=== PATIENT | male | born 1970 | race Caucasian/White ===

== ENCOUNTER 2019-05-01 10:08 | Emergency (ER) | payer OTHER, SELFPAY ==
--- NOTE | ~2019-05-01 | XR_ITS ---
XR chest 1V portable DATE: 05/01/2019 10:47 INDICATION: Anterior chest pain TECHNIQUE: Portable upright AP chest on 05/01/2019 at 1044 hours COMPARISON: 04/29/2013 2 view chest FINDINGS: Normal heart size. No hilar or mediastinal enlargement. No pulmonary infiltrate or consolid ation, pleural effusion or pulmonary vascular congestion or pneumothorax. IMPRESSION: No active cardiopulmonary disease Reviewed, dictated and finalized at location A. ER SERVICE ASSISTANT
[2019-05-01 10:08] VITALS: BP 138/96; PULSE 78; RESP 20; O2SAT 97
--- NOTE | 2019-05-01 10:32 | PC.NURSE ---
report to elan acosta
--- NOTE | 2019-05-01 10:40 | ECG_ITS ---
Measurements Intervals [place] Rate: 89 P: 62 CO: 157 QRS: 73 QRSD: 96 T: 63 QT: 344 QTc: 419 Interpretive Statements SINUS RHYTHM NORMAL ECG Electronically Signed On 05-01-2019 11:18:04 SENIOR OUTSIDE SALES REPRESENTATIVE by Bryan Juares D.O.
[2019-05-01 10:43] LABS: Basophils Absolute Auto 0.06 K/mm3 (0.00-0.10); Basophils Percent Auto 0.6 % (0.0-1.0); Eosinophils Absolute Auto 0.41 K/mm3 (0.02-0.50); Eosinophils Percent Auto 4.3 % (1.0-6.0); Hematocrit 45.4 % (40.0-54.0); Hemoglobin 15.1 g/dL (14.0-18.0); Immature Granulocyte Absolute 0.05 K/mm3 (0.00-0.00); Immature Granulocyte Percent A 0.5 % (0.0-0.0); Lymphocytes Absolute Auto 2.94 K/mm3 (1.10-4.50); Lymphocytes Percent Auto 30.7 % (18.0-42.0); Mean Corpuscular HGB Conc 33.3 g/dL (32.0-36.0); Mean Corpuscular Volume 87.3 fL (78.0-102.0); Mean Platelet Volume 9.3 fl (8.7-11.0); Monocytes Absolute Auto 0.72 K/mm3 (0.10-0.90); Monocytes Percent Auto 7.5 % (2.0-11.0); Neutrophils Absolute Auto 5.4 K/mm3 (1.7-7.2); Neutrophils Percent Auto 56.4 % (50.0-70.0); Platelet Count Result 198 K/mm3 (150-420); White Blood Count 9.6 K/mm3 (4.8-10.8)
[2019-05-01] MEDS: IPRATROPIUM 0.5 MG/ALBUTEROL SULFATE 2.5 MG AMPUL.NEB 3 ML INHALATION (10:54)
[2019-05-01 10:55] VITALS: PULSE 12
[2019-05-01 10:58] LABS: D Dimer 0.22 mg/L (0.19-0.50)
[2019-05-01 11:00] VITALS: PULSE 78; RESP 12
[2019-05-01 11:03] LABS: Alanine Aminotransferase 61 U/L (16-63); Albumin Level 3.5 g/dL (3.4-5.0); Alkaline Phosphatase 76 U/L (46-116); Anion Gap 12.2 mmol/L (7-16); Aspartate Amino Transferase 25 U/L (15-37); Bilirubin,Total 0.4 mg/dL (0.00-1.00); Blood Urea Nitrogen 16 mg/dL (7-18); Calcium 8.5 mg/dL (8.5-10.1); Carbon Dioxide 30 mmol/L (21-32); Chloride 98 mmol/L (98-108); Estimated CRCL calculation 121 ml/min; Estimated Glomerular Filt Rate > 60; Glucose 193 mg/dL (70-99); Osmolality Calculated 288 mOsm/kg (285-295); Potassium 4.2 mmol/L (3.5-5.1); Sodium 136 mmol/L (136-145); Total Protein 7.4 g/dL (6.4-8.2)
[2019-05-01 11:04] LABS: Troponin I < 0.02 ng/mL (0.00-0.056)
[2019-05-01] MEDS: methylPREDNISolone SOD SUCC 125 MG VIAL IV PUSH (11:38)
--- NOTE | 2019-05-01 11:38 | PHAR ---
PT REFUSED IV - SOLU-MEDROL GIVEN IM INJECTION LEFT VG
[2019-05-01 11:39] LABS: Influenza Control Valid (Valid)
[2019-05-01 11:44] VITALS: BP 130/75; PULSE 87; RESP 20; O2SAT 95
--- NOTE | 2019-05-01 11:47 | ED.GENADULT ---
HPI - General Adult General Chief complaint: Chest Pain Stated complaint: chest pains Source: patient and family Mode of arrival: ambulatory Limitations: no limitations History of Present Illness HPI narrative: 48-year-old gentleman that presents with shortness of breath with wheezing chest tightness nonproductive cough with no fever or chills. Has a history of COPD and diabetes was recently seen in surgery for right carpal tunnel surgery and release. Started becoming increasingly short of breath overnight with cough causing pain and with deep inspiration. Currently no chest pain or tightness no abdominal pain no nausea vomiting. Onset (ago): day(s) Location: chest Radiation: non-radiation Severity: moderate Severity scale (1-10): 7 Associated symptoms: cough and shortness of breath Related Data Home Medications Medication Instructions Recorded Confirmed hydrocodone-acetaminophen 1 tablet PO Q4-6H PRN 05/01/19 05/01/19 lisinopril-hydrochlorothiazide 1 tablet PO DAILY 05/01/19 05/01/19 metformin 1,000 mg PO BID 05/01/19 05/01/19 simvastatin 40 mg PO DAILY 05/01/19 05/01/19 Allergies Allergy/AdvReac Type Severity Reaction Status Date / Time No Known Allergies Allergy Verified 05/01/19 11:07 Review of Systems Review of Systems: All systems reviewed & are unremarkable except as noted in HPI and below PMFSH Past Medical History Medical History COPD (chronic obstructive pulmonary disease) Diabetes mellitus HTN (hypertension) Social History Social History Smoking status: Current every day smoker Exam Const: General: no acute distress and alert Orientation/consciousness: patient oriented x3 HENMT: Head: normal to inspection Eyes: Conjunctivae: conjunctivae normal Pupils: Equal, round and reactive pupils present Neck: Neck: normal visual inspection and no lymphadenopathy Chest: Chest palpation & inspection: normal inspection of the chest and abnormal inspection of the chest Resp: Auscultation: wheezes and diminished lung sounds Cardio: Rate: regular rate Rhythm: regular rhythm GI: GI Palp: Yes Soft to palpation Back/Spine/Pelvis: Back: no CVA tenderness Skin: General skin exam: normal color Rashes: no rashes Neuro: General: patient oriented x3 Other: right arm dressed and wrapped status post carpal tunnel surgery Psych: Mental Status: mental status grossly normal Course Course Emergency Course: reassessment of patient's moving air much better O2 sats at night between 95 and 97% less wheezy, patient feels and states that he is more comfortable. Vital Signs Vital signs: Vital Signs Pulse Rate 78 05/01/19 10:08 Respiratory Rate 20 05/01/19 10:08 Blood Pressure 138/96 H 05/01/19 10:08 Pulse Oximetry 97 05/01/19 10:08 Pulse Rate 87 05/01/19 11:44 Respiratory Rate 20 05/01/19 11:44 Blood Pressure 130/75 05/01/19 11:44 Pulse Oximetry 95 05/01/19 11:44 Medical Decision Making Vital Signs Vital Signs: Vital Signs Pulse Rate 78 05/01/19 10:08 Respiratory Rate 05/01/19 10:08 Blood Pressure 138/96 H 05/01/19 10:08 Pulse Oximetry 97 05/01/19 10:08 Pulse Rate 87 05/01/19 11:44 Respiratory Rate 05/01/19 11:44 Blood Pressure 130/75 05/01/19 11:44 Pulse Oximetry 95 05/01/19 11:44 Lab Data Result diagrams: 05/01/19 10:39 05/01/19 10:39 Labs: Lab Results 05/01/19 05/01/19 05/01/19 Range/Units 10:39 10:39 10:39 WBC 9.6 (4.8-10.8) K/mm3 RBC 5.20 (4.70-6.10) M/mm3 Hgb 15.1 (14.0-18.0) g/dL Hct 45.4 (40.0-54.0) % MCV 87.3 (78.0-102.0) fL MCH 29.0 (27.0-31.0) pg MCHC 33.3 (32.0-36.0) g/dL RDW 12.0 (11.6-14.4) % Plt Count 198 (150-420) K/mm3 MPV 9.3 (8.7-11.0) fl Immature Gran % (Auto) 0.5 H (0.0-0.0) % Neut % (Auto) 56.4
[2019-05-01 12:05] VITALS: RESP 20
== END 2019-05-01 12:06 | disposition home or self-care (01) ==
PROVIDERS: Emergency Provider Emergency Medicine
DX: J44.1 Chronic obstructive pulmonary disease with (acute) exacerbation (principal)
CPT/HCPCS: 36415; 71045; 80053; 84484; 85025; 85380; 87804; 93005; 94640; 96374; 99283; 99284; J2930

== ENCOUNTER 2019-05-14 11:02 | Emergency (ER) | payer OTHER, SELFPAY ==
[2019-05-14 11:47] VITALS: BP 146/80; PULSE 102; RESP 20; TEMP 36.5; O2SAT 96
--- NOTE | 2019-05-14 11:51 | ED.WOUNDLAC ---
HPI - Wound/Laceration General Chief Complaint: Wound/Laceration Stated Complaint: tore stitches open Time Seen by Provider: 05/14/19 11:52 Source: patient and RN notes reviewed Mode of arrival: ambulatory Limitations: no limitations History of Present Illness Onset (ago): hour(s) (1) Extremity Location: Right: wrist Place: work Patient tetanus UTD: Yes Context: accidental Associated symptoms: pain Treatments prior to arrival: bandage Related Data Home Medications Medication Instructions Recorded Confirmed hydrocodone-acetaminophen 1 tablet PO Q4-6H PRN 05/01/19 05/14/19 lisinopril-hydrochlorothiazide 1 tablet PO DAILY 05/01/19 05/14/19 metformin 1,000 mg PO BID 05/01/19 05/14/19 simvastatin 40 mg PO DAILY 05/01/19 05/14/19 Allergies Allergy/AdvReac Type Severity Reaction Status Date / Time No Known Allergies Allergy Verified 05/01/19 11:07 Review of Systems Constitutional: Constitutional: Reports no additional constitutional complaints Cardiovascular: Cardiovascular: Reports no additional cardiovascular complaints Respiratory: Respiratory: Reports no additional respiratory complaints Gastrointestinal: Gastrointestinal: Reports no additional gastrointestinal complaints Genitourinary: Genitourinary: Reports no additional male genitourinary complaints Psychiatric: Psychiatric: Reports no additional psychiatric complaints Hematologic/Lymphatic: Hematologic/Lymphatic: Reports no additional hematologic/lymphatic complaints [facility] Past Medical History Medical History (Updated 05/14/19 @ 14:34 by Russell Waller MD) COPD (chronic obstructive pulmonary disease) Diabetes mellitus HTN (hypertension) Surgical History Surgical History (Updated 05/14/19 @ 14:34 by Russell Waller MD) History of carpal tunnel surgery of left wrist Social History Social History Smoking status: Current every day smoker Exam Const: General: healthy appearing, no acute distress and alert Nutritional Appearance: well nourished and obese centrally obese Orientation/consciousness: patient oriented x3 HENMT: Head: normal to inspection Ears: external ears normal Face and sinus: normal facial exam Eyes: Conjunctivae: conjunctivae normal Pupils: Equal, round and reactive pupils present EOM: EOMs intact bilaterally Neck: Neck: normal visual inspection Resp: Effort & Inspection: normal respiratory effort Auscultation: clear to auscultation bilaterally Cardio: Rate: regular rate Rhythm: regular rhythm GI: GI Palp: Yes Soft to palpation and No Tenderness to palpation present (GI) Auscultation: normal bowel sounds Back/Spine/Pelvis: Cervical Spine: cervical ROM normal Thoracic/Lumbar Spine: thoraco-lumbar ROM normal Skin: General skin exam: normal color Rashes: no rashes Wounds: wounds noted incision right volar wrist size (5 cm), without odor and open Neuro: General: patient oriented x3 and moves all extremities Speech: normal speech Extrem: General: normal to inspection and no pedal edema Psych: Appearance: grossly normal and well kempt Mental Status: mental status grossly normal Affect: normal affect Attitude: cooperative Thought content: Yes Normal thought content present Course Vital Signs Vital signs: Vital Signs Temperature 36.5 C 05/14/19 11:47 Pulse Rate 102 H 05/14/19 11:47 Respiratory Rate 20 05/14/19 11:47 Blood Pressure 146/80 H 05/14/19 11:47 Pulse Oximetry 96 05/14/19 11:47 Temperature 36.5 C 05/14/19 11:47 Pulse Rate 102 H 05/14/19 11:47 Respiratory Rate 14 05/14/19 12:26 Blood Pressure 146/80 H 05/14/19 11:47 Pulse Oximetry 96 05/14/19 12:26 Procedures Laceration Laceration 1: Date: 05/14/19 Site: upper extremity (Wrist) Side (If applicable): right Size (cm): 5 Description: irregular and clean Depth: simple, single layer Local Anesthetic: lidocaine
[2019-05-14] MEDS: LIDOCAINE HCL 1% LOCAL INJ 20 ML VIAL (12:02)
--- NOTE | 2019-05-14 12:23 | PC.NURSE ---
4.0 SUTURES X10 TO RIGHT WRIST LACERATION. KIMBERLEY AND DRESSING PLACED TO RIGHT WRIST PER ERP VERBAL ORDERS.
[2019-05-14 12:26] VITALS: RESP 14; O2SAT 96
== END 2019-05-14 12:22 | disposition home or self-care (01) ==
PROVIDERS: Emergency Provider Emergency Medicine; PCP Physician Assistant
DX: S61.511A Laceration without foreign body of right wrist, initial encounter (principal); W45.8XXA Other foreign body or object entering through skin, initial encounter
CPT/HCPCS: 12002; 99282

== ENCOUNTER 2019-12-22 08:24 | Emergency (ER) | payer OTHER, SELFPAY ==
--- NOTE | ~2019-12-22 | XR_ITS ---
EXAMINATION: XR foot LT 2V DATE: 12/22/2019 08:58 INDICATION: Left foot injury. TECHNIQUE: 2 views of left foot were obtained. COMPARISON: None. FINDINGS: Bone alignment is normal. No fracture. There is mild osteoarthritis of first metatarsophala ngeal joint and some of the interphalangeal joints and midfoot joints. There are enthesophytes at the posterior and plantar aspects of calcaneal tuberosity. IMPRESSION: 1. Mild polyarticular osteoarthritis. Reviewed, dictated and finalized at location A.
[2019-12-22 08:30] VITALS: BP 138/86; PULSE 82; RESP 18; TEMP 36.6; O2SAT 97
[2019-12-22] MEDS: KETOROLAC (*BKC) 60 MG/2 ML VIAL IM (09:07)
--- NOTE | 2019-12-22 09:09 | ED.LOWEXIN ---
HPI - Extremity Injury (Lower) General Chief Complaint: Extremity Injury, Lower Stated Complaint: foot ran over by zoecat Source: patient History of Present Illness HPI Narrative: This is a 49-year-old gentleman presents with left anterior foot pain after a large tire rolled over his foot causing pain currently there is some mild swelling with point tenderness has strong brisk pedal pulse on the left with good range of motion no numbness or tingling. Pain level about 6/10. complaint: foot injury Onset (ago): hour(s) Injury: Left: foot Type of Injury: blunt Place: work Severity: moderate Severity scale (1-10): 6 Relieving factors: cold therapy Exacerbating factors: weight bearing and movement Context: direct blow Associated symptoms: swelling Other symptoms: none Related Data Home Medications Medication Instructions Recorded Confirmed hydrocodone-acetaminophen 1 tablet PO Q4-6H PRN 05/01/19 12/22/19 lisinopril-hydrochlorothiazide 1 tablet PO DAILY 05/01/19 12/22/19 metformin 1,000 mg PO BID 05/01/19 12/22/19 simvastatin 40 mg PO DAILY 05/01/19 12/22/19 Allergies Allergy/AdvReac Type Severity Reaction Status Date / Time No Known Allergies Allergy Verified 05/01/19 11:07 Review of Systems Review of Systems: All systems reviewed & are unremarkable except as noted in HPI and below PMFSH Past Medical History Medical History (Updated 12/22/19 @ 09:14 by Franki Mauro MD) COPD (chronic obstructive pulmonary disease) Diabetes mellitus HTN (hypertension) Surgical History Surgical History History of carpal tunnel surgery of left wrist Social History Social History Smoking status: Current every day smoker Exam Const: General: no acute distress Orientation/consciousness: patient oriented x3 HENMT: Head: normal to inspection Eyes: Conjunctivae: conjunctivae normal Pupils: Equal, round and reactive pupils present EOM: EOMs intact bilaterally Neck: Neck: normal visual inspection, no lymphadenopathy and no meningeal signs Chest: Chest palpation & inspection: normal inspection of the chest Resp: Effort & Inspection: normal respiratory effort Auscultation: clear to auscultation bilaterally Cardio: Rate: regular rate Rhythm: regular rhythm GI: GI Palp: Yes Soft to palpation Auscultation: normal bowel sounds Skin: General skin exam: normal color Rashes: no rashes Neuro: General: patient oriented x3 and moves all extremities Extrem: General: normal to inspection Other: Left lower anterior foot tenderness with palpation with mild swelling no bruising has a strong brisk pedal pulse with no numbness or tingling. Psych: Mental Status: mental status grossly normal Course Course Emergency Course: After reassessment with ice to affected left foot and 60 mg IM Toradol the patient's pain is significantly improved, had discussed x-ray findings which were negative and will apply an John wrap and asked the patient to follow-up with his doctor if symptoms persist or worsen. Vital Signs Vital signs: Vital Signs Temperature 36.6 C 12/22/19 08:30 Pulse Rate 82 12/22/19 08:30 Respiratory Rate 18 12/22/19 08:30 Blood Pressure 138/86 12/22/19 08:30 Pulse Oximetry 97 12/22/19 08:30 Temperature 36.6 C 12/22/19 08:30 Pulse Rate 82 12/22/19 08:30 Respiratory Rate 18 12/22/19 08:30 Blood Pressure 138/86 12/22/19 08:30 Pulse Oximetry 97 12/22/19 08:30 Critical Care Time Critical Care Time Critical Care Time: No Discharge Plan Discharge Clinical Impression: Muscle strain of foot Qualifiers: Encounter type: initial encounter Laterality: left Qualified Code(s): S96.912A - Strain of unspecified muscle and tendon at ankle and foot level, left foot, initial encounter Patient Disposition: Home, Self-Care Condition: Stable Instructions: Antibiotic
== END 2019-12-22 09:17 | disposition home or self-care (01) ==
PROVIDERS: Emergency Provider Emergency Medicine; PCP Physician Assistant
DX: S96.912A Strain of unspecified muscle and tendon at ankle and foot level, left foot, initial encounter (principal); W31.89XA Contact with other specified machinery, initial encounter
CPT/HCPCS: 73620; 96372; 99283; J1885

== ENCOUNTER 2020-03-15 11:07 | Emergency (ER) | payer BC, SELFPAY ==
--- NOTE | ~2020-03-15 | XR_ITS ---
EXAMINATION: XR chest 2V DATE: 03/15/2020 11:40 INDICATION: Left chest pain. Cough. TECHNIQUE: Frontal and lateral views of the chest were obtained. COMPARISON: Chest one view 05/01/2019, chest CT 05/08/2013 FINDINGS: The chest demonstrates clear lungs without pneumonia, pleural effusion, or pneumothorax. Th e heart size is normal. IMPRESSION: 1. No acute cardiopulmonary disease. Reviewed, dictated and finalized at location A. HOSTESS
[2020-03-15 11:09] VITALS: BP 128/95; PULSE 83; RESP 14; TEMP 36.8; O2SAT 95
--- NOTE | 2020-03-15 11:09 | ECG_ITS ---
Measurements Intervals [place] Rate: 87 P: 45 DC: 177 QRS: 58 QRSD: 109 T: 60 QT: 366 QTc: 442 Interpretive Statements SINUS RHYTHM INCOMPLETE RIGHT BUNDLE BRANCH BLOCK BASELINE ARTIFACT- I, II, III, AVL BORDERLINE ECG Electronically Signed On 03-15-2020 11:28:10 EDUCATION DEPARTMENT CHAIR by Bryan Juares D.O.
--- NOTE | 2020-03-15 11:15 | ED.CHESTPAIN ---
HPI - Chest Pain General Chief Complaint: Chest Pain Stated Complaint: chest pain Time Seen by Provider: 03/15/20 11:09 Source: patient and RN notes reviewed Mode of arrival: ambulatory Limitations: no limitations History of Present Illness complaint: chest pain Onset (ago): day(s) (2) Timing of current episode: episodic Onset: during exertion Pain location: substernal Pain radiation: none Severity: moderate Quality: tightness and heaviness Relieving factors: nothing Exacerbating factors: exertion Context: recent illness Associated symptoms: cough (Hx/o COPD) Risk Factors Coronary artery disease risk factors: diabetes, smoking history and hypertension Pulmonary embolism risk factors: morbid obesity Related Data Home Medications Medication Instructions Recorded Confirmed lisinopril-hydrochlorothiazide 1 tablet PO DAILY 05/01/19 03/15/20 metformin 1,000 mg PO BID 05/01/19 03/15/20 simvastatin 40 mg PO DAILY 05/01/19 03/15/20 albuterol sulfate 0.63 mg INHALATION Q4-6H PRN 03/15/20 03/15/20 glipizide 5 mg PO QAM 03/15/20 03/15/20 tiotropium bromide [Spiriva with 1 cap INHALATION DAILY 03/15/20 03/15/20 HandiHaler] Allergies Allergy/AdvReac Type Severity Reaction Status Date / Time No Known Allergies Allergy Verified 05/01/19 11:07 Review of Systems Review of Systems: All systems reviewed & are unremarkable except as noted in HPI and below Respiratory: Respiratory: Reports chest congestion, Reports cough and Reports dyspnea PMFSH Past Medical History Medical History (Updated 03/15/20 @ 12:47 by Russell Waller MD) COPD (chronic obstructive pulmonary disease) Diabetes mellitus HTN (hypertension) Surgical History Surgical History History of carpal tunnel surgery of left wrist Social History Social History Smoking status: Current every day smoker Exam Const: General: healthy appearing and no acute distress Nutritional Appearance: well nourished and obese morbidly obese Orientation/consciousness: patient oriented x3 HENMT: Head: normal to inspection Ears: external ears normal Eyes: Conjunctivae: conjunctivae normal Pupils: Equal, round and reactive pupils present EOM: EOMs intact bilaterally Neck: Neck: normal visual inspection Resp: Effort & Inspection: normal respiratory effort Auscultation: rhonchi throughout Cardio: Rate: regular rate Rhythm: regular rhythm GI: GI Palp: Yes Soft to palpation and No Tenderness to palpation present (GI) Auscultation: normal bowel sounds Back/Spine/Pelvis: Cervical Spine: cervical ROM normal Thoracic/Lumbar Spine: thoraco-lumbar ROM normal Skin: General skin exam: normal color Rashes: no rashes Neuro: General: patient oriented x3, moves all extremities and no focal motor deficits Speech: normal speech Gait exam (Neuro): Normal gait present Extrem: General: normal to inspection and no pedal edema Psych: Appearance: grossly normal and well kempt Mental Status: mental status grossly normal Affect: normal affect Attitude: cooperative Thought content: Yes Normal thought content present Course Course Emergency Course: Patient much improved after DuoNeb. He is given IV Solu-Medrol 125 mg prior to discharge. He will be sent home on antibiotics and steroids to follow up with this primary care physician. Vital Signs Vital signs: Vital Signs Temperature 36.8 C 03/15/20 11:09 Pulse Rate 83 03/15/20 11:09 Respiratory Rate 14 03/15/20 11:09 Blood Pressure 128/95 H 03/15/20 11:09 Pulse Oximetry 95 03/15/20 11:09 Temperature 36.8 C 03/15/20 11:09 Pulse Rate 87 03/15/20 12:44 Respiratory Rate 16 03/15/20 12:44 Blood Pressure 125/65 03/15/20 12:44 Pulse Oximetry 95 03/15/20 12:55 MDM - Chest Pain Lab Data Attestation: I reviewed the patient's lab results. Result diagrams: 03/15/20 11:09
[2020-03-15 11:22] VITALS: PULSE 86; RESP 16; O2SAT 97
[2020-03-15] MEDS: IPRATROPIUM 0.5 MG/ALBUTEROL SULFATE 2.5 MG AMPUL.NEB 3 ML INHALATION (11:22)
[2020-03-15 11:26] VITALS: PULSE 89; RESP 16; O2SAT 99
[2020-03-15 11:33] LABS: Basophils Absolute Auto 0.06 K/mm3 (0.00-0.10); Basophils Percent Auto 0.6 % (0.0-1.0); Eosinophils Absolute Auto 0.36 K/mm3 (0.02-0.50); Eosinophils Percent Auto 3.5 % (1.0-6.0); Hematocrit 45.7 % (40.0-54.0); Hemoglobin 15.4 g/dL (14.0-18.0); Immature Granulocyte Absolute 0.05 K/mm3 (0.00-0.00); Immature Granulocyte Percent A 0.5 % (0.0-0.0); Lymphocytes Absolute Auto 2.79 K/mm3 (1.10-4.50); Lymphocytes Percent Auto 26.9 % (18.0-42.0); Mean Corpuscular HGB Conc 33.7 g/dL (32.0-36.0); Mean Corpuscular Hemoglobin 30.3 pg (27.0-31.0); Mean Platelet Volume 9.2 fl (8.7-11.0); Monocytes Percent Auto 6.8 % (2.0-11.0); Neutrophils Absolute Auto 6.4 K/mm3 (1.7-7.2); Neutrophils Percent Auto 61.7 % (50.0-70.0); Platelet Count Result 191 K/mm3 (150-420); Red Blood Count 5.08 M/mm3 (4.70-6.10); Red Cell Distribution Width 11.9 % (11.6-14.4); White Blood Count 10.4 K/mm3 (4.8-10.8)
[2020-03-15] MEDS: ASPIRIN 81 MG CHEWABLE TABLET 324 MG PO (11:40)
[2020-03-15 11:51] LABS: INR 0.9; Prothrombin Time 10.3 Seconds (9.50-12.10)
[2020-03-15 11:52] LABS: Lactic Acid Reflex 3.3 mmol/L (0.4-2.0)
[2020-03-15 11:54] LABS: Alanine Aminotransferase 57 U/L (16-63); Albumin Level 3.6 g/dL (3.4-5.0); Alkaline Phosphatase 85 U/L (46-116); Anion Gap 13 mmol/L (8-16); Aspartate Amino Transferase 25 U/L (15-37); Bilirubin,Total 0.3 mg/dL (0.00-1.00); Blood Urea Nitrogen 11 mg/dL (7-18); Calcium 8.7 mg/dL (8.5-10.1); Carbon Dioxide 27 mmol/L (21-32); Chloride 98 mmol/L (98-108); Estimated CRCL calculation 105 ml/min; Estimated Glomerular Filt Rate > 60; Glucose 220 mg/dL (70-99); Magnesium 1.8 mg/dL (1.8-2.4); Osmolality Calculated 292 mOsm/kg (285-295); Potassium 3.5 mmol/L (3.5-5.1); Sodium 138 mmol/L (136-145); Total Protein 7.5 g/dL (6.4-8.2)
[2020-03-15 11:55] LABS: Troponin I 11.5 ng/L (0.00-60.4)
[2020-03-15 11:55] LABS: BNP 29.7 pg/mL (0-100)
[2020-03-15 11:56] LABS: CRP 0.6 mg/dL (0.0-0.9)
[2020-03-15 12:10] LABS: D Dimer 0.43 mg/L (0.19-0.50)
[2020-03-15] MEDS: methylPREDNISolone SOD SUCC 125 MG VIAL IV PUSH (12:43)
[2020-03-15 12:44] VITALS: BP 125/65; PULSE 87; RESP 16; O2SAT 95
[2020-03-15 12:55] VITALS: O2SAT 95
== END 2020-03-15 12:55 | disposition home or self-care (01) ==
PROVIDERS: Emergency Provider Emergency Medicine
DX: J44.1 Chronic obstructive pulmonary disease with (acute) exacerbation (principal); F17.200 Nicotine dependence, unspecified, uncomplicated
CPT/HCPCS: 36415; 71046; 80053; 83605; 83735; 83880; 84484; 85025; 85380; 85610; 86140; 87040; 87077; 87186; 93005; 94640; 96374; 99283; 99284; A9270; J2930

== ENCOUNTER 2020-04-06 11:35 | Outpatient (CLI) | payer BC, SELFPAY ==
--- NOTE | ~2020-04-06 | XR_ITS ---
EXAMINATION: XR chest 2V 04/06/2020 12:05 INDICATION: Cough and congestion. COPD. PROCEDURE: 2 view chest COMPARISON: 03/15/2020 FINDINGS: The lungs are clear. The cardiomediastinal silhouette is within normal limits. There are no pleural effusions. There is no pneumothorax suspected. IMPRESSION: 1: NO ACUTE CARDIOPULMONARY DISEASE. Reviewed, dictated and finalized at location A. RLEADER
[2020-04-06 12:43] LABS: SARS-CoV-2 Ag Negative (Negative)
== END 2020-04-06 11:36 | disposition home or self-care (01) ==
LOC: CHSLAB 11:38
PROVIDERS: PCP Family Medicine; Visit Provider Family Medicine
DX: J44.9 Chronic obstructive pulmonary disease, unspecified (principal); Z20.828 Contact with and (suspected) exposure to other viral communicable diseases
CPT/HCPCS: 71046; 87426; C9803; U0003

== ENCOUNTER 2020-04-06 11:39 | Outpatient (CLI) | payer BC, SELFPAY ==
[2020-04-06 23:29] LABS: SARS-CoV-2 RNA PCR Negative
== END 2020-04-06 11:40 | disposition home or self-care (01) ==
LOC: CHSLAB 11:40
PROVIDERS: PCP Family Medicine; Visit Provider Family Medicine
DX: J44.9 Chronic obstructive pulmonary disease, unspecified (principal); Z20.828 Contact with and (suspected) exposure to other viral communicable diseases
CPT/HCPCS: C9803; U0003

== ENCOUNTER 2020-08-05 16:54 | Outpatient (CLI) | payer BC, SELFPAY ==
--- NOTE | ~2020-08-05 | XR_ITS ---
EXAMINATION: XR hip RT min 2V DATE: 08/05/2020 17:40 INDICATION: Right hip pain. TECHNIQUE: 2 views of right hip were obtained. COMPARISON: None. FINDINGS: Bone alignment is normal. No fracture. There is mild right hip osteoarthritis. IMPRESSION: 1. Mild right hip osteoarthritis. Reviewed, dictated and finalized at location A.
--- NOTE | ~2020-08-05 | XR_ITS ---
EXAMINATION: XR lumbar spine 2-3V DATE: 08/05/2020 17:41 INDICATION: Low back pain. TECHNIQUE: 3 views of lumbar spine were obtained. COMPARISON: None. FINDINGS: There is 4 degrees levocurvature of lumbar spine. Vertebral body heights are normal. There is mildly decreased disc height at L4-L5. At L5-S1, there is severe bilateral facet joint osteoarthri tis. IMPRESSION: 1. Mild lumbar spondylosis. Reviewed, dictated and finalized at location A. IMPRESSION: 1. Mild lumbar spondylosis.
== END 2020-08-05 16:55 | disposition home or self-care (01) ==
LOC: CHSIMG 16:55
PROVIDERS: PCP Family Medicine; Visit Provider Family Medicine
DX: M25.551 Pain in right hip (principal); M47.26 Other spondylosis with radiculopathy, lumbar region; M16.11 Unilateral primary osteoarthritis, right hip
CPT/HCPCS: 72100; 73502

== ENCOUNTER 2020-08-13 11:26 | Emergency (ER) | payer BC, SELFPAY ==
[2020-08-13 11:37] VITALS: BP 162/106; PULSE 92; RESP 20; TEMP 36.4; O2SAT 95
--- NOTE | 2020-08-13 11:49 | ED.BACK ---
HPI - Back Pain/Injury General Chief Complaint: Back Pain/Injury Stated Complaint: R leg, R hip and back pain Time Seen by Provider: 08/13/20 11:45 Source: patient and family Mode of arrival: ambulatory Limitations: no limitations History of Present Illness HPI Narrative: 49-year-old man with a history of diabetes and hypertension comes in today complaining of right lower back pain that radiates up his back and down his right leg. He states he is also having numbness in his right leg. He states his symptoms are steadily getting worse and is now having difficulty walking due to the pain. Denies any hematuria, dysuria, testicular pain or swelling, fevers or night sweats, nausea or vomiting. States that he had x-rays last week which were unremarkable. MD elicited complaint: back pain Onset (ago): month(s) (1) Timing: constant Severity: severe Quality: sharp Location: right lower back Radiation: right upper leg and right leg below the knee Exacerbating factors: movement and walking Relieving factors: other (rest/position) Associated symptoms: numbness (right leg) and difficulty walking (due to pain) Treatments prior to arrival: NSAIDS and prescription analgesics Related Data Home Medications Medication Instructions Recorded Confirmed lisinopril-hydrochlorothiazide 1 tablet PO DAILY 05/01/19 08/13/20 metformin 1,000 mg PO BID 05/01/19 08/13/20 simvastatin 40 mg PO DAILY 05/01/19 08/13/20 albuterol sulfate 0.63 mg INHALATION Q4-6H PRN 03/15/20 08/13/20 glipizide 7.5 mg PO QAM 03/15/20 08/13/20 cyclobenzaprine 10 mg PO TID 08/13/20 08/13/20 gabapentin 300 mg PO BID 08/13/20 08/13/20 naproxen 500 mg PO BID 08/13/20 08/13/20 tramadol 50 mg PO Q4H PRN 08/13/20 08/13/20 Allergies Allergy/AdvReac Type Severity Reaction Status Date / Time No Known Allergies Allergy Verified 05/01/19 11:07 Review of Systems Review of Systems: All systems reviewed & are unremarkable except as noted in HPI and below Constitutional: Constitutional: Denies chills and Denies fever(s) Eyes: Eyes: Denies change in vision and Denies photophobia ENT: Denies nasal congestion and Denies sore throat Cardiovascular: Cardiovascular: Denies chest pain and Denies radiating jaw, neck or arm pain Respiratory: Respiratory: Denies cough and Denies dyspnea Gastrointestinal: Gastrointestinal: Denies abdominal pain, Denies nausea and Denies vomiting Genitourinary: Genitourinary: Denies hematuria and Denies dysuria Musculoskeletal: Musculoskeletal: Reports back pain, Denies arthralgias, Denies joint swelling and Reports muscle cramps Integumentary/Breasts: Skin/Breast: Denies pruritus, Denies erythema and Denies rash Neurologic: Denies vertigo, Denies dizziness and Denies syncope Hematologic/Lymphatic: Hematologic/Lymphatic: Denies easy bleeding and Denies easy bruising Allergic/Immunologic: Allergic/Immunologic: Denies lip swelling and Denies throat swelling PMFSH Past Medical History Medical History COPD (chronic obstructive pulmonary disease) Diabetes mellitus HTN (hypertension) Surgical History Surgical History History of carpal tunnel surgery of left wrist Social History Social History Smoking status: Current every day smoker Exam Const: General: healthy appearing and alert Nutritional Appearance: obese Orientation/consciousness: patient oriented x3 Other: Moderate to severe acute distress. Resp: Effort & Inspection: normal respiratory effort and not labored Auscultation: no rales, no rhonchi and no wheezes Cardio: Rate: regular rate Rhythm: regular rhythm Heart sounds: no murmurs Skin: General skin exam: normal color, no jaundice and no pallor Rashes: no rashes Neuro: General: patient oriented x3, moves all extremities and no focal motor deficits Speech: n
[2020-08-13] MEDS: KETOROLAC (*BKC) 60 MG/2 ML VIAL IM (11:55)
[2020-08-13] MEDS: HYDROcodone/acetaminophen (*CRX) 5-325 MG TABLET 1 TAB PO (11:56)
[2020-08-13 12:03] LABS: Appearance Urine Clear (Clear); Bilirubin Urine Negative (Negative); Color Urine Yellow (Yellow); Glucose Urine UA Negative (Negative); Ketones Urine Negative (Negative); Leukocyte Esterase Ur Negative (Negative); Nitrate Urine Negative (Negative); Protein Urine Negative (Negative); Specific Grav Ur 1.015 (1.010-1.020); Urobilinogen Urine 0.2 mg/dL (0.2-1.0); pH Urine 8.5 (5.0-8.0)
[2020-08-13 12:05] LABS: Add Urine Microscopic? YES; Bacteria Urine Trace /hpf; Blood Urine Trace-Intact (Negative); RBC Urine 0-2 /hpf (0-2); Squamous Epithelial Cell Urine Rare /hpf (Few); WBC Urine None seen /hpf (0-3)
[2020-08-13 12:45] VITALS: BP 158/106; PULSE 80; RESP 16; O2SAT 96
== END 2020-08-13 12:45 | disposition home or self-care (01) ==
PROVIDERS: Emergency Provider Emergency Medicine; PCP Family Medicine
DX: M54.31 Sciatica, right side (principal)
CPT/HCPCS: 81001; 96372; 99283; A9270; J1885

== ENCOUNTER 2020-08-18 07:21 | Outpatient (CLI) | payer BC, SELFPAY ==
--- NOTE | ~2020-08-18 | MR_ITS ---
EXAMINATION: MR lumbar spine wo con EXAM DATE: 08/18/2020 11:59 INDICATION: Lumbar radiculopathy. Low back pain, right-sided radiculopathy. TECHNIQUE: Multi-sequential, multiplanar MR images of the lumbar spine were obtained without contrast . Sagittal T1, T2, T2 fat saturation images. Axial T2 weighted images. There is no prior study for comparison. FINDINGS: There is mild loss of the L4-5 disc height. The vertebral body and disc heights are otherwi se well maintained. The conus medullaris terminates at the T12 level and has normal signal intensity and morphology. There are no suspicious marrow signal abnormalities. Paraspinal soft tissue is unrem arkable. Level by level evaluation: T12-L1: Disc does not extend beyond the endplate margin. Facet arthropathy: Mild. Neural foraminal stenosis: Mild left. Central canal stenosis: No stenosis. L1-L2: Disc does not extend beyond the endplate margin. Facet arthropathy: Mild. Neural foraminal stenosis: No stenosis. Central canal stenosis: No stenosis. L2-L3: Disc does not extend beyond the endplate margin. Facet arthropathy: Mild to moderate. Neural foraminal stenosis: No stenosis. Central canal stenosis: No stenosis. L3-L4: There is a mild diffuse disc bulge. Facet arthropathy: Mild to moderate. Neural foraminal stenosis: Mild bilateral. Central canal stenosis: Mild. L4-L5: There is a moderate diffuse disc bulge, superimposed central protrusion Facet arthropathy: Moderate. Neural foraminal stenosis: Mild bilateral. Central canal stenosis: Moderate to severe. L5-S1: There is a mild diffuse disc bulge. Facet arthropathy: Moderate to severe right, moderate left. Neural foraminal stenosis: Moderate right, mild left. Central canal stenosis: Mild. IMPRESSION: 1. L4-5 moderate to severe central canal stenosis. 2. Otherwise relatively mild lumbar spondylosis. Reviewed, dictated and finalized at location A.
== END 2020-08-18 07:22 | disposition home or self-care (01) ==
LOC: CHSIMG 07:22
PROVIDERS: PCP Family Medicine; Visit Provider Family Medicine
DX: M54.16 Radiculopathy, lumbar region (principal)
CPT/HCPCS: 72148

== ENCOUNTER 2021-08-25 10:15 | Observation (INO) | payer OTHER, SELFPAY ==
[2021-08-25] VITALS (9 sets, daily range): BP systolic 124–147; BP diastolic 78–102; PULSE 85–109; RESP 16–24; TEMP 36.4–36.6; O2SAT 92–99; BMI 42.3
--- NOTE | ~2021-08-25 | XR_ITS ---
EXAMINATION: XR chest 1V portable DATE: 08/25/2021 10:37 INDICATION: Dyspnea. TECHNIQUE: A single frontal view of the chest was obtained. COMPARISON: Chest 2 views 04/06/2020, chest CT 05/08/2013 FINDINGS: There is no pneumonia, pleural effusion, or pneumothorax. The heart size is normal. IMPRESSION: 1. No acute cardiopulmonary disease. Reviewed, dictated and finalized at location A.
--- NOTE | 2021-08-25 10:26 | ECG_ITS ---
Measurements Intervals [place] Rate: 102 P: 63 UT: 149 QRS: 56 QRSD: 96 T: 65 QT: 319 QTc: 417 Interpretive Statements SINUS TACHYCARDIA DELAYED PRECORDIAL R/S TRANSITION BASELINE ARTIFACT- II, III, AVF BORDERLINE ECG Electronically Signed On 08-25-2021 10:56:42 CDT by Bryan Juares D.O.
[2021-08-25] MEDS: IPRATROPIUM 0.5 MG/ALBUTEROL SULFATE 2.5 MG AMPUL.NEB 3 ML INHALATION (10:37)
[2021-08-25 10:53] LABS: Basophils Absolute Auto 0.08 K/mm3 (0.00-0.10); Basophils Percent Auto 0.7 % (0.0-1.0); Eosinophils Absolute Auto 0.21 K/mm3 (0.02-0.50); Eosinophils Percent Auto 1.9 % (1.0-6.0); Hematocrit 49.3 % (40.0-54.0); Hemoglobin 16.7 g/dL (14.0-18.0); Immature Granulocyte Absolute 0.05 K/mm3 (0.00-0.00); Immature Granulocyte Percent A 0.5 % (0.0-0.0); Lymphocytes Percent Auto 28.4 % (18.0-42.0); Mean Corpuscular HGB Conc 33.9 g/dL (32.0-36.0); Mean Corpuscular Hemoglobin 29.3 pg (27.0-31.0); Mean Corpuscular Volume 86.6 fL (78.0-102.0); Mean Platelet Volume 9.5 fl (8.7-11.0); Monocytes Absolute Auto 0.82 K/mm3 (0.10-0.90); Monocytes Percent Auto 7.5 % (2.0-11.0); Neutrophils Absolute Auto 6.7 K/mm3 (1.7-7.2); Platelet Count Result 219 K/mm3 (150-420); Red Blood Count 5.69 M/mm3 (4.70-6.10); Red Cell Distribution Width 11.6 % (11.6-14.4); White Blood Count 10.9 K/mm3 (4.8-10.8)
[2021-08-25] MEDS: methylPREDNISolone SOD SUCC 125 MG VIAL IV PUSH (10:53)
[2021-08-25 11:06] LABS: D Dimer 0.23 mg/L (0.19-0.50); Partial Thromboplastin Time 26.8 SEC (23.90-30.70); Prothrombin Time 10.6 Seconds (9.50-12.10)
[2021-08-25 11:14] LABS: Alanine Aminotransferase 37 U/L (16-63); Albumin Level 3.5 g/dL (3.4-5.0); Alkaline Phosphatase 103 U/L (46-116); Anion Gap 5 mmol/L (8-16); Aspartate Amino Transferase 12 U/L (15-37); Bilirubin,Total 0.3 mg/dL (0.00-1.00); Blood Urea Nitrogen 18 mg/dL (7-18); Calcium 8.8 mg/dL (8.5-10.1); Carbon Dioxide 29 mmol/L (21-32); Chloride 94 mmol/L (98-108); Estimated CRCL calculation 121 ml/min; Estimated Glomerular Filt Rate > 60; Glucose 296 mg/dL (70-99); NT Pro B Type Natriuretic Pept < 11 pg/mL (0-125); Osmolality Calculated 278 mOsm/kg (285-295); Potassium 4.3 mmol/L (3.5-5.1); Sodium 128 mmol/L (136-145); Total Protein 7.2 g/dL (6.4-8.2); Troponin I 11.9 ng/L (0.00-60.4)
--- NOTE | 2021-08-25 11:27 | ED.SOB ---
HPI - SOB/Dyspnea General Chief Complaint: Shortness of Breath/Dyspnea Stated Complaint: chest pains Source: patient Mode of arrival: ambulatory History of Present Illness HPI Narrative: this is a 50-year-old gentleman with a history of a COPD and tobacco abuse with history of hypertension And diabetes, over the past 2 weeks has been increasingly short of breath with a cough with white mucus production no fever chills over last 24hours the patient has been more short of breath and audible wheezing with no retractions, patient describes some chest discomfort and chest tightness with no abdominal pain no fever chills no nausea vomiting. MD elicited complaint: shortness of breath and cough Pertinent past history: COPD Onset (ago): week(s) Timing: constant Severity: moderate Related Data Home Medications Medication Instructions Recorded Confirmed lisinopril 20 1 tablet PO DAILY 05/01/19 08/13/20 mg-hydrochlorothiazide 12.5 mg tablet metformin 1,000 mg tablet 1,000 mg PO BID 05/01/19 08/13/20 simvastatin 40 mg tablet 40 mg PO DAILY 05/01/19 08/13/20 albuterol sulfate 0.63 mg/3 mL 0.63 mg inhalation Q4-6H PRN 03/15/20 08/13/20 solution for nebulization Shortness Of Breath Or Wheezing glipizide 5 mg tablet, extended 7.5 mg PO QAM 03/15/20 08/13/20 release 24 hr cyclobenzaprine 10 mg tablet 10 mg PO TID 08/13/20 08/13/20 gabapentin 300 mg capsule 300 mg PO BID 08/13/20 08/13/20 naproxen 500 mg tablet 500 mg PO BID 08/13/20 08/13/20 tramadol 50 mg tablet 50 mg PO Q4H PRN Pain 08/13/20 08/13/20 Allergies Allergy/AdvReac Type Severity Reaction Status Date / Time No Known Allergies Allergy Verified 05/01/19 11:07 Review of Systems Review of Systems: All systems reviewed & are unremarkable except as noted in HPI and below PMFSH Past Medical History Medical History COPD (chronic obstructive pulmonary disease) Diabetes mellitus HTN (hypertension) Surgical History Surgical History History of carpal tunnel surgery of left wrist Social History Social History Smoking status: Current every day smoker Exam Const: General: healthy appearing, no acute distress and alert Nutritional Appearance: well nourished Limitations: no limitations and altered mental status HENMT: Head: normal to inspection Eyes: Conjunctivae: conjunctivae normal EOM: EOMs intact bilaterally Neck: Neck: normal visual inspection, no lymphadenopathy and lymphadenopathy Chest: Chest palpation & inspection: normal inspection of the chest Resp: Effort & Inspection: normal respiratory effort Auscultation: wheezes and diminished lung sounds Cardio: Rate: regular rate Rhythm: regular rhythm GI: GI Palp: Yes Soft to palpation Auscultation: normal bowel sounds Urinary Catheter: Urinary Catheter: patent and draining Back/Spine/Pelvis: Back: no CVA tenderness Skin: General skin exam: normal color Rashes: no rashes Wounds: no wounds Neuro: General: patient oriented x3, moves all extremities, no meningeal signs and no focal motor deficits Extrem: General: normal to inspection Psych: Mental Status: mental status grossly normal Course Course Emergency Course: patient states that he is feeling better after he received DuoNebs and IV Solu-Medrol, EKG reviewed with patient as well as his blood work will start IV fluids his sodium was 128 and the rest of his blood work was reviewed with patient. Talked to hospitalist that accepted the patient for admission. Vital Signs Vital signs: Vital Signs Temperature 36.4 C L 08/25/21 10:15 Pulse Rate 109 H 08/25/21 10:15 Respiratory Rate 24 H 08/25/21 10:15 Blood Pressure 124/98 H 08/25/21 10:15 Pulse Oximetry 95 08/25/21 10:15 Oxygen Delivery Room Air 08/25/21 10:15 Temperature 36.4 C L 08/25/21 10:15
[2021-08-25] MEDS: SODIUM CHLORIDE 0.9% IV 1,000 ML 100 ML IV CONT ×2 (12:20→21:49)
[2021-08-25 12:35] LABS: Glucose Point of Care 265 mg/dl (65-105)
[2021-08-25] MEDS: LEVALBUTEROL NEB 1.25 MG/3 ML 2.5 MG INHALATION ×2 (14:05→22:34)
--- NOTE | 2021-08-25 14:14 | PC.NURSE ---
Pt admitted to med surge from ED. Denies pain or SOB. Gait is steady at this time. NS running at 100/ml per H. IV site RAC 18G. He is A/Ox3.
[2021-08-25 16:19] LABS: Glucose Point of Care > 450 mg/dl (65-105)
[2021-08-25] MEDS: GABAPENTIN 300 MG CAPSULE PO (16:34)
--- NOTE | 2021-08-25 16:54 | PC.NURSE ---
Juan Ramon Mandujano, Hospitalist notified of blood sugar result of 490. New order received to give a one time dose of Humalog 15 units.
--- NOTE | 2021-08-25 17:07 | PC.NURSE ---
Sabina, Hospitalist, notified that patient's family requested an order for Ibuprofen for pain. No new order for medication received due to patient's GI bleed.
[2021-08-25] MEDS: NICOTINE (*PBKC) 21 MG PATCH 1 PATCH TRANSDERM (21:03)
[2021-08-25 21:09] LABS: Glucose Point of Care 361 mg/dl (65-105)
[2021-08-26] VITALS: BP 127/74; PULSE 96; RESP 16; TEMP 36.4; O2SAT 94
[2021-08-26] MEDS: ACETAMINOPHEN 325 MG TABLET 650 MG PO (02:33)
[2021-08-26 05:23] LABS: Basophils Absolute Auto 0.01 K/mm3 (0.00-0.10); Basophils Percent Auto 0.1 % (0.0-1.0); Eosinophils Absolute Auto 0.01 K/mm3 (0.02-0.50); Eosinophils Percent Auto 0.1 % (1.0-6.0); Hematocrit 44.2 % (40.0-54.0); Hemoglobin 14.9 g/dL (14.0-18.0); Immature Granulocyte Absolute 0.08 K/mm3 (0.00-0.00); Immature Granulocyte Percent A 0.5 % (0.0-0.0); Lymphocytes Absolute Auto 1.97 K/mm3 (1.10-4.50); Lymphocytes Percent Auto 13.4 % (18.0-42.0); Mean Corpuscular HGB Conc 33.7 g/dL (32.0-36.0); Mean Corpuscular Hemoglobin 29.3 pg (27.0-31.0); Mean Platelet Volume 9.6 fl (8.7-11.0); Monocytes Absolute Auto 0.94 K/mm3 (0.10-0.90); Monocytes Percent Auto 6.4 % (2.0-11.0); Neutrophils Absolute Auto 11.7 K/mm3 (1.7-7.2); Neutrophils Percent Auto 79.5 % (50.0-70.0); Platelet Count Result 186 K/mm3 (150-420); Red Blood Count 5.08 M/mm3 (4.70-6.10); Red Cell Distribution Width 11.4 % (11.6-14.4); White Blood Count 14.7 K/mm3 (4.8-10.8)
[2021-08-26 05:34] LABS: Anion Gap 6 mmol/L (8-16); Blood Urea Nitrogen 16 mg/dL (7-18); Calcium 8.3 mg/dL (8.5-10.1); Carbon Dioxide 28 mmol/L (21-32); Chloride 96 mmol/L (98-108); Estimated CRCL calculation 123 ml/min; Estimated Glomerular Filt Rate > 60; Glucose 263 mg/dL (70-99); Osmolality Calculated 280 mOsm/kg (285-295); Potassium 4.1 mmol/L (3.5-5.1); Sodium 130 mmol/L (136-145)
[2021-08-26] MEDS: LEVALBUTEROL NEB 1.25 MG/3 ML 2.5 MG INHALATION (06:46)
[2021-08-26 06:48] VITALS: PULSE 80; RESP 15; O2SAT 96
[2021-08-26 07:01] VITALS: PULSE 83; RESP 16; O2SAT 99
[2021-08-26 07:44] VITALS: BP 134/89; PULSE 82; RESP 16; TEMP 36.6; O2SAT 96
[2021-08-26] MEDS: SIMVASTATIN 10 MG TABLET 40 MG PO (09:00)
[2021-08-26] MEDS: NICOTINE (*PBKC) 21 MG PATCH 1 PATCH TRANSDERM (09:16)
[2021-08-26] MEDS: GABAPENTIN 300 MG CAPSULE PO (09:17)
[2021-08-26] MEDS: PANTOPRAZOLE 40 MG TABLET PO (09:17)
--- NOTE | 2021-08-26 09:23 | PM.SD2 ---
Same Day Admit/Disch: HPI History of Present Illness Chief complaint: copd exacerbation Narrative: Miguel Caraballo III is a 50 year old male [facility] Past Medical History Medical History COPD (chronic obstructive pulmonary disease) Diabetes mellitus HTN (hypertension) Surgical History Surgical History History of carpal tunnel surgery of left wrist Social History Social History Smoking status: Unknown if ever smoked Alcohol intake: current Drinks per week: 2 Substance use: never Substance use type: does not use Gender identity (if verbalized by the patient): Male Sexual Orientation (if Verbalized by the Patient): Straight or Heterosexual Spiritual care concerns: No Same Day Admit/Disch: Med Pre-admit Medications Home Medications Medication Instructions Recorded Confirmed Type metformin 1,000 mg tablet 1,000 mg PO BID 05/01/19 08/25/21 History simvastatin 40 mg tablet 40 mg PO DAILY 05/01/19 08/25/21 History glipizide 5 mg tablet, extended 7.5 mg PO QAM 03/15/20 08/25/21 History release 24 hr gabapentin 300 mg capsule 300 mg PO BID 08/13/20 08/25/21 History irbesartan 150 1 tablet PO DAILY 08/25/21 08/25/21 History mg-hydrochlorothiazide 12.5 mg tablet albuterol sulfate 0.63 mg/3 mL 0.63 mg (3 mL) inhalation Q4-6H 08/26/21 Rx solution for nebulization PRN Shortness Of Breath Or Wheezing #75 mL albuterol sulfate 90 mcg/actuation 2 puff inhalation QID PRN 08/26/21 Rx aerosol inhaler shortness of breath or wheezing #8.5 grams azithromycin 250 mg tablet 250 mg PO DAILY 6 days #6 tabs 08/26/21 Rx (Zithromax Z-Miguel) benzonatate 200 mg capsule 200 mg PO TID PRN cough #30 caps 08/26/21 Rx ipratropium 0.5 mg-albuterol 3 mg 3 ml inhalation QID PRN shortness 08/26/21 Rx (2.5 mg base)/3 mL nebulization of breath or wheezing #90 mL soln methylprednisolone 4 mg tablets in See Rx Instructions PO .COMPLEX 08/26/21 Rx a dose pack (Medrol (Miguel)) #21 ea Exam Narrative: GENERAL:Well-appearing, well-nourished, and in no acute distress. HEAD:Normocephalic, atraumatic. EYES: PERRLA and EOMI. ENT: Nares clear, no rhinorrhea or epistaxis. Mucous membranes moist. NECK: Supple. CHEST: Coarse with scattered wheezes throughout diminished towards lower lobes to auscultation. No respiratory distress. HEART: Regular rate and rhythm. Normal peripheral pulses. ABDOMEN: Soft, nontender, nondistended, normal active bowel sounds. EXTREMITIES: Normal range of motion. No edema. SKIN: Warm, dry, no rash. NEURO: No focal deficits. Alert and oriented x3. Patient states improved since he was brought here Const: Other: GENERAL:Well-appearing, well-nourished, and in no acute distress. HEAD:Normocephalic, atraumatic. EYES: PERRLA and EOMI. ENT: Nares clear, no rhinorrhea or epistaxis. Mucous membranes moist. NECK: Supple. CHEST: Coarse with scattered wheezes throughout diminished towards lower lobes to auscultation. No respiratory distress. HEART: Regular rate and rhythm. Normal peripheral pulses. ABDOMEN: Soft, nontender, nondistended, normal active bowel sounds. EXTREMITIES: Normal range of motion. No edema. SKIN: Warm, dry, no rash. NEURO: No focal deficits. Alert and oriented x3. Patient states improved since he was brought here DS: Data Data Completed and Pending Labs on day of discharge: Labs from last 24 hours 08/26/21 08/26/21 08/25/21 05:11 05:11 21:01 WBC 14.7 H RBC 5.08 Hgb 14.9 Hct 44.2 MCV 87.0 MCH 29.3 MCHC 33.7 RDW 11.4 L Plt Count 186 MPV 9.6 Immature Gran % (Auto) 0.5 H Neut % (Auto) 79.5 H Lymph % (Auto) 13.4 L [place] % (Auto) 6.4 Eos % (Auto) 0.1 L Baso % (Auto) 0.1 Lymph # (Auto) 1.97 [place] # (Auto) 0.94 H Eos # (Auto) 0.01 L
--- NOTE | 2021-08-26 10:41 | PC.NURSE ---
Pt discharged to home. VSS . Discharge instructions given to pt. New medications reviewed with pt. Prescriptions given to pt to take to his pharmacy. Pt taken to family car via WC by RN.
[2021-08-27 00:36] LABS: Glucose Point of Care 228 mg/dl (65-105)
--- NOTE | 2021-08-30 14:49 | PC.NURSE ---
Unable to contact for discharge call back.
== END 2021-08-26 10:00 | disposition home or self-care (01) ==
LOC: CHSED 12:03 → CHS2ND 12:05
PROVIDERS: Nurse Practitioner Family; Admitting Provider Internal Medicine; Emergency Provider Emergency Medicine; PCP Family Medicine; Visit Provider Internal Medicine
DX: J44.1 Chronic obstructive pulmonary disease with (acute) exacerbation (principal); E87.1 Hypo-osmolality and hyponatremia; I10 Essential (primary) hypertension; E11.9 Type 2 diabetes mellitus without complications
CPT/HCPCS: 36415; 71045; 80048; 80053; 82948; 83735; 83880; 84484; 85025; 85380; 85610; 85730; 87040; 93005; 94640; 96360; 96361; 96374; 99285; A9270; G0378; J1815; J2930; J7030

== ENCOUNTER 2021-09-28 16:15 | Outpatient (CLI) | payer OTHER, SELFPAY ==
[2021-09-28 17:19] LABS: SARS-CoV-2 RNA PCR Positive (Negative)
== END 2021-09-28 16:16 | disposition home or self-care (01) ==
LOC: CHSLAB 16:17
PROVIDERS: PCP Family Medicine; Visit Provider Family Medicine
DX: U07.1 COVID-19 (principal); R05.9 Cough, unspecified; R50.9 Fever, unspecified
CPT/HCPCS: C9803; U0003; U0005

== ENCOUNTER 2021-11-24 13:37 | Outpatient (CLI) | payer OTHER, SELFPAY ==
--- NOTE | ~2021-11-24 | XR_ITS ---
EXAMINATION: XR sternum min 2V INDICATION: Sternal mass TECHNIQUE: Three views of the sternum are obtained. COMPARISON: None available FINDINGS: No definite radiographic correlate is identified for the reported sternal mass. There is no fracture. The visualized portions of the lungs appear normal. IMPRESSION: 1. No definite sternal mass identified. Consider CT for further evaluation. Reviewed, dictated and finalized at location B.
== END 2021-11-24 13:38 ==
PROVIDERS: PCP Family Medicine; Visit Provider Family Medicine
DX: M79.673 Pain in unspecified foot (principal); R22.2 Localized swelling, mass and lump, trunk
CPT/HCPCS: 71120

== ENCOUNTER 2021-12-14 15:59 | Outpatient (CLI) | payer OTHER, SELFPAY ==
--- NOTE | ~2021-12-14 | CT_ITS ---
EXAMINATION: CT diagnostic chest wo con DATE: 12/14/2021 16:11 INDICATION: Localized swelling and mass of the trunk TECHNIQUE: Computed tomography (CT) of the chest was performed without intravenous contrast. The dose -length product (DLP) was 771.05 mGy-cm. Automated exposure control and iterative reconstruction tech nique were employed. COMPARISON: 05/08/2013 FINDINGS: No CT correlate is identified for the reported lump of the chest wall. There is mild emphys luisito. The lungs are free of acute opacities. No pleural effusion or pneumothorax. No pathologically en larged thoracic lymph nodes are identified. The heart size is normal. There is mild thoracic spondylo sis. IMPRESSION: 1. No CT correlate identified for the reported lump of the chest wall. No acute cardiopulmonary abnor mality. Reviewed, dictated and finalized at location B. IMPRESSION: 1. No CT correlate identified for the reported lump of the chest wall. No acute cardiopulmonary abnormality.
== END 2021-12-14 16:00 ==
LOC: MICIMG 16:00
PROVIDERS: PCP Family Medicine; Visit Provider Family Medicine
DX: R22.2 Localized swelling, mass and lump, trunk (principal)
CPT/HCPCS: 71250

== ENCOUNTER 2022-01-23 09:56 | Emergency (ER) | payer OTHER, SELFPAY ==
--- NOTE | ~2022-01-23 | CT_ITS ---
EXAMINATION: CT abdomen pelvis wo con DATE: 01/23/2022 10:40 INDICATION: Severe left groin pain after heavy lifting TECHNIQUE: Computed tomography (CT) of the abdomen and pelvis was performed without intravenous contr ast. Automated exposure control and iterative reconstruction technique were employed. The dose-length product was 1505.80 mGy-cm. COMPARISON: None FINDINGS: Lung bases are clear. Heart size is normal. No pericardial or pleural effusion. Prominent diffuse hep atic steatosis with focal sparing along the gallbladder fossa. Small calcific a cyst along the nondep endent wall of the gallbladder which would favor mural calcification over a gallstone. Pancreas, sple en and bilateral adrenal glands are normal. 12 mm low-attenuation cyst at the lower pole of the left kidney. 8 mm relatively high attenuation exophytic lesion at the lateral lower pole of the right kidn ey most likely proteinaceous/hemorrhagic cyst but too small to definitively characterize. Prominent d iverticulosis along the descending and sigmoid colon without adjacent inflammatory stranding to sugge st diverticulitis. Bladder is normal. No free intraperitoneal gas or fluid. No pathologically enlarge d abdominal or pelvic lymphadenopathy. Small bilateral fat-containing inguinal hernias. Mild lower marcela mbar levocurvature with severe facet osteoarthritis on the right at L5-S1. Otherwise mild to moderate lower lumbar predominant facet osteoarthritis. IMPRESSION: 1. No acute intra-abdominal/pelvic process. 2. Diverticulosis. 3. Small bilateral fat-containing inguinal hernias. 4. Small calcific lesion along the nondependent gallbladder wall which would favor mural calcificatio n over cholelithiasis. Reviewed, dictated and finalized at location A. IMPRESSION: 1. No acute intra-abdominal/pelvic process. 2. Diverticulosis. 3. Small bilateral fat-containing inguinal hernias. 4. Small calcific lesion along the nondependent gallbladder wall which would fa vor mural calcification over cholelithiasis.
[2022-01-23 10:00] VITALS: BP 145/100; PULSE 115; RESP 20; TEMP 36.6; O2SAT 95
[2022-01-23] MEDS: KETOROLAC (*BKC) 60 MG/2 ML VIAL IM (10:22)
[2022-01-23] MEDS: ONDANSETRON HCL ODT 4 MG TABLET PO (10:22)
--- NOTE | 2022-01-23 10:28 | PC.NURSE ---
Pt off floor to CT scan
--- NOTE | 2022-01-23 11:02 | ED.ABDPAIN ---
HPI - Abdominal Pain General Chief Complaint: Abdominal Pain Stated Complaint: lifted heavy steel and pulled something in abdomin Time Seen by Provider: 01/23/22 10:10 Source: patient Mode of arrival: ambulatory Limitations: no limitations History of Present Illness HPI narrative: This is a 51-year-old gentleman that presents after he was at work and lifted a heavy metal object and causing pain in his left lower quadrant and left groin area with no obvious hernia. The patient rates his pain at around 10/10 had an episode of nausea and vomiting. The area is tender to touch with no chest pain no shortness of breath no fever chills no paresthesias radiating down to his left leg. MD elicited complaint: abdominal pain Onset (ago): hour(s) Pain Consistency: constant Location: LLQ Severity: severe Pain scale (0-10): 10 Migration to: no migration Exacerbating factors: movement Relieving factors: rest Associated symptoms: nausea and vomiting Related Data Home Medications Medication Instructions Recorded Confirmed metformin 1,000 mg tablet 1,000 mg PO BID 05/01/19 01/23/22 simvastatin 40 mg tablet 40 mg PO DAILY 05/01/19 01/23/22 glipizide 5 mg tablet, extended 7.5 mg PO QAM 03/15/20 01/23/22 release 24 hr gabapentin 300 mg capsule 300 mg PO BID 08/13/20 01/23/22 irbesartan 150 1 tablet PO DAILY 08/25/21 01/23/22 mg-hydrochlorothiazide 12.5 mg tablet Allergies Allergy/AdvReac Type Severity Reaction Status Date / Time No Known Allergies Allergy Verified 01/23/22 10:05 Review of Systems Review of Systems: All systems reviewed & are unremarkable except as noted in HPI and below PMFSH Past Medical History Medical History COPD (chronic obstructive pulmonary disease) Diabetes mellitus HTN (hypertension) Surgical History Surgical History History of carpal tunnel surgery of left wrist Social History Social History Smoking status: Unknown if ever smoked Alcohol intake: current Drinks per week: 2 Substance use: never Substance use type: does not use Gender identity (if verbalized by the patient): Male Sexual Orientation (if Verbalized by the Patient): Straight or Heterosexual Spiritual care concerns: No Exam Const: General: healthy appearing and no acute distress Nutritional Appearance: well nourished and obese Limitations: no limitations HENMT: Head: normal to inspection Ears: external ears normal Face/Nose/Sinus: Normal external nose present Face and sinus: normal facial exam Eyes: Conjunctivae: conjunctivae normal Pupils: Equal, round and reactive pupils present EOM: EOMs intact bilaterally Neck: Neck: normal visual inspection Chest: Chest palpation & inspection: normal inspection of the chest Resp: Effort & Inspection: normal respiratory effort Auscultation: clear to auscultation bilaterally Cardio: Rate: regular rate Rhythm: regular rhythm GI: GI Palp: Yes Soft to palpation and Yes Tenderness to palpation present (GI) : General: Yes bladder normal to palpation Back/Spine/Pelvis: Back: no CVA tenderness Skin: General skin exam: normal color Rashes: no rashes Wounds: no wounds Neuro: General: patient oriented x3, moves all extremities and no meningeal signs Extrem: General: normal to inspection, no clubbing, cyanosis or edema and no pedal edema Psych: Mental Status: mental status grossly normal Affect: normal affect Attitude: cooperative Course Course Emergency Course: CT scan performed and reviewed with patient which shows no advanced hernia does have small inguinal hernias bilaterally, and no other intra-abdominal process this is acute. Patient received Zofran and dose of IM Toradol and after reassessment patient's discomfort has improved. Vital Signs Vital signs: Vital Signs Otis
[2022-01-23 11:21] VITALS: BP 141/96; PULSE 90; RESP 17; TEMP 36.6; O2SAT 96
== END 2022-01-23 11:28 | disposition home or self-care (01) ==
PROVIDERS: Emergency Provider Emergency Medicine; PCP Family Medicine
DX: S39.011A Strain of muscle, fascia and tendon of abdomen, initial encounter (principal); X50.9XXA Other and unspecified overexertion or strenuous movements or postures, initial encounter
CPT/HCPCS: 74176; 96372; 99284; A9270; J1885

== ENCOUNTER 2022-02-01 18:15 | Outpatient (CLI) | payer OTHER, SELFPAY ==
--- NOTE | ~2022-02-01 | XR_ITS ---
EXAM: XR elbow LT min 3V DATE: 02/01/2022 18:42 HISTORY: Pain in left elbow . COMPARISON: None available. FINDINGS: Normal mineralization. No fracture or dislocation. No lytic or blastic lesion. Mild degene rative change in the elbow joint. Mild acromial enthesopathy. No erosion or periosteal change. Somewh at focal soft tissue swelling over the olecranon. IMPRESSION: Possible olecranon bursitis. Reviewed, dictated and finalized at location K.
== END 2022-02-01 18:16 | disposition home or self-care (01) ==
LOC: CHSIMG 18:17
PROVIDERS: PCP Family Medicine; Visit Provider Family Medicine
DX: M25.522 Pain in left elbow (principal)
CPT/HCPCS: 73080

== ENCOUNTER 2022-05-10 18:03 | Outpatient (CLI) | payer OTHER, SELFPAY ==
--- NOTE | ~2022-05-10 | XR_ITS ---
Supine and upright views of the abdomen Clinical history: Abdominal pain Findings: Bowel gas pattern is nonspecific. No evidence for obstruction or free air. Possible small c alcified gallstone. Osseous structures are intact. Impression: Possible small calcified gallstone versus other soft tissue calcification. Calcification appears to b e outside the topography of the renal shadow. Nonspecific bowel gas pattern. Reviewed, dictated and finalized at [facility]. TRAINER Impression: Possible small calcified gallstone versus other soft tissue calcification. Calc ification appears to be outside the topography of the renal shadow. Nonspecific bowel gas pattern.
== END 2022-05-10 18:04 | disposition home or self-care (01) ==
LOC: CHSIMG 18:05
PROVIDERS: PCP Family Medicine; Visit Provider Family Medicine
DX: R10.30 Lower abdominal pain, unspecified (principal)
CPT/HCPCS: 74019

== ENCOUNTER 2022-05-17 15:46 | Outpatient (CLI) | payer OTHER, SELFPAY ==
--- NOTE | ~2022-05-17 | CT_ITS ---
EXAMINATION: CT abdomen pelvis w con DATE: 05/17/2022 16:38 INDICATION: Left lower quadrant abdominal pain. TECHNIQUE: Computed tomography (CT) of the abdomen and pelvis was performed with 100 mL Omnipaque 350 intravenous contrast. Automated exposure control and iterative reconstruction technique were employe d. The dose-length product was 1409.97 mGy-cm. COMPARISON: CT abdomen and pelvis 01/23/2022 FINDINGS: The visualized portions of the lung bases are clear without pneumonia or pleural effusion. The heart size is normal. No pericardial effusion. There is diffuse hepatic steatosis. There is a gal lstone in the gallbladder which is normal in size. The spleen, pancreas, and adrenal glands are anuradha l. There is a 10 mm hyperdense cyst in right kidney. There are cysts in left kidney measuring up to 1 0 mm. There is prominent fat in the inguinal canals that may be hernias. The prostate is mildly enlar ged. There is diverticulosis of the colon. There is mild scarring adjacent to sigmoid colon. There ar e no dilated loops of bowel. The appendix is normal. There are no pathologically enlarged lymph nodes . There is no free intraperitoneal fluid. There is moderate thoracic and lumbar spondylosis. IMPRESSION: 1. Mild scarring adjacent to sigmoid colon, likely chronic diverticulitis. 2. Diffuse hepatic steatosis. 3. Cholelithiasis. 4. Bilateral inguinal hernias containing fat. Reviewed, dictated and finalized at location A. T SHIPPER
[2022-05-17 16:15] LABS: Estimated Glomerular Filt Rate > 60
== END 2022-05-17 15:47 | disposition home or self-care (01) ==
LOC: CHSIMG 15:47
PROVIDERS: PCP Family Medicine; Visit Provider Family Medicine
DX: R10.30 Lower abdominal pain, unspecified (principal); K76.0 Fatty (change of) liver, not elsewhere classified; K80.20 Calculus of gallbladder without cholecystitis without obstruction; K40.90 Unilateral inguinal hernia, without obstruction or gangrene, not specified as recurrent
CPT/HCPCS: 74177; Q9967

== ENCOUNTER 2022-12-05 16:44 | Outpatient (CLI) | payer OTHER, SELFPAY ==
--- NOTE | ~2022-12-05 | XR_ITS ---
EXAM: XR knee LT 3V DATE: 12/05/2022 17:18 HISTORY: ALL OVER pain in left knee AFTER INJURY 2 WEEKS AGO . COMPARISON: None available. FINDINGS: Normal mineralization. No fracture or dislocation. No lytic or blastic lesion. Moderate me dial joint space narrowing. Mild tricompartmental osteophytosis. Quadriceps and patellar enthesopathy . No erosion or periosteal change. Soft tissues within normal limits. Small left knee joint effusion IMPRESSION: Moderate tricompartmental left knee osteoarthritis. Reviewed, dictated and finalized at location K.
[2022-12-05 17:37] LABS: Basophils Absolute Auto 0.07 K/mm3 (0.00-0.10); Basophils Percent Auto 0.6 % (0.0-1.0); Eosinophils Absolute Auto 0.46 K/mm3 (0.02-0.50); Eosinophils Percent Auto 4.2 % (1.0-6.0); Hematocrit 43.7 % (40.0-54.0); Hemoglobin 14.6 g/dL (14.0-18.0); Immature Granulocyte Absolute 0.06 K/mm3 (0.00-0.00); Immature Granulocyte Percent A 0.6 % (0.0-0.0); Lymphocytes Absolute Auto 3.52 K/mm3 (1.10-4.50); Lymphocytes Percent Auto 32.4 % (18.0-42.0); Mean Corpuscular HGB Conc 33.4 g/dL (32.0-36.0); Mean Corpuscular Hemoglobin 29.4 pg (27.0-31.0); Mean Corpuscular Volume 88.1 fL (78.0-102.0); Mean Platelet Volume 9.4 fl (8.7-11.0); Monocytes Percent Auto 9.2 % (2.0-11.0); Neutrophils Absolute Auto 5.8 K/mm3 (1.7-7.2); Platelet Count Result 203 K/mm3 (150-420); Red Blood Count 4.96 M/mm3 (4.70-6.10); Red Cell Distribution Width 11.9 % (11.6-14.4); White Blood Count 10.9 K/mm3 (4.8-10.8)
[2022-12-05 17:53] LABS: Hemoglobin A1C 6.4 % (<5.7)
[2022-12-05 18:10] LABS: Alanine Aminotransferase 31 U/L (16-63); Albumin Level 3.6 g/dL (3.4-5.0); Alkaline Phosphatase 73 U/L (46-116); Anion Gap 6 mmol/L (8-16); Aspartate Amino Transferase 19 U/L (15-37); Bilirubin,Total 0.3 mg/dL (0.00-1.00); Blood Urea Nitrogen 16 mg/dL (7-18); Carbon Dioxide 32 mmol/L (21-32); Chloride 102 mmol/L (98-108); Estimated Glomerular Filt Rate > 60; Glucose 103 mg/dL (70-99); Osmolality Calculated 291 mOsm/kg (285-295); Potassium 3.9 mmol/L (3.5-5.1); Sodium 140 mmol/L (136-145); Total Protein 6.5 g/dL (6.4-8.2)
== END 2022-12-05 16:45 | disposition home or self-care (01) ==
LOC: CHSLAB 16:46
PROVIDERS: PCP Family Medicine; Visit Provider Family Medicine
DX: M17.12 Unilateral primary osteoarthritis, left knee (principal); E11.42 Type 2 diabetes mellitus with diabetic polyneuropathy
CPT/HCPCS: 36415; 73562; 80053; 83036; 85025

== ENCOUNTER 2022-12-20 15:54 | Outpatient (RCR) | payer OTHER, SELFPAY ==
--- NOTE | 2023-01-02 07:28 | OPREHPOC ---
Outpatient Therapy Plan of Care This is a Multidisciplinary Plan of Care that may contain components documented by all disciplines (PT, OT, and ST.) PT Problem 1 PT Problem #1 Knowledge Deficit PT Goal 1 Goal 1. Patient to demonstrate independence with HEP to improve progress made in PT. Target Visit 6 PT Problem 2 PT Problem #2 Impaired Strength PT Goal 1 Goal 1. Patient to improve L hip flexion strength to 5/ 5 to improve ability to climb stairs in home. 2. Patient to increase L knee flexion/extension strength to 4/5 or more to improve ability to perform sit to stand transfer. Target Visit 12 PT Problem 3 PT Problem #3 Impaired Range of Motion PT Goal 1 Goal 1. Patient to achieve 125 degrees of active L knee flexion to improve ability to squat. 2. Patient to improve L rectus femoris length to lacking no more than 5 degrees to improve flexibility. Target Visit 12 PT Problem 4 PT Problem #4 Pain PT Goal 1 Goal 1. Patient to report no more than 5/10 pain with bending the knee to improve tolerance to daily movements. 2. Patient to ascend/descend stairs forward with no increase in pain to allow for ability to navigate home. Target Visit 12 PT Problem 5 PT Problem #5 Impaired Functional Mobil PT Goal 1 Goal 1. Patient to improve LEFS score to no more than 30% functional decline to improve ability to perform daily activities. 2. Patient to transfer to floor with no increase in pain to improve ability to get into positions required for his work. 3. Patient to ambulate with no limp to improve ability to walk in community. Target Visit 12
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
== END 2022-12-20 16:10 | disposition home or self-care (01) ==
LOC: CHSPT 15:54
PROVIDERS: PCP Family Medicine; Visit Provider Family Medicine
DX: M25.562 Pain in left knee (principal)
CPT/HCPCS: 97110; 97161

== ENCOUNTER 2023-04-11 16:54 | Outpatient (CLI) | payer OTHER, SELFPAY ==
[2023-04-11 17:05] LABS: Basophils Absolute Auto 0.07 K/mm3 (0.00-0.10); Basophils Percent Auto 0.9 % (0.0-1.0); Eosinophils Percent Auto 5.3 % (1.0-6.0); Hematocrit 47.6 % (40.0-54.0); Hemoglobin 15.7 g/dL (14.0-18.0); Immature Granulocyte Absolute 0.02 K/mm3 (0.00-0.00); Immature Granulocyte Percent A 0.3 % (0.0-0.0); Lymphocytes Absolute Auto 2.46 K/mm3 (1.10-4.50); Lymphocytes Percent Auto 32.4 % (18.0-42.0); Mean Corpuscular Hemoglobin 28.7 pg (27.0-31.0); Mean Platelet Volume 9.3 fl (8.7-11.0); Monocytes Absolute Auto 0.74 K/mm3 (0.10-0.90); Monocytes Percent Auto 9.7 % (2.0-11.0); Neutrophils Absolute Auto 3.9 K/mm3 (1.7-7.2); Neutrophils Percent Auto 51.4 % (50.0-70.0); Platelet Count Result 208 K/mm3 (150-420); Red Blood Count 5.47 M/mm3 (4.70-6.10); Red Cell Distribution Width 11.9 % (11.6-14.4); White Blood Count 7.6 K/mm3 (4.8-10.8)
[2023-04-11 17:24] LABS: Hemoglobin A1C 7.2 % (<5.7)
[2023-04-11 17:31] LABS: Alanine Aminotransferase 43 U/L (16-63); Albumin Level 3.4 g/dL (3.4-5.0); Alkaline Phosphatase 79 U/L (46-116); Anion Gap 7 mmol/L (8-16); Aspartate Amino Transferase 25 U/L (15-37); Bilirubin,Total 0.3 mg/dL (0.00-1.00); Blood Urea Nitrogen 16 mg/dL (7-18); Calcium 7.8 mg/dL (8.5-10.1); Carbon Dioxide 33 mmol/L (21-32); Chloride 102 mmol/L (98-108); Estimated Glomerular Filt Rate > 60; Glucose 124 mg/dL (70-99); Osmolality Calculated 296 mOsm/kg (285-295); Potassium 4.2 mmol/L (3.5-5.1); Sodium 142 mmol/L (136-145); Total Protein 6.8 g/dL (6.4-8.2)
== END 2023-04-11 16:55 | disposition home or self-care (01) ==
LOC: CHSLAB 16:56
PROVIDERS: PCP Family Medicine; Visit Provider Family Medicine
DX: E11.9 Type 2 diabetes mellitus without complications (principal)
CPT/HCPCS: 36415; 80053; 83036; 85025

== ENCOUNTER 2023-05-23 12:38 | Outpatient (CLI) | payer OTHER, SELFPAY ==
--- NOTE | ~2023-05-23 | XR_ITS ---
EXAMINATION: XR chest 2V DATE: 05/23/2023 13:00 INDICATION: Chronic cough TECHNIQUE: frontal and lateral views of the chest were obtained. COMPARISON: Chest radiograph dated 08/25/[address] dated 12/14/2021 FINDINGS: The lungs remain clear with no focal airspace opacities, pulmonary edema, pleural effusion or pneumot horax. The cardiomediastinal silhouette is normal. Mild to moderate thoracic spondylosis with minimal anterior wedging of a few mid thoracic vertebral bodies. IMPRESSION: 1. No acute cardiopulmonary disease. Reviewed, dictated and finalized at location A. E TEST LEAD
[2023-05-23 12:54] LABS: Basophils Absolute Auto 0.09 K/mm3 (0.00-0.10); Basophils Percent Auto 0.7 % (0.0-1.0); Eosinophils Absolute Auto 0.44 K/mm3 (0.02-0.50); Eosinophils Percent Auto 3.5 % (1.0-6.0); Hematocrit 47.5 % (40.0-54.0); Hemoglobin 15.6 g/dL (14.0-18.0); Immature Granulocyte Absolute 0.06 K/mm3 (0.00-0.00); Immature Granulocyte Percent A 0.5 % (0.0-0.0); Lymphocytes Absolute Auto 3.43 K/mm3 (1.10-4.50); Mean Corpuscular HGB Conc 32.8 g/dL (32.0-36.0); Mean Corpuscular Hemoglobin 27.9 pg (27.0-31.0); Mean Platelet Volume 9.4 fl (8.7-11.0); Monocytes Absolute Auto 0.88 K/mm3 (0.10-0.90); Monocytes Percent Auto 6.9 % (2.0-11.0); Neutrophils Absolute Auto 7.8 K/mm3 (1.7-7.2); Neutrophils Percent Auto 61.4 % (50.0-70.0); Platelet Count Result 246 K/mm3 (150-420); Red Blood Count 5.59 M/mm3 (4.70-6.10); Red Cell Distribution Width 12.1 % (11.6-14.4); White Blood Count 12.7 K/mm3 (4.8-10.8)
[2023-05-23 13:20] LABS: Alanine Aminotransferase 53 U/L (16-63); Albumin Level 3.7 g/dL (3.4-5.0); Alkaline Phosphatase 87 U/L (46-116); Anion Gap 9 mmol/L (8-16); Aspartate Amino Transferase 25 U/L (15-37); Bilirubin,Total 0.4 mg/dL (0.00-1.00); Blood Urea Nitrogen 14 mg/dL (7-18); Calcium 8.9 mg/dL (8.5-10.1); Carbon Dioxide 31 mmol/L (21-32); Chloride 97 mmol/L (98-108); Estimated Glomerular Filt Rate > 60; Glucose 199 mg/dL (70-99); Osmolality Calculated 290 mOsm/kg (285-295); Potassium 3.8 mmol/L (3.5-5.1); Sodium 137 mmol/L (136-145); Total Protein 7.1 g/dL (6.4-8.2)
== END 2023-05-23 12:39 | disposition home or self-care (01) ==
LOC: CHSLAB 12:40
PROVIDERS: PCP Family Medicine; Visit Provider Family Medicine
DX: R05.3 Chronic cough (principal)
CPT/HCPCS: 36415; 71046; 80053; 85025

== ENCOUNTER 2023-09-03 16:10 | Outpatient (CLI) | payer OTHER, SELFPAY ==
--- NOTE | ~2023-09-03 | CT_ITS ---
CT Scan of the Chest without Contrast: Clinical Indication: Lung cancer screening, nicotine dependence Technique: Contiguous sections were acquired throughout the chest without intravenous contrast. Dose reduction technique was used on this scan by utilizing automated exposure control and iterative recon struction technique. The dose-length product (DLP) was 351.05 mGy-cm. COMPARISON: 12/14/2021 Findings: There is no evidence of any significant mediastinal, hilar or axillary lymphadenopathy. The mediastin al soft tissues appear normal. There is no evidence of pleural or pericardial effusion. The lungs are clear. No pulmonary nodules or infiltrates are noted. Images through the upper abdomen reveal no abnormalities. Impression: Lung RADS 1: Negative. 12 month follow-up screening CT advised. Reviewed, dictated and finalized at location . Impression: Lung RADS 1: Negative. 12 month follow-up screening CT advised.
--- NOTE | ~2023-09-03 | XR_ITS ---
Lumbosacral Spine: AP, oblique, and lateral views Clinical History: Pain Findings: The normal lordotic curve is maintained. No fracture or subluxation identified. There is mi ld degenerative disc narrowing at L4-L5. There is advanced facet arthropathy from L3 through S1. Ther e is moderate facet arthropathy at the upper lumbar spine.. The sacroiliac joints are normally outli alexander. Impression: Extensive facet arthropathy, as above. Mild degenerative disc narrowing at L4-L5. Reviewed, dictated and finalized at location M. Impression: Extensive facet arthropathy, as above. Mild degenerative disc narrowing at L4-L5.
== END 2023-09-03 16:11 | disposition home or self-care (01) ==
LOC: CHSIMG 16:11
PROVIDERS: PCP Family Medicine; Visit Provider Family Medicine
DX: Z12.2 Encounter for screening for malignant neoplasm of respiratory organs (principal); M48.062 Spinal stenosis, lumbar region with neurogenic claudication; Z87.891 Personal history of nicotine dependence; M12.88 Other specific arthropathies, not elsewhere classified, other specified site; M48.061 Spinal stenosis, lumbar region without neurogenic claudication
CPT/HCPCS: 71271; 72110

== ENCOUNTER 2023-09-19 16:10 | Outpatient (RCR) | payer OTHER, SELFPAY ==
--- NOTE | 2023-09-19 16:54 | PTOPEVAL1 ---
Assessment and note entered by Franki Bonilla Evaluation Information Assessment Status Evaluation Diagnosis lumbar stenosis, bilateral leg pain Onset 09/19/23 Subjective Information Pt. reports that he began to noticing aching in his legs over the past year. He states that he has hx of neuropathy due to diabetes. He reports that the pain in his legs is constant and states that he has numbness in his feet. He states that he has no issues with his balance due to the pain. 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 He reports that pain is most notable with starting movement after having sat for long periods. He reports that he does have to take frequent breaks due to his pain. He has hx of back surgery with L4-5 laminectomy 3 years ago. He reports that pain is equal in both legs. He states that he gets frequent cramping. He states that only testing he has had is x-ray. He reports that his goal is to decrease his leg pain Reported Pain Level Pain Score 5: Self Report Assessment PT Clinical Summary Pt. is a 52 year old male who enters the clinic with neurogenic claudication and leg pain, with hx of spinal stenosis. He presents with impaired trunk mobility, impaired flexibility, pain, hip weakness, and impaired postural awareness on this date. Continued skilled PT is indicated in order to improve these areas to allow for improved comfort with [facility]AD[facility]'s Plan of Care Interventions Electrical Stimulation,Hot Pack/Cold Pack,Manual Therapy,Neuro Re-education,Patient/Caregiver Educati,Therapeutic Activities,Therapeutic Exercise PT Services Indicated Yes Treatment Frequency and 2x/week x 8 visits Duration These treatments will address the objective and functional deficits as defined above. The patient will be advanced safely and appropriately in order for the patient to progress towards his/her prior level of function. Additional exercises will be introduced and as well as a comprehensive home exercise program upon discharge, if needed, ?to ensure carryover of functional gains achieved in the clinic. This treatment plan has been reviewed and agreement upon by the patient.
--- NOTE | 2023-09-19 16:58 | OPREHPOC ---
Outpatient Therapy Plan of Care This is a Multidisciplinary Plan of Care that may contain components documented by all disciplines (PT, OT, and ST.) PT Problem 1 PT Problem #1 Knowledge Deficit PT Goal 1 Goal Independent with a HEP addressing flexibility and trunk mobility Target Visit 2 PT Problem 2 PT Problem #2 Pain PT Goal 1 Goal Pt. will report pain levels at 3/10 at worst Pt. will be able to sleep through the night without pain disturbanc Target Visit 8 PT Problem 3 PT Problem #3 Impaired Strength PT Goal 1 Goal Pt. will present with 5/5 hip abduction and extension strength Target Visit 8 PT Problem 4 PT Problem #4 Impaired Range of Motion PT Goal 1 Goal Pt. will be able to safely lift object from floor to waist with improved body mechanics demonstrating no limitations in trunk mobility in all planes Target Visit 8 PT Problem 5 PT Problem #5 Impaired Functional Mobil PT Goal 1 Goal Pt. will present with less than 10% limitation on the Modified Oswestry. Target Visit 8
--- NOTE | 2023-09-24 17:08 | PCPTNOTE ---
On 09/24/23, the licenese pending ASSOCIATE ATTORNEY, [Meredith Rojo ], provided care and completed [facility] documentation on this patient. I have reviewed the license pending ASSOCIATE ATTORNEY's documentation and agree with the findings.
--- NOTE | 2023-10-01 11:52 | PCPTNOTE ---
Cancelled session this date. Reports he has to stay late at work tonight.
--- NOTE | 2023-10-08 17:57 | PCPTNOTE ---
I reviewed the License Pending Therapist's documentation and agree with the findings.
--- NOTE | 2023-10-22 17:06 | OPREHPOC ---
Outpatient Therapy Plan of Care This is a Multidisciplinary Plan of Care that may contain components documented by all disciplines (PT, OT, and ST.) PT Problem 1 PT Problem #1 Knowledge Deficit PT Goal 1 Goal Independent with a HEP addressing flexibility and trunk mobility Target Visit 2 Progress Met PT Problem 2 PT Problem #2 Pain PT Goal 1 Goal Pt. will report pain levels at 3/10 at worst Pt. will be able to sleep through the night without pain disturbanc Target Visit 8 Progress Not Met PT Problem 3 PT Problem #3 Impaired Strength PT Goal 1 Goal Pt. will present with 5/5 hip abduction and extension strength Target Visit 8 Progress Met PT Problem 4 PT Problem #4 Impaired Range of Motion PT Goal 1 Goal Pt. will be able to safely lift object from floor to waist with improved body mechanics demonstrating no limitations in trunk mobility in all planes Target Visit 8 Progress Met PT Problem 5 PT Problem #5 Impaired Functional Mobil PT Goal 1 Goal Pt. will present with less than 10% limitation on the Modified Oswestry. Target Visit 8 Progress Not Met
--- NOTE | 2023-10-22 17:06 | PTOPDC ---
Assessment and note entered by Betty Lovell, PT Evaluation Information Assessment Status Discharge Diagnosis lumbar stenosis, bilateral leg pain Onset 09/19/23 Subjective Information Miguel Caraballo reports he continues to get muscle spasms and cramps in his calf muscles especially at night. He is having trouble sleeping . He is noting no overall change since initiating PT. He is hoping to get a MRI scheduled now since he did not improve with PT. Reported Pain Level Pain Score 4: Self Report Assessment PT Clinical Summary Miguel Caraballo has completed 8 skilled PT visits for bilateral leg pain and lumbar stenosis. He reports no overall change in his symptoms and continues to have significant tightness and cramping in his calf. He objectively demonstrates improved flexibility in the gastrocnemius and hamstring muscles. He does continue to have severe tension in the medial gastrocnemius head bilaterally that has not changed significantly with graston technique application. He will be discharged to an independent [facility] and plans to call his doctor to make a follow up appointment. Plan of Care PT Services Indicated No
== END 2023-10-22 08:32 | disposition home or self-care (01) ==
LOC: CHSPT 16:10
PROVIDERS: PCP Family Medicine; Visit Provider Family Medicine
DX: M48.062 Spinal stenosis, lumbar region with neurogenic claudication (principal)
CPT/HCPCS: 97014; 97110; 97140; 97161; G0283

== ENCOUNTER 2023-12-31 16:56 | Outpatient (CLI) | payer OTHER, SELFPAY ==
[2023-12-31 17:45] LABS: Basophils Absolute Auto 0.08 K/mm3 (0.00-0.10); Basophils Percent Auto 0.7 % (0.0-1.0); Eosinophils Absolute Auto 0.48 K/mm3 (0.02-0.50); Eosinophils Percent Auto 4.3 % (1.0-6.0); Hematocrit 49.8 % (40.0-54.0); Hemoglobin 16.6 g/dL (14.0-18.0); Immature Granulocyte Absolute 0.04 K/mm3 (0.00-0.00); Immature Granulocyte Percent A 0.4 % (0.0-0.0); Lymphocytes Absolute Auto 3.82 K/mm3 (1.10-4.50); Lymphocytes Percent Auto 34.5 % (18.0-42.0); Mean Corpuscular HGB Conc 33.3 g/dL (32-36); Mean Corpuscular Hemoglobin 28.7 pg (27.0-31.0); Mean Corpuscular Volume 86.2 fL (78.0-102.0); Mean Platelet Volume 9.5 fl (8.7-11.0); Monocytes Absolute Auto 0.95 K/mm3 (0.10-0.90); Monocytes Percent Auto 8.6 % (2.0-11.0); Neutrophils Absolute Auto 5.71 K/mm3 (1.70-7.20); Neutrophils Percent Auto 51.5 % (50.0-70.0); Platelet Count Result 227 K/mm3 (150-420); Red Blood Count 5.78 M/mm3 (4.70-6.10); Red Cell Distribution Width 12.7 % (11.6-14.4); White Blood Count 11.1 K/mm3 (4.8-10.8)
[2023-12-31 17:46] LABS: Add Urine Microscopic? YES; Appearance Urine Clear (Clear); Bilirubin Urine Negative (Negative); Blood Urine Negative (Negative); Color Urine Yellow (Yellow); Glucose Urine UA Negative (Negative); Ketones Urine Negative (Negative); Leukocyte Esterase Ur Negative LEU/UL (Negative); Nitrate Urine Negative (Negative); Protein Urine 1+ (Negative); Specific Grav Ur >= 1.030 (1.010-1.020); Urobilinogen Urine 0.2 mg/dL (0.2-1.0); pH Urine 5.5 (5.0-8.0)
[2023-12-31 17:52] LABS: RBC Urine 0-2 /hpf (0-2); WBC Urine 0-3 /hpf (0-3)
[2023-12-31 17:53] LABS: Bacteria Urine None seen /hpf; Mucus Urine Rare /lpf; Squamous Epithelial Cell Urine None seen /hpf (Few)
[2023-12-31 17:55] LABS: Hemoglobin A1C 5.6 % (<5.7)
[2023-12-31 18:22] LABS: Alanine Aminotransferase 41 U/L (16-63); Albumin Level 3.8 g/dL (3.4-5.0); Alkaline Phosphatase 82 U/L (46-116); Anion Gap 7 mmol/L (4-12); Aspartate Amino Transferase 25 U/L (15-37); Bilirubin,Total 0.3 mg/dL (0.00-1.00); Blood Urea Nitrogen 12 mg/dL (7-18); Calcium 9.1 mg/dL (8.5-10.1); Carbon Dioxide 31 mmol/L (21-32); Chloride 102 mmol/L (98-108); Estimated Glomerular Filt Rate > 60; Glucose 143 mg/dL (70-99); Osmolality Calculated 291 mOsm/kg (285-295); Prostate Specific Antigen 2.5 ng/mL (< OR = 4.0); Sodium 140 mmol/L (136-145); Total Protein 7.2 g/dL (6.4-8.2)
== END 2023-12-31 16:57 | disposition home or self-care (01) ==
LOC: CHSLAB 17:00
PROVIDERS: PCP Family Medicine; Visit Provider Family Medicine
DX: E11.9 Type 2 diabetes mellitus without complications (principal); Z12.5 Encounter for screening for malignant neoplasm of prostate; R35.89 Other polyuria
CPT/HCPCS: 36415; 80053; 81001; 83036; 84153; 84443; 85025; G0103

== ENCOUNTER 2024-01-01 10:27 | Outpatient (CLI) | payer OTHER, SELFPAY ==
--- NOTE | ~2024-01-01 | XR_ITS ---
EXAMINATION: XR chest 2V 01/01/2024 11:05 INDICATION: Hypertension PROCEDURE: 2 view chest COMPARISON: Comparison to multiple prior studies sequentially, with oldest reviewed study dated 07/2020. FINDINGS: The lungs are clear. The cardiomediastinal silhouette is within normal limits. There are no pleural effusions. There is no pneumothorax suspected. IMPRESSION: 1: NO ACUTE CARDIOPULMONARY DISEASE. Reviewed, dictated and finalized at location B.
== END 2024-01-01 10:28 | disposition home or self-care (01) ==
PROVIDERS: PCP Family Medicine; Visit Provider Family Medicine
DX: I10 Essential (primary) hypertension (principal); R06.2 Wheezing
CPT/HCPCS: 71046

== ENCOUNTER 2024-01-03 11:35 | Outpatient (CLI) | payer OTHER, SELFPAY | END 2024-01-03 11:36 | disposition home or self-care (01) | LOC: CHSLAB 11:37 | PROVIDERS: PCP Family Medicine; Visit Provider Family Medicine | DX: I10 Essential (primary) hypertension (principal); R06.2 Wheezing | CPT/HCPCS: 83497 ==

== ENCOUNTER 2024-01-14 15:40 | Outpatient (CLI) | payer OTHER, SELFPAY ==
[2024-01-16 12:58] LABS: NIL 0.02 IU/mL; Quantiferon TB Plus, 1T POSITIVE (NEGATIVE); TB1-NIL 0.35 IU/mL; TB2-NIL 0.35 IU/mL
== END 2024-01-14 15:41 | disposition home or self-care (01) ==
PROVIDERS: PCP Family Medicine; Visit Provider Family Medicine
DX: I10 Essential (primary) hypertension (principal); R61 Generalized hyperhidrosis; R06.2 Wheezing
CPT/HCPCS: 36415; 86480

== ENCOUNTER 2024-02-02 09:02 | Outpatient (CLI) | payer OTHER, SELFPAY ==
--- NOTE | ~2024-02-02 | MR_ITS ---
MRI of the lumbar spine Clinical History: Bilateral leg pain and numbness Technique: Axial T2-weighted images, and sagittal T1-weighted, T2-weighted, and T2 fat-sat images wer e acquired. Following intravenous administration of 20 cc MultiHance gadolinium, T1-weighted fat-sat imaging was performed in the axial and sagittal planes. Findings: There is no fracture or subluxation of the lumbar spine. Vertebral bodies maintain normal h eight and alignment. No bone marrow signal abnormality seen. At L1-L2, there is no disc bulge or herniation. There is moderate facet arthropathy. No central canal stenosis or neural foraminal narrowing. At L2-L3, there is no disc bulge or herniation. There is mild facet arthropathy. No central canal sree nosis or neural foraminal narrowing. At L3-L4, there is minimal disc bulge with advanced facet arthro nancy. No central canal stenosis. There is mild bilateral neural foraminal narrowing. At L4-L5, there is moderate degenerative disc narrowing. There is mild disc bulge with advanced facet arthropathy. There is minimal central canal stenosis. There is moderate right neural foraminal narro wing, and minimal left neural foraminal narrowing. At L5-S1, there is minimal disc bulge with advanced facet arthropathy. No central canal stenosis. The re is moderate to advanced right neural foraminal narrowing. Left neural foramen preserved. Paravertebral soft tissues are unremarkable. No abnormal postcontrast enhancement identified. Impression: Moderate degenerative spondylosis overall, as detailed above. Reviewed, dictated and finalized at [facility]. GER RESTAURANT Impression: Moderate degenerative spondylosis overall, as detailed above.
== END 2024-02-02 09:03 | disposition home or self-care (01) ==
LOC: CHSIMG 09:03
PROVIDERS: PCP Family Medicine; Visit Provider Family Medicine
DX: M54.40 Lumbago with sciatica, unspecified side (principal); M43.06 Spondylolysis, lumbar region
CPT/HCPCS: 72158; A9577

== ENCOUNTER 2024-02-25 08:01 | Outpatient (CLI) | payer OTHER, SELFPAY | END 2024-02-25 08:02 | disposition home or self-care (01) | LOC: CHSLAB 08:03 | PROVIDERS: PCP Family Medicine; Visit Provider Nurse Practitioner Family | DX: R76.12 Nonspecific reaction to cell mediated immunity measurement of gamma interferon antigen response without active tuberculosis (principal) | CPT/HCPCS: 87015; 87070; 87116; 87205; 87206 ==

== ENCOUNTER 2024-04-03 13:38 | Outpatient (CLI) | payer OTHER, SELFPAY | END 2024-04-03 13:39 | disposition home or self-care (01) | PROVIDERS: PCP Family Medicine; Visit Provider Nurse Practitioner Family | DX: R76.12 Nonspecific reaction to cell mediated immunity measurement of gamma interferon antigen response without active tuberculosis (principal) | CPT/HCPCS: 87015; 87116; 87206 ==

== ENCOUNTER 2024-04-07 12:49 | Emergency (ER) | payer OTHER, SELFPAY ==
[2024-04-07] VITALS (11 sets, daily range): BP systolic 136–166; BP diastolic 83–99; PULSE 84–92; RESP 20–24; TEMP 35.9–36.9; O2SAT 93–98
--- NOTE | ~2024-04-07 | XR_ITS ---
[id number] Ordering provider: Elsa Álvarez MD History: . cough, right chest pain . Comparison: None. FINDINGS: BONES: No acute right rib fracture or fracture of the visualized osseous structures. Degenerative margi nges of the spine. LUNGS: No effusions or infiltrates. No pneumothorax. SOFT TISSUES: Normal. IMPRESSION: No right rib fracture . Reviewed, dictated and finalized at location A. TIVE STRATEGIST IMPRESSION: No right rib fracture .
--- NOTE | 2024-04-07 12:56 | ED.URI ---
HPI - URI/Sore Throat General Chief Complaint: Upper Respiratory Infection Stated Complaint: cough Time Seen by Provider: 04/07/24 12:56 Source: patient Mode of arrival: ambulatory History of Present Illness HPI Narrative: 53 years old white male came to the ED by private car complaining of productive cough of clear sputum over the last 3 days, associated with right chest pain which get worse with coughing, sneezing, and breathing. History of COPD, diabetes, hypertension. Patient denies sick contact. Fever, chills, nausea or vomiting or shortness of breath. Related Data Home Medications ?Medication ?Instructions ?Recorded ?Confirmed ?Last Taken ?Type metformin 1,000 mg tablet 1,000 mg PO BID 05/01/19 02/22/24 Unknown History simvastatin 40 mg tablet 40 mg PO DAILY 05/01/19 02/22/24 Unknown History glipizide 5 mg tablet, extended 7.5 mg PO QAM 03/15/20 02/22/24 Unknown History release 24 hr gabapentin 300 mg capsule 300 mg PO BID 08/13/20 02/22/24 Unknown History irbesartan 150 1 tablet PO DAILY 08/25/21 02/22/24 Unknown History mg-hydrochlorothiazide 12.5 mg tablet Allergies Allergy/AdvReac Type Severity Reaction Status Date / Time No Known Allergies Allergy Verified 01/23/22 10:05 Review of Systems Review of Systems: All systems reviewed & are unremarkable except as noted in HPI and below PMFSH Past Medical History Medical History HTN (hypertension) Diabetes mellitus COPD (chronic obstructive pulmonary disease) Surgical History Surgical History History of carpal tunnel surgery of left wrist Social History Social History Social History: Currently down to 1/2ppd. Smoking packs per day: 2.5 Smoking cigarettes per day: 50.0 Years smoked: 40 Smoking pack-years: 100.00 Smoking status: Current every day smoker Tobacco type: cigarettes Alcohol intake: current Drinks per week: 2 Substance use: never Substance use type: does not use Gender identity (if verbalized by the patient): Male Sexual Orientation (if Verbalized by the Patient): Straight or Heterosexual Spiritual care concerns: No Exam Narrative: General appearance: Well-developed, well-nourished Skin: Normal color Head: Normocephalic, nontraumatic Eyes: Clear conjunctiva ENT: Oropharynx normal, ears normal, nose normal Neck: Supple, nontender Chest and respiratory: Airway patent, no respiratory distress, no accessory muscle use , diffuse tenderness to right upper chest with light palpation, no bruises, no swelling or rash, scattered rhonchi and wheezing bilaterally Heart: Regular rate/rhythm Abdomen: Soft, nontender, no organomegaly, quiet bowel sounds Musculoskeletal: Normal range of motion, nontender back Neurologic: Alert and oriented ?3, FOUNDER AND CHIEF TECHNICAL OFFICER is normal as tested, no gross motor deficit Course Vital Signs Vital signs: Vital Signs Temperature 35.9 C L 04/07/24 12:49 Pulse Rate 90 04/07/24 12:49 Respiratory Rate 24 H 04/07/24 12:49 Blood Pressure 166/99 H 04/07/24 12:49 Pulse Oximetry 96 04/07/24 12:49 Oxygen Delivery Room Air 04/07/24 12:49 Temperature 35.9 C L 04/07/24 12:49 Pulse Rate 88 04/07/24 13:26 Respiratory Rate 20 04/07/24 13:26 Blood Pressure 141/89 H 04/07/24 13:46 Pulse Oximetry 94 04/07/24 13:46 Oxygen Delivery Room Air 04/07/24 13:46 MDM - URI/Sore Throat Lab Data Labs: Lab Results 04/07/24 Range/Units 12:59 Influenza A (RT-PCR) Negative (Negative) Influenza B (RT-PCR) Negative (Negative) RSV (RT-PCR) Negative (Negative) SARS-CoV-2 RNA (RT-PCR) Negative (Negative) Discharge Plan Discharge Clinical Impression: Acute chest wall pain COPD (chronic obstructive pulmonary disease) Qualifiers: COPD type: COPD with acute exacerbation Qualified Code(s): J44.1 - Chronic obstructive pulmonary disease with (acute) exacerbation Patient Disposition: Home, Self-Care Condition: Stable Instructions: Antibiotic Form, Acute Bronchitis (ED) Additional Instructions: Return if symptoms are worsening , call your family physician for appointment, take Tylenol as as needed for aches and pain, continue home medications. Patient Language: Bulgarian Prescriptions: New azithromycin [Zithromax] 250 mg tablet See Rx Instructions PO .COMPLEX Qty: 6 0RF Rx Instructions: take 500 mg today (day 1), then 250 mg for 4 days (days 2-5) prednisone 20 mg tablet 40 mg PO DAILY 5 Days Qty: 10 0RF benzonatate 200 mg capsule 200 mg PO TID Qty: 30 0RF No Action simvastatin 40 mg tablet 40 mg PO DAILY metformin 1,000 mg tablet 1,000 mg PO BID glipizide 5 mg tablet extended release 24hr 7.5 mg PO QAM gabapentin 300 mg capsule 300 mg PO BID irbesartan-hydrochlorothiazide 150-12.5 mg tablet 1 tablet PO DAILY albuterol sulfate 0.63 mg/3 mL solution for nebulization 0.63 mg inhalation Q4-6H PRN (Reason: Shortness Of Breath Or Wheezing) Qty: 75 0RF ipratropium-albuterol 0.5 mg-3 mg(2.5 mg base)/3 mL solution for nebulization 3 ml inhalation QID PRN (Reason: shortness of breath or wheezing) Qty: 90 0RF Rx Instructions: Dx J44.9 albuterol sulfate 90 mcg/actuation HFA aerosol inhaler 2 puff inhalation QID PRN (Reason: shortness of breath or wheezing) Qty: 8.5 0RF oxycodone-acetaminophen [Percocet] 5-325 mg tablet 1 tablet PO Q6H PRN (Reason: pain) Qty: 20 0RF cyclobenzaprine 10 mg tablet 10 mg PO TID Qty: 20 0RF ondansetron 4 mg tablet,disintegrating 4 mg PO Q6H PRN (Reason: nausea and vomiting) Qty: 10 0RF budesonide-formoterol [Symbicort] 160-4.5 mcg/actuation HFA aerosol inhaler 2 puff inhalation Q12H Qty: 10.2 2RF Rx Instructions: rinse and spit Follow-up/Referrals: UNKNOWN,DOCTOR [Non-Staff] -
[2024-04-07] MEDS: IPRATROPIUM 0.5 MG/ALBUTEROL SULFATE 2.5 MG AMPUL.NEB 3 ML INHALATION (13:21)
[2024-04-07] MEDS: predniSONE 20 MG TABLET 60 MG PO (13:24)
[2024-04-07] MEDS: ACETAMINOPHEN 500 MG TABLET 1000 MG PO (13:24)
[2024-04-07 13:45] LABS: SARS-CoV-2 RNA PCR Negative (Negative)
[2024-04-07 13:49] LABS: Influenza A QL RT-PCR Negative (Negative); Influenza B QL RT-PCR Negative (Negative); RSV RNA, RT-PCR Negative (Negative)
--- OUTSIDE RECORDS SUMMARY | 2024-04-13 22:02 | XMS_ITS | Encounter Summary ---
Author Organization [facility] Address [address] [place] [address]. [place], [place] [id number] [place] [id number] Care Team Providers Care Tying In Machine Operator Name Role Phone Quentin Gurrola MD Primary Care Provider [phone] Encounter Details Date Type Department Care Team (Latest Contact Info) Description 08/17/2022 Travel Social History Tobacco Use Types Packs/Day Years Used Date Smoking Tobacco: Every Day Cigarettes 1.5 35 Smokeless Tobacco: Never Alcohol Use Standard Drinks/Week Comments Yes 0 (1 standard drink = 0.6 oz pur e alcohol) occasional Sex and Gender Information Value Date Recorded Sex Assigned at Not on file Legal Sex Male 7:04 PM CDT Gender Identity Male 06/13/2022 8:01 AM CDT Sexual Orientation Straight 06/13/2022 8: 01 AM CDT COVID-19 Exposure Response Date Recorded In the last 10 days, have yo u been in contact with someone who was confirmed or suspected to have Coronavirus/COVID-19? No / Unsure 08/17/2022 2:41 PM CDT documented as of this encounter Plan of Treatment Not on file documented as of this encounter Visit Diagnoses Not on filedocumented in this encounter Care Teams Tying In Machine Operator Relationship Specialty Start Date End Date Quentin Gurrola MD [address] [place] [address] PCP - General 06/12/22 documented as of this encounter
--- OUTSIDE RECORDS SUMMARY | 2024-04-13 22:02 | XMS_ITS | Encounter Summary ---
Author Organization [facility] Address [address] [place] [address]. [place] [address] [place] [address] Care Team Providers Care Brand Development Manager Name Role Phone Quentin Gurrola MD Primary Care Provider [phone] Reason for Visit * Auth/Cert (Routine) Specialty Diagnoses / Procedures Referred By Marcio t Referred To Contact Diagnoses Carpal tunnel syndrome of right wrist G56.01 Procedures REVISE MEDIAN N/CARPAL TUNNEL SURG Revision RIGHT carpal tunnel release ; ; Patient requests post-op splint if appropriate Abbe Mcdaniel MD [address] [place] [id number] Phone: tel: fax: Referral ID Status Reason Start Date Expiration Date Visits Re quested Visits Authorized [id number] 1 1 Encounter Details Date Type Department Care Team (Late st Contact Info) Description 08/31/2022 10:57 AM CDT - 08/31/2022 11:57 AM CDT Surgery [place] [id number] [place] [address] Abbe Mcdaniel MD [address] [place] [address] Revision RIGHT carpal tunnel release Surgery Details Date/Time Status Location OR Service Patient Class Case Class Case Type Trauma Case? 08/31/2022 10:57 AM Posted SFL OR OR 1 Orthopedics Short Stay/Outpat ient Surgery No Panel 1 Procedure LRB Anes Op Region Wound Class Comments Revision RIGHT carpal tunnel release Right Monitor Anesthesia Care Wrist Clean Surgeon Surgeon Role Service Panel Abbe Mcdaniel MD Primary Orthopedics 1 documented in this encounter Social History Tobacco Use Types Packs/Day Years Used Date Smoking Tobacco: Every Day Cigarettes 1.5 35 Smokeless Tobacco: Never Tobacco Cessation:Ready to Q uit: Not Asked; Counseling Given: Not Answered Alcohol Use Standard Drinks/Week Comments Yes 0 (1 standard drink = 0.6 oz pur e alcohol) occasional Sex and Gender Information Value Date Recorded Sex Assigned at Not on file Legal Sex Male 7:04 PM CDT Gender Identity Male 06/13/2022 8:01 AM CDT Sexual Orientation Straight 06/13/2022 8: 01 AM CDT COVID-19 Exposure Response Date Recorded In the last 10 days, have oren u been in contact with someone who was confirmed or suspected to have Coronavirus/COVID-19? No / Unsure 08/31/2022 9:09 AM CDT documented as of this encounter Last Filed Vital Signs Vital Sign Reading Time Taken Comments Blood Pressure 156/92 08/31/2022 11:47 AM CDT Pulse 77 08/31/2022 11:47 AM CDT Temperature 36.5 ??C (97.7 ??F) 08/31/2022 11:47 AM C DT Respiratory Rate 16 08/31/2022 11:47 AM CDT Oxygen Saturation 94% 08/31/2022 11:47 AM CDT Inhaled Oxygen Concentration - - Weight 122.5 kg (270 lb) 08/25/2022 8:23 AM CDT Height 177.8 cm (5' 10 ) 08/25/2022 8:23 AM CDT Body Mass Index 38.74 08/25/2022 8:23 AM CDT documented in this encounter Discharge Instructions * Attachments The following attachments cannot be sent through Care Everywhere. * Moderate Sedation in Adults Discharge Instructions (Welsh) * Carpal Tunnel Release (Welsh) * Nerve Blocks (Welsh) * Wound Care Discharge Instructions (Welsh) documented in this encounter Medications at Time of Discharge ADVAIR HFA 230-21 MCG/ACT inhaler inhale 2 puffs by mouth twice daily in the morning and in the evening 12/02/2021 albuterol (ACCUNEB) 0.63 MG/3ML nebulizer solution USE 1 VIAL VIA NEBULIZER EVERY 4 - 6 HOURS NEEDED FOR SHORTNESS OF BREATH OR WHEEZING 08/26/2021 DULoxetine (CYMBALTA) 30 MG capsule Take 1 capsule (30 mg total) by mouth 2 (two) times daily. 08/16/2022 gabapentin (NEURONTIN) 300 MG capsule TAKE 1 CAPSULE (300 MG) BY ORAL ROUTE THREE TIMES A DAY 04/23/2022 glipiZIDE (GLUCOTROL) 5 MG tablet TAKE 1.5 TABLETS (7.5 MG) BY ORAL ROUTE ONCE DAILY BEFORE A MEAL 04/26/2022 ipratropium-albu terol (DUONEB) 0.5-2.5 (3) MG/3ML Solution INHALE 3 MILLILITERS BY NEBULIZATION ROUTE 4 TIMES PER DAY 03/16/2022 irbesartan-hydro chlorothiazide (AVALIDE) 150-12.5 MG Tab Take 1 tablet by mouth daily. metFORMIN (GLUCOPHAGE) 1000 MG tablet take 1 tablet by mouth twice a day with breakfast and dinner 05/23/2022 ONETOUCH ULTRA test strip TEST BLOOD SUGAR EVERY DAY 11/14/2021 OZEMPIC 0.25/0.5 MG/DOSE 2 MG/1.5ML injection (PEN) 06/11/2022 simvastatin (ZOCOR) 40 MG tablet Take 1 tablet (40 mg total) by mouth every evening. 06/03/2022 HYDROcodone-acet aminophen (NORCO) 5-325 MG tabletIndication s:Acute Pain < 7 Day Supply Take 1-2 tablets by mouth every 6 (six) hours as needed for Pain. Indications: Acute Pain < 7 Day Supply 15 tablet 08/31/2022 3 documented as of this encounter H&P Notes * Abbe Mcdaniel MD - 08/31/2022 10:24 AM CDT HISTORY AND PHYSICAL INTERVAL NOTE: I have reviewed Miguel Caraballo History & Physical which was performed within the past 30 days. After examining Miguel Caraballo, no change has occurred in the patient's condition since the H&P was completed. Informed Consent Discussion: Potential benefits, risks, and side effects of the patient's procedure/surgery; the likelihood of the patient achieving his or her goals; and any potential problems that might occur during recuperation were discussed with the patient/family/personal pest control service representative. Reasonable alternatives to the patient's proposed procedure/surgery including benefits, risks, and side effects related to the alternatives and the risks related to not receiving the proposed care were also discussed with the patient/family/personal pest control service representative. Questions were answered and the patient/family/personal pest control service representative verbalized understanding and desires to proceed. Source Note - Abbe Mcdaniel MD - 08/17/2022 3:00 PM CDT Chief Complaint: EMG Results (BILATERAL hands on 07/24/22 ) History of Present Illness: Miguel Caraballo is a 51-year-old male who presents to the office for EMG Results (BILATERAL hands on 07/24/22 ) Patient here in clinic today for EMG results of BILATERAL hands. has pain all the time to RIGHT hand with radiation up to elbow. doesn't have a lot of pain to the LEFT hand or arm. has night pain. has numbness, tingling to BILATERAL hands with the RIGHT being worse. Denies use of ice or heat. does not take anything PRN for pain. does take gabapentin for neuropathy. Patient is RIGHT hand dominant. 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 ROS: See HPI for pertinent positives Problem List: Patient Active Problem List Diagnosis Ulnar neuropathy of right upper extremity Carpal tunnel syndrome of right wrist History: Past Medical History: Diagnosis Date COPD (chronic obstructive pulmonary disease) ([facility]) Diabetes mellitus ([facility]) Hypertension Neuropathy Past Surgical History: Procedure Laterality Date CARPAL TUNNEL RELEASE Right CTR and cubital tunnel release X2 most recent 04/2019 SPINE SURGERY Family History Problem Relation Name Age of Onset Cancer Father Miguel Landaverde II Family Status Relation Name Status Father Miguel Landaverde II (Not Specified) Social History Socioeconomic History Marital status: Tobacco Use Smoking status: Every Day Packs/day: 1.50 Years: 35.00 Pack years: 52.50 Types: Cigarettes Smokeless tobacco: Never Vaping Use Vaping Use: Never used Substance and Sexual Activity Alcohol use: Yes Comment: occasional Drug use: Never Sexual activity: Yes Partners: Female control/protection: None Medications: Current Outpatient Medications: ADVAIR HFA 230-21 MCG/ACT inhaler, inhale 2 puffs by mouth twice daily in the morning and in the evening, Disp: , Rfl: albuterol (ACCUNEB) 0.63 MG/3ML nebulizer solution, USE 1 VIAL VIA NEBULIZER EVERY 4 - 6 HOURS NEEDED FOR SHORTNESS OF BREATH OR WHEEZING, Disp: , Rfl: DULoxetine (CYMBALTA) 30 MG capsule, Take 1 capsule (30 mg total) by mouth 2 (two) times daily., Disp: , Rfl: gabapentin (NEURONTIN) 300 MG capsule, TAKE 1 CAPSULE (300 MG) BY ORAL ROUTE THREE TIMES A DAY, Disp: , Rfl: glipiZIDE (GLUCOTROL) 5 MG tablet, TAKE 1.5 TABLETS (7.5 MG) BY ORAL ROUTE ONCE DAILY BEFORE A MEAL, Disp: , Rfl: ipratropium-albuterol (DUONEB) 0.5-2.5 (3) MG/3ML Solution, INHALE 3 MILLILITERS BY NEBULIZATION ROUTE 4 TIMES PER DAY, Disp: , Rfl: irbesartan-hydrochlorothiazide (AVALIDE) 150-12.5 MG Tab, Take 1 tablet by mouth daily., Disp: , Rfl: metFORMIN (GLUCOPHAGE) 1000 MG tablet, take 1 tablet by mouth twice a day with breakfast and dinner, Disp: , Rfl: ONETOUCH ULTRA test strip, TEST BLOOD SUGAR EVERY DAY, Disp: , Rfl: OZEMPIC 0.25/0.5 MG/DOSE 2 MG/1.5ML injection (PEN), , Disp: , Rfl: simvastatin (ZOCOR) 40 MG tablet, Take 1 tablet (40 mg total) by mouth every evening., Disp: , Rfl: amoxicillin-clavulanate (AUGMENTIN) 875-125 MG tablet, Take 1 tablet (875 mg total) by mouth 2 (two) times daily., Disp: , Rfl: Review of patient's allergies indicates: No Known Allergies Objective: Body mass index is 39.46 kg/m??. Last Recorded Weight 08/17/22 1443 Weight: 124.7 kg (275 lb) Physical exam: Constitutional: Alert and in no acute distress. Neurological: The patient was oriented to person, place, and time. Eyes: The sclera and conjunctiva were normal ENT: Hearing was normal. Neck: The appearance of the neck was normal. Cardiovascular: Normal pulses. Pulmonary: No respiratory distress. Skin: No injuries or skin lesion. Musculoskeletal: Right hand with no evidence of intrinsic atrophy but he is absent two-point discrimination. Negative Tinel's but positive compression over the carpal tunnel. Good range of motion andnormal capillary refill Results: Nerve studies demonstrate moderate bilateral carpal tunnel syndrome with mild left cubital tunnel Assessment: Encounter Diagnose(s) ICD-10-CM ICD-9-CM SNOMED CT(R) 1. Carpal tunnel syndrome of right wrist G56.01 354.0 CARPAL TUNNEL SYNDROME OF RIGHT WRIST Plan: Patient has already had 2 carpal tunnel releases on the right but is having increasing symptoms causing significant sleep disturbance. Any gripping activity including driving increases his symptoms and those symptoms are worsening. I have discussed the fact that 2 surgeries did not help but it is possible he has scar tissue that has formed which is increasing his current symptoms and with that inmind he could benefit from revision carpal tunnel release. He smokes and I have stressed the need for smoking cessation. He is also a diabetic and both those facts would decrease the likelihood that he did see improvement. Potentially this will not help at all but he considers the severity of his sy mptoms a good reason to try to create some improvement. After reviewing risks and benefits he elects to proceed Patient Education: The planned procedure/s, the expected benefits,the associated risks, possible complications, and alternatives to the procedure/s have been discussed in detail with the patient or family. They state that they understand, have no further questions and agree to proceed with the procedure/s as outlined. Procedure/Surgery: Revision of RIGHT carpal tunnel release on 08/31/22 Follow up: Return for Post-Op. ABBE MCDANIEL MD documented in this encounter OR Notes * Op Note - Abbe Mcdaniel MD - 08/31/2022 11:34 AM CDT Miguel Caraballo [id number] 08/31/2022 Pre op diagnosis: Recurrent right carpal tunnel syndrome Post op diagnosis: Same Procedure: Revision right carpal tunnel release Surgeon: ABBE MCDANIEL MD Anesthesia: Regional block with IV sedation Procedure: After regional block was performed in the holding area the patient was taken to the operating room where positioning was in supine fashion and IV sedation administered. Antibiotics were given intravenously and a tourniquet applied to the proximal arm. The upper extremity was prepped and draped in the usual sterile fashion. An Esmarch wrap was used to exsanguinate the upper extremity and the tourniquet inflated to 250 mmHg. An incision on the proximal palm was created using a 15 bladeextending at across the wrist flexion crease at an angle utilizing most of the old incision. A self-retaining retractor was inserted and the scar tissue incised . I carefully tracked the median nervealong its course and used Metzenbaum scissors to meticulously dissected free any surrounding scar tissue to make sure the nerve was mobile. A limited neuro lysis was also performed. The proximal and distal extent of the ligament were released using Metzenbaum scissors and direct visualization confirmed adequate release. The nerve was noted to be hyperemic consistent with the diagnosis of median ne rve compression. The tourniquet was released at 12 minutes and electrocautery used to obtain hemostasis. The wound was copiously irrigated and 4-0 nylon was used to close the skin using an interrupted horizontal mattress stitch. Sterile dressings were applied using a bulky soft dressing. The drapes were then withdrawn and an John wrap used to overwrap the dressings. Sedation was discontinued and the patient was transferred to the stretcher then to the PACU in good condition. Estimated blood loss: Minimal Signed: ABBE MCDANIEL MD * Brief Op Note - Abbe Mcdaniel MD - 08/31/2022 11:34 AM CDT [facility] Brief Op [facility]Revision RIGHT carpal tunnel release Patient requests post-op splint if appropriate Procedure Note Miguel Caraballo 08/31/2022 1057 Procedure(s) (LRB): Revision RIGHT carpal tunnel release Patient requests post-op splint if appropriate (Right) Surgeon(s): Abbe Mcdaniel MD Print Developer Automatic: None Anesthesia: Choice Pre-Op Diagnosis: G56.01 Post-Op Diagnosis: Same Findings: Estimated Blood Loss: Minimal Specimens: None ABBE MCDANIEL MD Date: 08/31/2022 Time: 11:34 AM documented in this encounter Plan of Treatment Not on file documented as of this encounter Procedures Procedure Name Priority Date/Time Associated Diagnosis Comments REVISE MEDIAN N/CARPAL TUNNEL SURG 08/31/2022 10:33 AM CDT Carpal tunnel syndrome of right wrist documented in this encounter Visit Diagnoses Diagnosis Carpal tunnel syndrome of right wrist- Primary Carpal tunnel syndrome Carpal tunnel syndrome of right wrist Carpal tunnel syndrome Carpal tunnel syndrome of right wrist Carpal tunnel syndrome documented in this encounter Admitting Diagnoses Diagnosis Carpal tunnel syndrome of right wrist Carpal tunnel syndrome documented in this encounter Administered Medications Inactive Administered Medications - up to 3 most recent administrations Medication Order MAR Action Action Date Dose Rate Site chlorhexidine (PERIDEX) 0.12 % solution 15 mL 15 mL, Mouth/Throat, Once, 1 dose, On Briana 08/31/22 at 1000, Patient to perform oral care first. Swish/gargle in mouth for 30 seconds, and then discard prior to going to surgery. If ventilated use saturated swab to clean oral cavity., Pre-Op Given 08/31/2022 9:44 AM CDT 15 mLs lactated ringers infusion at 10 mL/hr, Intravenous, Continuous, Starting on Briana 08/31/22 at 0945, Until Briana 08/31/22 at 1422, Infuse at TKO rate, Pre-Op Restarted 08/31/2022 11:00 AM CDT Continued by Anesthesia 08/31/2022 10:48 AM CDT 10 mL/hr New Bag 08/31/2022 9:49 AM CDT 10 mL/hr sodium chloride 0.9 % 1,000 mL with gentamicin 160 mg irrigation As needed, Starting on Briana 08/31/22 at 1105, Until Briana 08/31/22 at 1132, Intra-Op Given 08/31/2022 11:05 AM CDT 400 mLs documented in this encounter Active and Recently Administered Medications Times are shown in CDT. Scheduled Medication Order 08/29/2022 08/30/2022 08/31/2022 ceFAZolin (ANCEF) 3 g in NS 100 mL IVPB (COMPLETED) 3 g, Intravenous, at 200 mL/hr, last inserter, 1 dose, On Briana 08/31/22 at 0945, Give 3 gram dose for patients greater than or equal to 120 kg. Give within 60 minutes of surgical incision., Pre-Op 1048 (Given - Provid er: Rossana Beltran CRNA)1118 (Infusion Stop Time - Provider: Rossana Beltran CRNA) chlorhexidine (PERIDEX) 0.12 % solution 15 mL (COMPLETED) 15 mL, Mouth/Throat, Once, 1 dose, On Briana 08/31/22 at 1000, Patient to perform oral care first. Swish/gargle in mouth for 30 seconds, and then discard prior to going to surgery. If ventilated use saturated swab to clean oral cavity., Pre-Op 0944 (Given - Provid er: Ramila Meehan RN) Continuous Medication Order 08/29/2022 08/30/2022 08/31/2022 lactated ringers infusion at 10 mL/hr, Intravenous, Continuous, Starting on Briana 08/31/22 at 0945, Until Briana 08/31/22 at 1422, Infuse at TKO rate, Pre-Op 0949 (New Bag - Prov ider: Ramila Meehan RN)1048 (Continued by Anesthesia - Provider: Rossana Beltran CRNA)1059 (Paused - Provider: Rossana Beltran CRNA - Comment: Switch to gravity)1100 (Restarted - Provider: Rossana Beltran CRNA)1114 (Anesthesia Volume Adjustment - Provider: Rossana Beltran CRNA)1203 (Infusion Stop Time - Provider: Tracy Hyde RN) PRN Medication Order 08/29/2022 08/30/2022 08/31/2022 sodium chloride 0.9 % 1,000 mL with gentamicin 160 mg irrigation (CANCELED) As needed, Starting on Briana 08/31/22 at 1105, Until Briana 08/31/22 at 1132, Intra-Op 1105 (Given - Provid er: Abbe Mcdaniel MD) documented in this encounter Care Teams Brand Development Manager Relationship Specialty Start Date End Date Quentin Gurrola MD [address] [place] [address] PCP - General 06/12/22 documented as of this encounter
--- OUTSIDE RECORDS SUMMARY | 2024-04-13 22:02 | XMS_ITS | Clinical Summary ---
Author Organization [facility] Address [address] [place] [address]. [place] [address] [place] [address] Care Team Providers Care Flower Maker Name Role Phone Quentin Gurrola MD Primary Care Provider [phone] Allergies No known active allergies Medications albuterol (ACCUNEB) 0.63 MG/3ML nebulizer solution USE 1 VIAL VIA NEBULIZER EVERY 4 - 6 HOURS NEEDED FOR SHORTNESS OF BREATH OR WHEEZING 2 Active ADVAIR HFA 230-21 MCG/ACT inhaler inhale 2 puffs by mouth twice daily in the morning and in the evening 2 Active gabapentin (NEURONTIN) 300 MG capsule TAKE 1 CAPSULE (300 MG) BY ORAL ROUTE THREE TIMES A DAY 3 Active glipiZIDE (GLUCOTROL) 5 MG tablet TAKE 1.5 TABLETS (7.5 MG) BY ORAL ROUTE ONCE DAILY BEFORE A MEAL 3 Active ONETOUCH ULTRA test strip TEST BLOOD SUGAR EVERY DAY 2 Active ipratropium-alb uterol (DUONEB) 0.5-2.5 (3) MG/3ML Solution INHALE 3 MILLILITERS BY NEBULIZATION ROUTE 4 TIMES PER DAY 2 Active metFORMIN (GLUCOPHAGE) 1000 MG tablet take 1 tablet by mouth twice a day with breakfast and dinner 3 Active OZEMPIC 0.25/0.5 MG/DOSE 2 MG/1.5ML injection (PEN) 3 Active simvastatin (ZOCOR) 40 MG tablet Take 1 tablet (40 mg total) by mouth every evening. 3 Active DULoxetine (CYMBALTA) 30 MG capsule Take 1 capsule (30 mg total) by mouth 2 (two) times daily. Active irbesartan-hydr ochlorothiazide (AVALIDE) 150-12.5 MG Tab Take 1 tablet by mouth daily. Active Active Problems Problem Noted Date Diagnosed Date Aftercare following surgery [Z48.89 (ICD-10-CM)] 09/21/2022 Encounter for wound re-check [Z51.89 (ICD-10-CM) ] 09/21/2022 Ulnar neuropathy of right upper extremity 2022 Carpal tunnel syndrome of right wrist 06/16/2022 Family History Medical History Relation Comments Cancer Father Relation Status Comments Father Social History Tobacco Use Types Packs/Day Years [...] Orientation Straight 06/13/2022 8: 01 AM CDT Last Filed Vital Signs Vital Sign Reading Time Taken Comments Blood Pressure 152/88 08/31/2022 12:02 PM CDT Pulse 76 08/31/2022 12:02 PM CDT Temperature 36.4 ??C (97.5 ??F) 08/31/2022 12:02 PM C DT Respiratory Rate 16 08/31/2022 12:02 PM CDT Oxygen Saturation 94% 08/31/2022 12:02 PM CDT Inhaled Oxygen Concentration - - Weight 122.5 kg (270 lb) 11/08/2022 4:32 PM CDT Height 177.8 cm (5' 10 ) 11/08/2022 4:32 PM CDT Body Mass Index 38.74 11/08/2022 4:32 PM CDT Plan of Treatment Health Maintenance Due Date Last Done Comments Colorectal Cancer Screening Colonoscopy (10 Years) 1968 Annual Physical 10/17/1971 Pneumococcal Vaccine: Pediatrics (0 to 5 Years) and At-Risk Patients (6 to 64 Years) (1 of 2 - PCV) 1974 Hepatitis C 1986 DTaP, Tdap and Td Vaccines ( 1 - Tdap) 10/17/1987 Hepatitis B Vaccines (1 of 3 - 19+ 3-dose series) 10/17/1987 COVID-19 Vaccine (3 - 2023-2 5 season) 2023 10/29/2020, 10/08/2020 Influenza Adult (#1) 2024 12/22/2020 Zoster Vaccines Completed 05/25/2021, 12/22/2020 Meningococcal Vaccine Aged Out No sunitha emily eligible based on patient's age to complete this topic RSV Immunizations Under 20 Months Aged Out No longer eligible b ased on patient's age to complete this topic Insurance [employer] [place] [employer] Care Teams Flower Maker Relationship Specialty Start Date End Date Quentin Gurrola MD [address] [place] [address] [facility] - General 06/12/22
--- OUTSIDE RECORDS SUMMARY | 2024-04-13 22:02 | XMS_ITS | Continuity of Care Document ---
Author Organization [facility] Address [address] [place] [id number] Care Team Providers Care Mechanic Helper Name Role Phone Quentin Gurrola Primary Care Physician Encounter [facility] Financial Number [id number] Date(s): 10/27/20 - 10/27/[address] [id number] Discharge Disposition: Home or Self Care Attending Physician: Russ De La O MD Referring Physician: Russ De La O MD Allergies, Adverse Reactions, Alerts No Known Allergies Assessment and Plan Future Appointments Appointment Date:11/05/2020 11:30:00 AM Scheduled Provider:Russ De La O MD Location: Neurosurgery Appointment Type:NN EP Established Patient Medications acetaminophen-HYDROcodone 325 mg-7.5 mg oral tablet TAKE 1 TABLET BY MOUTH EVERY 4 HOURS NEEDED FOR SEVERE PAIN Start Date: 10/05/20 Status: Ordered gabapentin 300 mg oral capsule TAKE 1 CAPSULE BY MOUTH THREE TIMES DAILY Start Date: 10/05/20 Status: Ordered glipiZIDE 5 mg oral tablet 5 mg, 1 tablet(s), Oral, daily before breakfast, 90 tablet(s), Tablet(s), 0 Start Date: 10/05/20 Status: Ordered ibuprofen 800 mg oral tablet 800 mg, 1 tablet(s), Oral, tid, PRN, 30 tablet(s), Tablet(s), 0, for pain Start Date: 10/05/20 Status: Ordered metFORMIN 1000 mg oral tablet TAKE 1 TABLET BY MOUTH TWICE DAILY WITH MORNING MEAL AND WITH EVENING MEAL Start Date: 10/05/20 Status: Ordered naproxen 500 mg oral tablet TAKE 1 TABLET BY MOUTH TWICE DAILY WITH FOOD FOR 5 DAYS THEN TWICE DAILY NEEDED Start Date: 10/05/20 Status: Ordered naproxen sodium 220 mg oral tablet 440 mg, 2 tablet(s), Oral, z0vluth, PRN, 60 tablet(s), Tablet(s), 0, pain Start Date: 10/05/20 Status: Ordered simvastatin 40 mg oral tablet TAKE 1 TABLET BY MOUTH ONCE DAILY IN THE EVENING Start Date: 10/05/20 Status: Ordered Problem List Condition Effective Dates Status Health Status Inform ant Lumbar degenerative disc disease(Confirmed) Active Diabetes(Confirmed) Active Hypertension(Confirmed) Active Hip osteoarthritis(Confirmed) Active Protrusion of lumbar interve rtebral disc(Confirmed) Active Sleep apnea(Confirmed) Active Lumbar stenosis(Confirmed) Active Diagnosis Diagnosis Type Effective Dates Health Status Clinical Service Informant Hip osteoarthritis 10/27/20 Non-Specifi ed Lumbar stenosis 10/27/20 Non-Specified Lumbar disc herniation 10/27/20 Non-Specified Procedures Procedure Date Related Diagnosis Body Site Status Right carpal tunnel release Completed Results Radiology Reports * Exam Date Time Procedure Performing Provider Status 10/27/20 10:23 AM HIP BILATERAL (3-4 VIEW) Aneta Thornton [employer] Student; Auth (Verified) Notes: (HIP BILATERAL (3-4 VIEW)) Reason For Exam: Hip Pain HIP BILATERAL (3-4 VIEW) TWO VIEW BILATERAL HIP. HISTORY: Bilateral hip pain. FINDINGS: Proximal femoral cortical margination and trabecular integrity are intact. Normal acetabular articulation. There is mild narrowing of the hip joints and no significant subarticular sclerosis, cystic changes or spurring. No juxta articular erosions are identified. No abnormality of the visualized pelvis or soft tissues. IMPRESSION: Mild bilateral hip osteoarthritis. . Dictating Physician: Pop Gupta M.D. Releasing Physician: Pop Gupta M.D. Signature Electronically Authorized Authorized Date/Time: 27-OCT-2020 12:31 pm Social History Social History Type Response Alcohol Current some day alc ohol user, Beer, Liquor, 3-5 times per week Substance Abuse Never drug user Smoking Status Current every day sm oker;Never; Cessation Counseling N/A; Total pack years: 730; entered on: 10/05/20 Sex
--- OUTSIDE RECORDS SUMMARY | 2024-04-13 22:02 | XMS_ITS | Encounter Summary ---
Author Organization [facility] Address [address] [place] [address]. [place] [address] [place] [address] Care Team Providers Care Public Address System Operator Name Role Phone Quentin uGrrola MD Primary Care Provider [phone] Reason for Visit * Auth/Cert (Routine) Specialty Diagnoses / Procedures Referred By Contac t Referred To Contact Diagnoses Carpal tunnel syndrome of right wrist G56.01 Procedures REVISE MEDIAN N/CARPAL TUNNEL SURG Revision RIGHT carpal tunnel release ; ; Patient requests post-op splint if appropriate Abbe Mcdaniel MD [address] [place] [address] Phone: tel: fax: Referral ID Status Reason Start Date Expiration Date Visits Re quested Visits Authorized [id number] 1 1 Encounter Details Date Type Department Care Team (Late st Contact Info) Description 08/31/2022 10:48 AM CDT Anesthesia Event [address] [place] [address] Allen Chiu CRNA [address] [place] [address] Anesthesia Record Procedure Summary Procedure Name Responsible Anesthesiologist Anesthesia Start Time Anesthesia Stop Time Revision RIGHT carpal tunnel release (Right: Wrist) 08/31/22 1048 08/31/22 1131 Events Date Time Event Comment 08/31/2022 1005 1005 AN BIOMEDICAL ENGINEERING DIRECTOR Prepped 1048 An Start Patient ID and consent checked and patient reassessed. 1048 An Start Data 1052 AN Immediate Reassess The pa tient was reevaluated immediately before sedation or regional anesthesia. 1052 Face Mask Applied 1055 Anesthesia Ready 1104 An Tourn Inflated 250 MMHG T O RIGHT UPPER ARM 1113 An Tourn Deflated 1130 an stop data 1131 Post Anesthetic Care Handoff I completed my handoff to the receiving nurse during which we: 1. Identified the patient 2. Identified the responsible provider 3. Reviewed the pertinent medical history 4. Discussed the surgical course 5. Reviewed intra-op anesthesia management and issues during anesthesia 6. Set expectations for post-procedure period 7. Allowed opportunity for questions and acknowledgement of understanding. 1131 An Stop Meds Name Total lidocaine 2%-EPINEPHrine 1:200,000 injec tion 20 mL fentaNYL (SUBLIMAZE) 100 mcg/2 mL inject ion 100 mcg midazolam 2 mg/2 mL injection 4 mg propofol (DIPRIVAN) 500 mg/50 mL injecti on 448.35 mg ceFAZolin (ANCEF) 3 g in NS 100 mL IVPB 3 g lidocaine (XYLOCAINE) 1% injection 100 m g ketamine 50 mg/mL injection 30 mg lactated ringers infusion 700 mL * Agents Name O2 Inspired Sevoflurane Sevoflurane Ancillary O2 * Blood No blood administrations on file. Lines, Drains, and Airways Type Details Placement Removal Peripheral IV Placement Date: 08/31/22; Placement Time: 0949; Placed Outside of This Facility?: No; Size: 22 G; Orientation: Left; Location: Hand; Site Prep: Chlorhexidine; Local Anesthetic: None; Inserted By: FELY Moreno; Insertion attempts: 2; Ultrasound-guided Placement?: Yes; Patient Tolerance: Tolerated well; Removal Date: 08/31/22; Removal Time: 1203; Removal Reason: Patient Discharged 08/31/22 0949 by Ramila Meehan RN 08/31/22 1203 by Tracy Hyde RN Surgical/Incision 08/31/22; 1116; Surgical Wound; Hand; Right; xeroform, fluffs, webril and tha; 08/31/22; 1422 08/31/22 1116 by Danii Lozano RN 08/31/22 1422 by Automatic Discharge Provider documented in this encounter Social History Tobacco [...] AM CDT documented as of this encounter OR Notes * Anesthesia Postprocedure Evaluation - Rossana Beltran CRNA - 08/31/2022 11:54 AM CDT Anesthesia Post-op Note Miguel Caraballo Procedure(s): Revision RIGHT carpal tunnel release Patient requests post-op splintif appropriate (Right: Wrist) Anesthesia type: MAC Vitals: 08/31/22 1147 BP: (!) 156/92 Vitals: 08/31/22 1147 Pulse: 77 Vitals: 08/31/22 1147 Resp: 16 Vitals: 08/31/22 1147 Temp: 36.5 ??C Vitals: 08/31/22 1147 SpO2: 94% Patient Location: Phase II/Outpatient Level of Consciousness: awake, alert and oriented Pain Management: adequate analgesia Airway Patency: patent Respiratory Status: spontaneous ventilation and acceptable Cardiovascular Status: acceptable, stable and hemodynamically stable Post-Op Nausea: none Postoperative Hydration: euvolemic There were no known notable events for this encounter. * Anesthesia Procedure Notes - Allen Chiu CRNA - 08/31/2022 10:23 AM CDT Associated Order(s): Peripheral Block Peripheral Block Performed by: Allen Chiu CRNA Authorized by: Allen Chiu CRNA Procedure Start: 08/31/2022 10:06 AM Procedure Stop: 08/31/2022 10:13 AM Patient Location: Pre-op Reason for Block: at surgeon's request, post-op pain management and primary anesthetic patient identified, IV checked, site marked, risks and benefits discussed, consent, monitors and equipment checked, pre-op evaluation and timeout performed Patient Position: Supine Monitoring: Blood pressure, continuous pulse ox, ECG/EKG and heart rate Prep: ChloraPrep Draping: Sterile technique maintained Block Type: Axillary Laterality: Right Injection Technique: Single-shot Technique: ultrasound guided Needle type: Medline Echogenic. Needle gauge: 24G. Needle Length: 2 in (4cm) Needle Localization: Anatomical landmarks and ultrasound guidance Needle Insertion Depth: 3 Test Dose: Negative Local Volume: 20 Insertion Attempts: 1 Injection Assessment/ Attestation: Incremental injection, local visualized surrounding nerve on ultrasound, negative aspiration for heme, no apparent complications, no paresthesia on injection and paresthesia absent Paresthesia Pain: None Heart Rate Change: No Risks explained: difficult placement, may be ineffective, bleeding, infection, nerve damage. Benefits explained to patient: may lower sedation and/or general anesthetic dose, possibly less pain afterprocedure.Timeout performed including patients name, date, and laterality. Patient participated in the timeout. Antiseptic prep. Sterile probe cover applied. ID of axillary artery. Injected local with multiple negative aspirations. Patient tolerated procedure well. * Anesthesia Preprocedure Evaluation - Allen Chiu CRNA - 08/29/2022 12:37 PM CDT Anesthesia ROS/MED History Reviewed: Patient summary , Family history anesthesia, Anesthesia history , Medications Pre-Anesthetic State: alert, awake and responds appropriately Pulmonary (+) COPD Cardiovascular Exercise tolerance:good (+) hypertension, (well controlled) Neuro/Psych (+) neuromuscular disease GI/Hepatic/Renal Endo/Other (+) diabetes mellitus, (well controlled), (type 2) GENERAL COMMENTS CTR done two other times Pt did nebulizer treatment at home this am. States he is breathing fine this am and he did not smoke this am Pt does not have CP when he is active. He states up and down stairs does make him SOB but walking around the house is not bad BS 135 this am ADVAIR HFA 230-21 MCG/ACT inhaler albuterol (ACCUNEB) 0.63 MG/3ML nebulizer amoxicillin-clavulanate (AUGMENTIN) 875-125 DULoxetine (CYMBALTA) 30 MG capsule gabapentin (NEURONTIN) 300 MG capsule glipiZIDE (GLUCOTROL) 5 MG tablet ipratropium-albuterol (DUONEB) 0.5-2.5 (3) MG/ irbesartan-hydrochlorothiazide (AVALIDE) 150-12.5 metFORMIN (GLUCOPHAGE) 1000 MG tablet OZEMPIC 0.25/0.5 MG/DOSE 2 MG/1.5ML injection (PEN) simvastatin (ZOCOR) 40 MG Physical Evaluation Airway Mallampati: III TM Distance: >3 FB Neck ROM: normal Dental (upper dentures), (lower dentures) Pulmonary Pulmonary exam normal Breath sounds clear to auscultation Cardiovascular Rhythm: regular Rate: normal Cardiovascular exam normal Anesthesia Plan ASA 3 Intravenous Induction Anesthesia type: MAC With axillary nerve block Informed Consent Anesthetic plan and risks discussed with patient of whom consent was obtained. . documented in this encounter Plan of Treatment Not on file documented as of this encounter Procedures Procedure Name Priority Date/Time Associated Diagnosis Comments NJ AN PERIPHERAL BLOCK SINGLE-SHOT Routine 08/31/2022 10:23 AM CDT documented in this encounter Results * NJ AN PERIPHERAL BLOCK SINGLE-SHOT (08/31/2022 10:23 AM CDT) Narrative Allen Chiu CRNA - 08/31/2022 10:23 AM CDT Allen Chiu CRNA ? 08/31/2022 10:24 AM Peripheral Block Performed by: Allen Chiu CRNA Authorized by: Allen Chiu CRNA Procedure Start: ??08/31/2022 10:06 AM Procedure Stop: ??08/31/2022 10:13 AM Patient Location: ??Pre-op Reason for Block: at surgeon's request, post-op pain management and primary anesthetic ?? patient identified, IV checked, site marked, risks and benefits discussed, consent, monitors and equipment checked, pre-op evaluation and timeout performed ?? Patient Position: ??Supine Monitoring: ??Blood pressure, continuous pulse ox, ECG/EKG and heart rate Prep: ChloraPrep ?? Draping: ??Sterile technique maintained Block Type: ??Axillary Laterality: ??Right Injection Technique: ??Single-shot Technique: ultrasound guided ?? Needle type: Medline Echogenic. Needle gauge: 24G. Needle Length: ??2 in (4cm) Needle Localization: ??Anatomical landmarks and ultrasound guidance Needle Insertion Depth: ??3 Test Dose: ??Negative Local Volume: ??20 Insertion Attempts: ??1 Injection Assessment/ Attestation: ??Incremental injection, local visualized surrounding nerve on ultrasound, negative aspiration for heme, no apparent complications, no paresthesia on injection and paresthesia absent Paresthesia Pain: ??None Heart Rate Change: No ?? Risks explained: difficult placement, may be ineffective, bleeding, infection, nerve damage. Benefits explained to patient: may lower sedation and/or general anesthetic dose, possibly less pain after procedure.Timeout performed including patients name, date, and laterality. Patient participated in the timeout. Antiseptic prep. Sterile probe cover applied. ID of axillary artery. Injected local with multiple negative aspirations. Patient tolerated procedure well. Allen Chiu BIOMEDICAL ENGINEERING DIRECTOR NJ ANESTHESIA Final Res ult documented in this encounter Visit Diagnoses Not on filedocumented in this encounter Administered Medications Inactive Administered Medications - up to 3 most recent administrations Medication Order MAR Action Action Date Dose Rate Site ceFAZolin (ANCEF) 3 g in NS 100 mL IVPB 3 g, Intravenous, at 200 mL/hr, call or contact centre coach, 1 dose, On Briana 08/31/22 at 0945, Give 3 gram dose for patients greater than or equal to 120 kg. Give within 60 minutes of surgical incision., Pre-Op Given 08/31/2022 10:48 AM CDT 3 g fentaNYL (SUBLIMAZE) injection Intravenous, PRN, Starting on Briana 08/31/22 at 1005, Until Briana 08/31/22 at 1131, Anesthesia Intra-Op Given 08/31/2022 10:05 AM CDT 100 mcg ketamine (KETALAR) injection Intravenous, PRN, Starting on Briana 08/31/22 at 1057, Until Briana 08/31/22 at 1131, Anesthesia Intra-Op Given 08/31/2022 10:57 AM CDT 30 mg lactated ringers infusion at 10 mL/hr, Intravenous, Continuous, Starting on Briana 08/31/22 at 0945, Until Briana 08/31/22 at 1422, Infuse at TKO rate, Pre-Op Restarted 08/31/2022 11:00 AM CDT Continued by Anesthesia 08/31/2022 10:48 AM CDT 10 mL/hr New Bag 08/31/2022 9:49 AM CDT 10 mL/hr lidocaine (XYLOCAINE) 1 % injection SOLN Other, PRN, Starting on Briana 08/31/22 at 1054, Until Briana 08/31/22 at 1131, Anesthesia Intra-Op Given 08/31/2022 10:54 AM CDT 100 mg lidocaine-EPINEPHrine 2 %-1:[id number] injection Epidural, PRN, Starting on Briana 08/31/22 at 1014, Until Briana 08/31/22 at 1131, Anesthesia Intra-Op Given 08/31/2022 10:14 AM CDT 3 mLs Given 08/31/2022 10:13 AM CDT 2 mLs Given 08/31/2022 10:12 AM CDT 2 mLs midazolam (VERSED) injection Intravenous, PRN, Starting on Briana 08/31/22 at 1005, Until Briana 08/31/22 at 1131, Anesthesia Intra-Op Given 08/31/2022 11:01 AM CDT 2 mg Given 08/31/2022 10:05 AM CDT 2 mg propofol (DIPRIVAN) IV bolus Intravenous, Continuous PRN, Starting on Briana 08/31/22 at 1052, Until Briana 08/31/22 at 1131, Anesthesia Intra-Op Rate/Dose Change 08/31/2022 11:10 AM CDT 70 mcg/kg/min 51.45 mL/hr Rate/Dose Change 08/31/2022 11:08 AM CDT 100 mcg/kg/min 73 .5 mL/hr Rate/Dose Change 08/31/2022 11:06 AM CDT 120 mcg/kg/min 88 .2 mL/hr documented in this encounter Care Teams Public Address System Operator Relationship Specialty Start Date End Date Quentin Gurrola MD [address] [place] [address] PCP - General 06/12/22 documented as of this encounter
--- OUTSIDE RECORDS SUMMARY | 2024-04-13 22:02 | XMS_ITS | Encounter Summary ---
Author Organization [facility] Address [address] [place] [address]. [place], [place] [address] [place] [address] Care Team Providers Care Manager [place] Name Role Phone Quentin Gurrola MD Primary Care Provider [phone] Encounter Details Date Type Department Care Team (Latest Contact Info) Description 11/08/2022 Travel Social History Tobacco Use Types Packs/Day [...] Orientation Straight 06/13/2022 8: 01 AM CDT documented as of this encounter Plan of Treatment Not on file documented as of this encounter Visit Diagnoses Not on filedocumented in this encounter Care Teams Manager [place] Relationship Specialty Start Date End Date Quentin Gurrola MD [address] [place] [address] PCP - General 06/12/22 documented as of this encounter
--- OUTSIDE RECORDS SUMMARY | 2024-04-13 22:02 | XMS_ITS | Encounter Summary ---
Author Organization [facility] Address [address] [place] [address]. [place] [address] [place] [address] Care Team Providers Care Credit Rating Checker Name Role Phone Quentin Gurrola MD Primary Care Provider [phone] Reason for Visit * Reason Comments EMG Results BILATERAL hands on Encounter Details Date Type Department Care Team (Latest Contact Info) Description 08/17/2022 3:00 PM CDT Office Visit [address] [address] Abbe Mcdaniel MD [address] [place] [id number] EMG Results (BILATERAL hands on 07/24/22 ) Social History Tobacco Use Types Packs/Day Years [...] PM CDT documented as of this encounter Last Filed Vital Signs Vital Sign Reading Time Taken Comments Blood Pressure - - Pulse - - Temperature - - Respiratory Rate - - Oxygen Saturation - - Inhaled Oxygen Concentration - - Weight 124.7 kg (275 lb) 08/17/2022 2:43 PM CDT Height 177.8 cm (5' 10 ) 08/17/2022 2:43 PM CDT Body Mass Index 39.46 08/17/2022 2:43 PM CDT documented in this encounter Progress Notes * Elaine Reynaga RN - 08/17/2022 3:00 PM CDT Miguel is a 51-year-old male who presents for EMG Results (BILATERAL hands on 07/24/22 [...] hand dominant. 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 No additional nursing task documentation needed. Vitals: 08/17/22 1443 Weight: 124.7 kg (275 lb) Height: 5' 10 (1.778 m) Current Outpatient Medications Medication Sig ADVAIR HFA 230-21 MCG/ACT inhaler inhale 2 puffs by mouth twice daily in the morning and in the evening albuterol (ACCUNEB) 0.63 MG/3ML nebulizer solution USE 1 VIAL VIA NEBULIZER EVERY 4 - 6 HOURS NEEDED FOR SHORTNESS OF BREATH OR WHEEZING amoxicillin-clavulanate (AUGMENTIN) 875-125 MG tablet Take 1 tablet (875 mg total) by mouth 2 (two)times daily. gabapentin (NEURONTIN) 300 MG capsule TAKE 1 CAPSULE (300 MG) BY ORAL ROUTE THREE TIMES A DAY glipiZIDE (GLUCOTROL) 5 MG tablet TAKE 1.5 TABLETS (7.5 MG) BY ORAL ROUTE ONCE DAILY BEFORE A MEAL ipratropium-albuterol (DUONEB) 0.5-2.5 (3) MG/3ML Solution INHALE 3 MILLILITERS BY NEBULIZATION ROUTE 4 TIMES PER DAY irbesartan-hydrochlorothiazide (AVALIDE) 150-12.5 MG Tab Take 1 tablet by mouth daily. metFORMIN (GLUCOPHAGE) 1000 MG tablet take 1 tablet by mouth twice a day with breakfast and dinner ONETOUCH ULTRA test strip TEST BLOOD SUGAR EVERY DAY OZEMPIC 0.25/0.5 MG/DOSE 2 MG/1.5ML injection (PEN) simvastatin (ZOCOR) 40 MG tablet Take 1 tablet (40 mg total) by mouth every evening. Past Surgical History: Procedure Laterality Date CARPAL TUNNEL RELEASE Right CTR and cubital tunnel release X2 most recent 04/2019 SPINE SURGERY Allergies Patient has no known allergies. [x] Total Patient/Family Education Time: 0-15 minutes discussing ordered lab work and EKG if applicable prior to surgery date, pre-op bathing, signs and symptoms of infection, swelling, dressing and incision care, follow up appointment, emergency numbers. Patient was given surgery packet and verbalized understanding. Additional Contributory Factors NONE * Abbe Mcdaniel MD - 08/17/2022 3:00 PM [...] hand dominant. 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 ROS: See HPI for pertinent positives Problem List: Patient Active Problem List Diagnosis Ulnar neuropathy of right upper extremity Carpal tunnel syndrome of right wrist History: Past Medical History: Diagnosis Date COPD (chronic obstructive pulmonary disease) (CMS/HCC) Diabetes mellitus (CMS/HCC) Hypertension Neuropathy Past Surgical History: Procedure Laterality [...] ABBE MCDANIEL MD documented in this encounter Plan of Treatment Not on file documented as of this encounter Visit Diagnoses Diagnosis Carpal tunnel syndrome of right wrist- Primary Carpal tunnel syndrome documented in this encounter Care Teams Credit Rating Checker Relationship Specialty Start Date End Date Quentin Gurrola MD [address] [place], [place] [id number] PCP - General 06/12/22 documented as of this encounter
--- OUTSIDE RECORDS SUMMARY | 2024-04-13 22:02 | XMS_ITS | Encounter Summary ---
Author Organization [facility] Address [address] [place] [address]. [place], [place] [address] [place] [address] Care Team Providers Care Global Marketing Operations Manager Name Role Phone Quentin Gurrola MD Primary Care Provider [phone] Encounter Details Date Type Department Care Team (Latest Contact Info) Description 09/14/2022 Travel Social History Tobacco Use Types Packs/Day [...] suspected to have Coronavirus/COVID-19? No / Unsure 09/14/2022 4:18 PM CDT documented as of this encounter Plan of Treatment Not on file documented as of this encounter Visit Diagnoses Not on filedocumented in this encounter Care Teams Global Marketing Operations Manager Relationship Specialty Start Date End Date Quentin Gurrola MD [address] [place] [address] PCP - General 06/12/22 documented as of this encounter
--- OUTSIDE RECORDS SUMMARY | 2024-04-13 22:02 | XMS_ITS | Encounter Summary ---
Author Organization [facility] Address [address] [place] [address]. [place] [address] [place] [address] Care Team Providers Care Supervisor [employer] Name Role Phone Quentin Gurrola MD Primary Care Provider [phone] Reason for Visit * Reason Comments Postop Followup DOS - 08/31/2022 - R IGHT carpal tunnel release Encounter Details Date Type Department Care Team (Late st Contact Info) Description 09/21/2022 1:45 PM CDT Office Visit [facility] [address] [address] Abbe Mcdaniel MD [address] [place] [address] Krista Harris, [address] [address] Postop Followup (DOS - 08/31/2022 - RIGHT carpal tunnel release) Social History Tobacco Use Types Packs/Day Years [...] PM CDT documented as of this encounter Progress Notes * Louis Callahan MA - 09/21/2022 1:45 PM CDT Miguel is a 51-year-old male who presents for Postop Followup (DOS - 08/31/2022 - RIGHT carpal tunnel release) Patient is being seen in office for a recheck on sutures in RIGHT hand. Patient states he is not inany pain. Patient denies fever, chills, and redness of incision. No additional nursing task documentation needed. There were no vitals filed for this visit. Current Outpatient Medications Medication Sig ADVAIR HFA 230-21 MCG/ACT inhaler inhale 2 puffs by mouth twice daily in the morning and in the evening albuterol (ACCUNEB) 0.63 MG/3ML nebulizer solution USE 1 VIAL VIA NEBULIZER EVERY 4 - 6 HOURS NEEDED FOR SHORTNESS OF BREATH OR WHEEZING DULoxetine (CYMBALTA) 30 MG capsule Take 1 capsule (30 mg total) by mouth 2 (two) times daily. gabapentin (NEURONTIN) 300 MG capsule TAKE [...] cubital tunnel release X2 most recent 04/2019 CARPAL TUNNEL RELEASE Right 08/31/2022 Revision right carpal tunnel release SPINE SURGERY Allergies Patient has no known allergies. [x] Total Ffnl-ue-Ugij Assessment Time: 0-15 minutes Additional Contributory Factors NONE * Krista Harris, POST ANESTHESIA NURSE- - 09/21/2022 1:45 PM CDT Chief Complaint: Postop Followup (DOS - 08/31/2022 - RIGHT carpal tunnel release) History of Present Illness: Miguel Caraballo is a 51-year-old male who presents to the office for Postop Followup (DOS - 08/31/2022 - RIGHT carpal tunnel release) Patient is being seen in office for a recheck on sutures in RIGHT hand. Patient states he is not inany pain. Patient denies fever, chills, and redness of incision. ROS: See HPI for pertinent positives Problem List: Patient Active Problem List Diagnosis Ulnar neuropathy of right upper extremity Carpal tunnel syndrome of right wrist Aftercare following surgery [Z48.89 (ICD-10-CM)] Encounter for wound re-check [Z51.89 (ICD-10-CM)] History: Past Medical History: Diagnosis Date COPD (chronic obstructive pulmonary disease) (CMS/HCC) Diabetes mellitus (CMS/HCC) Hypertension Neuropathy Past Surgical History: Procedure Laterality Date CARPAL TUNNEL RELEASE Right CTR and cubital tunnel release X2 most recent 04/2019 CARPAL TUNNEL RELEASE Right 08/31/2022 Revision right carpal tunnel release SPINE SURGERY Family History Problem Relation Name [...] Alcohol use: Yes Comment: occasional Drug use: Yes Types: Marijuana Comment: occassionally Sexual activity: Yes Partners: Female control/protection: None [...] by mouth every evening., Disp: , Rfl: Review of patient's allergies indicates: No Known Allergies Objective: There is no height or weight on file to calculate BMI. There were no vitals filed for this visit. Physical exam: Constitutional: Alert and in no acute distress. Neurological: The patient was oriented to person, place, and time. Eyes: The sclera and conjunctiva were normal ENT: Hearing was normal. Neck: The appearance of the neck was normal. Cardiovascular: Normal pulses. Pulmonary: No respiratory distress. Skin: No injuries or skin lesion. Musculoskeletal: EXAM of RIGHT wrist today reveals incision healed without redness or warmth, good wrist range of motion, no tenderness with palpation, no drainage, able to make a fist, good capillary refill, palpable radial pulse. Assessment: Encounter Diagnose(s) ICD-10-CM ICD-9-CM SNOMED CT(R) 1. Aftercare following surgery [Z48.89 (ICD-10-CM)] Z48.89 V58.89 SURGICAL FOLLOW-UP 2. Encounter for wound re-check [Z51.89 (ICD-10-CM)] Z51.89 V58.89 WOUND FINDING Plan: His incision has healed and he is doing well. He will continue to increase his activities. He may start scar massage which was instructed in the office today. Activity as tolerated. He will follow upas needed. Follow up: Return if symptoms worsen or fail to improve. DEIRDRE AVILES documented in this encounter Plan of Treatment Not on file documented as of this encounter Visit Diagnoses Diagnosis Aftercare following surgery [Z48.89 (ICD-10-CM)]- Primary Encounter for other specified aftercare Encounter for wound re-check [Z51.89 (ICD-10-CM)] Encounter for other specified aftercare documented in this encounter Care Teams Supervisor Tank House Relationship Specialty Start Date End Date Quentin Gurrola MD [address] [place] [address] PCP - General 06/12/22 documented as of this encounter
--- OUTSIDE RECORDS SUMMARY | 2024-04-13 22:02 | XMS_ITS | Encounter Summary ---
Author Organization [facility] Address [address] [place] [address]. [place] [address] [place] [address] Care Team Providers Care Associate Professor Of Pathology Name Role Phone Quentin Gurrola MD Primary Care Provider [phone] Reason for Visit * Auth/Cert (Routine) Specialty Diagnoses / Procedures Referred By Marcio t Referred To Contact Diagnoses Carpal tunnel syndrome of right wrist G56.01 Procedures REVISE MEDIAN N/CARPAL TUNNEL SURG Revision RIGHT carpal tunnel release ; ; Patient requests post-op splint if appropriate Abbe Mcdaniel MD [address] [place] [address] Phone: tel: fax: Referral ID Status Reason Start Date Expiration Date Visits Re quested Visits Authorized [id number] 1 1 Encounter Details Date Type Department Care Team (Latest Contact Info) Description 08/31/2022 9:09 AM CDT - 08/31/2022 12:15 PM T Hospital Encounter [place] [address] [place] [address] Abbe Mcdaniel MD [address] [place] [address] Discharge Disposition: Home or Self Care (Routine Discharge) Social History Tobacco Use Types Packs/Day Years [...] * Moderate Sedation in Adults Discharge Instructions ([place]i) * Carpal Tunnel Release ([place]i) * Nerve Blocks ([place]i) * Wound Care Discharge Instructions ([place]i) documented in this encounter Medications at Time [...] during recuperation were discussed with the patient/family/personal technical services representative. Reasonable alternatives to the patient's proposed procedure/surgery including benefits, risks, and side effects related to the alternatives and the risks related to not receiving the proposed care were also discussed with the patient/family/personal technical services representative. Questions were answered and the patient/family/personal technical services representative verbalized understanding and desires to proceed. [...] dominant. 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 ROS: See HPI for pertinent positives Problem List: Patient Active Problem List Diagnosis Ulnar neuropathy of right upper extremity Carpal tunnel syndrome of right wrist History: Past Medical History: Diagnosis Date COPD (chronic obstructive pulmonary disease) ([facility]) Diabetes mellitus ([facility]) Hypertension Neuropathy Past Surgical History: Procedure Laterality [...] 08/31/2022 11:34 AM CDT Miguel Caraballo [id number] 08/31/2022 Pre op diagnosis: Recurrent right carpal [...] applied using a bulky soft dressing. The drapeswere then withdrawn and an John wrap used [...] if appropriate (Right) Surgeon(s): Abbe Mcdaniel MD Political Science Research Assistant: None Anesthesia: Choice Pre-Op Diagnosis: G56.01 Post-Op [...] Bag 08/31/2022 9:49 AM CDT 10 mL/hr documented in this encounter Active and Recently Administered Medications Times are shown in CDT. Scheduled Medication Order 08/29/2022 08/30/2022 08/31/2022 ceFAZolin (ANCEF) 3 g in NS 100 mL IVPB (COMPLETED) 3 g, Intravenous, at 200 mL/hr, call or contact centre manager, 1 dose, On Briana 08/31/22 at 0945, [...] MD) documented in this encounter Care Teams Associate Professor Of Pathology Relationship Specialty Start Date End Date Quentin Gurrola MD [address] [place], [place] [id number] PCP - General 06/12/22 documented as of this encounter
--- OUTSIDE RECORDS SUMMARY | 2024-04-13 22:02 | XMS_ITS | Continuity of Care Document ---
Author Organization [facility] Address [address] [place] [id number] Care Team Providers Care Dean For Student Affairs Name Role Phone Izabela Quentin Primary Care Physician [phone] Encounter [facility] Financial Number [id number] Date(s): 11/30/20 - 11/30/[address] [phone] Discharge Disposition: Home or Self Care Attending Physician: Russ De La O MD Allergies, Adverse Reactions, Alerts No Known Allergies Assessment and Plan Future Appointments Appointment Date:12/07/2020 07:00:00 AM Scheduled Provider:Russ De La O MD Location: Neurosurgery Appointment Type:NN OSV Off Site Visit Appointment Date:12/07/2020 07:00:00 AM Scheduled Provider: Location:Main OR Appointment Type:Surgery Appointment Date:01/10/2021 03:30:00 PM Scheduled Provider:Russ De La O MD Location: Neurosurgery Appointment Type:NN PO Post Op Medications acetaminophen-HYDROcodone 325 mg-7.5 mg oral tablet 1-2 tablet(s), Oral, [id number], PRN, 18 tablet(s), Tablet(s), 0, 0, pain Start Date: 11/30/20 Stop Date: 12/03/20 Status: Ordered albuterol 0.63 mg/3 mL (0.021%) inhalation solution 0.63 mg, 3 mL, Nebulized, as needed, PRN, 0, shortness of breath or wheezing Start Date: 11/30/20 Status: Ordered cyclobenzaprine 10 mg oral tablet 10 mg, 1 tablet(s), Oral, tid, 21 tablet(s), Tablet(s), 0 Start Date: 11/30/20 Stop Date: 12/07/20 Status: Ordered gabapentin 300 mg oral capsule 300 mg, 1 capsule(s), Oral, tid, Capsule(s), 0 Start Date: 11/30/20 Status: Ordered glipiZIDE 5 mg oral tablet 7.5 mg, 1.5 tablet(s), Oral, daily before breakfast, 90 tablet(s), Tablet(s), 0 Start Date: 10/05/20 Status: Ordered hydroCHLOROthiazide-irbesartan 12.5 mg-150 mg oral tablet 1 tablet(s), Oral, daily, 30 tablet(s), Tablet(s), 0 Start Date: 11/30/20 Status: Ordered ibuprofen 200 mg oral tablet 400 mg, 2 tablet(s), Oral, b2spjow, PRN, 120 tablet(s), Tablet(s), 0, for pain Start Date: 11/30/20 Status: Ordered metFORMIN 1000 mg oral tablet 1,000 mg, 1 tablet(s), Oral, bid with meals, 180 tablet(s), Tablet(s), 0 Start Date: 11/30/20 Status: Ordered naproxen sodium 220 mg oral tablet 440 mg, 2 tablet(s), Oral, n2tkkre, PRN, 60 tablet(s), Tablet(s), 0, pain Start Date: 10/05/20 Status: Ordered simvastatin 40 mg oral tablet 40 mg, 1 tablet(s), Oral, qhs, 30 tablet(s), Tablet(s), 0 Start Date: 11/30/20 Status: Ordered Spiriva 18 mcg inhalation capsule 18 mcg, 1 capsule(s), Inhalation, daily, Capsule(s), 0 Start Date: 11/30/20 Status: Ordered Problem List Condition Effective Dates Status Health Status Inform ant Lumbar degenerative disc disease(Confirmed) Active Diabetes(Confirmed) Active Hypertension(Confirmed) Active Hip osteoarthritis(Confirmed) Active Protrusion of lumbar interve rtebral disc(Confirmed) Active Sleep apnea(Confirmed) 1 Active Lumbar stenosis(Confirmed) Active 1pt never been tested. says pt stops breathing when sleeping Procedures Procedure Date Related Diagnosis Body Site Status Right carpal tunnel release Completed right elbow surgery Compl eted skin graft left arm Compl eted Results Laboratory List Name Date Basic Metabolic Profile (BMP) 11/30/20 Most recent to oldest [Reference Range]: 1 BUN [9-20 mg/dL] 27 mg/dL *H* (11/30/20 2:05 PM) Calcium [8.4-10.2 mg/dL] 9.4 mg/dL (11/30/20 2:05 PM) Chloride [98-107 mmol/L] 94 mmol/L *L* (11/30/20 2:05 PM) CO2 [22-30 mmol/L] 26 mmol/L (11/30/20 2:05 PM) Glucose [74-106 mg/dL] 202 mg/dL *H* (11/30/20 2:05 PM) Potassium [3.5-4.9 mmol/L] 3.9 mmol/L (11/30/20 2:05 PM) Sodium [137-145 mmol/L] 132 mmol/L *L* (11/30/20 2:05 PM) Creatinine [0.7-1.3 mg/dL] 0.9 mg/dL (11/30/20 2:05 PM) eGFR(4vMDRD) [>=60 mL/min/1.73m2] >60 mL /min/1.73m2 (11/30/20 2:05 PM) eCrCl(C-Gault) 1.4 mL/min/kg (11/30/20 2:05 PM) Anion Gap [7-16 mmol/L] 12 mmol/L (11/30/20 2:05 PM) Social History Social History Type Response Alcohol Current some day alc ohol user, Beer, Liquor, 3-5 times per week Substance Abuse Never drug user Smoking Status Current every day sm oker;Never; Tobacco Cessation Counseling Requested N/A; Type: Cigarettes; Tobacco use per day: 5 cigarettes a day; Started at age: [age]; Total pack years: 730; entered on: 11/30/20 Sex
--- OUTSIDE RECORDS SUMMARY | 2024-04-13 22:02 | XMS_ITS | Encounter Summary ---
Author Organization [facility] Address [address] [place] [address]. [place], [place] [id number] [place] [address] Care Team Providers Care Block Mechanic Name Role Phone Quentin Gurrola MD Primary Care Provider [phone] Encounter Details Date Type Department Care Team (Latest Contact Info) Description 08/31/2022 Travel Social History Tobacco Use Types Packs/Day [...] on filedocumented in this encounter Care Teams Block Mechanic Relationship Specialty Start Date End Date Quentin Gurrola MD [address] [place] [address] PCP - General 06/12/22 documented as of this encounter
--- OUTSIDE RECORDS SUMMARY | 2024-04-13 22:02 | XMS_ITS | Encounter Summary ---
Author Organization [facility] Address [address] [place] [address]. [place], [place] [id number] [place] [address] Care Team Providers Care [employer] Driver Name Role Phone Quentin Gurrola MD Primary Care Provider [phone] Encounter Details Date Type Department Care Team (Latest Contact Info) Description 08/25/2022 Travel Social History Tobacco Use Types Packs/Day [...] suspected to have Coronavirus/COVID-19? No / Unsure 08/25/2022 8:29 AM CDT documented as of this encounter Plan of Treatment Not on file documented as of this encounter Visit Diagnoses Not on filedocumented in this encounter Care Teams [employer] Driver Relationship Specialty Start Date End Date Quentin Gurrola MD [address] [place] [address] PCP - General 06/12/22 documented as of this encounter
--- OUTSIDE RECORDS SUMMARY | 2024-04-13 22:02 | XMS_ITS | Encounter Summary ---
Author Organization [facility] Address [address] [place] [address]. [place] [address] [place] [address] Care Team Providers Care Party Plan Sales Agent Name Role Phone Quentin Gurrola MD Primary Care Provider [phone] Reason for Visit * Reason Onset Date Comments Medication Problem 09/01/2022 Encounter Details Date Type Department Care Team (Late st Contact Info) Description 09/01/2022 Telephone [place] [phone] Davide Edwards director of clinical education Problem Social History Tobacco Use Types Packs/Day Years [...] AM CDT documented as of this encounter Progress Notes * Davide Edwards RN - 09/01/2022 9:12 AM CDT Returned call to patient to inform of medication change that has been sent to [facility]. Verbalized understanding and no further questions at this time. * DEIRDRE Aviles - 09/01/2022 9:09 AM CDTAddended by: OLAF LUNDBERG on: 09/01/2022 09:09 AM Modules accepted: Orders * Davide Edwards RN - 09/01/2022 8:54 AM CDT Tracy from PACU called to report patient has not received his pain medication after CTR surgery yesterday. There was a problem with the pharmacy and their stock. Will contact patient to inquire alternate pharmacy. Call placed to patient's who reports they have to use [facility] due to insurance. Requesteda change in medication or stronger dose. Will discuss with provider and return call to patient. documented in this encounter Plan of Treatment Not on file documented as of this encounter Visit Diagnoses Diagnosis Carpal tunnel syndrome of right wrist- Primary Carpal tunnel syndrome documented in this encounter Care Teams Party Plan Sales Agent Relationship Specialty Start Date End Date Quentin Gurrola MD [address] [place] [address] PCP - General 06/12/22 documented as of this encounter
--- OUTSIDE RECORDS SUMMARY | 2024-04-13 22:02 | XMS_ITS | Encounter Summary ---
Author Organization [facility] Address [address] [place] [address]. [place], [place] [id number] [place] [address] Care Team Providers Care White Work Cleaner Name Role Phone Quentin Gurrola MD Primary Care Provider [phone] Reason for Visit * Reason Comments Postop Followup DOS: 08/31/22 Revisi on right carpal tunnel release Encounter Details Date Type Department Care Team (Latest Contact Info) Description 09/14/2022 4:30 [place] [address] Abbe Mcdaniel MD [address] [place] [address] Postop Followup (DOS: 08/31/22 Revision right carpal tunnel release) Social History Tobacco Use [...] - Inhaled Oxygen Concentration - - Weight 122.5 kg (270 lb) 09/14/2022 4:22 PM CDT Height 177.8 cm (5' 10 ) 09/14/2022 4:22 PM CDT Body Mass Index 38.74 09/14/2022 4:22 PM CDT documented in this encounter Progress Notes * Emely RuthADAMARIS - 09/14/2022 4:30 PM CDT Miguel is a 51-year-old male who presents for Postop Followup (DOS: 08/31/22 Revision right carpal tunnel release) Patient states that he is here today to follow after RIGHT carpal tunnel surgery. He states that his pre-op symptoms have completely resolved. He denies numbness or tingling. He denies the shooting pain that he had previously. He did admit some drainage from his incision but that has resolved. He is not taking anything for pain relief. 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 He denies fever, chills, redness of incision. He does admit to putting neosporin and covering while at work. Patient is RIGHT hand dominant. No additional nursing task documentation needed. Vitals: 09/14/22 1622 Weight: 122.5 kg (270 lb) Height: 5' 10 (1.778 m) Current [...] Patient has no known allergies. [x] Total Qoos-zn-Eaxr Assessment Time: 0-15 minutes Additional Contributory Factors NONE * Abbe Mcdaniel MD - 09/14/2022 4:30 PM CDT Chief Complaint: Postop Followup (DOS: 08/31/22 Revision right carpal tunnel release) History of Present Illness: Miguel Caraballo is a 51-year-old male who presents to the office for Postop Followup (DOS: 08/31/22 Revision right carpal tunnel release) Patient states that he is here today to follow after RIGHT carpal tunnel surgery. He states that his pre-op symptoms have completely resolved. He denies numbness or tingling. He denies the shooting pain that he had previously. He did admit some drainage from his incision but that has resolved. He is not taking anything for pain relief. 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 He denies fever, chills, redness of incision. He does admit to putting neosporin and covering while at work. Patient is RIGHT hand dominant. Patient does have a small open area in middle of incision. No redness or drainage. ROS: See HPI for pertinent positives Problem [...] Known Allergies Objective: Body mass index is 38.74 kg/m??. Last Recorded Weight 09/14/22 1622 Weight: 122.5 kg (270 lb) Physical exam: Constitutional: Alert and in no acute distress. Neurological: The patient was oriented to person, place, and time. Eyes: The sclera and conjunctiva were normal ENT: Hearing was normal. Neck: The appearance of the neck was normal. Cardiovascular: Normal pulses. Pulmonary: No respiratory distress. Skin: No injuries or skin lesion. Musculoskeletal: Patient indicates normal sensation in demonstrates full range of motion of his fingers. His incision demonstrates a small opening in the central aspect and the area is moist without obvious drainage. There is no erythema Results: Assessment: Encounter Diagnose(s) ICD-10-CM ICD-9-CM SNOMED CT(R) 1. 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 He has been using a little Neosporin. His wound is not healed today and I am afraid that it will dehisce ifsutures are removed so I will plan to see him back in a week for reevaluation of the wound. He is very pleased with the results of his surgery with complete resolution of his preoperative symptoms Follow up: Return in about 1 week (around 09/21/2022). ABBE MCDANIEL MD documented in this encounter Plan of Treatment Not on file documented as of this encounter Visit Diagnoses Diagnosis Follow-up examination after orthopedic surgery- Primary Follow-up examination, following other surgery documented in this encounter Care Teams White Work Cleaner Relationship Specialty Start Date End Date Quentin Gurrola MD [address] [place], [place] [id number] PCP - General 06/12/22 documented as of this encounter
--- OUTSIDE RECORDS SUMMARY | 2024-04-13 22:02 | XMS_ITS ---
Author Organization Unknown Medications Medication Instructions Effective Dates (start - stop) Status hydrochlorothiazide 12.5 MG / irbesartan 150 MG Oral Tablet [id number]:00:00.000+ 00 :00 - Completed 120 ACTUAT fluticasone propi denice 0.23 MG/ACTUAT / salmeterol 0.021 MG/ACTUAT Metered Dose Inhaler [Advair] 4648-03-01G50:00:00.000+00 :00 - Completed albuterol 0.833 MG/ML / ipra tropium bromide 0.167 MG/ML Inhalation Solution [id number]:00:00.000+00 :00 - Completed 120 ACTUAT fluticasone propi denice 0.23 MG/ACTUAT / salmeterol 0.021 MG/ACTUAT Metered Dose Inhaler [Advair] [id number]:00:00.000+00 :00 - Completed hydrochlorothiazide 12.5 MG / irbesartan 150 MG Oral Tablet [id number]:00:00.000+ 00 :00 - Completed amoxicillin 875 MG / clavula katty 125 MG Oral Tablet 8677-49-15S22:00:00.000+00 :00 - Completed hydrochlorothiazide 12.5 MG / irbesartan 150 MG Oral Tablet [id number]:00:00.000+ 00 :00 - Completed acetaminophen 325 MG / oxyco done hydrochloride 5 MG Oral Tablet 6628-89-96O77:00:00.000 +00 :00 - Completed acetaminophen 325 MG / oxyco done hydrochloride 5 MG Oral Tablet [id number]:00:00.000 +00 :00 - Completed glipizide 5 MG Oral Tablet :00:00.000+00 :00 - Completed glipizide 5 MG Oral Tablet :00:00.000+00 :00 - Completed glipizide 5 MG Oral Tablet :00:00.000+00 :00 - Completed prednisone 20 MG Oral Tablet 05-31-24:00:00.000+00 :00 - Completed gabapentin 300 MG Oral Capsule 2 [id number]:00:00.000+00 :00 - Completed 0.25 MG, 0.5 MG Dose 1.5 ML semaglutide 1.34 MG/ML Pen Injector [Ozempic] [id number]:00:00.000+00 :00 - Completed 0.25 MG, 0.5 MG Dose 1.5 ML semaglutide 1.34 MG/ML Pen Injector [Ozempic] [id number]:00:00.000+00 :00 - Completed cefdinir 300 MG Oral Capsule 05-10-25:00:00.000+00 :00 - Completed 0.25 MG, 0.5 MG Dose 1.5 ML semaglutide 1.34 MG/ML Pen Injector [Ozempic] [id number]:00:00.000+00 :00 - Completed - 2891-70-03D72:00 :00.000+00 :00 - Completed gabapentin 300 MG Oral Capsule [id number]:00:00.000+00 :00 - Completed cefdinir 300 MG Oral Capsule 05-14-14:00:00.000+00 :00 - Completed 0.25 MG, 0.5 MG Dose 1.5 ML semaglutide 1.34 MG/ML Pen Injector [Ozempic] [id number]:00:00.000+00 :00 - Completed levofloxacin 500 MG Oral Tablet [id number]:00:00.000+00 :00 - Completed metformin hydrochloride 1000 MG Oral Tablet 1044-73-03O56:00:00.000+00 :00 - Completed pioglitazone 30 MG Oral Tablet [id number]:00:00.000+00 :00 - Completed prednisone 20 MG Oral Tablet 05-14-14:00:00.000+00 :00 - Completed 0.25 MG, 0.5 MG Dose 1.5 ML semaglutide 1.34 MG/ML Pen Injector [Ozempic] [id number]:00:00.000+00 :00 - Completed gabapentin 300 MG Oral Capsule 2 961-04-12U90:00:00.000+00 :00 - Completed - [id number]:00 :00.000+00 :00 - Completed metformin hydrochloride 1000 MG Oral Tablet [id number]:00:00.000+00 :00 - Completed metformin hydrochloride 1000 MG Oral Tablet [id number]:00:00.000+00 :00 - Completed gabapentin 300 MG Oral Capsule 2 [id number]:00:00.000+00 :00 - Completed {6 (azithromycin 250 MG Oral Tablet) } Pack [id number]:00:00.000+00 :00 - Completed 0.25 MG, 0.5 MG Dose 1.5 ML semaglutide 1.34 MG/ML Pen Injector [Ozempic] [id number]:00:00.000+00 :00 - Completed - [id number]:00 :00.000+00 :00 - Completed - [id number]:00 :00.000+00 :00 - Completed simvastatin 40 MG Oral Tablet 22-08-29:00:00.000+00 :00 - Completed - [id number]:00 :00.000+00 :00 - Completed duloxetine 30 MG Delayed Rel ease Oral Capsule [id number]:00:00.000+00 :00 - Completed duloxetine 30 MG Delayed Rel ease Oral Capsule 2022-01-03N60:00:00.000+00 :00 - Completed simvastatin 40 MG Oral Tablet 23-06-03:00:00.000+00 :00 - Completed cyclobenzaprine hydrochlorid e 10 MG Oral Tablet [id number]:00:00.000+00 :00 - Completed ondansetron 4 MG Disintegrat ing Oral Tablet 4866-03-30V66:00:00.000+00 :00 - Completed simvastatin 40 MG Oral Tablet 21-11-17:00:00.000+00 :00 - Completed duloxetine 30 MG Delayed Rel ease Oral Capsule [id number]:00:00.+00 :00 - Completed {21 (methylprednisolone 4 MG Oral Tablet) } Pack [id number]:00:00.+ :00 - Completed metronidazole 500 MG Oral Tablet [id number]::00.+ :00 - Completed {11 (varenicline 0.5 MG Oral Tablet) / 42 (varenicline 1 MG Oral Tablet) } Pack [id number]::00. :00 - Completed Patient Care team information Name Category Status Period Participants - - Proposed period not known -
--- OUTSIDE RECORDS SUMMARY | 2024-04-13 22:02 | XMS_ITS | Continuity of Care Document ---
Author Organization [facility] Address [address] [place] [id number] Care Team Providers Care Tower Observer Name Role Phone Quentin Gurrola Primary Care Physician [phone] Encounter [facility] Financial Number [id number] Date(s): 12/07/20 - 12/07/[address] [id number] Encounter Diagnosis Lumbar disc herniation(Discharge Diagnosis) - 12/07/20 Lumbar disc herniation(Discharge Diagnosis) - 12/07/20 Discharge Disposition: Home w/Physician Follow-up Attending Physician: Russ De La O MD Admitting Physician: Russ De La O MD Allergies, Adverse Reactions, Alerts No Known Allergies Assessment and Plan Future Appointments Appointment Date:01/10/2021 03:30:00 PM Scheduled Provider:Russ De La O MD Location: Neurosurgery Appointment Type:NN PO Post Op Functional Status 12/07/20 Activity Assistance Independent 11/30/20 Current Home Treatments Blood glucose mo nitoring, Nebulizer treatments Medications acetaminophen-HYDROcodone 325 mg-7.5 mg oral tablet 1-2 tablet(s), Oral, [id number], PRN, 18 tablet(s), Tablet(s), 0, 0, pain [...] Tablet(s), 0 Start Date: 11/30/20 Status: Ordered metFORMIN 1000 mg oral tablet 1,000 mg, 1 tablet(s), Oral, bid with meals, 180 tablet(s), Tablet(s), 0 Start Date: 11/30/20 Status: Ordered Etoile 10 mg-325 mg oral tablet 1 tablet(s), Oral, [id number], PRN, 30 tablet(s), Tablet(s), 0, 0, pain, Print Requisition Start Date: 12/07/20 Status: Ordered simvastatin 40 mg oral tablet 40 mg, 1 tablet(s), Oral, qhs, 30 tablet(s), Tablet(s), 0 Start Date: 11/30/20 Status: Ordered Spiriva 18 mcg inhalation capsule 18 mcg, 1 capsule(s), Inhalation, daily, Capsule(s), 0 Start Date: 11/30/20 Status: Ordered Mental Status 12/07/20 Orientation_ND Oriented x4 Hearing Impairment None Vision Impairment None 12/07/20 Orientation Oriented x 4 Problem List Condition Effective Dates Status Health Status Inform ant Lumbar degenerative disc disease(Confirmed) Active Diabetes(Confirmed) Active Hypertension(Confirmed) Active Hip osteoarthritis(Confirmed) Active Protrusion of lumbar interve rtebral disc(Confirmed) Active Sleep apnea(Confirmed) 1 Active Lumbar stenosis(Confirmed) Active 1pt never been tested. says pt stops breathing when sleeping Diagnosis Diagnosis Type Effective Dates Health Status Clinical Service Informant Thoracic, thoracolumbar, and lumbosacral intervertebral disc disorders 12/07/20 Non-Specified Thoracic, thoracolumbar, and lumbosacral intervertebral disc disorders 12/07/20 Non-Specified Procedures Procedure Date Related Diagnosis Body Site Status Right carpal tunnel release Completed right elbow surgery Compl eted skin graft left arm Compl eted Results Laboratory List Name Date Glucose (POC) 12/07/20 Glucose (POC) 12/07/20 Most recent to oldest [Reference Range]: 1 2 Glucose (POC) [65-110 mg/dL] 245 mg/dL *H* (12/07/20 9:52 AM) 212 mg/dL *H* (12/07/20 5:37 AM) Radiology Reports * Exam Date Time Procedure Performing Provider Status 12/07/20 8:03 AM 12/07/20 8:03 AM SPINE IN OR SPINE IN OR Marissa Barraza Director Of Outpatient Services I; Marissa Barraza Director Of Outpatient Services I; Auth (Verified) Auth (Verified) Notes: (SPINE IN OR) Reason For Exam: hnp (SPINE IN OR) Reason For Exam: hnp SPINE IN OR Patient: NAGA LIMA Exam Date: 12/07/2020 This study was performed by Russ De La O M.D. For full details of the procedure and radiographic findings, please see dictated operative note. . Dictating Physician: Radiology, Department OF Releasing Physician: Radiology, Department OF Signature Electronically Authorized Authorized Date/Time: 07-DEC-2020 08:14 am Vital Signs Most recent to oldest [Reference Range]: 1 2 3 Temperature Temporal Artery [35.8-38 DegC] 35.9 DegC (12/07/20 3:58 PM) 35.6 DegC *L (12/07/20 3:40 PM) 36.2 DegC (12/07/20 2:40 PM) Peripheral Pulse Rate [60-100 bpm] 111 bpm *H* (12/07/20 3:58 PM) 111 bpm *H* (12/07/20 3:40 PM) 107 bpm *H* (12/07/20 2:40 PM) Respiratory Rate [14-22 br/min] 18 br/min (12/07/20 3:58 PM) 18 br/min (12/07/20 3:40 PM) 20 br/min (12/07/20 2:40 PM) Blood Pressure [89-139/60-90 mm Hg] 157/88mm Hg *H* (12/07/20 3:58 PM) 157/88mm Hg *H* (12/07/20 3:40 PM) 151/93mm Hg *H* (12/07/20 2:40 PM) Oxygen Therapy Room air (12/07/20 3:58 PM) Room air (12/07/20 3:40 PM) Room air (12/07/20 2:40 PM) Oxygen Flow Rate 0 L/min (12/07/20 3:58 PM) 0 L/min (12/07/20 1:06 PM) 0 L/min (12/07/20 11:40 AM) SpO2 97 % (12/07/20 1:06 PM) Height 177.5 cm (12/07/20 12:22 PM) 177.5 cm (12/07/20 5:47 AM) 177.5 cm (11/30/20 2:07 PM) Weight 129 kg (12/07/20 5:47 AM) 129 kg (11/30/20 2:07 PM) Social History Social History Type Response Alcohol Current some day alc ohol user, Beer, Liquor, 3-5 times per week Substance Abuse Never drug user Smoking Status Current every day sm oker;Never; Tobacco Cessation Counseling Requested N/A; Type: Cigarettes; Tobacco use per day: 5 cigarettes a day; Started at age: 13.0; Total pack years: 730; entered on: 11/30/20 Sex Hospital Discharge Instructions Patient Education 12/07/2020 16:01:45 Lumbar Laminectomy-Discectomy 9600 (Custom) (Custom) CARE OF THE PATIENT WITH LUMBAR LAMINECTOMY/DISCECTOMY [facility] 1. Avoid (BLT) bending, lifting and twisting movements of the back. 2. No lifting greater than 8-10 pounds. (A gallon of milk weighs 8 pounds.) 3. It is acceptable to use dude-amb-jzdcbos pain medication for less severe pain. 4. It is fine to user vrgf-cmj-nseucfo laxative of choice to avoid constipation. 5. Keep the Steri-Strips in place on your incision. They will fall off on their own as you shower. It is OK to gently remove them in 2 weeks if they have not fallen off. 6. It is OK to shower over Steri-Strips after 3 days. No soaking tub baths for 2 weeks after the surgery. 7. If you have stitches, please contact the office for an appointment for suture removal. 8. You may walk stairs carefully. 9. You may engage in sexual activities in 2 weeks. 10. It is best to avoid car rides for 2 weeks, to avoid an accident. 11. You may drive in 3-4 weeks, when you have weaned from the pain medication and the effects of anesthesia have resolved. 12. Walk as much as tolerated and comfortable. This is the only recommended exercise for you. 13. No return to work until advised by your physician. 14. See your surgeon as instructed by him. If your post-op/follow-up visit was NOT arranged prior to your surgery, please call the office within one week to schedule this visit [phone]. 15. FOR AN EMERGENCY AFTER HOURS, OR ON WEEKENDS, PLEASE CALL THE [email or web address] AT [phone] OR TOLL-FREE AT [phone]. 16. Please call the office promptly to report fever, drainage from your incision, or any other problem that occurs before your scheduled appointment. 17. If you feel you require medication refills, please give the office 72 hours notice. There will be no medication refills over the weekend. Revised 07/2010 SLE-0005
--- OUTSIDE RECORDS SUMMARY | 2024-04-13 22:02 | XMS_ITS | Encounter Summary ---
Author Organization [facility] Address [address] [place] [address]. [place], [place] [address] [place] [address] Care Team Providers Care Facility Technician Name Role Phone Quentin Gurrola MD Primary Care Provider [phone] Reason for Referral * Surgical (Routine) - Closed Specialty Diagnoses / Procedures Referred By Marcio jimenez Referred To Contact Diagnoses Carpal tunnel syndrome of right wrist Procedures Case request operating room: Revision RIGHT carpal tunnel release Patient requests post-op splint if appropriate Abbe Mcdaniel MD [address] [place] [id number] Phone: tel: fax: Referral ID Status Reason Start Date Expiration Date Visits Re quested Visits Authorized [id number] Closed 08/18/2022 08/19/2023 1 1 Encounter Details Date Type Department Care Team (Late st Contact Info) Description 08/18/2022 Prep for Procedure [facility] [address], [place] [address] Abbe Mcdaniel MD [address] [place] [address] Social History Tobacco Use Types Packs/Day Years [...] as of this encounter Plan of Treatment Scheduled Orders Name Type Priority Associated Diagnoses Orde r Schedule Case request operating room: Revision RIGHT carpal tunnel release Patient requests post-op splint if appropriate Case Request Routine Carpal tunnel syndrome of right wrist Once for 1 Occurrences starting 08/18/2022 until 08/18/2022 documented as of this encounter Visit Diagnoses Diagnosis Carpal tunnel syndrome of right wrist- Primary Carpal tunnel syndrome documented in this encounter Care Teams Facility Technician Relationship Specialty Start Date End Date Quentin Gurrola MD [address] [place] [address] PCP - General 06/12/22 documented as of this encounter
--- OUTSIDE RECORDS SUMMARY | 2024-04-13 22:02 | XMS_ITS | Encounter Summary ---
Author Organization [facility] Address [address] [place] [address]. [place], [place] [address] [place] [address] Care Team Providers Care Wastewater Plant Civil Engineer Name Role Phone Quentin Gurrola MD Primary Care Provider [phone] Encounter Details Date Type Department Care Team (Latest Contact Info) Description 09/21/2022 Travel Social History Tobacco Use Types Packs/Day [...] on filedocumented in this encounter Care Teams Wastewater Plant Civil Engineer Relationship Specialty Start Date End Date Quentin Gurrola MD [address] [place] [address] PCP - General 06/12/22 documented as of this encounter
--- OUTSIDE RECORDS SUMMARY | 2024-04-13 22:02 | XMS_ITS | Encounter Summary ---
Author Organization [facility] Address [address] [place] [address]. [place], [place] [address] [place] [address] Care Team Providers Care Chemical Processing Technician Name Role Phone Quentin Gurrola MD Primary Care Provider [phone] Reason for Visit * Reason Onset Date Comments Medication 12/19/2022 Encounter Details Date Type Department Care Team (Late st Contact Info) Description 12/19/[address] [id number] Abbe Mcdaniel MD [address] [place] [address] Medication Social History Tobacco Use Types Packs/Day Years [...] as of this encounter Progress Notes * Elaine Reynaga RN - 12/19/2022 10:35 AM CDT RN called patient and left message for refill that was sent to [facility] in [place] for Flexeril. Made him aware to use it sparingly and if he has any question to call us at [phone]. * Elaine Reynaga RN - 12/19/2022 10:29 AM CDT ----- Message from Caro Peraza sent at 12/18/2022 4:04 PM CDT ----- Miguel was given some pain meds for his nerve pain to try out from his carpel tunnel. It does not have any refills on it but it has been helping him and he is wondering if he can get a refill. His pharmacy of choice is [facility] in [place]. Call back number is [phone] documented in this encounter Plan of Treatment Not on file documented as of this encounter Visit Diagnoses Diagnosis Spasm- Primary Abnormal involuntary movements documented in this encounter Care Teams Chemical Processing Technician Relationship Specialty Start Date End Date Quentin Gurrola MD [address] [place] [address] PCP - General 06/12/22 documented as of this encounter
--- OUTSIDE RECORDS SUMMARY | 2024-04-13 22:02 | XMS_ITS | Encounter Summary ---
Author Organization [facility] Address [address] [place] [address]. [place] [address] [place] [address] Care Team Providers Care Rehab Consultant Name Role Phone Quentin Gurrola MD Primary Care Provider [phone] Reason for Visit * Reason Comments Postop Followup Revision RIGHT carpa l tunnel release DOS: 08/31/22 Encounter Details Date Type Department Care Team (Latest Contact Info) Description 11/08/2022 4:30 PM CDT Office Visit [facility] [place] [address] Abbe Mcdaniel MD [address] [place] [address] Postop Followup (Revision RIGHT carpal tunnel release DOS: 08/31/22) Social History Tobacco Use Types Packs/Day Years [...] Mass Index 38.74 11/08/2022 4:32 PM CDT documented in this encounter Progress Notes * Natali Lew John, DEVICE ENGINEER - 11/08/2022 4:30 PM CDT Miguel is a 52-year-old male who presents for Postop Followup (Revision RIGHT carpal tunnel releaseDOS: 08/31/22) Revision RIGHT carpal tunnel release DOS: 08/31/22. Patient reports shooting pain from thumb up inneraspect of arm up to elbow. Patient reports mild numbness to 3rd, 4th, and 5th fingers. Pain does not interrupt sleep. Patient is not taking any medication for pain. Patient is RIGHT hand dominant. 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 No additional nursing task documentation needed. Vitals: 11/08/22 1632 Weight: 122.5 kg (270 lb) Height: 5' [...] Patient has no known allergies. [x] Total Ftrm-kl-Hbyk Assessment Time: 0-15 minutes Additional Contributory Factors NONE * Abbe Mcdaniel MD - 11/08/2022 4:30 PM CDT Chief Complaint: Postop Followup (Revision RIGHT carpal tunnel release DOS: 08/31/22) History of Present Illness: Miguel Caraballo is a 52-year-old male who presents to the office for Postop Followup (Revision RIGHT carpal tunnel release DOS: 08/31/22) Revision RIGHT carpal tunnel release DOS: 08/31/22. Patient reports shooting pain from thumb up inneraspect of arm up to elbow. Patient reports mild numbness to 3rd, 4th, and 5th fingers. Pain does not interrupt sleep. Patient is not taking any medication for pain. Patient is RIGHT hand dominant. 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 ROS: See HPI for pertinent positives Problem List: Patient Active Problem List Diagnosis Ulnar neuropathy of right upper extremity Carpal tunnel syndrome of right wrist Aftercare following surgery [Z48.89 (ICD-10-CM)] Encounter for wound re-check [Z51.89 (ICD-10-CM)] History: Past Medical History: Diagnosis Date COPD (chronic obstructive pulmonary disease) (HHS/HCC) (CMS/HCC) Diabetes mellitus (HHS/HCC) (CMS/HCC) Hypertension Neuropathy Past Surgical History: Procedure [...] OF BREATH OR WHEEZING, Disp: , Rfl: cyclobenzaprine (FLEXERIL) 10 MG tablet, Take 1 tablet (10 mg total) by mouth 3 (three) times dailyas needed for Muscle Spasms., Disp: 30 tablet, Rfl: 0 DULoxetine (CYMBALTA) 30 MG capsule, Take 1 [...] index is 38.74 kg/m??. Last Recorded Weight 11/08/22 1632 Weight: 122.5 kg (270 lb) Physical exam: Constitutional: Alert and in no acute distress. Neurological: The patient was oriented to person, place, and time. Eyes: The sclera and conjunctiva were normal ENT: Hearing was normal. Neck: The appearance of the neck was normal. Cardiovascular: Normal pulses. Pulmonary: No respiratory distress. Skin: No injuries or skin lesion. Musculoskeletal: Right hand demonstrates his incision is healing well and the wound is in good condition without erythema or drainage. He indicates improved sensation. No swelling in the forearm. No localized tenderness Results: Assessment: Encounter Diagnose(s) ICD-10-CM SNOMED CT(R) 1. Spasm R25.2 SPASM cyclobenzaprine (FLEXERIL) 10 MG tablet 2. Follow-up examination after orthopedic surgery Z09 SURGICAL FOLLOW-UP Plan: Patient is doing well with excellent recovery at this point. His wound has healed at this point Nile am comfortable with him returning to work with some commonsense wound protection. He describes involuntary motion of the right upper extremity which occurs on a daily basis with a jerking sensationthat he feels in his right forearm. This appears to be spasm so I have provided him a prescription for Flexeril. He will return as needed Follow up: Return if symptoms worsen or fail to improve. ABBE MCDANIEL MD documented in this encounter Plan of Treatment Not on file documented as of this encounter Visit Diagnoses Diagnosis Spasm- Primary Abnormal involuntary movements Follow-up examination after orthopedic surgery Follow-up examination, following other surgery documented in this encounter Care Teams Rehab Consultant Relationship Specialty Start Date End Date Quentin Gurrola MD [address] [place] [address] PCP - General 06/12/22 documented as of this encounter
--- OUTSIDE RECORDS SUMMARY | 2024-04-13 22:02 | XMS_ITS | Encounter Summary ---
Author Organization [facility] Address [address] [place] [address]. [place] [address] [place] [address] Care Team Providers Care Garden Machinery Mechanic Name Role Phone Quentin Gurrola MD Primary Care Provider [phone] Reason for Visit * Reason Onset Date Comments Lab Results 08/18/2022 Encounter Details Date Type Department Care Team (Late st Contact Info) Description 08/18/[address] [address] Emely Ruth RNFA Lab Results Social History Tobacco Use Types Packs/Day Years [...] as of this encounter Progress Notes * ADAMARIS Vizcaino - 08/18/2022 11:10 AM CDT RN contacted PCP in order to get copy of a1c. No answer, left message. documented in this encounter Plan of Treatment Not on file documented as of this encounter Visit Diagnoses Not on filedocumented in this encounter Care Teams Garden Machinery Mechanic Relationship Specialty Start Date End Date Quentin Gurrola MD [address] [place] [address] PCP - General 06/12/22 documented as of this encounter
--- OUTSIDE RECORDS SUMMARY | 2024-04-13 22:02 | XMS_ITS | Encounter Summary ---
Author Organization [facility] Address [address] [place] [address]. [place] [address] [place] [address] Care Team Providers Care Corporate Traffic Manager Name Role Phone Quentin Gurrola MD Primary Care Provider Reason for Visit * Reason Onset Date Comments Schedule Surgery 08/17/2022 Encounter Details Date Type Department Care Team (Late st Contact Info) Description 08/17/2022 Telephone [facility] [address] [address] Emely Ruth RNFA Schedule Surgery Social History Tobacco Use Types Packs/Day Years [...] Progress Notes * ADAMARIS Vizcaino - 08/18/2022 10:50 AM CDT returned called and RN discussed below at this time. Patient has also had more time to think and would like to proceed regardless on 08/31/22. No further questions at this time. * ADAMARIS Vizcaino - 08/18/2022 9:55 AM CDT RN discussed with provider and insurance approval specialist. Surgery will require authorization and no sooner date available than 08/31/22. RN attempted to discuss with patient's . No answer, leftmessage asking for call back. * ADAMARIS Vizcaino - 08/17/2022 4:57 PM CDT RN called back and spoke with . She would like to know if there is any sooner surgery date available. She states that insurance deductible has been met and will reset 08/31/22. RN advised that willreview with provider and call back. * ADAMARIS Vizcaino - 08/17/2022 4:53 PM CDT ----- Message from Aleja Wild CNA sent at 08/17/2022 4:48 PM CDT ----- would would like a call back regarding surgery date [phone] documented in this encounter Plan of Treatment Not on file documented as of this encounter Visit Diagnoses Not on filedocumented in this encounter Care Teams Corporate Traffic Manager Relationship Specialty Start Date End Date Quentin Gurrola MD [address] [place] [id number] PCP - General 06/12/22 documented as of this encounter
--- OUTSIDE RECORDS SUMMARY | 2024-04-13 22:03 | XMS_ITS | Encounter Summary ---
Author Organization [facility] Address [address] [place] [address]. [place] [address] [place] [address] Care Team Providers Care Coal Cutting Machine Operator Name Role Phone Quentin Gurrola MD Primary Care Provider Encounter Details Date Type Department Care Team (Late st Contact Info) Description 06/13/2022 4:43 PM CDT - 06/13/2022 11:59 PM CDT Hospital Encounter [facility] [address] [place] [address] Olaf Harris, [facility] [address] [place] [address] Discharge Disposition: Home or Self Care (Routine [...] suspected to have Coronavirus/COVID-19? No / Unsure 06/13/2022 3:46 PM CDT documented as of this encounter Medications at Time of Discharge ADVAIR HFA 230-21 MCG/ACT inhaler inhale 2 puffs by mouth twice daily in the morning and in the evening 12/02/2021 albuterol (ACCUNEB) 0.63 MG/3ML nebulizer solution USE 1 VIAL VIA NEBULIZER EVERY 4 - 6 HOURS NEEDED FOR SHORTNESS OF BREATH OR WHEEZING 08/26/2021 gabapentin (NEURONTIN) 300 MG capsule TAKE 1 CAPSULE (300 MG) BY ORAL ROUTE THREE TIMES A DAY 04/23/2022 glipiZIDE (GLUCOTROL) 5 MG tablet TAKE 1.5 TABLETS (7.5 MG) BY ORAL ROUTE ONCE DAILY BEFORE A MEAL 04/26/2022 ipratropium-albu terol (DUONEB) 0.5-2.5 (3) MG/3ML Solution INHALE 3 MILLILITERS BY NEBULIZATION ROUTE 4 TIMES PER DAY 03/16/2022 metFORMIN (GLUCOPHAGE) 1000 MG tablet take 1 tablet by mouth twice a day with breakfast and dinner 05/23/2022 ONETOUCH ULTRA test strip TEST BLOOD SUGAR EVERY DAY 11/14/2021 OZEMPIC 0.25/0.5 MG/DOSE 2 MG/1.5ML injection (PEN) 06/11/2022 simvastatin (ZOCOR) 40 MG tablet Take 1 tablet (40 mg total) by mouth every evening. 06/03/2022 amoxicillin-clav ulanate (AUGMENTIN) 875-125 MG tablet Take 1 tablet (875 mg total) by mouth 2 (two) times daily. 06/08/2022 3 irbesartan-hydro chlorothiazide (AVALIDE) 150-12.5 MG Tab Take 1 tablet by mouth daily. 05/23/2022 3 documented as of this encounter Plan of Treatment Not on file documented as of this encounter Procedures Procedure Name Priority Date/Time Associated Diagnosis Comments XR ELBOW RT M3V Routine 06/13/2022 4:48 PM CDT Right elbow pain documented in this encounter Results * XR ELBOW RT M3V (06/13/2022 4:48 PM CDT) Anatomical Region Laterality Modality Elbow Radiographic Liz ging 06/14/2022 10:3 6 AM CDT Impressions 06/14/2022 10:36 AM CDT IMPRESSION: No acute findings. Ordered By: OLAF HARRIS Interpreted By: Allen Salcido MD, 06/14/2022 10:36 AM Narrative 06/14/2022 10:36 AM CDT Examination: Right elbow. Exam time: 1600 hours. Clinical history: Pain. Comparison: None. Technique: Three views. Findings: No fracture, dislocation or other acute bony abnormality is identified. No other significant bone or joint abnormality is noted. The soft tissues are unremarkable. Procedure Note Allen Salcido MD - 06/14/2022 Examination: Right elbow. Exam time: 1600 hours. Clinical history: Pain. Comparison: None. Technique: Three views. Findings: No fracture, dislocation or other acute bony abnormality isidentified. No other significant bone or joint abnormality is noted. Thesoft tissues are unremarkable. IMPRESSION: No acute findings. Ordered By: OLAF HARRIS Interpreted By: Allen Salcido MD, 06/14/2022 10:36 AM us Olaf Harris [facility] Final Resu lt documented in this encounter Visit Diagnoses Diagnosis Right elbow pain Pain in joint, upper arm documented in this encounter Care Teams Coal Cutting Machine Operator Relationship Specialty Start Date End Date Quentin Gurrola MD [address] [place] [address] PCP - General 06/12/22 documented as of this encounter
--- OUTSIDE RECORDS SUMMARY | 2024-04-13 22:03 | XMS_ITS | Encounter Summary ---
Author Organization [facility] Address [facility] [place] [address] [place] [address] Care Team Providers Care Jboss Architect Name Role Phone Unavailable Primary Care Provider Unavailabl e Encounter Details Date Type Department Care Team (Late st Contact Info) Description 11/04/2015 Orders Only [place] [address] , Generic Conversion, Social History Tobacco Use Types Packs/Day Years Used Date Smoking Tobacco: Never Assessed Sex and Gender Information Value Date Recorded Sex Assigned at Not on file Legal Sex Male 7:04 PM CDT Gender Identity Male 06/13/2022 8:01 AM CDT Sexual Orientation Straight 06/13/2022 8: 01 AM CDT documented as of this encounter Plan of Treatment Not on file documented as of this encounter Procedures Procedure Name Priority Date/Time Associated Diagnosis Comments PROTHROMBIN TIME, VENOUS NOW 11/04/2015 7:07 PM CDT documented in this encounter Results * (ABNORMAL) PROTIME/INR, VENOUS (11/04/2015 7:07 PM CDT) PROTIME 14.5(H) 11.6 - 14.3 SEC 11/04/2015 7:31 PM CDT [facility] INR 1.2(H) 0.9 - 1.1 11/04/2015 7:31 PM CDT [facility] 11/04/2015 7:07 PM CDT 11/04/2015 7:09 PM CDT Generic Conversion Md [facility] Final R esult [facility] [address] [place] [address], [id number] documented in this encounter Visit Diagnoses Not on filedocumented in this encounter
--- OUTSIDE RECORDS SUMMARY | 2024-04-13 22:03 | XMS_ITS | Encounter Summary ---
Author Organization [facility] Address [facility] [place] [address] [place] [address] Care Team Providers Care Life Science Taxonomist Name Role Phone Brie Carrington Primary Care Provider [phone] Encounter Details Date Type Department Care Team (Late st Contact Info) Description 01/16/2005 Abstract [facility] Emergency Services [address] [place] [address] Franki Tobar, DO [address] [place] [address] Social History Tobacco Use Types Packs/Day Years Used Date Smoking Tobacco: Never Assessed Sex and Gender Information Value Date Recorded Sex Assigned at Not on file Legal Sex Male 7:04 PM CDT Gender Identity Male 06/13/2022 8:01 AM CDT Sexual Orientation Straight 06/13/2022 8: 01 AM CDT COVID-19 Exposure Response Date Recorded In the last month, have you been in contact with someone who was confirmed or suspected to have Coronavirus / COVID-19? No / Unsure 07/01/2019 5:47 PM CDT documented as of this encounter Plan of Treatment Not on file documented as of this encounter Visit Diagnoses Not on filedocumented in this encounter Care Teams Life Science Taxonomist Relationship Specialty Start Date End Date Brie Carrington PA [address] [place] [address] PCP - General PHYSICIAN UPHOLSTERER APPRENTICE 02/18/19 06/11/22 documented as of this encounter
--- OUTSIDE RECORDS SUMMARY | 2024-04-13 22:03 | XMS_ITS | Encounter Summary ---
Author Organization [facility] Address [address] [place] [address]. [place] [address] [place] [address] Care Team Providers Care Profile Grinder Technician Name Role Phone Brie Carrington Primary Care Provider [phone] Reason for Visit * Reason Onset Date Comments Record Request 06/09/2022 Encounter Details Date Type Department Care Team (Late st Contact Info) Description 06/09/[address] [address] Emely Ruth RNFA Record Request Social History Tobacco Use Types Packs/Day Years Used Date Smoking Tobacco: Never Assessed Sex and Gender Information Value Date Recorded Sex Assigned at Not on file Legal Sex Male 7:04 PM CDT Gender Identity Male 06/13/2022 8:01 AM CDT Sexual Orientation Straight 06/13/2022 8: 01 AM CDT documented as of this encounter Progress Notes * ADAMARIS Vizcaino - 06/09/2022 10:43 AM CST RN contacted PCP in order to get copy of previous EMGs done. PCP states that one was done in 2020, they will fax at this time. ROL SYSTEMS SPECIALIST documented in this encounter Plan of Treatment Not on file documented as of this encounter Visit Diagnoses Not on filedocumented in this encounter Care Teams Profile Grinder Technician Relationship Specialty Start Date End Date Brie Carrington PA [address] [place] [address] PCP - General PHYSICIAN REHAB AID 02/18/19 06/11/22 documented as of this encounter
--- OUTSIDE RECORDS SUMMARY | 2024-04-13 22:03 | XMS_ITS | Encounter Summary ---
Author Organization [facility] Address [facility] [place] [address] [place] [address] Care Team Providers Care Pulmonologist/Intensivist Name Role Phone Unavailable Primary Care Provider Unavailabl e Encounter Details Date Type Department Care Team (Late st Contact Info) Description 09/21/2007 Abstract [facility] Emergency Room [address] [place] [address] Julio C Mullins MD [address] [place] [address] Social History Tobacco Use Types Packs/Day Years [...]
--- OUTSIDE RECORDS SUMMARY | 2024-04-13 22:03 | XMS_ITS | Encounter Summary ---
Author Organization [facility] Address [facility] [place] [address] [place] [address] Care Team Providers Care Hvac Sales Representative Name Role Phone Unavailable Primary Care Provider Unavailabl e Encounter Details Date Type Department Care Team (Late st Contact Info) Description 11/05/2015 Orders Only [place] [address] , Generic Conversion, Social History Tobacco Use [...] Procedure Name Priority Date/Time Associated Diagnosis Comments BASIC METABOLIC PANEL TIMED 11/05/2015 5:06 AM CDT documented in this encounter Results * (ABNORMAL) BASIC METABOLIC PANEL (11/05/2015 5:06 AM CDT) SODIUM S/P/B 133(L) 135 - 147 MMOL/L 11/05/2015 6:22 AM CDT [facility] POTASSIUM S/P/B 3.4(L) 3.5 - 5.0 MMOL/L 11/05/2015 6:22 AM CDT [facility] CHLORIDE S/P/B 99 98 - 107 MMOL/L 11/05/2015 6:22 AM CDT [facility] CO2 25.1 22 - 29 MMOL/L 11/05/2015 6:22 AM CDT [facility] GLUCOSE 139(H) 70 - 109 MG/DL 11/05/2015 6:22 AM CDT [facility] BUN 9 9 - 21 MG/DL 11/05/2015 6:22 AM T [facility] CREATININE S/P/B 0.69(L) 0.70 - 1.30 MG/DL 11/05/2015 6:22 AM CDT [facility] CALCIUM S/P/B 8.6 8.4 - 10.2 MG/DL 11/05/2015 6:22 AM CDT [facility] EGFR NON-AFR. AMER. 123 >60 ML/MIN/1.7 3 M2 11/05/2015 6:22 AM T [facility] EGFR AFR. AMER. 149 >60 ML/MIN/1.7 3 M2 11/05/2015 6:22 AM T [facility] ANION GAP 8.9 MMOL/L 11/05/2015 6:22 AM T [facility] OSMOLALITY (CALC) 267 MOSM/KG 11/05/2015 6:22 AM T [facility] PLASMA SPECIMEN / Unknown 11/05/2015 5:06 AM CDT 11/05/2015 5:19 AM CDT us Generic Conversion Md [facility] Final R esult [facility] [place] [place] [address], [id number] documented in this encounter Visit Diagnoses Not on filedocumented in this encounter
--- OUTSIDE RECORDS SUMMARY | 2024-04-13 22:03 | XMS_ITS | Encounter Summary ---
Author Organization [facility] Address Count includes the [facility] [place] [address] [place] [address] Care Team Providers Care Director Digital Communications Name Role Phone Brie Carrington Primary Care Provider [phone] Encounter Details Date Type Department Care Team (Late st Contact Info) Description 01/19/2005 Abstract [facility] Emergency Services [address] [place] [address] Jesusita Nickerson MD [address] [place] [address] Social History Tobacco Use Types Packs/Day Years [...] on filedocumented in this encounter Care Teams Director Digital Communications Relationship Specialty Start Date End Date Brie Carrington PA [address] [place] [address] PCP - General PHYSICIAN GRAIN LOADER 02/18/19 06/11/22 documented as of this encounter
--- OUTSIDE RECORDS SUMMARY | 2024-04-13 22:03 | XMS_ITS | Encounter Summary ---
Author Organization [facility] Address [facility] [place] [address] [place] [address] Care Team Providers Care Product Development Name Role Phone Unavailable Primary Care Provider Unavailabl e Encounter Details Date Type Department Care Team (Late st Contact Info) Description 11/04/2015 Abstract [facility] [address] [place] [address] Yrn Dc MD [address] [place] [address] [id number] Social History Tobacco Use Types Packs/Day Years [...] as of this encounter Visit Diagnoses Diagnosis Diverticulitis of large intestine with perforation and abscess without bleeding documented in this encounter
--- OUTSIDE RECORDS SUMMARY | 2024-04-13 22:03 | XMS_ITS | Encounter Summary ---
Author Organization [facility] Address [facility] [place] [address] [place] [address] Care Team Providers Care Permaculture Contractor Name Role Phone Unavailable Primary Care Provider Unavailabl e Encounter Details Date Type Department Care Team (Late st Contact Info) Description 11/06/2015 Orders [place] [address] , Generic Conversion, Social History Tobacco Use [...] Procedure Name Priority Date/Time Associated Diagnosis Comments CBC W/DIFF AUTOMATED TIMED 11/06/2015 4:59 AM CDT documented in this encounter Results * (ABNORMAL) CBC W/DIFF AUTOMATED (11/06/2015 4:59 AM CDT) WBC 10.9(H) 4.0 - 10.8 x10'3/uL 11/06/2015 5:43 AM CDT [facility] RBC 4.30(L) 4.50 - 6.10 x10'6/uL 11/06/2015 5:43 AM CDT [facility] HGB 12.8(L) 13.0 - 18.0 G/DL 11/06/2015 5:43 AM CDT [facility] HCT 38.1 37.0 - 52.0 % 11/06/2015 5:43 AM CDT [facility] MCV 88.6 78.0 - 100.0 FL 11/06/2015 5:43 AM CDT [facility] MCH 29.8 27.0 - 31.0 PG 11/06/2015 5:43 AM CDT [facility] MCHC 33.6 33.0 - 36.0 G/DL 11/06/2015 5:43 AM CDT [facility] RDW 12.1 11.5 - 14.5 % 11/06/2015 5:43 AM CDT [facility] PLT 157 150 - 350 x10'3/uL 11/06/2015 5:43 AM CDT [facility] MPV 9.3 7.4 - 10.4 FL 11/06/2015 5:43 AM CDT [facility] ABS. NEUTROPHILS TOTAL 8.31(H) 1.60 - 8.30 x10'3/uL 11/06/2015 5:43 AM CDT [facility] ABS. LYMPHOCYTES 1.07 0.80 - 4.70 x10'3/uL 11/06/2015 5:43 AM CDT [facility] ABS. MONOCYTES 1.15 0.00 - 1.50 x10'3/uL 11/06/2015 5:43 AM CDT [facility] ABS. EOSINOPHILS 0.25 0.00 - 0.40 x10'3/uL 11/06/2015 5:43 AM CDT [facility] ABS. BASOPHILS 0.04 0.00 - 0.20 x10'3/uL 11/06/2015 5:43 AM CDT [facility] ABS. IMMATURE GRANULOCYTES 0.05(H) 0.00 - 0.03 x10'3/uL 11/06/2015 5:43 AM CDT [facility] ABS. NUCLEATED RBC'S 0.00 0.0 x10'3/uL 11/06/2015 5:43 AM CDT [facility] PLASMA SPECIMEN / Unknown 11/06/2015 4:59 AM CDT 11/06/2015 5:10 AM CDT us Generic Conversion Md [facility] Final R esult [facility] [address] [place] [address], [id number] documented in this encounter Visit Diagnoses Not on filedocumented in this encounter
--- OUTSIDE RECORDS SUMMARY | 2024-04-13 22:03 | XMS_ITS | Encounter Summary ---
Author Organization [facility] Address [facility]6 [facility] [place], [place] [address] [place] [address] Care Team Providers Care Quill Picking Machine Operator Name Role Phone Unavailable Primary Care Provider Unavailabl e Encounter Details Date Type Department Care Team (Latest Contact Info) Description 11/07/2015 Abstract [facility] Social History Tobacco Use Types Packs/Day Years [...]
--- OUTSIDE RECORDS SUMMARY | 2024-04-13 22:03 | XMS_ITS | Encounter Summary ---
Author Organization [facility] Address [address] [place] [address]. [place], [place] [address] [place] [address] Care Team Providers Care Patient Services Representative Name Role Phone Quentin Gurrola MD Primary Care Provider [phone] Reason for Referral * Consultation (Routine) - Closed Specialty Diagnoses / Procedures Referred By Contact Referred To Contact NEUROLOGY / [facility] Orthopaedics Diagnoses Ulnar neuropathy of right upper extremity Numbness and tingling in both hands Carpal tunnel syndrome of right wrist Procedures OFFICE/OUTPT VISIT,NEW,LEVL III OFFICE/OUTPT VISIT,NEW,LEVL IV OFFICE/OUTPT VISIT,NEW,LEVL V OFFICE/OUTPT VISIT,EST,LEVL III OFFICE/OUTPT VISIT,EST,LEVL IV OFFICE/OUTPT VISIT,EST,LEVL V Olaf Harris FNP-BC [address] [place] [address] [place] [address] Phone: tel: fax: [place] [address] Phone: tel: fax: Referral ID Status Reason Start Date Expiration Date V isits Requested Visits Authorized [id number] Closed Specialty Services 06/13/2022 06/14/2023 [address] Ron please perform BILATERAL upper extremity EMG's. Reason for Visit * Reason Comments Hand Pain RIGHT New Patient Encounter Details Date Type Department Care Team (Late [facility]) Description 06/13/2022 3:45 PM CDT Office Visit [facility] [place] [address] [facility] [place] [address] Olaf Harris FNP-JASON [address] [address] Hand Pain (RIGHT); New Patient Social History Tobacco Use Types Packs/Day Years [...] - - Weight 124.7 kg (275 lb) 06/13/2022 3:49 PM CDT Height 177.8 cm (5' 10 ) 06/13/2022 3:49 PM CDT Body Mass Index 39.46 06/13/2022 3:49 PM CDT documented in this encounter Progress Notes * DEIRDRE Aviles - 06/13/2022 3:45 PM CDT Chief Complaint: Hand Pain (RIGHT) and New Patient History of Present Illness: Miguel Caraballo is a 51-year-old male who presents to the office for Hand Pain (RIGHT) and New Patient Patient comes in to clinic today for pain in RIGHT hand. He has history of RIGHT CTR and ulnar nerve transposition by Dr Brown approximately 4 years ago and then roughly 6 months later he had a carpal tunnel release revision since he did not see the relief with the first surgery. He states continued numbness and tingling with pins and needles feeling to RIGHT 3rd-5th fingers. He reports weakness and difficulty with grasping objects. He had a new EMG performed in April 2020 (in [place]). Pain at night and with use. He is not taking anything specifically for pain, but does take gabapentin for neuropathy. He is RIGHT hand dominant. 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 ROS: See HPI for pertinent positives Problem List: Patient Active Problem List Diagnosis ??? Ulnar neuropathy of right upper extremity ??? Carpal tunnel syndrome of right wrist History: Past Medical History: Diagnosis Date ??? COPD (chronic obstructive pulmonary disease) ([facility]) ??? Diabetes mellitus (CMS/HCC) ??? Hypertension ??? Neuropathy Past Surgical History: Procedure Laterality Date ??? CARPAL TUNNEL RELEASE Right CTR and cubital tunnel release X2 most recent 04/2019 ??? SPINE SURGERY Family History Problem Relation Name Age of Onset ??? Cancer Father Miguel Landaverde II Family Status Relation Name Status ??? Father Miguel Landaverde II (Not Specified) Social History Socioeconomic History ??? Marital status: Tobacco Use ??? Smoking status: Every Day Packs/day: 1.50 Years: 35.00 Pack years: 52.50 Types: Cigarettes ??? Smokeless tobacco: Never Substance and Sexual Activity ??? Alcohol use: Yes Comment: occasional ??? Drug use: Never ??? Sexual activity: Yes Partners: Female control/protection: None Medications: Current Outpatient Medications: ??? ADVAIR HFA 230-21 MCG/ACT inhaler, inhale 2 puffs by mouth twice daily in the morning and in the evening, Disp: , Rfl: ??? albuterol (ACCUNEB) 0.63 MG/3ML nebulizer solution, USE 1 VIAL VIA NEBULIZER EVERY 4 - 6 HOURS NEEDED FOR SHORTNESS OF BREATH OR WHEEZING, Disp: , Rfl: ??? amoxicillin-clavulanate (AUGMENTIN) 875-125 MG tablet, Take 1 tablet (875 mg total) by mouth 2 (two) times daily., Disp: , Rfl: ??? gabapentin (NEURONTIN) 300 MG capsule, TAKE 1 CAPSULE (300 MG) BY ORAL ROUTE THREE TIMES A DAY,Disp: , Rfl: ??? glipiZIDE (GLUCOTROL) 5 MG tablet, TAKE 1.5 TABLETS (7.5 MG) BY ORAL ROUTE ONCE DAILY BEFORE A MEAL, Disp: , Rfl: ??? ipratropium-albuterol (DUONEB) 0.5-2.5 (3) MG/3ML Solution, INHALE 3 MILLILITERS BY NEBULIZATION ROUTE 4 TIMES PER DAY, Disp: , Rfl: ??? irbesartan-hydrochlorothiazide (AVALIDE) 150-12.5 MG Tab, Take 1 tablet by mouth daily., Disp: , Rfl: ??? metFORMIN (GLUCOPHAGE) 1000 MG tablet, take 1 tablet by mouth twice a day with breakfast and dinner, Disp: , Rfl: ??? ONETOUCH ULTRA test strip, TEST BLOOD SUGAR EVERY DAY, Disp: , Rfl: ??? OZEMPIC 0.25/0.5 MG/DOSE 2 MG/1.5ML injection (PEN), , Disp: , Rfl: ??? simvastatin (ZOCOR) 40 MG tablet, Take 1 tablet (40 mg total) by mouth every evening., Disp: , Rfl: No Known Allergies Objective: Body mass index is 39.46 kg/m??. Last Recorded Weight 06/13/22 1549 Weight: 124.7 kg (275 lb) Physical exam: Constitutional: Alert and in no acute distress. Neurological: The patient was oriented to person, place, and time. Eyes: The sclera and conjunctiva were normal ENT: Hearing was normal. Neck: The appearance of the neck was normal. Cardiovascular: Normal pulses. Pulmonary: No respiratory distress. Skin: No injuries or skin lesion. Musculoskeletal: Exam of right upper extremity today demonstrates full elbow range of motion, no increased pain with resisted supination and pronation, no ecchymosis or swelling, able to make a fist,good wrist range of motion, positive Tinel's and compression at elbow but negative at wrist, no significant thenar atrophy, mild tenderness over medial epicondyle with palpation, good capillary refill, palpable radial pulses. Patient reports decreased sensation to all fingers. Results: X-ray of right elbow today demonstrates mild degenerative changes with appearance of slight irregularity to the medial humeral condyle with no acute or healing bony injury or dislocation. EMG studies from 04-09-2020 stated moderately severe right carpal tunnel syndrome with a slight worsening particularly of the motor latency values compared to previous study done in October 2019 and no evidence of ulnar or radial neuropathy. Assessment: Encounter Diagnose(s) ICD-10-CM ICD-9-CM SNOMED CT(R) 1. Ulnar neuropathy of right upper extremity G56.21 354.2 ULNAR NEUROPATHY OF RIGHT ARM XR ELBOW [id number] EMG Ambulatory referral to Neurology 2. Numbness and tingling in both hands R20.0 782.0 PARESTHESIA OF HAND EMG R20.2 Ambulatory referral to Neurology 3. Carpal tunnel syndrome of right wrist G56.01 354.0 CARPAL TUNNEL SYNDROME OF RIGHT WRIST EMG Ambulatory referral to Neurology Plan: Patient has had right carpal tunnel release twice and right cubital tunnel release previously with his last surgery being April 2019. Patient reports that he never did see any relief after his first surgery and after his second surgery he stated the pain and numbness became worse. Patient reportsthat he is having increased night pain and constantly having angling as well as decreased strength to his right upper extremity. Since he has had at least 2 surgeries on his right upper extremity andhis last EMG studies being 2020 I have recommended proceeding with repeat EMG studies and will include his left to assist with comparison. Activity as tolerated. We will reach out to Dr. Ron's office to see if we can get him set up to have EMG studies in [place]. He will follow- up once his EMGs have been completed. Follow up: Return for Visit after EMG studies have been obtained. DEIRDRE AVILES documented in this encounter Plan of Treatment Scheduled Referrals Name Type Priority Associated Diagnoses Orde r Schedule Ambulatory referral to Neurology Referral Routine Ulnar neuropathy of right upper extremity Numbness and tingling in both hands Carpal tunnel syndrome of right wrist Ordered: 06/13/2022 documented as of this encounter Results * XR ELBOW RT [...] MD, 06/14/2022 10:36 AM us Olaf Harris CLEARANCE CUTTER-[facility] GENERAL [facility] Final Resu lt documented in this encounter Visit Diagnoses Diagnosis Ulnar neuropathy of right upper extremity- Primary Lesion of ulnar nerve Numbness and tingling in both hands Carpal tunnel syndrome of right wrist Carpal tunnel syndrome Right elbow pain Pain in joint, upper arm documented in this encounter Care Teams Patient Services Representative Relationship Specialty Start Date End Date Quentin Gurrola MD [address] [place] [address] PCP - General 06/12/22 documented as of this encounter
--- OUTSIDE RECORDS SUMMARY | 2024-04-13 22:03 | XMS_ITS | Encounter Summary ---
Author Organization [facility] Address [facility] [place], [place] [address] [place] [address] Care Team Providers Care Field Cashier Name Role Phone Unavailable Primary Care Provider Unavailabl e Encounter Details Date Type Department Care Team (Latest Contact Info) Description 08/30/2016 Abstract [facility] Social History Tobacco Use [...]
--- OUTSIDE RECORDS SUMMARY | 2024-04-13 22:03 | XMS_ITS | Encounter Summary ---
Author Organization [facility] Address [facility] [place], [place] [address] [place] [address] Care Team Providers Care Recreation Programmer Name Role Phone Unavailable Primary Care Provider Unavailabl e Encounter Details Date Type Department Care Team (Latest Contact Info) Description 11/08/2015 Abstract [facility] Social History Tobacco Use [...]
--- OUTSIDE RECORDS SUMMARY | 2024-04-13 22:03 | XMS_ITS | Encounter Summary ---
Author Organization [facility] Address [facility] [place], [place] [address] [place] [address] Care Team Providers Care Deputy Sheriff Chief Name Role Phone Unavailable Primary Care Provider Unavailabl e Encounter Details Date Type Department Care Team (Latest Contact Info) Description 08/08/2016 Abstract [facility] Social History Tobacco Use [...]
--- OUTSIDE RECORDS SUMMARY | 2024-04-13 22:03 | XMS_ITS | Encounter Summary ---
Author Organization [facility] Address [facility]6 [facility] [address] [place] [address] Care Team Providers Care Blanket Inspector Name Role Phone Unavailable Primary Care Provider Unavailabl e Encounter Details Date Type Department Care Team (Late st Contact Info) Description 02/19/2004 Abstract [facility] Emergency Room [address] [place] [address] Wally Yoder MD [address] , [facility] [address] [place] [address] Social History Tobacco Use Types Packs/Day Years [...]
--- OUTSIDE RECORDS SUMMARY | 2024-04-13 22:03 | XMS_ITS | Encounter Summary ---
Author Organization [facility] Address [facility] [place], [place] [address] [place] [address] Care Team Providers Care Certification And Selection Specialist Name Role Phone Unavailable Primary Care Provider Unavailabl e Encounter Details Date Type Department Care Team (Latest Contact Info) Description 11/06/2015 Abstract [facility] Social History Tobacco Use Types [...]
--- OUTSIDE RECORDS SUMMARY | 2024-04-13 22:03 | XMS_ITS | Encounter Summary ---
Author Organization [facility] Address [address] [place] [address]. [place] [address] [place] [address] Care Team Providers Care Linen Room Houseperson Name Role Phone Brie Carrington Primary Care Provider [phone] Encounter Details Date Type Department Care Team (Latest Contact Info) Description 07/01/2019 5:51 PM CDT - 07/01/2019 11:59 PM CDT Hospital Encounter [facility] [address] [facility] [place] [address] Brie Carrington PA [address] [place] [address] Discharge Disposition: Home or Self Care (Routine [...] Name Priority Date/Time Associated Diagnosis Comments XR CHEST PA+LAT Routine 07/01/2019 6:03 PM CDT Shortness of breath documented in this encounter Results * XR CHEST PA+LAT (07/01/2019 6:03 PM CDT) Anatomical Region Laterality Modality Chest Radiographic Liz ging 07/01/2019 6:02 PM CDT Impressions 07/01/2019 6:03 PM CDT IMPRESSION: 1) No acute or focal infiltrates. Interpreted By: Samuel Moreira MD, 07/01/2019 6:02 PM Narrative 07/01/2019 6:03 PM CDT Examination: XR CHEST PA+LAT Exam time: 07/01/2019 5:55 PM Clinical history: Shortness of breath. Comparison: No priors. Technique: 2 views chest Findings: Heart size is within normal limits. Mediastinum is unremarkable. In the lung parenchyma no acute infiltrates. No effusion or free air. Bony elements are intact. Mild degenerative changes at the dorsal spine. Procedure Note Samuel Moreira MD - 07/01/2019 Examination: XR CHEST PA+LAT Exam time: 07/01/2019 5:55 PM Clinical history: Shortness of breath. Comparison: No priors. Technique: 2 views chest Findings: Heart size is within normal limits. Mediastinum isunremarkable. In the lung parenchyma no acute infiltrates. No effusion or free air.Bony elements are intact. Mild degenerative changes at the dorsal spine. IMPRESSION: 1) No acute or focal infiltrates. Interpreted By: Samuel Moreira MD, 07/01/2019 6:02 PM [facility] Final Result documented in this encounter Visit Diagnoses Diagnosis Shortness of breath documented in this encounter Care Teams Linen Room Houseperson Relationship Specialty Start Date End Date Brie Carrington PA [address] [place] [address] PCP - General PHYSICIAN HEAVY EQUIPMENT FIELD MECHANIC 02/18/19 06/11/22 documented as of this encounter
--- OUTSIDE RECORDS SUMMARY | 2024-04-13 22:03 | XMS_ITS | Encounter Summary ---
Author Organization [facility] Address [address] [place] [address]. [place] [address] [place] [address] Care Team Providers Care [id number] Android Developer Name Role Phone Unavailable Primary Care Provider Unavailabl e Encounter Details Date Type Department Care Team (Late st Contact Info) Description 01/20/1988 Abstract [facility] [address] [place] [address] , Generic Conversion, Social History Tobacco Use [...]
--- OUTSIDE RECORDS SUMMARY | 2024-04-13 22:03 | XMS_ITS | Encounter Summary ---
Author Organization [facility] Address [address] 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
--- OUTSIDE RECORDS SUMMARY | 2024-04-13 22:03 | XMS_ITS | Encounter Summary ---
Author Organization [facility] Address [address] [place] [address]. [place] [address] [place] [address] Care Team Providers Care Wet Room Worker Name Role Phone Brie Carrington Primary Care Provider [phone] Reason for Visit * Imaging (Routine) - Closed Specialty Diagnoses / Procedures Referred By Contac t Referred To Contact RADIOLOGY Diagnoses Numbness Procedures US UP EXT NONVASC LTD RT US UP EXT NONVASC COMP RT Moy Brown MD Phone: tel: fax: Referral ID Status Reason Start Date Expiration Date Visits Re quested Visits Authorized [id number] Closed 02/17/2019 03/19/2020 1 1 Encounter Details Date Type Department Care Team (Latest Contact Info) Description 02/20/2019 9:53 AM GARAGE MANAGER - 02/20/2019 11:59 PM GARAGE MANAGER Hospital Encounter [facility] [address] [place] [address] [place] [address] [place] [address] Discharge Disposition: Home or Self Care (Routine [...] Procedure Name Priority Date/Time Associated Diagnosis Comments US UP EXT NONVASC LTD RT Routine 02/20/2019 10:27 AM GARAGE MANAGER Numbness documented in this encounter Results * US UP EXT NONVASC LTD RT (02/20/2019 10:27 AM GARAGE MANAGER) Anatomical Region Laterality Modality Extremity Ultrasound 02/25/2019 12:5 3 PM GARAGE MANAGER Impressions 02/25/2019 12:56 PM GARAGE MANAGER IMPRESSION: 1) Normal appearance of the right median nerve in the mid forearm region. 2. As it approaches the carpal tunnel from proximal to distal the median nerve becomes thickened, hypoechoic and swollen consistent with diffuse inflammation. Interpreted By: Ulises Nair MD, 02/25/2019 12:53 PM Narrative 02/25/2019 12:56 PM GARAGE MANAGER Examination: US UP EXT NONVASC LTD RT Exam time: 02/20/2019 10:03 AM Clinical history: History of carpal tunnel release surgery right wrist approximately 6 months previous. Worsening recurrent pain and numbness in the median nerve lesion. Comparison: None Technique: Longitudinal and transverse grayscale images of the ventral distal right forearm and right wrist were obtained with flexion of the right third/fourth fingers to distinguish median nerve from underlying flexor tendons. Color Doppler. Findings: Visualization is somewhat limited secondary to patient size and postoperative change at the right carpal tunnel. The median nerve is identified proximally in the forearm where it has a normal caliber and a normal or slightly hyperechoic homogeneous appearance. More distally in the right forearm approaching the carpal tunnel the median nerve becomes abnormally edematous and swollen appearance with abnormal hypoechogenicity in a diffuse pattern suggesting diffuse inflammation. There is no evidence of abnormal hematoma or abscess. No other significant abnormality demonstrated. Procedure Note Ulises Nair MD - 02/25/2019 Examination: US UP EXT NONVASC LTD RT Exam time: 02/20/2019 10:03 AM Clinical history: History of carpal tunnel release surgery right wrist approximately 6 months previous. Worsening recurrent pain and numbnessin the median nerve lesion. Comparison: None Technique: Longitudinal and transverse grayscale images of the ventral distal right forearm and right wrist were obtained with flexion of the right third/fourth fingers to distinguish median nerve from underlying flexor tendons. Color Doppler. Findings: Visualization is somewhat limited secondary to patient sizeand postoperative change at the right carpal tunnel. The median nerve is identified proximally in the forearm where it has a normal caliber and a normal or slightly hyperechoic homogeneousappearance. More distally in the right forearm approaching the carpal tunnel themedian nerve becomes abnormally edematous and swollen appearance with abnormal hypoechogenicity in a diffuse pattern suggesting diffuse inflammation. There is no evidence of abnormal hematoma or abscess. No othersignificant abnormality demonstrated. IMPRESSION: 1) Normal appearance of the right median nerve in the mid forearmregion. 2. As it approaches the carpal tunnel from proximal to distal the median nerve becomes thickened, hypoechoic and swollen consistent with diffuse inflammation. Interpreted By: Ulises Nair MD, 02/25/2019 12:53 PM us Moy Brown MD ULTRASOUND Final Resu lt documented in this encounter Visit Diagnoses Diagnosis Numbness Disturbance of skin sensation documented in this encounter Care Teams Wet Room Worker Relationship Specialty Start Date End Date Brie Carrington PA [address] [place] [address] PCP - General PHYSICIAN WARD ATTENDANT 02/18/19 06/11/22 documented as of this encounter
--- OUTSIDE RECORDS SUMMARY | 2024-04-13 22:03 | XMS_ITS | Encounter Summary ---
Author Organization [facility] Address [facility] [facility] [place] [address] [place] [address] Care Team Providers Care Physician Compensation Analyst Name Role Phone Unavailable Primary Care Provider Unavailabl e Encounter Details Date Type Department Care Team (Late st Contact Info) Description 11/05/2015 Orders Only [place] [address] , Generic Conversion, Social History Tobacco Use [...] Associated Diagnosis Comments CBC W/DIFF AUTOMATED TIMED 11/05/2015 5:06 AM CDT documented in this encounter Results * (ABNORMAL) CBC W/DIFF AUTOMATED (11/05/2015 5:06 AM CDT) WBC 13.3(H) 4.0 - 10.8 x10'3/uL 11/05/2015 6:04 AM CDT [facility] RBC 4.49(L) 4.50 - 6.10 x10'6/uL 11/05/2015 6:04 AM CDT [facility] HGB 13.4 13.0 - 18.0 G/DL 11/05/2015 6:04 AM CDT [facility] HCT 39.4 37.0 - 52.0 % 11/05/2015 6:04 AM CDT [facility] MCV 87.8 78.0 - 100.0 FL 11/05/2015 6:04 AM CDT [facility] MCH 29.8 27.0 - 31.0 PG 11/05/2015 6:04 AM CDT [facility] MCHC 34.0 33.0 - 36.0 G/DL 11/05/2015 6:04 AM CDT [facility] RDW 12.2 11.5 - 14.5 % 11/05/2015 6:04 AM CDT [facility] PLT 154 150 - 350 x10'3/uL 11/05/2015 6:04 AM CDT [facility] MPV 9.5 7.4 - 10.4 FL 11/05/2015 6:04 AM CDT [facility] ABS. NEUTROPHILS TOTAL 9.71(H) 1.60 - 8.30 x10'3/uL 11/05/2015 6:33 AM CDT [facility] ABS. NEUTROPHILS CALCULATED 9.04(H) 1.60 - 7.30 x10'3/uL 11/05/2015 6:33 AM CDT [facility] BANDS 0.67 0.00 - 1.00 x10'3/uL 11/05/2015 6:33 AM CDT [facility] ABS. LYMPHOCYTES 1.60 0.80 - 4.70 x10'3/uL 11/05/2015 6:33 AM CDT [facility] ABS. MONOCYTES 1.73(H) 0.00 - 1.50 x10'3/uL 11/05/2015 6:33 AM CDT [facility] ABS. EOSINOPHILS 0.27 0.00 - 0.40 x10'3/uL 11/05/2015 6:33 AM CDT [facility] ABS. BASOPHILS 0.00 0.00 - 0.20 x10'3/uL 11/05/2015 6:33 AM CDT [facility] ABS. NUCLEATED RBC'S 0.00 0.0 x10'3/uL 11/05/2015 6:33 AM CDT [facility] RBC MORPHOLOGY ANISOCYTOSIS 11/05/19 16 6:33 AM CDT [facility] Comment: SLIGHT POLYCHROMASIA SLIGHT PLT MORPH. NORMAL 11/05/2015 6:33 AM CDT [facility] PLASMA SPECIMEN / Unknown 11/05/2015 5:06 AM CDT 11/05/2015 5:19 AM CDT us Generic Conversion Md [facility] Final R esult [facility] [address] [place] [address], [phone] [id number] documented in this encounter Visit Diagnoses Not on filedocumented in this encounter
--- OUTSIDE RECORDS SUMMARY | 2024-04-13 22:03 | XMS_ITS | Encounter Summary ---
Author Organization [facility] Address [facility] [place] [address] [place] [address] Care Team Providers Care Expanded Function Dental Assistant Name Role Phone Unavailable Primary Care Provider Unavailabl e Encounter Details Date Type Department Care Team (Late st Contact Info) Description 05/30/2004 Abstract [facility] Emergency Room [address] [place] [address] Social History Tobacco Use Types Packs/Day Years [...]
--- OUTSIDE RECORDS SUMMARY | 2024-04-13 22:03 | XMS_ITS | Encounter Summary ---
Author Organization [facility] Address Critical access hospital[facility] [place] [address] [place] [address] Care Team Providers Care Color Control Operator Name Role Phone Unavailable Primary Care Provider Unavailabl e Encounter Details Date Type Department Care Team (Late st Contact Info) Description 11/04/2015 Orders [place] [address] , Generic Conversion, Social History Tobacco Use [...] Procedure Name Priority Date/Time Associated Diagnosis Comments LACTIC ACID STAT 11/04/2015 7:07 PM CDT documented in this encounter Results * LACTIC ACID (11/04/2015 7:07 PM CDT) LACTIC ACID VENOUS 1.7 0.5 - 2.0 MMOL/L 11/04/2015 7:33 PM CDT [facility] PLASMA SPECIMEN / Unknown 11/04/2015 7:07 PM CDT 11/04/2015 7:09 PM CDT us Generic Conversion Md [facility] Final R esult [facility] [place] [address], [id number] documented in this encounter Visit Diagnoses Not on filedocumented in this encounter
--- OUTSIDE RECORDS SUMMARY | 2024-04-13 22:03 | XMS_ITS | Encounter Summary ---
Author Organization [facility] Address On license of [facility] [place] [address] [place] [address] Care Team Providers Care Sign Builder Name Role Phone Unavailable Primary Care Provider Unavailabl e Encounter Details Date Type Department Care Team (Late st Contact Info) Description 11/04/2015 Orders Only [place] [address] , Generic Conversion, Social History Tobacco Use [...] Date/Time Associated Diagnosis Comments CBC W/DIFF AUTOMATED NOW 11/04/2015 7:07 PM CDT documented in this encounter Results * (ABNORMAL) CBC W/DIFF AUTOMATED (11/04/2015 7:07 PM CDT) WBC 13.4(H) 4.0 - 10.8 x10'3/uL 11/04/2015 7:14 PM CDT [facility] RBC 4.69 4.50 - 6.10 x10'6/uL 11/04/2015 7:14 PM CDT [facility] HGB 14.1 13.0 - 18.0 G/DL 11/04/2015 7:14 PM CDT [facility] HCT 40.5 37.0 - 52.0 % 11/04/2015 7:14 PM CDT [facility] MCV 86.4 78.0 - 100.0 FL 11/04/2015 7:14 PM CDT [facility] MCH 30.1 27.0 - 31.0 PG 11/04/2015 7:14 PM CDT [facility] MCHC 34.8 33.0 - 36.0 G/DL 11/04/2015 7:14 PM CDT [facility] RDW 12.5 11.5 - 14.5 % 11/04/2015 7:14 PM CDT [facility] PLT 168 150 - 350 x10'3/uL 11/04/2015 7:14 PM CDT [facility] MPV 9.0 7.4 - 10.4 FL 11/04/2015 7:14 PM CDT [facility] ABS. NEUTROPHILS TOTAL 10.33(H) 1.60 - 8.30 x10'3/uL 11/04/2015 7:14 PM CDT [facility] ABS. LYMPHOCYTES 1.73 0.80 - 4.70 x10'3/uL 11/04/2015 7:14 PM CDT [facility] ABS. MONOCYTES 1.24 0.00 - 1.50 x10'3/uL 11/04/2015 7:14 PM CDT [facility] ABS. EOSINOPHILS 0.03 0.00 - 0.40 x10'3/uL 11/04/2015 7:14 PM CDT [facility] ABS. BASOPHILS 0.04 0.00 - 0.20 x10'3/uL 11/04/2015 7:14 PM CDT [facility] ABS. IMMATURE GRANULOCYTES 0.07(H) 0.00 - 0.03 x10'3/uL 11/04/2015 7:14 PM CDT [facility] ABS. NUCLEATED RBC'S 0.00 0.0 x10'3/uL 11/04/2015 7:14 PM CDT [facility] PLASMA SPECIMEN / Unknown 11/04/2015 7:07 PM CDT 11/04/2015 7:09 PM CDT us Generic Conversion Md [facility] Final R esult [facility] [address] [place] [address], [id number] documented in this encounter Visit Diagnoses Not on filedocumented in this encounter
--- OUTSIDE RECORDS SUMMARY | 2024-04-13 22:03 | XMS_ITS | Encounter Summary ---
Author Organization [facility] Address [facility]. [place], [place] [address] [place] [address] Care Team Providers Care Resident Medical Officer Name Role Phone Unavailable Primary Care Provider Unavailabl e Encounter Details Date Type Department Care Team (Latest Contact Info) Description 11/05/[address] [facility] Social History Tobacco Use Types [...]
--- OUTSIDE RECORDS SUMMARY | 2024-04-13 22:03 | XMS_ITS | Encounter Summary ---
Author Organization [facility] Address [address] [place] [address]. [place] [address] [place] [address] Care Team Providers Care Assistant Account Manager Name Role Phone Brie Carrington Primary Care Provider [phone] Quentin Gurrola MD Primary Care Provider [phone] Encounter Details Date Type Department Care Team (Late st Contact Info) Description 06/16/2017 Abstract [facility] [address] [place] [address] , Generic ConversionMD Social History Tobacco Use Types Packs/Day Years [...] on filedocumented in this encounter Care Teams Assistant Account Manager Relationship Specialty Start Date End Date Brie Carrington PA [address] [place] [address] PCP - General PHYSICIAN METAL BUILDING ASSEMBLER 02/18/19 06/11/22 Quentin Gurrola MD [address] [place] [address] PCP - General 06/12/22 documented as of this encounter
--- OUTSIDE RECORDS SUMMARY | 2024-04-13 22:03 | XMS_ITS | Encounter Summary ---
Author Organization [facility] Address [address] [place] [address]. [place], [place] [address] [place] [address] Care Team Providers Care Roller Leveler Name Role Phone Brie Carrington Primary Care Provider [phone] Reason for Visit * Reason Onset Date Comments Chart Prep 06/08/2022 Encounter Details Date Type Department Care Team (Late st Contact Info) Description 06/08/[address] [address] Emely Ruth RNFA Chart Prep Social History Tobacco Use Types Packs/Day Years Used Date Smoking Tobacco: Never Assessed Sex and Gender Information Value Date Recorded Sex Assigned at Not on file Legal Sex Male 7:04 PM CDT Gender Identity Male 06/13/2022 8:01 AM CDT Sexual Orientation Straight 06/13/2022 8: 01 AM CDT documented as of this encounter Progress Notes * ADAMARIS Vizcaino - 06/08/2022 9:04 AM CST RN attempted to contact patient because patient has history of R CTR and EMG done possibly in 2019.Documents not available thru [facility] note at [facility]. RN would like to know where EMG was done and when. No answer, left message asking for call back. YL NITRATOR OPERATOR documented in this encounter Plan of Treatment Not on file documented as of this encounter Visit Diagnoses Not on filedocumented in this encounter Care Teams Roller Leveler Relationship Specialty Start Date End Date Brie Carrington PA [address] [place] [address] PCP - General PHYSICIAN SENIOR DYNAMICS CRM DEVELOPER 02/18/19 06/11/22 documented as of this encounter
--- OUTSIDE RECORDS SUMMARY | 2024-04-13 22:03 | XMS_ITS | Encounter Summary ---
Author Organization [facility] Address [facility] [place] [address] [place] [address] Care Team Providers Care Car Pick Up Driver Name Role Phone Unavailable Primary Care Provider Unavailabl e Encounter Details Date Type Department Care Team (Late st Contact Info) Description 11/03/2015 Abstract [facility] [address] [facility] [place] [address] Social History Tobacco Use Types Packs/Day Years [...] Visit Diagnoses Diagnosis Diverticulitis of large intestine without perforation or abscess without bleeding Diverticulitis of colon (without mention of hemorrhage) documented in this encounter
--- OUTSIDE RECORDS SUMMARY | 2024-04-13 22:03 | XMS_ITS | Encounter Summary ---
Author Organization [facility] Address [address] [place] [address]. [place], [place] [address] [place] [address] Care Team Providers Care Stoneworker Name Role Phone Quentin Gurrola MD Primary Care Provider [phone] Encounter Details Date Type Department Care Team (Latest Contact Info) Description 06/13/2022 Travel Social History Tobacco Use Types Packs/Day [...] on filedocumented in this encounter Care Teams Stoneworker Relationship Specialty Start Date End Date Quentin Gurrola MD [address] [place] [address] PCP - General 06/12/22 documented as of this encounter
--- OUTSIDE RECORDS SUMMARY | 2024-04-13 22:03 | XMS_ITS | Encounter Summary ---
Author Organization [facility] Address Critical access hospital6 [facility] [place] [address] [place] [address] Care Team Providers Care Marketing Project Lead Name Role Phone Unavailable Primary Care Provider Unavailabl e Encounter Details Date Type Department Care Team (Late st Contact Info) Description 11/04/2015 Orders Only [place] [address] , Generic Conversion, Social History Tobacco Use [...] Procedure Name Priority Date/Time Associated Diagnosis Comments COMPREHENSIVE METABOLIC PANEL NOW 11/04/2015 7:07 PM CDT documented in this encounter Results * (ABNORMAL) COMPREHENSIVE METABOLIC PANEL (11/04/2015 7:07 PM CDT) SODIUM S/P/B 133(L) 135 - 147 MMOL/L 11/04/2015 7:36 PM CDT [facility] POTASSIUM S/P/B 3.6 3.5 - 5.0 MMOL/L 11/04/2015 7:36 PM CDT [facility] CHLORIDE S/P/B 100 98 - 107 MMOL/L 11/04/2015 7:36 PM CDT [facility] CO2 23.1 22 - 29 MMOL/L 11/04/2015 7:36 PM T [facility] GLUCOSE 130(H) 70 - 109 MG/DL 11/04/2015 7:36 PM T [facility] BUN 11 9 - 21 MG/DL 11/04/2015 7:36 PM T [facility] CREATININE S/P/B 0.77 0.70 - 1.30 MG/DL 11/04/2015 7:36 PM CDT [facility] CALCIUM S/P/B 9.0 8.4 - 10.2 MG/DL 11/04/2015 7:36 PM CDT [facility] BILIRUBIN TOTAL S/P/B 1.0 0.2 - 1.2 MG/DL 11/04/2015 7:36 PM T [facility] ALKALINE PHOSPHATASE S/P/B 57 45 - 115 U/L 11/04/2015 7:36 PM T [facility] AST 17 5 - 35 U/L 11/04/2015 7:36 PM T [facility] ALT 29 0 - 55 U/L 11/04/2015 7:36 PM T [facility] TOTAL PROTEIN S/P/B 7.1 6.0 - 8.3 G/DL 11/04/2015 7:36 PM T [facility] ALBUMIN S/P/B 3.8 3.4 - 4.9 G/DL 11/04/2015 7:36 PM T [facility] ANION GAP 9.9 MMOL/L 11/04/2015 7:36 PM T [facility] OSMOLALITY (CALC) 268 MOSM/KG 11/04/2015 7:36 PM T [facility] EGFR NON-AFR. AMER. 108 >60 ML/MIN/1.7 3 M2 11/04/2015 7:36 PM T [facility] EGFR AFR. AMER. 131 >60 ML/MIN/1.7 3 M2 11/04/2015 7:36 PM T [facility] PLASMA SPECIMEN / Unknown 11/04/2015 7:07 PM CDT 11/04/2015 7:09 PM CDT us Generic Conversion Md [facility] Final R esult [facility] [address] [place] [address], [id number] documented in this encounter Visit Diagnoses Not on filedocumented in this encounter
--- OUTSIDE RECORDS SUMMARY | 2024-04-13 22:03 | XMS_ITS | Encounter Summary ---
Author Organization [facility] Address [address] [place] [address]. [place] [address] [place] [address] Care Team Providers Care Automobile Mechanic Radiator Name Role Phone Brie Carrington Primary Care Provider [phone] Quentin Gurrola MD Primary Care Provider [phone] Encounter Details Date Type Department Care Team (Late st Contact Info) Description 09/07/2018 Abstract [facility] [address] [place] [address] , Generic ConversionMD Social History Tobacco Use [...] on filedocumented in this encounter Care Teams Automobile Mechanic Radiator Relationship Specialty Start Date End Date Brie Carrington PA [address] [place] [address] PCP - General PHYSICIAN LOAD DISPATCHER LOCAL 02/18/19 06/11/22 Quentin Gurrola MD [address] [place] [address] PCP - General 06/12/22 documented as of this encounter
--- OUTSIDE RECORDS SUMMARY | 2024-04-13 22:03 | XMS_ITS | Encounter Summary ---
Author Organization [facility] Address [facility] [place] [address] [place] [address] Care Team Providers Care Sewer Bricklayer Name Role Phone Unavailable Primary Care Provider Unavailabl e Encounter Details Date Type Department Care Team (Late st Contact Info) Description 11/04/2015 Orders [place] [address] , Generic Conversion, Social History Tobacco Use [...] Procedure Name Priority Date/Time Associated Diagnosis Comments PARTIAL THROMBOPLASTIN TIME,PTT NOW 11/04/2015 7:07 PM CDT documented in this encounter Results * PARTIAL THROMBOPLASTIN TIME,PTT (11/04/2015 7:07 PM CDT) PTT 31.0 22.0 - 35.0 SEC 11/04/2015 7:32 PM CDT [facility] PLASMA SPECIMEN / Unknown 11/04/2015 7:07 PM CDT 11/04/2015 7:09 PM CDT us Generic Conversion Md [facility] Final R esult [facility] [address] [place] [address], [id number] documented in this encounter Visit Diagnoses Not on filedocumented in this encounter
--- OUTSIDE RECORDS SUMMARY | 2024-04-13 22:03 | XMS_ITS | Encounter Summary ---
Author Organization [facility] Address [facility] [place] [address] [place] [address] Care Team Providers Care Engineering Design Supervisor Name Role Phone Unavailable Primary Care Provider Unavailabl e Encounter Details Date Type Department Care Team (Late st Contact Info) Description 05/10/2008 Abstract [facility] Emergency Room [address] [place] [address] Social History Tobacco Use Types Packs/Day Years [...]
--- OUTSIDE RECORDS SUMMARY | 2024-04-13 22:03 | XMS_ITS | Encounter Summary ---
Author Organization [facility] Address [facility] [place] [address] [place] [address] Care Team Providers Care Sheet Metal Roofer Name Role Phone Unavailable Primary Care Provider Unavailabl e Encounter Details Date Type Department Care Team (Late st Contact Info) Description 11/07/2015 Orders [place] [address] , Generic Conversion, Social History Tobacco Use [...] Associated Diagnosis Comments CBC W/DIFF AUTOMATED TIMED 11/07/2015 4:14 AM CDT documented in this encounter Results * (ABNORMAL) CBC W/DIFF AUTOMATED (11/07/2015 4:14 AM CDT) WBC 9.6 4.0 - 10.8 x10'3/uL 11/07/2015 4:29 AM CDT [facility] RBC 4.55 4.50 - 6.10 x10'6/uL 11/07/2015 4:29 AM CDT [facility] HGB 13.5 13.0 - 18.0 G/DL 11/07/2015 4:29 AM CDT [facility] HCT 39.5 37.0 - 52.0 % 11/07/2015 4:29 AM CDT [facility] MCV 86.8 78.0 - 100.0 FL 11/07/2015 4:29 AM CDT [facility] MCH 29.7 27.0 - 31.0 PG 11/07/2015 4:29 AM CDT [facility] MCHC 34.2 33.0 - 36.0 G/DL 11/07/2015 4:29 AM CDT [facility] RDW 11.9 11.5 - 14.5 % 11/07/2015 4:29 AM CDT [facility] PLT 197 150 - 350 x10'3/uL 11/07/2015 4:29 AM CDT [facility] MPV 9.0 7.4 - 10.4 FL 11/07/2015 4:29 AM CDT [facility] ABS. NEUTROPHILS TOTAL 6.53 1.60 - 8.30 x10'3/uL 11/07/2015 4:29 AM CDT [facility] ABS. LYMPHOCYTES 1.44 0.80 - 4.70 x10'3/uL 11/07/2015 4:29 AM CDT [facility] ABS. MONOCYTES 1.22 0.00 - 1.50 x10'3/uL 11/07/2015 4:29 AM CDT [facility] ABS. EOSINOPHILS 0.32 0.00 - 0.40 x10'3/uL 11/07/2015 4:29 AM CDT [facility] ABS. BASOPHILS 0.03 0.00 - 0.20 x10'3/uL 11/07/2015 4:29 AM CDT [facility] ABS. IMMATURE GRANULOCYTES 0.05(H) 0.00 - 0.03 x10'3/uL 11/07/2015 4:29 AM CDT [facility] ABS. NUCLEATED RBC'S 0.00 0.0 x10'3/uL 11/07/2015 4:29 AM CDT [facility] PLASMA SPECIMEN / Unknown 11/07/2015 4:14 AM CDT 11/07/2015 4:15 AM CDT us Generic Conversion Md [facility] Final R esult [facility] [address] [place] [address], [id number] documented in this encounter Visit Diagnoses Not on filedocumented in this encounter
--- OUTSIDE RECORDS SUMMARY | 2024-04-13 22:03 | XMS_ITS | Encounter Summary ---
Author Organization [facility] Address [address] [place] [address]. [place], [place] [address] [place] [address] Care Team Providers Care Diversional Therapist Name Role Phone Brie Carrington Primary Care Provider [phone] Encounter Details Date Type Department Care Team (Latest Contact Info) Description 07/01/2019 Travel Social History Tobacco Use Types Packs/Day [...] on filedocumented in this encounter Care Teams Diversional Therapist Relationship Specialty Start Date End Date Brie Carrington PA [address] [place] [address] PCP - General PHYSICIAN GUIDE DOG INSTRUCTOR 02/18/19 06/11/22 documented as of this encounter
--- OUTSIDE RECORDS SUMMARY | 2024-04-13 22:03 | XMS_ITS | Encounter Summary ---
Author Organization [facility] Address [facility] [place] [address] [place] [address] Care Team Providers Care Hand Tool Lapper Name Role Phone Unavailable Primary Care Provider Unavailabl e Encounter Details Date Type Department Care Team (Late st Contact Info) Description 11/06/2015 Orders Only [place] [address] , Generic Conversion, Social History Tobacco Use [...] Associated Diagnosis Comments BASIC METABOLIC PANEL TIMED 11/06/2015 4:59 AM CDT documented in this encounter Results * (ABNORMAL) BASIC METABOLIC PANEL (11/06/2015 4:59 AM CDT) SODIUM S/P/B 134(L) 135 - 147 MMOL/L 11/06/2015 6:[address] [facility] POTASSIUM S/P/B 3.2(L) 3.5 - 5.0 MMOL/L 11/06/2015 6:[address] [facility] CHLORIDE S/P/B 99 98 - 107 MMOL/L 11/06/2015 6:[address] [facility] CO2 26.2 22 - 29 MMOL/L 11/06/2015 6:[address] [facility] GLUCOSE 156(H) 70 - 109 MG/DL 11/06/2015 6:[address] [facility] BUN 7(L) 9 - 21 MG/DL 11/06/2015 6:[address] [facility] CREATININE S/P/B 0.67(L) 0.70 - 1.30 MG/DL 11/06/2015 6:[address] [facility] CALCIUM S/P/B 8.6 8.4 - 10.2 MG/DL 11/06/2015 6:[address] [facility] EGFR NON-AFR. AMER. 127 >60 ML/MIN/1.7 3 M2 11/06/2015 6:[address] [facility] EGFR AFR. AMER. 154 >60 ML/MIN/1.7 3 M2 11/06/2015 6:[address] [facility] ANION GAP 8.8 MMOL/L 11/06/2015 6:[address] [facility] OSMOLALITY (CALC) 269 MOSM/KG 11/06/2015 6:[address] [facility] PLASMA SPECIMEN / Unknown 11/06/2015 4:59 AM CDT 11/06/2015 5:10 AM CDT us Generic Conversion Md [facility] Final R esult [facility] [place] [address], [id number] documented in this encounter Visit Diagnoses Not on filedocumented in this encounter
--- OUTSIDE RECORDS SUMMARY | 2024-04-13 22:03 | XMS_ITS | Encounter Summary ---
Author Organization [facility] Address [facility] hospital[facility] [place] [address] [place] [address] Care Team Providers Care Manager Gift Name Role Phone Unavailable Primary Care Provider Unavailabl e Encounter Details Date Type Department Care Team (Late st Contact Info) Description 11/04/2015 Abstract [facility] [address] [place] [address] Samanta Das MD Tokhi, Ashish, MD [address] [place] [address] Social History Tobacco Use Types Packs/Day Years [...] this encounter Visit Diagnoses Diagnosis Diverticulitis of intestine, part unspecified, with perforation and abscess without bleeding documented in this encounter
--- OUTSIDE RECORDS SUMMARY | 2024-04-13 22:03 | XMS_ITS | Encounter Summary ---
Author Organization [facility] Address [facility] [place] [address] [place] [address] Care Team Providers Care Sales Support Coordinator Name Role Phone Unavailable Primary Care Provider Unavailabl e Encounter Details Date Type Department Care Team (Late st Contact Info) Description 11/07/2015 Orders Only [place] [address] , Generic Conversion, Social History Tobacco Use [...] Associated Diagnosis Comments BASIC METABOLIC PANEL TIMED 11/07/2015 4:14 AM CDT documented in this encounter Results * (ABNORMAL) BASIC METABOLIC PANEL (11/07/2015 4:14 AM CDT) SODIUM S/P/B 136 135 - 147 MMOL/L 11/07/2015 4:58 AM CDT [facility] POTASSIUM S/P/B 3.4(L) 3.5 - 5.0 MMOL/L 11/07/2015 4:58 AM CDT [facility] CHLORIDE S/P/B 101 98 - 107 MMOL/L 11/07/2015 4:58 AM CDT [facility] CO2 25.0 22 - 29 MMOL/L 11/07/2015 4:58 AM CDT [facility] GLUCOSE 126(H) 70 - 109 MG/DL 11/07/2015 4:58 AM CDT [facility] BUN 9 9 - 21 MG/DL 11/07/2015 4:58 AM T [facility] CREATININE S/P/B 0.71 0.70 - 1.30 MG/DL 11/07/2015 4:58 AM T [facility] CALCIUM S/P/B 9.0 8.4 - 10.2 MG/DL 11/07/2015 4:58 AM T [facility] EGFR NON-AFR. AMER. 119 >60 ML/MIN/1.7 3 M2 11/07/2015 4:58 AM T [facility] EGFR AFR. AMER. 144 >60 ML/MIN/1.7 3 M2 11/07/2015 4:58 AM T [facility] ANION GAP 10.0 MMOL/L 11/07/2015 4:58 AM T [facility] OSMOLALITY (CALC) 272 MOSM/KG 11/07/2015 4:58 AM T [facility] PLASMA SPECIMEN / Unknown 11/07/2015 4:14 AM CDT 11/07/2015 4:15 AM CDT us Generic Conversion Md [facility] Final R esult [facility] [place] [address], [id number] documented in this encounter Visit Diagnoses Not on filedocumented in this encounter
--- OUTSIDE RECORDS SUMMARY | 2024-04-13 22:07 | XMS_ITS | Encounter Summary ---
Author Organization [facility] Address [address] [place] [address] Phone Care Team Providers Care Golf Cart Mechanic Name Role Phone Brie Carrington Primary Care Provider [phone] Reason for Visit * Reason Comments Follow-up Encounter Details Date Type Department Care Team (Late st Contact Info) Description 07/24/2019 2:00 PM CDT Telemedicine [facility] Orthopaedic Surgery 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 male presenting at 11 weeks after surgery for revision carpal tunnel release, extended with distal ulnar tunnel decompression and cubital tunnel decompression. He is [id number] days after surgery. Doing well. Making progress. He still occasionally has tingling into the hand. It seems to be a little worse with cold weather. Motion is improved, strength is improved. Gets alittle sore with heavier activities such as using a wrench. He is eager for full duty INITIAL REVIEW OF MEDICATIONS He has a current medication list which includes the following prescription(s): albuterol, amoxicillin-clavulanate, benzonatate, doxycycline hyclate, ipratropium, losartan-hydrochlorothiazide, metformin, simvastatin, and tramadol. DRUG ALLERGIES He has No Known Allergies. SOCIAL HISTORY He reports that he has been smoking cigarettes. He started smoking about 35 years ago. He has a 52.50 pack-year smoking history. He has never used smokeless tobacco. He reports current alcohol use ofabout 5.0 standard drinks of alcohol per week. He reports that he does not use drugs. PHYSICAL EXAM: This was a telephone visit only. He describes excellent motion and improved strength. No constant numbness or tingling. IMPRESSION/DIAGNOSIS/ PLAN: Patient doing well, doing better. Eager for full duty. I agree. I will see him back in person in 4 weeks, for possible MMI on the right. He is released to full duty. This was a telemedicine visit with the patient which took place via Telephone. During the visit, I was located the [facility] and the patient was located at his home. The session started at atapproximately 2:00 p.m. and ended at 2:12 p.m.. The patient has been informed that the visit may not be secure and acknowledged the information. We obtained informed consent for this telemedicine visit. This was done by verbal consent. Moy Brown MD Professor of Orthopaedic Surgery [facility] [employer] * Moy Brown MD - 07/24/2019 2:00 PM CDT Images from the original note were not included. Patient Name: Miguel Caraballo : 1970 Provider: Moy Brown MD Encounter Date: 07/24/2019 Date: 07/24/19 Diagnosis: right side nerve decompression Work Status: May return to work without restrictions/date: July 25, 2019 He has no restrictions. I will see him back in 4 weeks for possible MMI on the right side. Appointment provided. All questions answered. Moy Brown MD For questions/information call the Workers' Vegetable Harvest Machine Operator at , . documented in this encounter Plan of Treatment Not on file documented as of this encounter Visit Diagnoses Diagnosis Carpal tunnel syndrome, right- Primary Carpal tunnel syndrome Cubital tunnel syndrome, right Numbness and tingling in right hand Disturbance of skin sensation documented in this encounter Care Teams Golf Cart Mechanic Relationship Specialty Start Date End Date Brie Carrington PA [address] [place] [address] PCP - General Emergency Medicine 09/26/18 documented as of this encounter
--- OUTSIDE RECORDS SUMMARY | 2024-04-13 22:07 | XMS_ITS | Referral Summary ---
Author Organization [facility] Address [address] [place] [address] Care Team Providers Care Sales Assistant Displays Name Role Phone Brie Carrington Primary Care Provider [phone] Allergies No known active allergies Medications metFORMIN (GLUCOPHAGE) 1,000 mg tabletIndicatio ns:type 2 diabetes mellitus 2 (two) times a day with meals 1 9 Active simvastatin (ZOCOR) 40 mg tablet 1 9 Active losartan-hydroC HLOROthiazide (HYZAAR) 50-12.5 mg per tablet TK 1 T PO QD 11 9 Active traMADol (ULTRAM) 50 mg tablet Take 1 tablet (50 mg total) by mouth every 6 (six) hours as needed for pain 12 tablet 9 Active Additional Information Patient not taking.Reported on 11/18/2018 albuterol 1.25 mg/3 mL nebulizer solution Take 1.25 mg by nebulization every 6 (six) hours as needed for wheezing Active ipratropium (ATROVENT) 0.02 % nebulizer solution INHALE 1 VIAL IN NEBULIZER EVERY 6 HOURS 0 Active doxycycline hyclate 100 mg capsule Take 100 mg by mouth 2 (two) times a day 0 Active benzonatate (TESSALON) 200 mg capsule TAKE 1 CAPSULE BY MOUTH THREE TIMES DAILY NEEDED FOR COUGH 0 Active amoxicillin-cla vulanate (AUGMENTIN) 875-125 mg per tablet Take 1 tablet by mouth every 12 (twelve) hours 0 Active Active Problems Problem Noted Date Diagnosed Date Cubital tunnel syndrome, right 04/17/2019 Overview (04/17/2019): Added automatically from request for surgery [id number] Numbness and tingling in right hand 12/09/2018 Carpal tunnel syndrome on right 10/17/2018 Overview (10/17/2018): Added automatically from request for surgery [id number] Carpal tunnel syndrome of left wrist 10/17/2018 Overview (10/17/2018): Added automatically from request for surgery [id number] Carpal tunnel syndrome, right 09/26/2018 Carpal tunnel syndrome, left 09/26/2018 Cubital tunnel syndrome, left 09/26/2018 Social History Tobacco Use Types Packs/Day Years Used Date Smoking Tobacco: Every Day Cigarettes 1.5 40 Started: 1984 Smokeless Tobacco: Never Alcohol Use Standard Drinks/Week Comments Yes 5 (1 standard drink = 0.6 oz pur e alcohol) occasional, 5 per week Personal Safety Answer Date Recorded Getting School Help Needed Not on file 04/03 Sex and Gender Information Value Date Recorded Sex Assigned at Not on file Legal Sex Male 9:26 AM 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 Gender Identity Not on file Sexual Orientation Not on file Last Filed Vital Signs Vital Sign Reading Time Taken Comments Blood Pressure 134/88 04/30/2019 10:28 AM CHIEF ANALYTICS OFFICER Pulse 79 04/30/2019 10:25 AM CHIEF ANALYTICS OFFICER Temperature 36.6 ??C (97.9 ??F) 04/30/2019 1 0:10 AM CHIEF ANALYTICS OFFICER Respiratory Rate 17 04/30/2019 10:2 5 AM CHIEF ANALYTICS OFFICER Oxygen Saturation 94% 04/30/2019 10: 28 AM CHIEF ANALYTICS OFFICER Inhaled Oxygen Concentration - - Weight 126.9 kg (279 lb 11.2 oz) 04/30/2019 7:13 AM CHIEF ANALYTICS OFFICER Height 177.8 cm (5' 10 ) 04/30/2019 7:13 AM CHIEF ANALYTICS OFFICER Body Mass Index 40.13 04/30/2019 7:13 AM CHIEF ANALYTICS OFFICER Plan of Treatment Not on file Insurance * Guarantor: NAGA CARABALLO Account Type Relation to Patient Date of Phone Billing Address Workers Comp Employer 1970 [phone] (Work) [address] [place] [address] [employer] H[employer] [address] [place] [id number] Advance Directives For more information, please contact: [phone] * Full Code (Latest Code Status on File) Date Activated Date Inactivated Comments 04/30/2019 9:43 AM 04/30/2019 2:48 PM * Full Code Date Activated Date Inactivated Comments 11/06/2018 8:49 AM 11/06/2018 1:37 PM Care Teams Sales Assistant Displays Relationship Specialty Start Date End Date Brie Carrington PA [address] [place] [address] PCP - General Emergency Medicine 09/26/18
--- OUTSIDE RECORDS SUMMARY | 2024-04-13 22:07 | XMS_ITS | Encounter Summary ---
Author Organization [facility] Care Team Providers Care Monitoring Engineer Name Role Phone Brie Carrington Primary Care Provider [phone] Encounter Details Date Type Department Care Team (Latest Contact Info) Description 06/12/2019 Travel Social History Tobacco Use Types Packs/Day Years Used Date Smoking Tobacco: Every Day Cigarettes 1.5 40 Started: 1986 Smokeless Tobacco: Never Alcohol Use Standard Drinks/Week Comments Yes 5 (1 standard drink = 0.6 oz pur e alcohol) occasional, 5 per week Sex and Gender Information Value Date Recorded Sex Assigned at Not on file 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 No / Unsure 06/12/2019 1:22 PM CDT documented as of this encounter Plan of Treatment Not on file documented as of this encounter Visit Diagnoses Not on filedocumented in this encounter Care Teams Monitoring Engineer Relationship Specialty Start Date End Date Brie Carrington PA [address] [place] [address] PCP - General Emergency Medicine 09/26/18 documented as of this encounter
--- OUTSIDE RECORDS SUMMARY | 2024-04-13 22:07 | XMS_ITS | Encounter Summary ---
Author Organization [facility] Care Team Providers Care Chronometer Assembler And Adjuster Name Role Phone Brie Carrington Primary Care Provider [phone] Encounter Details Date Type Department Care Team (Latest Contact Info) Description 05/12/2019 Travel Social History Tobacco Use Types Packs/Day Years Used Date Smoking Tobacco: Every Day Cigarettes 1.5 40 Started: 1984 Smokeless Tobacco: Never Alcohol Use Standard Drinks/Week Comments Yes 5 (1 standard drink = 0.6 oz pur e alcohol) occasional, 5 per week Sex and Gender Information Value Date Recorded Sex Assigned at Not on file Legal Sex Male 9:26 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
--- OUTSIDE RECORDS SUMMARY | 2024-04-13 22:07 | XMS_ITS | Clinical Summary ---
Author Organization [facility] Address [address] [place] [address] Care Team Providers Care Civil Rights Investigator Name Role Phone Brei Carrington Primary Care Provider [phone] Allergies No known active allergies Medications metFORMIN [...] (04/17/2019): Added automatically from request for surgery [id number] Numbness and tingling in right hand 12/09/2018 Carpal tunnel syndrome on right 10/17/2018 Overview (10/17/2018): Added automatically from request for surgery [id number] Carpal tunnel syndrome of left wrist 10/17/2018 Overview (10/17/2018): Added automatically from request for surgery [id number] Carpal tunnel syndrome, right 09/26/2018 Carpal tunnel syndrome, left 09/26/2018 Cubital tunnel syndrome, left 09/26/2018 Surgical History Surgery Date Site/Laterality Comments CARPAL TUNNEL RELEASE 11/06/2018 Right Medical History Medical History Date Comments Diverticulitis of colon 2 years ago, no surgery needed COPD (chronic obstructive pu lmonary disease) (HCC) uses home nebulizer, no home O2, never needs rescue inhaler. Hypertension well controlled with meds Type 2 diabetes mellitus (HCC) w ell controlled with meds Dyslipidemia Family History Medical History Relation Name Comments Alcohol abuse Father Cancer Father Alcohol abuse Mother Relation Name Status Comments Father Mother Social History Tobacco Use Types Packs/Day Years [...] on file Legal Sex Male 9:26 AM CAREER PROFESSIONAL Gender Identity Not on file Sexual Orientation Not on file Obstetrics History Last Filed Vital Signs Vital Sign Reading Time Taken Comments Blood Pressure 134/88 04/30/2019 10:28 AM CAREER PROFESSIONAL Pulse 79 04/30/2019 10:25 AM CAREER PROFESSIONAL Temperature 36.6 ??C (97.9 ??F) 04/30/2019 1 0:10 AM CAREER PROFESSIONAL Respiratory Rate 17 04/30/2019 10:2 5 AM CAREER PROFESSIONAL Oxygen Saturation 94% 04/30/2019 10: 28 AM CAREER PROFESSIONAL Inhaled Oxygen Concentration - - Weight 126.9 kg (279 lb 11.2 oz) 04/30/2019 7:13 AM CAREER PROFESSIONAL Height 177.8 cm (5' 10 ) 04/30/2019 7:13 AM CAREER PROFESSIONAL Body Mass Index 40.13 04/30/2019 7:13 AM CAREER PROFESSIONAL Plan of Treatment Not on file [facility] Subscriber Plan / Payer (Ef fective 2021-Present) Name:Naga Lima Relation to Subscriber:Spouse Name:DALY LIMA Date of :1968 (Home) Address: [facility] [place] [address] Payer ID:1 ([facility] Type:AET HMO/PPO Address: [address] [address] Advance Directives For more information, please contact: [phone] * Full Code (Latest Code Status on File) Date Activated Date Inactivated Comments 04/30/2019 9:43 AM 04/30/2019 2:48 PM * Full Code Date Activated Date Inactivated Comments 11/06/2018 8:49 AM 11/06/2018 1:37 PM Care Teams Civil Rights Investigator Relationship Specialty Start Date End Date Brie Car[place] [address] PCP - General Emergency Medicine 09/26/18
--- OUTSIDE RECORDS SUMMARY | 2024-04-13 22:07 | XMS_ITS | Encounter Summary ---
Author Organization [facility] Address [address] [place] [address] Phone Care Team Providers Care Pot Washer Name Role Phone Brie Carrington Primary Care Provider [phone] [phone] Reason for Visit * Reason Comments Follow-up Encounter Details Date Type Department Care Team (Late st Contact Info) Description 05/12/2019 7:20 AM WAISTLINE JOINER Office Visit [facility] Orthopaedic Surgery [address] [place] [address] [place] [address] [place] [address] Numbness and tingling in right hand (Primary Dx); Carpal tunnel syndrome, right; Carpal tunnel syndrome, left; Cubital tunnel syndrome, right Social History Tobacco Use Types Packs/Day Years Used Date Smoking Tobacco: Every Day Cigarettes 1.5 40 Started: 1984 Smokeless Tobacco: Never Alcohol Use Standard Drinks/Week Comments Yes 5 (1 standard drink = 0.6 oz pur e alcohol) occasional, 5 per week Sex and Gender Information Value Date Recorded Sex Assigned at Not on file Legal Sex Male 9:26 AM WAISTLINE JOINER Gender Identity Not on file Sexual Orientation Not on file documented as of this encounter Progress Notes * Moy Brown MD - 05/12/2019 7:20 AM CST POST SURGICAL VISIT HISTORY OF PRESENT ILLNESS: The patient is a 48 y.o. male presenting 2 weeks after surgery for right cubital tunnel decompression, distal ulnar tunnel decompression, revision carpal tunnel release. Doing well. He feels better. His pain is better both distally and proximally. No real numbness or tingling. INITIAL REVIEW OF MEDICATIONS He has a current medication list which includes the following prescription(s): albuterol, losartan-hydrochlorothiazide, metformin, simvastatin, and tramadol. DRUG ALLERGIES He has No Known Allergies. PHYSICAL EXAM: The patient is well developed, well nourished,age appropriate patient in no acute distress. The patient is alert and oriented x3. There are no obvious skin lesions or rashes are noted. Skin is warm to touch. Wounds are healing fine. Sutures are removed without difficulty. Two point discrimination is 5 mm diffusely. Good sensibility in vascularity. Muscles are working fine. No infection. IMPRESSION/DIAGNOSIS/ PLAN: Patient doing well. Expectations again reviewed. He will limit his activities. Work restrictions are provided. I will see him back in 4 weeks to reassess and hopefully can really ramp up his activities at that point. All questions are answered. We are both pleased with his progress at this point. Scar massage described and handout is provided. Moy Brown MD Professor of Orthopaedic Surgery [facility] [employer] TLINE JOINER * Moy Brown MD - 05/12/2019 7:20 AM CST Images from the original note were not included. Patient Name: Miguel Caraballo : 1970 Provider: Moy Brown MD Encounter Date: 05/12/2019 Date: 05/12/19 Diagnosis: Nerve compression, right upper extremity with revision surgery Work Status: May return to work with the following restrictions/date: 05/13/19 Keep dressing clean & dry. May use injured hand assisting on light tasks. Avoid lifting with injured hand more than: 5 lbs Avoid the following motions/conditions with the injured hand: Pushing, Grasping, Pulling, Twisting,Vibratory tools, Repetitive movements, Climbing or unprotected heights Follow up appointment needed: 4 weeks. Location: [facility]oped[facility]/[place] Moy Brown MD For questions/information call the Workers' Seismic Engineer at , . TLINE JOINER documented in this encounter Plan of Treatment Not on file documented as of this encounter Visit Diagnoses Diagnosis Numbness and tingling in right hand- Primary Disturbance of skin sensation Carpal tunnel syndrome, right Carpal tunnel syndrome Carpal tunnel syndrome, left Carpal tunnel syndrome Cubital tunnel syndrome, right documented in this encounter Discontinued Medications Medication Sig Discontinue Reason Start Date End Da te HYDROcodone-acetaminophe n (NORCO) 5-325 mg per tabletIndications:Pain Take 1-2 tablets by mouth every 6 (six) hours as needed for pain Therapy completed 04/30/2019 05/12/2019 documented as of this encounter Care Teams Pot Washer Relationship Specialty Start Date End Date Brie Carrington PA [address] [place] [address] PCP - General Emergency Medicine 09/26/18 documented as of this encounter
--- OUTSIDE RECORDS SUMMARY | 2024-04-13 22:07 | XMS_ITS | Encounter Summary ---
Author Organization [facility] Address [address] [place] [address] Phone Care Team Providers Care National Park Ranger Name Role Phone Brie Carrington Primary Care Provider [phone] Encounter Details Date Type Department Care Team (Late st Contact Info) Description 06/12/2019 1:10 PM CDT Office Visit [facility] Orthopaedic Surgery [address]th [place] [address] [place] [address] [place] [address] [place] [address] Carpal tunnel syndrome, right (Primary Dx); Cubital tunnel syndrome, right Social History Tobacco Use Types Packs/Day Years Used Date Smoking Tobacco: Every Day Cigarettes 1.5 40 Started: 1984 Smokeless Tobacco: Never Alcohol Use Standard Drinks/Week Comments Yes 5 (1 standard drink = 0.6 oz pur e alcohol) occasional, 5 per week Sex and Gender Information Value Date Recorded Sex Assigned at Not on file 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 No / Unsure 06/12/2019 1:22 PM CDT documented as of this encounter Progress Notes * Moy Brown MD - 06/12/2019 1:10 PM CDT POST SURGICAL VISIT HISTORY OF PRESENT ILLNESS: The patient is a 48 y.o. male presenting at 6 weeks after surgery for right extended carpal tunnel release and distal ulnar tunnel decompression and cubital tunnel decompression. He was doing well and I last saw him. Unfortunately he hit his hand/wrist at work and was twisted by a drill and his wound opened up shortly after I took his stitches out. He was seen in the emergency department and re-sutured. His primary care doctor then took out his stitches. He is back today for 6 week follow-up ingenerally doing well. Hand arm all feel better. No numbness or tingling. Occasional discomfort and feels like it is continuing to heal. He is pleased. INITIAL REVIEW OF MEDICATIONS He has a [...] he does not use drugs. PHYSICAL EXAM: The patient is well developed, well nourished,age appropriate patient in no acute distress. The patient is alert and oriented x3. There are no obvious skin lesions or rashes are noted. Skin is warm to touch. Wound has healed well. Elbow was healed fully. Excellent range of motion. Nerve is stable. His wrist looks reasonably gooddespite the re-sutured ring which was required. Excellent range of motion the forearm wrist and hand symmetrical to the other side. Two- point is 5 mm in strength is satisfactory. Opener Verifier [employer] is 50/120 IMPRESSION/DIAGNOSIS/ PLAN: Patient doing fine after requirement for re-sutured in his wound after a trauma at work. He should stay on light duty for 4 more weeks then I will see him back and likely release him full duty. We will continue to hold on the left side. He is pleased with his progress. Lengthy discussion. All questions are answered. Moy Brown MD Professor of Orthopaedic Surgery [facility] [employer] [facility] * Moy Brown MD - 06/12/2019 1:10 PM CDT Images from the original note were not included. Patient Name: Miguel Caraballo : 1970 Provider: Moy Brown MD Encounter Date: 06/12/2019 Date: 06/12/19 Diagnosis: Nerve decompression, right Work Status: May return to work with the following restrictions/date: 06/13/19 Avoid lifting with injured hand more than: 20 lbs Avoid the following motions/conditions with the injured hand: Pushing, Grasping, Pulling, Twisting,Vibratory tools, Repetitive movements, Climbing or unprotected heights Follow up appointment needed: 4 weeks. Location: [facility], [address] Moy Brown MD For questions/information call the Workers' Aircraft Electrician at , . documented in this encounter Plan of Treatment Not on file documented as of this encounter Visit Diagnoses Diagnosis Carpal tunnel syndrome, right- Primary Carpal tunnel syndrome Cubital tunnel syndrome, right documented in this encounter Historical Medications * This list may reflect changes made after this encounter. amoxicillin-clav ulanate (AUGMENTIN) 875-125 mg per tablet Take 1 tablet by mouth every 12 (twelve) hours 05/26/2019 benzonatate (TESSALON) 200 mg capsule TAKE 1 CAPSULE BY MOUTH THREE TIMES DAILY NEEDED FOR COUGH 05/26/2019 doxycycline hyclate 100 mg capsule Take 100 mg by mouth 2 (two) times a day 06/09/2019 ipratropium (ATROVENT) 0.02 % nebulizer solution INHALE 1 VIAL IN NEBULIZER EVERY 6 HOURS 06/09/2019 added in this encounter Care Teams National Park Ranger Relationship Specialty Start Date End Date Brie Carrington PA [address] [place] [address] PCP - General Emergency Medicine 09/26/18 documented as of this encounter
--- OUTSIDE RECORDS SUMMARY | 2024-04-13 22:07 | XMS_ITS | Encounter Summary ---
Author Organization [facility] Care Team Providers Care Access Analyst Name Role Phone Brie Carrington Primary Care Provider [phone] Encounter Details Date Type Department Care Team (Latest Contact Info) Description 04/30/2019 Travel Social History Tobacco Use Types Packs/Day Years Used Date Smoking Tobacco: Every Day Cigarettes 1.5 40 Started: 1984 Smokeless Tobacco: Never Alcohol Use Standard Drinks/Week Comments Yes 5 (1 standard drink = 0.6 oz pur e alcohol) occasional, 5 per week Sex and Gender Information Value Date Recorded Sex Assigned at Not on file 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
--- OUTSIDE RECORDS SUMMARY | 2024-04-13 22:07 | XMS_ITS | Encounter Summary ---
Author Organization [facility] Address [address] [place] [address] Phone Care Team Providers Care Vice President Of Talent Management Name Role Phone Brie Carrington Primary Care Provider [phone] [phone] Reason for Visit * Reason Comments Follow-up Encounter Details Date Type Department Care Team (Late st Contact Info) Description 08/28/2019 2:00 PM CDT Office Visit [facility] Orthopaedic Surgery [address]th [place] [address] [place] [address] [place] [address] [place] [id number] Carpal tunnel syndrome, right (Primary Dx) Social History Tobacco Use Types Packs/Day Years Used Date Smoking Tobacco: Every Day Cigarettes 1.5 40 Started: 1984 Smokeless Tobacco: Never Alcohol Use Standard Drinks/Week Comments Yes 5 (1 standard drink = 0.6 oz pur e alcohol) occasional, 5 per week Sex and Gender Information Value Date Recorded Sex Assigned at Not on file 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 male presenting for evaluation of his right carpal tunnel and distal ulnartunnel decompression. He has had 2 surgeries. He is now more than 3 months out from the 2nd surgerywith revision decompression. Both surgeries have helped him but he is frustrated that he is not back to his baseline. He has pain in the distal forearm and hand with heavier activities. No clicking popping catching. No nell numbness or tingling. Those symptoms are gone but the discomfort persist with heavy activities. INITIAL REVIEW OF MEDICATIONS He has a [...] reports that he does not use drugs. FAMILY HISTORY His family history includes Alcohol abuse in his father and mother; Cancer in his father. PHYSICAL EXAM: The patient is well developed, well nourished,age appropriate patient in no acute distress. The patient is alert and oriented x3. There are no obvious skin lesions or rashes are noted. Skin is warm to touch. Median, radial, and ulnar nerves are intact to motor and sensory function. There is a 2+ radial pulse, normal capillary refill bilaterally. Full range of motion of the elbow forearm wrist and hand. Negative Tinel's diffusely. Intrinsic hand strength is excellent. No atrophy. Ice Rink Attendant strength is 80/80. Wounds are well healed. Difficult to reproduce symptoms today. IMPRESSION/DIAGNOSIS/ PLAN: Patient doing reasonably well but still with symptoms. He can work full duty without limitations. Iwould like to see him back in 3 months for presumed MMI. He is avoiding surgery on the left side given his difficulties on the right. All questions are answered Moy Brown MD Professor of Orthopaedic Surgery [employer] * Moy Brown MD - 08/28/2019 2:00 PM CDT Images from the original note were not included. Patient Name: Miguel Caraballo : 1970 Provider: Moy Brown MD Encounter Date: 08/28/2019 Date: 08/28/19 Diagnosis: The encounter diagnosis was Carpal tunnel syndrome, right. Work Status: May return to work without restrictions/date: 08/29/19 Follow up appointment needed: Three months for likely MMI. Location: [facility], [address] Moy Brown MD For questions/information call the Workers' Psychiatry Resident at , . documented in this encounter Plan of Treatment Not on file documented as of this encounter Visit Diagnoses Diagnosis Carpal tunnel syndrome, right- Primary Carpal tunnel syndrome documented in this encounter Care Teams Vice President Of Talent Management Relationship Specialty Start Date End Date Brie Carrington PA [address] [place] [address] PCP - General Emergency Medicine 09/26/18 documented as of this encounter
--- OUTSIDE RECORDS SUMMARY | 2024-04-13 22:08 | XMS_ITS | Encounter Summary ---
Author Organization [facility] Address [address] [place] [address] Phone Care Team Providers Care Extension Educator Name Role Phone Brie Carrington Primary Care Provider [phone] [phone] Encounter Details Date Type Department Care Team (Late st Contact Info) Description 10/15/2018 Telephone [facility] Orthopaedic Surgery [facility] Advanced Medicine 6th [place] [address] [place] [address] [place] [address] [place] [address] Social History Tobacco Use Types Packs/Day Years Used Date Smoking Tobacco: Every Day Smokeless Tobacco: Current Sex and Gender Information Value Date Recorded Sex Assigned at Not on file 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 Spoke with patient and surgical dates were determined with the patient. documented in this encounter Plan of Treatment Not on file documented as of this encounter Visit Diagnoses Not on filedocumented in this encounter Care Teams Extension Educator Relationship Specialty Start Date End Date Brie Carrington PA [address] [place] [address] PCP - General Emergency Medicine 09/26/18 documented as of this encounter
--- OUTSIDE RECORDS SUMMARY | 2024-04-13 22:08 | XMS_ITS | Encounter Summary ---
Author Organization [facility] Healthcare Address [address] [place] [address] Care Team Providers Care Cna Instructor Name Role Phone Brie Carrington Primary Care Provider [phone] Encounter Details Date Type Department Care Team (Late st Contact Info) Description 04/30/2019 8:30 AM DYE MAKER Anesthesia Event [facility] [address] [place] [id number] Guille Blanchard MD [address] [facility] [address] [place] [address] Anesthesia Record Procedure Summary Procedure Name Responsible Anesthesiologist Anesthesia Start Time Anesthesia Stop Time RIGHT CUBITAL TUNNEL DECOMPRESSION, DISTAL ULNAR TUNNEL DECOMPRESSION, REVISION CARPAL TUNNEL RELEASE EXTENDING INTO THE FOREARM. (Right: Arm Lower) Guille Blanchard MD 04/30/19 0830 04/30/19 0939 Events Date Time Event Comment 04/30/2019 0812 0813 Time out - Regional 0813 Face Time 0813 Start Supplemental O2 0826 An Block Induction The patie nt was reevaluated immediately before moderate or deep sedation and before anesthesia induction. 0826 Block Placed 0830 An Start 0835 In Room 0835 AN Equip Check 0835 An Start Data 0838 An Induction The patient was reevaluated immediately before moderate or deep sedation use and before anesthesia induction. 0838 Anesthesia Ready 0848 Incision Start 0[address] per Dr[address] Barrett leon, wanted to attempt to keep patient SV without airway manipulation due to pt wheezing. Attempted to make incision with current PNB in place but patient feeling all noxious stimuli. Have placed a LMA #5 without difficulty. No obvious trauma observed and pressure of LMA is WNL. Dr. Blanchard has been updated about MAC attempt aborted. 928 Quick Note Removed lma zeus ke. No trauma observed 34 Out of Room 0935 an stop data 0939 Handoff to RN I completed my handoff to the receiving nurse during which we: 1. Patient identified 2. Responsible provider identified 3. Pertinent medical history reviewed 4. Procedure type and surgical course discussed 5. Intraoperative anesthetic management and any significant issues discussed 6. Expectations and concerns for postop period discussed 7. Questions solicited from receiving nurse 8. Patient disposition at the time of handoff: PACU 09 An Stop 1030 Release from care Meds Name Total midazolam 2 mg/2 mL 2 mg fentaNYL PF 125 mcg propofol 350 mg propofol 126.9 mg bupivacaine 0.5 % PF 44 mL lidocaine 2 % 3 mL lidocaine 1 % PF 50 mg ondansetron PF 4 mg famotidine PF 20 mg Lactated Ringer's (LR) infusion 800 mL * Agents Name O2 Sevoflurane Inspired Sevoflurane * Blood No blood administrations on file. Lines, Drains, and Airways Type Details Placement Removal Peripheral IV Placement Date: 04/30/19; Placement Time: 07; Catheter Size: 20 G; Orientation: Left; Location: Hand; Site Prep: Chlorhexidine; Technique: Anatomical landmarks; Inserted by: Niels Pimentel RN; Insertion Attempts: 1; Patient Tolerance: Tolerated well; Removal Date: 04/30/19; Removal Time: 1037 04/30/19 0742 by Cristela Pimentel RN 04/30/19 1037 by Tri Garnica RN RETIRED Surgical Site 04/30/19; 0816; Nh ght; Arm; wound well approximated; 04/30/19; 1036; Discharge 04/30/19 0816 by Ramila Rice RN 04/30/19 1036 by Tri Garnica RN documented in this encounter Social History Tobacco Use Types Packs/Day Years Used Date Smoking Tobacco: Every Day Cigarettes 1.5 40 Started: 1986 Smokeless Tobacco: Never Alcohol Use Standard Drinks/Week Comments Yes 5 (1 standard drink = 0.6 oz pur e alcohol) occasional, 5 per week Sex and Gender Information Value Date Recorded Sex Assigned at Not on file Legal Sex Male 9:26 AM DYE MAKER Gender Identity Not on file Sexual Orientation Not on file documented as of this encounter OR Notes * Anesthesia Postprocedure Evaluation - Guille Blanchard MD - 04/30/2019 10:30 AM CST Patient: Miguel Caraballo Procedure Summary Date: 04/30/19 Room / Location: [facility] OPERATING ROOM 2 / [facility] OPERATING ROOM Anesthesia Start: 08 Anesthesia Stop: 938 Procedures: RIGHT CUBITAL TUNNEL DECOMPRESSION, DISTAL ULNAR TUNNEL DECOMPRESSION, REVISION CARPAL TUNNEL RELEASE EXTENDING INTO THE FOREARM. (Right Arm Lower) RIGHT (Right Hand) RIGHT (Right Wrist) Diagnosis: Cubital tunnel syndrome on right (Cubital tunnel syndrome on right [G56.21]) Provider: Moy Brown MD Responsible Provider: Guille Blanchard MD Anesthesia Type: general, regional for postop pain per surgeon request, regional as primary anesthetic ASA Status: 2 Anesthesia Type: general, regional for postop pain per surgeon request, regional as primary anesthetic Last vitals BP 134/88 Pulse 79 Temp 36.6 ??C (97.9 ??F) Resp 17 SpO2 94% Anesthesia Post Evaluation Patient location during evaluation: PACU Patient participation: complete - patient participated Level of consciousness: fully awake Pain score: 4 Pain management: adequate Airway patency: adequate Evidence of recall: no Anesthetic complications: no Cardiovascular status: hemodynamically stable and acceptable Respiratory status: acceptable and room air Hydration status: acceptable Pt is: normothermic Nausea/Vomiting status: none MAKER * Anesthesia Procedure Notes - Guille Blanchard MD - 04/30/2019 8:28 AM DYE MAKER Associated Order(s): Peripheral Block Peripheral Block Patient location during procedure: pre-op holding Reason for block: primary anesthetic Block type: single shot Laterality: right Block type: intercostobrachial nerve block Procedure prep: Preprocedure checklist: patient identified, procedure contraindications assessed, site marked, procedure consent, surgical consent, IV checked, risks, benefits and alternatives discussed, monitors and equipment checked and timeout performed Patient position: sitting Procedure performed while patient: sedate with meaningful contact Monitoring: oximetry Supplemental O2: nasal cannula Prep solution: chlorhexidine/alcohol Peripheral nerve block: Technique: landmark(s) Needle type: short-bevel Needle gauge: 25G. Needle length: 80 mm Injection assessment: injection made incrementally with constant monitoring, negative aspiration for heme, no paresthesias noted, normal resistance to injection and see flowsheet for medication details Assessment: Block success: full evaluation pending Events: patient tolerated procedure well with no complications Additional comments: ASSISTED BY KALEB REYES MAKER MAKER * Anesthesia Procedure Notes - Guille Blanchard MD - 04/30/2019 8:27 AM DYE MAKER Associated Order(s): Peripheral Block Peripheral Block Patient location during procedure: pre-op holding Reason for block: primary anesthetic Ultrasound image in chart or stored: yes Block type: single shot Laterality: right Block type: musculocutaneous nerve block Procedure prep: Preprocedure checklist: patient identified, procedure contraindications assessed, site marked, procedure consent, surgical consent, IV checked, risks, benefits and alternatives discussed, monitors and equipment checked and timeout performed Patient position: sitting and head of bed elevated Procedure performed while patient: sedate with meaningful contact Monitoring: oximetry Supplemental O2: nasal cannula Prep solution: chlorhexidine/alcohol Skin infiltrated with lidocaine 1%: yes Peripheral nerve block: Technique: ultrasound guided Needle type: short-bevel Needle gauge: 21 G Needle length: 80 mm Injection assessment: injection made incrementally with constant monitoring, local visualized surrounding nerve on ultrasound, negative aspiration for heme, no paresthesias noted, normal resistance to injection and see flowsheet for medication details Assessment: Block success: full evaluation pending Events: patient tolerated procedure well with no complications Additional comments: ASSISTED BY KALEB REYES MAKER MAKER * Anesthesia Procedure Notes - Guille Blanchard MD - 04/30/2019 8:27 AM DYE MAKER Associated Order(s): Peripheral Block Peripheral Block Patient location during procedure: pre-op holding Reason for block: primary anesthetic Ultrasound image in chart or stored: yes Block type: single shot Laterality: right Block type: brachial plexus - axillary Procedure prep: Preprocedure checklist: patient identified, procedure contraindications assessed, site marked, procedure consent, surgical consent, IV checked, risks, benefits and alternatives discussed, monitors and equipment checked and timeout performed Patient position: sitting and head of bed elevated Procedure performed while patient: sedate with meaningful contact Monitoring: oximetry Supplemental O2: nasal cannula Prep solution: chlorhexidine/alcohol Skin infiltrated with lidocaine 1%: yes Peripheral nerve block: Technique: ultrasound guided Needle type: short-bevel Needle gauge: 21 G Needle length: 80 mm Injection assessment: injection made incrementally with constant monitoring, local visualized surrounding nerve on ultrasound, negative aspiration for heme, no paresthesias noted, normal resistance to injection and see flowsheet for medication details Assessment: Block success: full evaluation pending Events: patient tolerated procedure well with no complications Additional comments: ASSISTED BY ISAURO REYES-Usman MAKER MAKER * Anesthesia Preprocedure Evaluation - Guille Blanchard MD - 04/30/2019 8:10 AM CST Images from the original note were not included. Anesthesia Evaluation Miguel Caraballo is a 48 y.o. male Procedure(s): RIGHT CUBITAL TUNNEL DECOMPRESSION, DISTAL ULNAR TUNNEL DECOMPRESSION, REVISION CARPAL TUNNEL RELEASE EXTENDING INTO THE FOREARM. RIGHT RIGHT Pre-Op Diagnosis Codes: * Cubital tunnel syndrome on right [G56.21] HISTORY Past Medical History Information obtained from: patient. Respiratory - wheezing. Patient Active Problem List Diagnosis ??? Carpal tunnel syndrome, right ??? Carpal tunnel syndrome, left ??? Cubital tunnel syndrome, left ??? Carpal tunnel syndrome on right ??? Carpal tunnel syndrome of left wrist ??? Numbness and tingling in right hand ??? Cubital tunnel syndrome on right Past Medical History: Diagnosis Date ??? COPD (chronic obstructive pulmonary disease) ([facility]) uses home nebulizer, no home O2, never needs rescue inhaler. ??? Diverticulitis of colon 2 years ago, no surgery needed ??? Dyslipidemia ??? Hypertension well controlled with meds ??? Type 2 diabetes mellitus (CMS/HCC) well controlled with meds Past Surgical History: Procedure Laterality Date ??? CARPAL TUNNEL RELEASE Right 11/06/2018 No Known Allergies Taking? Last Dose Start Date End Date Provider albuterol 1.25 mg/3 mL nebulizer solution 04/30/2019 -- -- Historical Provider, losartan-hydroCHLOROthiazide (HYZAAR) 50-12.5 mg per tablet 04/29/2019 10/10/18 -- Historical Provider, metFORMIN (GLUCOPHAGE) 1,000 mg tablet 04/29/2019 07/13/18 -- Historical Provider, simvastatin (ZOCOR) 40 mg tablet 04/29/2019 07/13/18 -- Historical Provider, traMADol (ULTRAM) 50 mg tablet 11/07/18 -- Moy Brown MD Take 1 tablet (50 mg total) by mouth every 6 (six) hours as needed for pain Patient not taking: Reported on 11/18/2018 Current Facility-Administered Medications: ??? albuterol 2.5 mg/0.5 mL nebulizer solution - ADS Override Pull, , , ??? ipratropium (ATROVENT) 0.02 % nebulizer solution - ADS Override Pull, , , ??? Lactated Ringer's (LR) infusion, 30 mL/hr, intravenous, Continuous, Last Rate: 30 mL/hr at 04/30/19 0742, 30 mL/hr at 04/30/19 0742 ??? scopolamine patch 72 hour 1 patch, 1 patch, transdermal, Once ??? sodium chloride 0.9% flush 0.5-20 mL, 0.5-20 mL, intra-catheter, PRN Social History Tobacco Use Smoking Status Current Every Day Smoker ??? Packs/day: 1.50 ??? Years: 35.00 ??? Pack years: 52.50 ??? Types: Cigarettes ??? Start date: 1986 Smokeless Tobacco Never Used Substance and Sexual Activity Alcohol Use Yes ??? Alcohol/week: 5.0 standard drinks ??? Types: 5 Cans of beer per week Comment: occasional, 5 per week Substance and Sexual Activity Drug Use Never Family History Problem Relation Age of Onset ??? Alcohol abuse Mother ??? Alcohol abuse Father ??? Cancer Father Vitals: 04/30/19 0713 04/30/19 0720 04/30/19 0725 BP: 129/98 Pulse: 81 82 Resp: 19 11 Temp: 36.2 ??C (97.2 ??F) SpO2: 95% 96% PT: No results found for requested labs within last 720 hours. INR: No results found for requested labs within last 720 hours. APTT: No results found for requested labs within last 720 hours. Hgb A1C: No results found for requested labs within last 720 hours. CBC RBC: No results found for requested labs within last 720 hours. RDW: No results found for requested labs within last 720 hours. MCHC: No results found for requested labs within last 720 hours. MCH: No results found for requested labs within last 720 hours. MCV: No results found for requested labs within last 720 hours. Hct: No results found for requested labs within last 720 hours. Hgb: No results found for requested labs within last 720 hours. WBC: No results found for requested labs within last 720 hours. MPV: No results found for requested labs within last 720 hours. Platelets: No results found for requested labs within last 720 hours. RDW CV: No results found for requested labs within last 720 hours. RDW Sd: No results found for requested labs within last 720 hours. BMP Glucose: No results found for requested labs within last 720 hours. Calcium: No results found for requested labs within last 720 hours. Sodium: No results found for requested labs within last 720 hours. Potassium: No results found for requested labs within last 720 hours. CO2: No results found for requested labs within last 720 hours. Chloride: No results found for requested labs within last 720 hours. BUN: No results found for requested labs within last 720 hours. Creatinine: No results found for requested labs within last 720 hours. DOS Physical Exam Medical history, medications, and allergies reviewed. Attestation: This PAT evaluation 04/30/2019. Airway Exam: Mallampati: III Cervical ROM: FROM Cardiovascular Exam: Rate: regular Rhythm: regular Pulmonary Exam: Wheezing, bilat Anesthesia Plan ASA 2 My patient is approved for the Anesthesia Controlled Medication protocol when under care of a BALANCE RECESSER Planned anesthesia: General, regional as primary anesthetic and PNB - single shot Upper extremity: brachial plexus- axillary, musculocutaneous nerve block and intercostobrachial nerve block Informed Consent: Anesthesia plan and risks discussed with patient. Plan and Consent Comments: Combivent treatment in holding area. Steroid dosing. Axillary block to avoid phrenic nerve involvement. K+ 4.0 Glucose 187 Consent and Attending signature: I and/or my designee have discussed the anesthesia plan, benefits, possible alternatives, parental presence at time of induction (if indicated), and clinically relevant risks that may include dental injury, unintentional awareness, and/or other complications. The patient and/or parent/legal guardian understand, and agree to proceed. All questions answered. MAKER MAKER documented in this encounter Plan of Treatment Not on file documented as of this encounter Procedures Procedure Name Priority Date/Time Associated Diagnosis Comments PA AN PROCEDURE PLACEHOLDER Routine 04/30/2019 8:28 AM DYE MAKER PA AN PROCEDURE PLACEHOLDER Routine 04/30/2019 8:27 AM DYE MAKER PA AN PROCEDURE PLACEHOLDER Routine 04/30/2019 8:27 AM DYE MAKER documented in this encounter Results * PA AN PROCEDURE PLACEHOLDER (04/30/2019 8:28 AM DYE MAKER) Narrative Guille Blanchard MD - 04/30/2019 8:28 AM DYE MAKER Guille Blanchard MD ? 04/30/2019 ??8:31 AM Peripheral Block Patient location during procedure: pre-op holding Reason for block: primary anesthetic Block type: single shot Laterality: right Block type: intercostobrachial nerve block Procedure prep: Preprocedure checklist: patient identified, procedure contraindications assessed, site marked, procedure consent, surgical consent, IV checked, risks, benefits and alternatives discussed, monitors and equipment checked and timeout performed Patient position: sitting Procedure performed while patient: sedate with meaningful contact Monitoring: oximetry Supplemental O2: nasal cannula Prep solution: chlorhexidine/alcohol Peripheral nerve block: Technique: landmark(s) Needle type: short-bevel Needle gauge: 25G. Needle length: 80 mm Injection assessment: injection made incrementally with constant monitoring, negative aspiration for heme, no paresthesias noted, normal resistance to injection and see flowsheet for medication details Assessment: Block success: full evaluation pending Events: patient tolerated procedure well with no complications Additional comments: ASSISTED BY KALEB REYES us Guille Blanchard MD ANESTHESIA ORDERABLES Edited R esult - Final * PA AN PROCEDURE PLACEHOLDER (04/30/2019 8:27 AM DYE MAKER) Guille Fierro MD - 04/30/2019 8:27 AM DYE MAKER Guille Blanchard MD ? 04/30/2019 ??8:31 AM Peripheral Block Patient location during procedure: pre-op holding Reason for block: primary anesthetic Ultrasound image in chart or stored: yes Block type: single shot Laterality: right Block type: musculocutaneous nerve block Procedure prep: Preprocedure checklist: patient identified, procedure contraindications assessed, site marked, procedure consent, surgical consent, IV checked, risks, benefits and alternatives discussed, monitors and equipment checked and timeout performed Patient position: sitting and head of bed elevated Procedure performed while patient: sedate with meaningful contact Monitoring: oximetry Supplemental O2: nasal cannula Prep solution: chlorhexidine/alcohol Skin infiltrated with lidocaine 1%: yes Peripheral nerve block: Technique: ultrasound guided Needle type: short-bevel Needle gauge: 21 G Needle length: 80 mm Injection assessment: injection made incrementally with constant monitoring, local visualized surrounding nerve on ultrasound, negative aspiration for heme, no paresthesias noted, normal resistance to injection and see flowsheet for medication details Assessment: Block success: full evaluation pending Events: patient tolerated procedure well with no complications Additional comments: ASSISTED BY KALEB REYES us Guille Blanchard MD ANESTHESIA ORDERABLES Edited R esult - Final * PA AN PROCEDURE PLACEHOLDER (04/30/2019 8:27 AM DYE MAKER) Guille Fierro MD - 04/30/2019 8:27 AM DYE MAKER Guille Blanchard MD ? 04/30/2019 ??8:31 AM Peripheral Block Patient location during procedure: pre-op holding Reason for block: primary anesthetic Ultrasound image in chart or stored: yes Block type: single shot Laterality: right Block type: brachial plexus - axillary Procedure prep: Preprocedure checklist: patient identified, procedure contraindications assessed, site marked, procedure consent, surgical consent, IV checked, risks, benefits and alternatives discussed, monitors and equipment checked and timeout performed Patient position: sitting and head of bed elevated Procedure performed while patient: sedate with meaningful contact Monitoring: oximetry Supplemental O2: nasal cannula Prep solution: chlorhexidine/alcohol Skin infiltrated with lidocaine 1%: yes Peripheral nerve block: Technique: ultrasound guided Needle type: short-bevel Needle gauge: 21 G Needle length: 80 mm Injection assessment: injection made incrementally with constant monitoring, local visualized surrounding nerve on ultrasound, negative aspiration for heme, no paresthesias noted, normal resistance to injection and see flowsheet for medication details Assessment: Block success: full evaluation pending Events: patient tolerated procedure well with no complications Additional comments: ASSISTED BY MP, SHEARING MACHINE TENDER-C us Guille Blanchard MD ANESTHESIA ORDERABLES Edited R esult - Final documented in this encounter Visit Diagnoses Not on filedocumented in this encounter Administered Medications Inactive Administered Medications - up to 3 most recent administrations Medication Order MAR Action Action Date Dose Rate Site bupivacaine (MARCAINE) 0.5 % (5 mg/mL) preservative free injection As needed, Starting on Sun04/30/19 at 0826, Anesthesia Intra-op Given 04/30/2019 8:26 AM DYE MAKER 44 mL famotidine (PEPCID) injection Administer over 2 Minutes, As needed, Starting on Sun04/30/19 at 0848, Anesthesia Intra-op Given 04/30/2019 8:48 AM DYE MAKER 20 mg fentaNYL (SUBLIMAZE) preservative free injection intravenous, As needed, Starting on Sun04/30/19 at 0826, Anesthesia Intra-op Given 04/30/2019 9:40 AM DYE MAKER 25 mcg Given 04/30/2019 8:26 AM DYE MAKER 100 mcg lidocaine (XYLOCAINE) 20 mg/mL (2 %) injection infiltration, As needed, Starting on Sun04/30/19 at 0826, Anesthesia Intra-op, Indications: Administration of Local AnesthesiaIndications:Administration of Local Anesthesia Given 04/30/2019 8:26 AM DYE MAKER 3 mL lidocaine PF (XYLOCAINE) 10 mg/mL (1 %) preservative free injection As needed, Starting on Sun04/30/19 at 0838, Anesthesia Intra-op Given 04/30/2019 8:49 AM DYE MAKER 30 mg Given 04/30/2019 8:42 AM DYE MAKER 10 mg Given 04/30/2019 8:38 AM DYE MAKER 10 mg midazolam (VERSED) injection intravenous, As needed, Starting on Sun04/30/19 at 0826, Anesthesia Intra-op Given 04/30/2019 8:26 AM DYE MAKER 2 mg ondansetron (ZOFRAN) injection intravenous, Administer over 2 Minutes, As needed, Starting on Sun04/30/19 at 0856, Anesthesia Intra-op Given 04/30/2019 8:56 AM DYE MAKER 4 mg propofol (DIPRIVAN) IV intravenous, As needed, Starting on Sun04/30/19 at 0838, Anesthesia Intra-op Given 04/30/2019 9:29 AM DYE MAKER 20 mg Given 04/30/2019 8:52 AM DYE MAKER 150 mg Given 04/30/2019 8:49 AM DYE MAKER 100 mg propofol (DIPRIVAN) IV intravenous, Continuous PRN, Starting on Sun04/30/19 at 0843, Anesthesia Intra-op New Bag 04/30/2019 8:43 AM DYE MAKER 100 mcg/kg/min 76.14 mL/hr documented in this encounter Care Teams Cna Instructor Relationship Specialty Start Date End Date Brie Carrington PA [address] [id number] PCP - General Emergency Medicine 09/26/18 documented as of this encounter
--- OUTSIDE RECORDS SUMMARY | 2024-04-13 22:08 | XMS_ITS | Encounter Summary ---
Author Organization [facility] Address [address] [place] [address] Phone Care Team Providers Care Grain Oilseed Or Pasture Farm Manager Name Role Phone Brie Carrington Primary Care Provider [phone] [phone] Encounter Details Date Type Department Care Team (Late st Contact Info) Description 01/28/2019 Orders Only [facility] Orthopaedic Surgery [address] [facility] 2[address] [place] [address] [place] [address] [address] [place] [address] Carpal tunnel syndrome, right (Primary Dx) Social [...] on file Legal Sex Male 9:26 AM SANFORIZER Gender Identity Not on file Sexual Orientation Not on file documented as of this encounter Plan of Treatment Not on file documented as of this encounter Visit Diagnoses Diagnosis Carpal tunnel syndrome, right- Primary Carpal tunnel syndrome documented in this encounter Care Teams Grain Oilseed Or Pasture Farm Manager Relationship Specialty Start Date End Date Brie Carrington PA [address] [place] [address] PCP - General Emergency Medicine 09/26/18 documented as of this encounter
--- OUTSIDE RECORDS SUMMARY | 2024-04-13 22:08 | XMS_ITS | Encounter Summary ---
Author Organization [facility] Address [address] [place] [address] Phone Care Team Providers Care Anatomic Pathology Manager Name Role Phone Brie Carrington Primary Care Provider [phone] Reason for Referral * Diagnostic Imaging (Routine) - Closed Specialty Diagnoses / Procedures Referred By Contac t Referred To Contact Diagnoses Numbness and tingling in right hand Procedures US Upper Extremity Right Limited Moy Brown MD Phone: tel: fax: External Order Referral ID Status Reason Start Date Expiration Date Visits Re quested Visits Authorized [id number] Closed 02/17/2019 08/28/2020 1 1 ICAL RESEARCH MONITOR Encounter Details Date Type Department Care Team (Late st Contact Info) Description 02/17/2019 Orders Only [facility] Orthopaedic Surgery [address] [place] [address] [place] [id number] [facility] [address] [place] [address] Numbness and tingling in right hand (Primary Dx) Social History Tobacco Use Types Packs/Day Years Used Date Smoking Tobacco: Every Day Cigarettes 1.5 40 Started: 1984 Smokeless Tobacco: Never Alcohol Use Standard Drinks/Week Comments Yes 0 (1 standard drink = 0.6 oz pur e alcohol) occasional, 5 per week Sex and Gender Information Value Date Recorded Sex Assigned at Not on file Legal Sex Male 9:26 AM CLINICAL RESEARCH MONITOR Gender Identity Not on file Sexual Orientation Not on file documented as of this encounter Plan of Treatment Not on file documented as of this encounter Results * US Upper Extremity Right Limited (03/05/2019 3:15 PM CLINICAL RESEARCH MONITOR) Anatomical Region Laterality Modality Upper Extremities Right Ultrasound us Moy Brown MD IMG US PROCEDURES Final R esult documented in this encounter Visit Diagnoses Diagnosis Numbness and tingling in right hand- Primary Disturbance of skin sensation documented in this encounter Care Teams Anatomic Pathology Manager Relationship Specialty Start Date End Date Brie Carrington PA [facility] [address] [place] [id number] PCP - General Emergency Medicine 09/26/18 documented as of this encounter
--- OUTSIDE RECORDS SUMMARY | 2024-04-13 22:08 | XMS_ITS | Encounter Summary ---
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 Surgery Details Date/Time Status Location OR Service Patient Class Case Class Case Type Trauma Case? 04/30/2019 8:45 AM Posted [facility] OPERATING ROOM OR 2 Orthopaedics Outpatient Elective Panel 1 Procedure LRB Anes Op Region Wound Class Comments RIGHT CUBITAL TUNNEL DECOMPR ESSION, DISTAL ULNAR TUNNEL DECOMPRESSION, REVISION CARPAL TUNNEL RELEASE EXTENDING INTO THE FOREARM. 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 Gender Identity Not on file Sexual Orientation Not on file documented as of this encounter Last Filed Vital Signs Vital Sign Reading Time Taken Comments Blood Pressure 136/88 04/30/2019 9:55 AM RAILROAD CAR TRUCK BUILDER Pulse 85 04/30/2019 10:00 AM RAILROAD CAR TRUCK BUILDER Temperature 36.7 ??C (98.1 ??F) 04/30/2019 9:36 AM CS T Respiratory Rate 14 04/30/2019 10:0 0 AM RAILROAD CAR TRUCK BUILDER Oxygen Saturation 92% 04/30/2019 10: 00 AM RAILROAD CAR TRUCK BUILDER Inhaled Oxygen Concentration - - Weight 126.9 kg (279 lb 11.2 oz) 04/30/2019 7:13 AM RAILROAD CAR TRUCK BUILDER Height 177.8 cm (5' 10 ) 04/30/2019 7:13 AM RAILROAD CAR TRUCK BUILDER Body Mass Index 40.13 04/30/2019 7:13 AM RAILROAD CAR TRUCK BUILDER documented in this encounter Discharge Instructions * Discharge Instructions* Moy Brown MD - 04/30/2019 9:37 AM RAILROAD CAR TRUCK BUILDER Orthopedic Surgery with Long Arm Splint Postoperative Guidelines 1. If the finger are visible, begin active range of motion of your fingers immediately; remember toelevate to control swelling. 2. Splint care. Keep dry. Call if questions regarding the splint. Do not scratch under splint. Callif it feels too tight. 3. Your first postoperative visit will be 12-15 days after surgery. Please remember these outlines are guidelines only. Your care may differ from the typical outlines provided. Please talk to your surgeon or your surgeon???s nurse or medical transcription if you have anyquestions about your postoperative care. If you have any questions, please call our office at Orthopedic Hand Service Perioperative Narcotic Considerations The Orthopedic hand surgeons of [facility] manage perioperative pain as wellas the pain after an acute injury. Our surgeons do not manage chronic pain (pain three months afterthe injury/surgery), and will refer patients seeking longer term care for their painful condition to a pain management service or their primary physician as those physicians typically establish rodent exterminator treatment relationships with patients. Following elective hand and upper extremity surgery, a prescription for an opioid-based medication will likely be given to the patient. ???Minor??? procedures such as carpal tunnel release, trigger finger release and ganglion excision will receive 10-20 tablets of Tylenol with Codeine, Tramadol, orNorco. Your surgeon will decide which is the most appropriate. Most other procedures will be receive 20-30 tablets. Procedures that will need aggressive and continuous post-operative hand therapy (and adequate acute pain control during this period) may need a greater number of pain tablets to last the during the therapy period. Your surgeon may discuss with you reasoning behind the number of tablets that will be prescribed. There are many things that a patient can do to manage their pain after surgery or after an acute injury: 1) Move the shoulder, elbow and all other joints that are not immobilized by the post-operative dressing as much as possible. 2) Elevate the operated hand and wrist so that swelling can be reduced. 3) Place ice and a few ounces of tap water in a small sealed plastic bag, and place it on the outside of the surgical dressing. Keep it there until the operated part under the ice bag starts to feel cold. This can reduce both pain and swelling. 4) Anti-inflammatory pain medication such as Advil, Aleve, generic Ibuprofen, generic Naproxen or generic Naprosyn can all be used in addition to the narcotics prescribed by your doctor. 5) Prescription anti-inflammatory pain medication such as Celebrex, Indocin or Toradol can be called in to your pharmacy if ???[id number]??? anti- inflammatory pain medication do not decrease the pain even when taken on a regular basis. These can be called in during the hours 9am to 4pm, during the workweek. 6) ???Alternative??? treatments such as acupuncture, meditation and biofeedback can all be used to decrease post-operative pain. The Orthopedic hand surgeons of [facility] want you to be as comfortable as possible following your operation or your injury, and we want you to return to your level of active function as quickly as possible. Although narcotics (opioid medications) can have a role in obtaining pain relief after surgery or injury, the prolonged use of these highly addictive medications can- and do- have severe side effects. Even in patients who are not addicted, narcotics become less effective over time as the body becomes tolerant to the drug and there is evidence that prolonged use mayincrease the body???s interpretation of pain. The ???opioid epidemic??? in [place] is very real, and we as physicians are duty-bound to be as appropriate as can be in the administration of narcotics. When prescribed narcotics, you should start with a plan of how to wean off of them and where you will keep the drug to avoid any misuse by those around you. If you have any questions about our philosophy regarding the prescriptions of narcotic medications for the relief of pain following surgery orinjury, please talk to your surgeon or his/her nurse or MA. ROAD CAR TRUCK BUILDER documented in this encounter Medications at Time of Discharge albuterol 1.25 mg/3 mL nebulizer solution Take 1.25 mg by nebulization every 6 (six) hours as needed for wheezing losartan-hydroCH LOROthiazide (HYZAAR) 50-12.5 mg per tablet TK 1 T PO QD 11 10/10/2018 metFORMIN (GLUCOPHAGE) 1,000 mg tabletIndication s:type 2 diabetes mellitus 2 (two) times a day with meals 1 07/13/2018 simvastatin (ZOCOR) 40 mg tablet 1 07/13/2018 traMADol (ULTRAM) 50 mg tablet Take 1 tablet (50 mg total) by mouth every 6 (six) hours as needed for pain 12 tablet 11/07/2018 HYDROcodone-acet aminophen (NORCO) 5-325 mg per tabletIndication s:Pain Take 1-2 tablets by mouth every 6 (six) hours as needed for pain 18 tablet 04/30/2019 0 documented as of this encounter Ordered Prescriptions Prescription Sig Dispense Quantity Refills Last Filled Start Date End Date HYDROcodone-acetam inophen (NORCO) 5-325 mg per tabletIndications: Pain Take 1-2 tablets by mouth every 6 (six) hours as needed for pain 18 tablet 04/30/2019 0 documented in this encounter Discharge Disposition Disposition Code Departure Means Destination Discharge to home or self care documented in this encounter H&P Notes * Moy Brown MD - 04/30/2019 7:51 AM CST I have reviewed the H&P, examined the patient, and endorse the findings as written. Plan of Care : Based on the above findings, I consider Miguel Caraballo to be an acceptable risk for : Procedure(s): RIGHT CUBITAL TUNNEL DECOMPRESSION, DISTAL ULNAR TUNNEL DECOMPRESSION, REVISION CARPAL TUNNEL RELEASE EXTENDING INTO THE FOREARM. 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 male with chief complaint of right elbow and hand pain. Indication For Procedure: Pre-op Diagnosis * Cubital tunnel syndrome on right [G56.21] Planned Procedure RIGHT CUBITAL TUNNEL DECOMPRESSION, DISTAL ULNAR TUNNEL DECOMPRESSION, REVISION CARPAL TUNNEL RELEASE EXTENDING INTO THE FOREARM. (R), RIGHT (R), RIGHT (R) HPI: Past Medical History: Diagnosis Date ??? COPD (chronic obstructive pulmonary disease) (CMS/HCC) uses home nebulizer, no home O2, never needs rescue inhaler. ??? Diverticulitis of colon 2 years ago, no surgery needed ??? Dyslipidemia ??? Hypertension well controlled with meds ??? Type 2 diabetes mellitus (CMS/[facility]) well controlled with meds Past Surgical History: Procedure Laterality Date ??? CARPAL TUNNEL RELEASE Right 11/06/2018 ??? HAND SURGERY Right wrist Medications Prior to Admission Medication Sig Dispense Refill Last Dose ??? albuterol 1.25 mg/3 mL nebulizer solution Take 1.25 mg by nebulization every 6 (six) hours as needed for wheezing 04/30/2019 at 0500 ??? losartan-hydroCHLOROthiazide (HYZAAR) 50-12.5 mg per tablet TK 1 T PO QD 11 04/29/2019 at Unknown time ??? metFORMIN (GLUCOPHAGE) 1,000 mg tablet 2 (two) times a day with meals 1 04/29/2019 at Unknown time ??? simvastatin (ZOCOR) 40 mg tablet 1 04/29/2019 at Unknown time ??? traMADol (ULTRAM) 50 mg tablet Take 1 tablet (50 mg total) by mouth every 6 (six) hours as needed for pain (Patient not taking: Reported on 11/18/2018) 12 tablet 0 Not Taking No Known Allergies Social History Tobacco Use ??? Smoking status: Current Every Day Smoker Packs/day: 1.50 Years: 35.00 Pack years: 52.50 Types: Cigarettes Start date: 1984 ??? Smokeless tobacco: Never Used Substance Use Topics ??? Alcohol use: Yes Alcohol/week: 5.0 standard drinks Types: 5 Cans of beer per week Comment: occasional, 5 per week Social History Substance and Sexual Activity Drug Use Never Vitals: 04/24/19 1310 04/30/19 0713 04/30/19 0720 BP: 129/98 Pulse: 81 Resp: 19 Temp: 36.2 ??C (97.2 ??F) TempSrc: Temporal SpO2: 95% Weight: 127 kg (280 lb) 126.9 kg (279 lb 11.2 oz) Height: 177.8 cm (5' 10 ) 177.8 cm (5' 10 ) Review of Systems: Review of systems per HPI and otherwise all other systems are negative Physical exam: Lungs: wheezing to auscultation bilaterally all lobes Heart: regular rate and rhythm, S1, S2 normal, no murmur, click, rub or gallop Neurologic: Alert and oriented x4, grossly intact Brie Cali NP Cosigned by Moy Brown MD at 04/30/2019 7:51 [address] RA[address] CAR TRUCK BUILDER ROAD CAR TRUCK BUILDER ROAD CAR TRUCK BUILDER * Brie Cali NP - 04/30/2019 7:07 AM CST Outpatient Pre-Procedure History and Physical Subjective Patient is a 48 y.o. male with chief complaint of right elbow and hand pain. Indication For Procedure: Pre-op Diagnosis * Cubital tunnel syndrome on right [G56.21] Planned Procedure RIGHT CUBITAL TUNNEL DECOMPRESSION, DISTAL ULNAR TUNNEL DECOMPRESSION, REVISION CARPAL TUNNEL RELEASE EXTENDING INTO THE FOREARM. (R), RIGHT (R), RIGHT (R) HPI: Past Medical History: Diagnosis Date ??? COPD (chronic obstructive pulmonary disease) (CMS/HCC) uses home nebulizer, no home O2, never needs rescue inhaler. ??? Diverticulitis of colon 2 years ago, no surgery needed ??? Dyslipidemia ??? Hypertension well controlled with meds ??? Type 2 diabetes mellitus (CMS/HCC) well controlled with meds Past Surgical History: Procedure Laterality Date ??? CARPAL TUNNEL RELEASE Right 11/06/2018 ??? HAND SURGERY Right wrist Medications Prior to Admission Medication Sig Dispense Refill Last Dose ??? albuterol 1.25 mg/3 mL nebulizer solution Take 1.25 mg by nebulization every 6 (six) hours as needed for wheezing 04/30/2019 at 0500 ??? losartan-hydroCHLOROthiazide (HYZAAR) 50-12.5 mg per tablet TK 1 T PO QD 11 04/29/2019 at Unknown time ??? metFORMIN (GLUCOPHAGE) 1,000 mg tablet 2 (two) times a day with meals 1 04/29/2019 at Unknown time ??? simvastatin (ZOCOR) 40 mg tablet 1 04/29/2019 at Unknown time ??? traMADol (ULTRAM) 50 mg tablet Take 1 tablet (50 mg total) by mouth every 6 (six) hours as needed for pain (Patient not taking: Reported on 11/18/2018) 12 tablet 0 Not Taking No Known Allergies Social History Tobacco Use ??? Smoking status: Current Every Day Smoker Packs/day: 1.50 Years: 35.00 Pack years: 52.50 Types: Cigarettes Start date: 1984 ??? Smokeless tobacco: Never Used Substance Use Topics ??? Alcohol use: Yes Alcohol/week: 5.0 standard drinks Types: 5 Cans of beer per week Comment: occasional, 5 per week Social History Substance and Sexual Activity Drug Use Never Vitals: 04/24/19 1310 04/30/19 0713 04/30/19 0720 BP: 129/98 Pulse: 81 Resp: 19 Temp: 36.2 ??C (97.2 ??F) TempSrc: Temporal SpO2: 95% Weight: 127 kg (280 lb) 126.9 kg (279 lb 11.2 oz) Height: 177.8 cm (5' 10 ) 177.8 cm (5' 10 ) Review of Systems: Review of systems per HPI and otherwise all other systems are negative Physical exam: Lungs: wheezing to auscultation bilaterally all lobes Heart: regular rate and rhythm, S1, S2 normal, no murmur, click, rub or gallop Neurologic: Alert and oriented x4, grossly intact Brie Cali NP Cosigned by oMy Brown MD at 04/30/2019 7:[address] TRUCK BUILDER ROAD CAR TRUCK BUILDER ROAD CAR TRUCK BUILDER documented in this encounter Miscellaneous Notes * Perioperative Nursing Note - Tri Garnica RN - 04/30/2019 9:50 AM RA[address] CAR TRUCK BUILDER 0936 Arrival to pacu arouseable with spon resp, bulky right arm splint and tha wrap dressing in place, rt arm elevated on pillow, rt radial pulse 3+. Ice applied rt elbow and wrist. Pt in bed in lowest position locked with both side rails up, nonslip socks applied, curtain open and patient near nurses station. Pt will not be left behind curtain alone. Pt assisted in all cares in recovery. Chase score based on pre-op condition. C/o pain in rt elbow 6/10 additional fentanyl given per TREE PULLER. 0950 Repeated fentanyl 25 mcg for pain 5/10, Tolerating po well blood sugar 140. 1000 [place] 1 given for pain 4.5/10 in rt elbow, Visitor Daly to bedside. 1010 Dr. Brown to see, all instructions and scripts reviewed with jocelynn Kauffman. 1030 Had a few elevated b/p's cuff slipping down, after readjusting b/p wnl. Desires discharge, iv removed insyte intact dressing placed. Monitors discontinued assisted with dressing for discharge. Discharged to home with Annabel Kauffman. 1040 Upon getting up c/o dizzy, returned to bed to sit for a minute. Now assisted to w/c, pain in tolerable no nausea. No dizziness. D/c to home per w/c. ROAD CAR TRUCK BUILDER * Op Note - Moy Brown MD - 04/30/2019 8:48 AM CST Operative Report Attending Surgeon: Moy Brown MD Surgical Assistants: Surgeon(s) and Role: * Moy Brown MD - Primary * Alvarado Hernandez MD - Resident - Assisting Date of Surgery: 04/30/2019 Preoperative Diagnosis: Pre-op Diagnosis * Cubital tunnel syndrome on right [G56.21] Postoperative Diagnosis: Post-op Diagnosis * Cubital tunnel syndrome on right [G56.21] Procedure: Revision right carpal tunnel release, distal ulnar tunnel decompression, cubital tunnel decompression. Anesthesia: General Block INDICATIONS FOR PROCEDURE: Continued discomfort after initial improvement with carpal tunnel release. Nerve irritability. Preoperative examination confirm the above. OPERATIVE FINDINGS: Tight band across ulnar nerve at the distal ulnar tunnel. Thickening of the cubital tunnel retinaculum and anconeus epitrochlearis. Some but not dramatic scarring at the carpal tunnel. DESCRIPTION OF PROCEDURE: After informed consent was obtained, the patient was taken to the operating room and laid supine on the operating room table. A general anesthetic was induced in a sterile prep and drape of the right upper extremity was performed. The arm was exsanguinated a well-padded nonsterile tourniquet was elevated 250 mm of mercury. The patient's cubital tunnel was addressed 1st. A less than 2 in incision was made over the medial epicondyle through the skin only blunt dissectionwas then performed. We dissected down to the cubital tunnel and released the anconeus epitrochlearis and the cubital tunnel retinaculum. We carefully protected the nerve. We divided the superficial and deep FCU fascia to assure no compression proximally distally. We also dissected into the arm. We did not mobilize the nerve we assured there was no compression around it. The wound was irrigated. Closed with a 4'0 nylon in a horizontal mattress-type fashion. We then worked distally. We used the patient's previous incision extended across the wrist crease. The incision was made a 15 blade through the skin subcutaneous tissue. We perform scissor dissection. We identified the median nerve and carefully protected. We performed a revision carpal tunnel release. We assured proximal distal complete release including forearm fascia. We then identified the ulnar nerve and artery. We released the tight band directly across them in the palm and assure complete release proximally distally. The ulnar motor branch was identified and traced. It was not compressed. No other pathology was seen. The artery nerve removed condition. The wounds were irrigated and closed with a 4'0 nylon. A sterile dressing and long-arm splint was placed. The patient was taken therecovery room in good condition. There were no complications. SPECIMENS REMOVED: None ESTIMATED BLOOD LOSS: Minimal INTRAOPERATIVE FLUIDS: per anesthesia SPONGE/INSTRUMENT/NEEDLE COUNTS: Correct CONDITION ON DISCHARGE FROM OPERATING ROOM: Stable I was the attending surgeon and was present for the entire case. MD Moy Bone MD Date: 04/30/2019 Time: 9:[address] TRUCK BUILDER * Plan of Care - Moy Brown MD - 04/30/2019 8:40 AM CST Patient had surgery today for the right upper extremity with decompression of 3 nerves. He may return to work without use of the right upper extremity next Sunday, May 05. Off work until then. I will see him back in 2 weeks and will likely be able to advance him somewhat with activities at that point.. Moy Brown M.D. Professor Hand and Upper Extremity [facility] Dr. Moy Brown dictating using [employer] software program. Cushion Stuffer variances may occur. ROAD CAR TRUCK BUILDER * Pre-Procedure Instructions - Ramila Leone RN - 04/24/2019 1:11 PM CST Directions to facility (address is [address] [place] [address] [address] [facility] [address] [facility] exit. [place] [id number]. Bring pillows. Patient has ice for home. Shower the night before and morning of surgery with anti-bacterial soap such as Dial or Phisohex/ Hibiclens. Any soap that says Anti-bacterial. Change linens and pillow cases on bed. This is for infection prevention. Leave jewelry and valuables at home EXCEPT Drivers license and Insurance card. You may bring your cell phone, family will hold onto it while you have your procedure. Wear loose fitting clothes. Something with an elastic waist on the bottom, such as gym shorts or sweat pants depending on the weather. T-shirt on top unless you are having shoulder surgery then wear a loose fitting button down shirt. Nothing to eat or drink after Midnight. No gums, mints, candy. No ice or water. You may brush your teeth, just make sure you spit it all out Take following medications with a sip of water none Hold Ibuprofen, Aleve, Advil, Motrin, Naproxen and any aspirin containing products until after surgery. If you need something for pain you may take Tylenol. Pt's. GirlfriendCristina [phone] will be with patient and care for patient for the first 24 hours post-op. Call Torsten. after 10 a.m. One day before scheduled procedure for arrival time. You will speak with Rossy. ROAD CAR TRUCK BUILDER documented in this encounter Plan of Treatment Not on file documented as of this encounter Procedures Procedure Name Priority Date/Time Associated Diagnosis Comments GLUCOSE, WHOLE BLOOD, POC Routine 04/30/2019 9:45 AM RAILROAD CAR TRUCK BUILDER RELEASE CARPAL TUNNEL 04/30/2019 8:35 AM RAILROAD CAR TRUCK BUILDER Cubital tunnel syndrome on right RELEASE GUYONS CANAL 04/30/2019 8:35 AM RAILROAD CAR TRUCK BUILDER Cubital tunnel syndrome on right RELEASE CUBITAL TUNNEL 04/30/2019 8:35 AM RAILROAD CAR TRUCK BUILDER Cubital tunnel syndrome on right POCT PREOP SCREEN ([id number]- [id number]) Routine 04/30/2019 7:43 AM RAILROAD CAR TRUCK BUILDER documented in this encounter Results * Glucose, Whole Blood, POC (04/30/2019 9:45 AM RAILROAD CAR TRUCK BUILDER) Glucose POC 140 70 - 199 mg/dL WILMA BRONSON Blood specimen (specimen) 04/30/2019 9:45 AM RAILROAD CAR TRUCK BUILDER 04/30/2019 9:45 AM RAILROAD CAR TRUCK BUILDER Moy Brown MD LAB BLOOD ORDERABLES Margareth cornell Result Performing Organization Address City/State/[facility] de Phone Number [facility] Department [place] [address] * (ABNORMAL) POCT Preop screen ([id number]) (04/30/2019 7:43 AM RAILROAD CAR TRUCK BUILDER) K POC 4.0 3.3 - 4.9 mmol/L [facility] Glucose, fasting, POC 187(H) 70 - 99 mg/dL [facility] Blood specimen (specimen) 04/30/2019 7:43 AM RAILROAD CAR TRUCK BUILDER 04/30/2019 7:43 AM RAILROAD CAR TRUCK BUILDER Moy Brown MD LAB POCT ORDERABLES - DEV ICE Final Result Performing Organization Address [facility] de Phone Number [facility] Department [place] [address] documented in this encounter Visit Diagnoses Diagnosis Cubital tunnel syndrome on right Cubital tunnel syndrome on right documented in this encounter Admitting Diagnoses Diagnosis Cubital tunnel syndrome on right documented in this encounter Administered Medications Inactive Administered Medications - up to 3 most recent administrations Medication Order MAR Action Action Date Dose Rate Site fentaNYL (SUBLIMAZE) preservative free syringe 25 mcg 25 mcg, intravenous, Every 5 min PRN, 1st line for pain, uncontrolled pain on PACU admission for outpatients, Starting on Sun04/30/19 at 0943, For 4 doses, Phase I, Use as 1st line for outpatients, dose not to exceed 100 mics. Then proceed to second line at OC after consulting anestheiologist, Indications: PainIndications:Pain Given 04/30/2019 9:53 AM RAILROAD CAR TRUCK BUILDER 25 mcg HYDROcodone-acetaminophe n (NORCO) 5-325 mg per tablet 1 tablet 1 tablet, oral, Every 20 min PRN, 3rd line for pain, breakthrough pain, May give TWO doses at the same time for severe pain after consulting with Anesthesiologist, Starting on Sun04/30/19 at 0943, For 2 doses, Phase I, When able to tolerate PO., Indications: PainIndications:Pain Given 04/30/2019 10:01 AM RAILROAD CAR TRUCK BUILDER 1 tablet Lactated Ringer's (LR) infusion 30 mL/hr, intravenous, Continuous, Starting on Sun04/30/19 at 0800, Use a 500 ml bag for End Stage Renal Disease Patients New Bag 04/30/2019 7:42 AM RAILROAD CAR TRUCK BUILDER 30 mL/hr 30 mL/hr sodium chloride 0.9 % irrigation As needed, Starting on Sun04/30/19 at 0855, Intra-Op Given 04/30/2019 8:55 AM RAILROAD CAR TRUCK BUILDER 500 mL Surgical Site documented in this encounter Historical Medications * This list may reflect changes made after this encounter. albuterol 1.25 mg/3 mL nebulizer solution Take 1.25 mg by nebulization every 6 (six) hours as needed for wheezing added in this encounter Active and Recently Administered Medications Times are shown in RAILROAD CAR TRUCK BUILDER. Scheduled Medication Order 04/28/2019 04/29/2019 04/30/2019 scopolamine patch 72 hour 1 patch 1 patch, transdermal, Administer over 72 Hours, Once, On Sun04/30/19 at 0800, For 1 dose, Pre-Op, Apply to beach-chair position shoulder surgery patients, and to patients with a history of PONV and/or Motion Sickness. Do NOT administer to patients with a history of BPH or Glaucoma. Consult Anesthesiologist with any questions., Indications: Motion Sickness, Prevention of Motion Sickness, Prevention of Post-Operative Nausea and Vomiting 0800 (Due) Continuous Medication Order 04/28/2019 04/29/2019 04/30/2019 Lactated Ringer's (LR) infusion 30 mL/hr, intravenous, Continuous, Starting on Sun04/30/19 at 0800, Use a 500 ml bag for End Stage Renal Disease Patients 0742 (New Bag - Prov ider: Cristela Pimentel RN)0929 (Anesthesia Volume Adjustment - Provider: Natali Johnson CRNA)0954 (Stopped - Provider: Tri Garnica RN) Lactated Ringer's (LR) infusion 125 mL/hr, intravenous, Continuous, Starting on Sun04/30/19 at 1015, Phase I 0954 (Continued from OR - Provider: Tri Garnica RN)1036 (Stopped - Provider: Tri Garnica RN) PRN Medication Order 04/28/2019 04/29/2019 04/30/2019 acetaminophen (TYLENOL) tablet 500 mg 500 mg, oral, As needed, headaches, other, Breakthrough Pain and Supplement to other pain meds, Starting on Sun04/30/19 at 0943, For 2 doses, Phase I, When able to tolerate PO after consulting with Anesthesiologist., Indications: Pain diphenhydrAMINE (BENADRYL) injection 12.5 mg 12.5 mg, intravenous, Administer over 1 Minutes, Every 5 min PRN, itching, other, For Nausea, administer 25 mg IV., Starting on Sun04/30/19 at 0943, For 4 doses, Phase I, Max cumulative dose 50 mg., Indications: Itching fentaNYL (SUBLIMAZE) preservative free syringe 25 mcg 25 mcg, intravenous, Every 5 min PRN, 1st line for pain, uncontrolled pain on PACU admission for outpatients, Starting on Sun04/30/19 at 0943, For 4 doses, Phase I, Use as 1st line for outpatients, dose not to exceed 100 mics. Then proceed to second line at [facility] after consulting anestheiologist, Indications: Pain 0953 (Given - Provid er: Tri Garnica RN) hydrALAZINE (APRESOLINE) injection 5 mg 5 mg, intravenous, Administer over 2 Minutes, Every 5 min PRN, high blood pressure, Starting on Sun04/30/19 at 0943, Phase I, Max cumulative dose 20 mg. Dose if systolic BP greater than 180 AND heart rate less than 70., Indications: hypertension HYDROcodone-acetaminophen (NORCO) 5-325 mg per tablet 1 tablet 1 tablet, oral, Every 20 min PRN, 3rd line for pain, breakthrough pain, May give TWO doses at the same time for severe pain after consulting with Anesthesiologist, Starting on Sun04/30/19 at 0943, For 2 doses, Phase I, When able to tolerate PO., Indications: Pain 1001 (Given - Provid er: Tri Garnica RN) HYDROmorphone (DILAUDID) injection 0.2 mg 0.2 mg, intravenous, Administer over 2 Minutes, Every 5 min PRN, 2nd line for pain, Use as 1st line pain med for patients at [facility]. Use as 2nd line at [facility] after consulting with anesthesiologist., Starting on Sun04/30/19 at 0943, Phase I, Notify Anesthesiologist if total PACU dose reaches 2 mg for inpatients and 1 mg total for outpatients, and pain score 5/10 or more., Indications: Pain labetalol (NORMODYNE,TRANDATE) injection 5 mg 5 mg, intravenous, at 30 mL/hr, Administer over 2 Minutes, Every 5 min PRN, high blood pressure, Starting on Sun04/30/19 at 0943, Phase I, Max cumulative dose 20 mg. Dose if systolic blood pressure greater than 180 AND HR greater than 70. meperidine (DEMEROL) preservative free injection 12.5 mg 12.5 mg, intravenous, Every 10 min PRN, shivering, Starting on Sun04/30/19 at 0943, For 2 doses, Phase I, Max cumulative dose 25 mg., Indications: Shivering ondansetron (ZOFRAN) injection 4 mg 4 mg, intravenous, Administer over 2 Minutes, Once as needed, nausea, vomiting, Starting on Sun04/30/19 at 0943, For 1 dose, Phase I, Proceed to prochlorperazine if ondansetron has been given within the last 6 hours. prochlorperazine (COMPAZINE) injection 5 mg 5 mg, intravenous, Every 10 min PRN, nausea, vomiting, Check with Anesthesiologist before administring, and ask about IV versus IM., Starting on Sun04/30/19 at 0943, For 2 doses, Phase I, If nausea/vomiting not relieved by ondansetron within 30 minutes or if ondansetron has been given within the last 6 hours. sodium chloride 0.9 % irrigation (CANCELED) As needed, Starting on Sun04/30/19 at 0855, Intra-Op 0855 (Given - Provid er: Moy Brown MD) sodium chloride 0.9% flush 0.5-20 mL 0.5-20 mL, intra-catheter, As needed, line care, Flush Carline Block Hep Locks to keep vein open., Starting on Sun04/30/19 at 0717, Pre-Op, Flush volume based on line type and size. Flush before and after each use. , Indications: Flushing documented in this encounter Orders Medications Ordered That Ashkan ht Not Have Been Administered Count Last Ordered Date First Ordered Date acetaminophen (TYLENOL) tablet 500 mg 1 albuterol 2.5 mg/0.5 mL nebu lizer solution - ADS Override Pull 1 04/30/2019 diphenhydrAMINE (BENADRYL) i njection 12.5 mg 1 04/30/2019 hydrALAZINE (APRESOLINE) injection 5 mg 1 0 04/30/2019 HYDROmorphone (DILAUDID) injection 0.2 mg 1 04/30/2019 ipratropium (ATROVENT) 0.02 % nebulizer solution - ADS Override Pull 1 04/30/2019 labetalol (NORMODYNE,TRANDAT E) injection 5 mg 1 04/30/2019 Lactated Ringer's (LR) infusion 1 0 meperidine (DEMEROL) preserv ative free injection 12.5 mg 1 04/30/2019 ondansetron (ZOFRAN) injection 4 mg 1 04/30 prochlorperazine (COMPAZINE) injection 5 mg 1 04/30/2019 scopolamine patch 72 hour 1 patch 1 020 sodium chloride 0.9% flush 0.5-20 mL 1 04/03 Diet Count Last Ordered Date First Orde red Date ADULT DISCHARGE DIET 1 04/30/2019 Nursing Count Last Ordered Date First Orde red Date DISCHARGE INSTRUCTIONS 2 04/30/2019 NURSING COMMUNICATION 4 04/30/2019 WOUND CARE 2 04/30/2019 documented in this encounter Care Teams Hospitality Internship Relationship Specialty Start Date End Date Brie Carrington PA [facility] [address] [place] [id number] PCP - General Emergency Medicine 09/26/18 documented as of this encounter
--- OUTSIDE RECORDS SUMMARY | 2024-04-13 22:08 | XMS_ITS | Encounter Summary ---
Author Organization [facility] Address [address] [place] [address] Phone Care Team Providers Care Gunner'S Mate M Name Role Phone Brie Carrington Primary Care Provider [phone] Reason for Visit * Neurology (Routine) - Closed Specialty Diagnoses / Procedures Referred By Contac t Referred To Contact Orthopedic Surgery Diagnoses Numbness and tingling in right hand Procedures EMG/NCV - Moy Brown MD Phone: tel: fax: [facility] Orthopaedic Surgery [id number] [place] [address] [address] [place] [address] Phone: tel: fax: Referral ID Status Reason Start Date Expiration Date Visits Re quested Visits Authorized [id number] Closed 12/09/2018 06/19/2020 1 1 Encounter Details Date Type Department Care Team (Late st Contact Info) Description 01/20/2019 2:00 PM CDT Diagnostic [facility] Orthopaedic Surgery [address] [place] [address] 2[address] [place] [address] Celeste Ruiz MD [address] [facility] [address] [place] [address] Numbness and tingling in right hand (Primary [...] on file 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 Please see full report for details: linked under Media and/or Procedure tabs for this study. Under Media and/or Procedure tab, open this study, click on Neurology Scan to view full report. * Celeste Ruiz MD - 01/20/2019 2:00 PM CDT Electrodiagnostically that is the only finding, but I wish I had the ultrasound machine that day. It might be worth it to evaluate guyons canal and other soft tissue structures. [place] would be thego to person for a diagnostic ultrasound of his wrist and elbow. Also, although he felt like the symptoms started in his hand, he has the flavor of a possible radiculitis given the whole arm involveme nt. * Celeste Ruiz MD - 01/20/2019 2:00 PM CDT Could you get imaging(ultrasound or MRI) of the wrist first to rule out any local issue and if negative then have one of us take a look at him? It would help us if we need to look more proximal to fully rule out a local issue. documented in this encounter Plan of Treatment Not on file documented as of this encounter Procedures Procedure Name Priority Date/Time Associated Diagnosis Comments EMG/NCV Routine 01/20/2019 Numbness and tingling in right hand documented in this encounter Results * EMG/NCV - (01/20/2019) Anatomical Region Laterality Modality Other us Moy Brown MD NEUROLOGY ORDERABLES Margareth l Result documented in this encounter Visit Diagnoses Diagnosis Numbness and tingling in right hand- Primary Disturbance of skin sensation documented in this encounter Care Teams Gunner'S Mate M Relationship Specialty Start Date End Date Brie Carrington PA [address] [place] [address] PCP - General Emergency Medicine 09/26/18 documented as of this encounter
--- OUTSIDE RECORDS SUMMARY | 2024-04-13 22:08 | XMS_ITS | Encounter Summary ---
Author Organization [facility] Address [address] [place] [address] Phone Care Team Providers Care Infection Prevention Coordinator Name Role Phone Brie Carrington Primary Care Provider [phone] Reason for Referral * Neurology (Routine) - Closed Specialty Diagnoses / Procedures Referred By Contac t Referred To Contact Orthopedic Surgery Diagnoses Numbness and tingling in right hand Procedures EMG/NCV - Moy Brown MD Phone: tel: fax: [facility] Orthopaedic Surgery [address] [facility] 2[address] [place] [address] Phone: tel: fax: Referral ID Status Reason Start Date Expiration Date Visits Re quested Visits Authorized [id number] Closed 12/09/2018 06/19/2020 1 1 Reason for Visit * Reason Comments Post-op Encounter Details Date Type Department Care Team (Late st Contact Info) Description 12/09/2018 9:00 AM CDT Office Visit [facility] Orthopaedic Surgery [id number] [place] [address] 2[address] [place] [address] [place] [address] [place] [address] Numbness and tingling in right hand (Primary [...] on file 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 male presenting at 5 weeks after surgery for right carpal tunnel release. He was doing great initially after surgery but then at about 10 days he developed a coldness into primarily the ring and small finger with shooting pain in the forearm to the shoulder. It can awaken him. It has not gotten better. He felt a pop when those symptoms began. His carpal tunnel symptoms remain improved. However the coldness and numbness and tingling in the ring and small finger are not better. It does wake him up at night. Of note, the left-sided carpal tunnel symptoms remain. INITIAL REVIEW OF MEDICATIONS He has a current medication list which includes the following prescription(s): losartan-hydrochlorothiazide, metformin, simvastatin, and tramadol. DRUG ALLERGIES He has No Known Allergies. SOCIAL HISTORY He reports that he has been smoking cigarettes. He started smoking about 34 years ago. He has a 52.50 pack-year smoking history. He has never used smokeless tobacco. He reports that he drinks alcohol. He reports that he does not use drugs. PHYSICAL EXAM: The patient is well developed, well nourished,age appropriate patient in no acute distress. The patient is alert and oriented x3. There are no obvious skin lesions or rashes are noted. Skin is warm to touch. Wound has healed well. Positive Tinel's at the cubital tunnel with a stable ulnar nerve. Positive Tinel's in the distal forearm and over the distal ulnar tunnel. Negative Tinel's over the carpal tunnel. Two-point is 5 mm diffusely. Apb strength is 4 versus 5- , 1st dorsal interosseous strength is 4-versus 5-. Band Log Mill And Carriage Operator strength is 60/100. Well-healed carpal tunnel incision. IMPRESSION/DIAGNOSIS/ PLAN: Highly unusual presentation after carpal tunnel release. Patient initially did wonderfully and then, at about 10 days after surgery felt a pop and coldness and now has numbness and tingling consistent with ulnar nerve irritation at both the elbow and wrist. I recommended nerve studies to evaluate these 2 areas on the right side and I will call him once I see those results. It is likely that I will recommend surgical decompression of the cubital tunnel and distal ulnar tunnel based on the nerve study results. We will hold on proceeding with the left carpal tunnel release. Work restrictions areprovided. Lengthy discussion. All questions answered. Moy Brown MD Professor of Orthopaedic Surgery [facility] [employer] * Moy Brown MD - 12/09/2018 9:00 AM CDT Images from the original note were not included. Patient Name: Miguel Caraballo : 1970 Provider: Moy Brown MD Encounter Date: 12/09/2018 Date: 12/09/18 Diagnosis: The encounter diagnosis was Numbness and tingling in right hand. Work Status: May return to work with the following restrictions/date: 12/09/18 May use injured hand assisting on light tasks. Avoid lifting with injured hand more than: 10 lbs Avoid the following motions/conditions with the injured hand: Pushing, Grasping, Pulling, Twisting,Repetitive movements, Climbing or unprotected heights Recommend Diagnostic Studies: EMG and NCV, right side Follow up appointment needed: 4 weeks. Location: Orthopedics/[place] I will call patient with nerve study results if possible before his next visit. oMy Brown MD For questions/information call the Workers' Bookkeeping Machine Operator at , . documented in this encounter Plan of Treatment Not on file documented as of this encounter Results * EMG/NCV - (01/20/2019) Anatomical Region Laterality Modality Other Moy Brown MD NEUROLOGY ORDERABLES Margareth l Result documented in this encounter Visit Diagnoses Diagnosis Numbness and tingling in right hand- Primary Disturbance of skin sensation documented in this encounter Care Teams Infection Prevention Coordinator Relationship Specialty Start Date End Date Brie Carrington PA [address] [place] [address] PCP - General Emergency Medicine 09/26/18 documented as of this encounter
--- OUTSIDE RECORDS SUMMARY | 2024-04-13 22:08 | XMS_ITS | Encounter Summary ---
Author Organization [facility] Facility Care Team Providers Care Supervisor Of Guidance And Testing Name Role Phone Brie Carrington Primary Care Provider [phone] Encounter Details Date Type Department Care Team (Latest Contact Info) Description 11/06/2018 Travel Social History Tobacco Use Types Packs/Day Years Used Date Smoking Tobacco: Every Day Cigarettes 1.5 40 Started: 1984 Smokeless Tobacco: Never Alcohol Use Standard Drinks/Week Comments Yes 0 (1 standard drink = 0.6 oz pur e alcohol) occasional, 5 per week Sex and Gender Information Value Date Recorded Sex Assigned at Not on file 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
--- OUTSIDE RECORDS SUMMARY | 2024-04-13 22:08 | XMS_ITS | Encounter Summary ---
Author Organization [facility] Healthcare Address [address] [place] [address] Care Team Providers Care Pediatric Physician Assistant Name Role Phone Brie Carrington Primary Care Provider [phone] [phone] Encounter Details Date Type Department Care Team (Latest Contact Info) Description 04/30/2019 6:49 AM CONFIGURATION MANAGEMENT ANALYST - 04/30/2019 10:42 AM CONFIGURATION MANAGEMENT ANALYST Hospital Encounter [facility] [address] [place] [address] Moy Brown MD [address] [place] [address] [address] [place] [address] Discharge Disposition: Discharge to home or self care Social History Tobacco Use Types Packs/Day Years Used Date Smoking Tobacco: Every Day Cigarettes 1.5 40 Started: 1984 Smokeless Tobacco: Never Alcohol Use Standard Drinks/Week Comments Yes 5 (1 standard drink = 0.6 oz pur e alcohol) occasional, 5 per week Sex and Gender Information Value Date Recorded Sex Assigned at Not on file Legal Sex Male 9:26 AM CONFIGURATION MANAGEMENT ANALYST Gender Identity Not on file Sexual Orientation Not on file documented as of this encounter Last Filed Vital Signs Vital Sign Reading Time Taken Comments Blood Pressure 134/88 04/30/2019 10:28 AM CONFIGURATION MANAGEMENT ANALYST Pulse 79 04/30/2019 10:25 AM CONFIGURATION MANAGEMENT ANALYST Temperature 36.6 ??C (97.9 ??F) 04/30/2019 1 0:10 AM CONFIGURATION MANAGEMENT ANALYST Respiratory Rate 17 04/30/2019 10:2 5 AM CONFIGURATION MANAGEMENT ANALYST Oxygen Saturation 94% 04/30/2019 10: 28 AM CONFIGURATION MANAGEMENT ANALYST Inhaled Oxygen Concentration - - Weight 126.9 kg (279 lb 11.2 oz) 04/30/2019 7:13 AM CONFIGURATION MANAGEMENT ANALYST Height 177.8 cm (5' 10 ) 04/30/2019 7:13 AM CONFIGURATION MANAGEMENT ANALYST Body Mass Index 40.13 04/30/2019 7:13 AM CONFIGURATION MANAGEMENT ANALYST documented in this encounter Discharge Diagnoses Diagnosis Lesion of ulnar nerve, right upper limb - LESION OF ULNAR NERVE, RIGHT UPPER LIMB Chronic obstructive pulmonary disease, unspecified (HCC) - CHRONIC OBSTRUCTIVE PULMONARY DISEASE, UNSPECIFIED Hyperlipidemia, unspecified - HYPERLIPIDEMIA, UNSPECIFIED Essential (primary) hypertension - ESSENTIAL (PRIMARY) HYPERTENSION Unspecified essential hypertension Type 2 diabetes mellitus without complications (CMS/HCC) (HCC) - TYPE 2 DIABETES MELLITUS WITHOUT COMPLICATIONS Nicotine dependence, cigarettes, uncomplicated - NICOTINE DEPENDENCE, CIGARETTES, UNCOMPLICATED documented in this encounter Discharge Instructions * Discharge Instructions* Moy Brown MD - 04/30/2019 9:37 AM CONFIGURATION MANAGEMENT ANALYST Orthopedic Surgery with Long Arm Splint Postoperative [...] your surgeon or your surgeon???s nurse or nuclear medicine medical director if you have anyquestions about your postoperative care. If you have any questions, please call our office at [facility] Perioperative Narcotic Considerations The Orthopedic hand surgeons of [facility] manage perioperative pain as wellas the pain after an acute injury. Our surgeons do not manage chronic pain (pain three months afterthe injury/surgery), and will refer patients seeking longer term care for their painful condition to a pain management service or their primary physician as those physicians typically establish mcc treatment relationships with patients. Following elective hand [...] be called in to your pharmacy if ???uifq-ouf-[id number]??? anti- inflammatory pain medication do not decrease the pain even when taken on a regular basis. These can be called in during the hours 9am to 4pm, during the workweek. 6) ???Alternative??? treatments such as acupuncture, meditation and biofeedback can all be used to decrease post-operative pain. The Orthopedic hand surgeons of [facility] want you to be as comfortable [...] interpretation of pain. The ???opioid epidemic??? in [place] is very real, and we as physicians [...] your surgeon or his/her nurse or MA. IGURATION MANAGEMENT ANALYST documented in this encounter Medications at Time [...] RELEASE EXTENDING INTO THE FOREARM. RIGHT RIGHT IGURATION MANAGEMENT ANALYST Source Note - Brie Cali NP - 04/30/2019 7:07 AM CONFIGURATION MANAGEMENT ANALYST Outpatient Pre-Procedure History and Physical Subjective Patient [...] Date ??? COPD (chronic obstructive pulmonary disease) (CMS/[facility]ER[facility]) uses home nebulizer, no home O2, never needs rescue inhaler. ??? Diverticulitis of colon 2 years ago, no surgery needed ??? Dyslipidemia ??? Hypertension well controlled with meds ??? Type 2 diabetes mellitus ([facility]) well controlled with meds Past Surgical History: [...] Moy Brown MD at 04/30/2019 7:51 AM CONFIGURATION MANAGEMENT ANALYST IGURATION MANAGEMENT ANALYST IGURATION MANAGEMENT ANALYST * Brie Cali NP - 04/30/2019 7:07 [...] Moy Brown MD at 04/30/2019 7:51 AM CONFIGURATION MANAGEMENT ANALYST IGURATION MANAGEMENT ANALYST IGURATION MANAGEMENT ANALYST documented in this encounter Miscellaneous Notes * Perioperative Nursing Note - Tri Garnica RN - 04/30/2019 9:50 AM CONFIGURATION MANAGEMENT ANALYST 0936 Arrival to pacu arouseable with spon [...] rt elbow 6/10 additional fentanyl given per GROUTER HELPER. 0950 Repeated fentanyl 25 mcg for pain 5/10, Tolerating po well blood sugar 140. 1000 [place] 1 given for pain 4.5/10 in rt elbow, Visitor Daly to bedside. 1010 Dr. Brown to see, all instructions and scripts reviewed with Daly, verb understanding. 1030 Had a few elevated b/p's cuff slipping down, after readjusting b/p wnl. Desires discharge, iv removed insyte intact dressing placed. Monitors discontinued assisted with dressing for discharge. Discharged to home with S. ORafal Kauffman. 1040 Upon getting up c/o dizzy, returned to bed to sit for a minute. Now assisted to w/c, pain in tolerable no nausea. No dizziness. D/c to home per w/c. IGURATION MANAGEMENT ANALYST * Op Note - Moy Brown MD [...] splint was placed. The patient was taken the recovery room in good condition. There were no complications. SPECIMENS REMOVED: None ESTIMATED BLOOD LOSS: Minimal INTRAOPERATIVE FLUIDS: per anesthesia SPONGE/INSTRUMENT/NEEDLE COUNTS: Correct CONDITION ON DISCHARGE FROM OPERATING ROOM: Stable I was the attending surgeon and was present for the entire case. MD Moy Bone MD Date: 04/30/2019 Time: 9:32 AM IGURATION MANAGEMENT ANALYST * Plan of Care - Moy Brown [...] Brown M.D. Professor Hand and Upper Extremity [facility] Dr. Moy Brown dictating using Adan software program. Earth Science Technical Officer variances may occur. IGURATION MANAGEMENT ANALYST * Pre-Procedure Instructions - Ramila Leone RN - 04/24/2019 1:11 PM CST Directions to facility (address is [address] [place] [address], [address] [facility]. [place] [address]. Bring pillows. Patient has ice for home. [...] pain you may take Tylenol. Pt's. GirlfriendCristina [phone] will be with patient and care for patient for the first 24 hours post-op. Call Torsten. after 10 a.m. One day before scheduled procedure for arrival time. You will speak with Rossy. IGURATION MANAGEMENT ANALYST documented in this encounter Plan of Treatment Not on file documented as of this encounter Procedures Procedure Name Priority Date/Time Associated Diagnosis Comments GLUCOSE, WHOLE BLOOD, POC Routine 04/30/2019 9:45 AM CONFIGURATION MANAGEMENT ANALYST RELEASE CARPAL TUNNEL 04/30/2019 8:35 AM CONFIGURATION MANAGEMENT ANALYST Cubital tunnel syndrome on right RELEASE GUYONS CANAL 04/30/2019 8:35 AM CONFIGURATION MANAGEMENT ANALYST Cubital tunnel syndrome on right RELEASE CUBITAL TUNNEL 04/30/2019 8:35 AM CONFIGURATION MANAGEMENT ANALYST Cubital tunnel syndrome on right POCT PREOP SCREEN ([id number]- HBG-HCT) Routine 04/30/2019 7:43 AM CONFIGURATION MANAGEMENT ANALYST documented in this encounter Results * Glucose, Whole Blood, POC (04/30/2019 9:45 AM CONFIGURATION MANAGEMENT ANALYST) Glucose POC 140 70 - 199 mg/dL [facility] Blood specimen (specimen) 04/30/2019 9:45 AM CONFIGURATION MANAGEMENT ANALYST 04/30/2019 9:45 AM CONFIGURATION MANAGEMENT ANALYST Moy Brown MD LAB BLOOD ORDERABLES Margareth cornell Result [facility] Department [place] [address] * (ABNORMAL) POCT Preop screen (diotq-Ra-Boc-LJM-Qp-Ltm-Hct) (04/30/2019 7:43 AM CONFIGURATION MANAGEMENT ANALYST) K POC 4.0 3.3 - 4.9 mmol/L [facility] Glucose, fasting, POC 187(H) 70 - 99 mg/dL [facility] Blood specimen (specimen) 04/30/2019 7:43 AM CONFIGURATION MANAGEMENT ANALYST 04/30/2019 7:43 AM CONFIGURATION MANAGEMENT ANALYST us Moy Brown MD LAB POCT ORDERABLES - DEV ICE Final Result [facility] Department [place] [address] documented in this encounter Visit Diagnoses Diagnosis [...] anestheiologist, Indications: PainIndications:Pain Given 04/30/2019 9:53 AM CONFIGURATION MANAGEMENT ANALYST 25 mcg HYDROcodone-acetaminophen (NORCO) 5-325 mg per tablet 1 tablet 1 tablet, oral, Every 20 min PRN, 3rd line for pain, breakthrough pain, May give TWO doses at the same time for severe pain after consulting with Anesthesiologist, Starting on Sun04/30/19 at 0943, For 2 doses, Phase I, When able to tolerate PO., Indications: PainIndications:Pain Given 04/30/2019 10:01 AM CONFIGURATION MANAGEMENT ANALYST 1 tablet Lactated Ringer's (LR) infusion 30 mL/hr, intravenous, Continuous, Starting on Sun04/30/19 at 0800, Use a 500 ml bag for End Stage Renal Disease Patients New Bag 04/30/2019 7:42 AM CONFIGURATION MANAGEMENT ANALYST 30 mL/hr 30 mL/hr documented in this encounter Historical Medications * This list may reflect changes made after this encounter. albuterol 1.25 mg/3 mL nebulizer solution Take 1.25 mg by nebulization every 6 (six) hours as needed for wheezing added in this encounter Active and Recently Administered Medications Times are shown in CONFIGURATION MANAGEMENT ANALYST. Scheduled Medication Order 04/28/2019 04/29/2019 04/30/2019 scopolamine [...] 1st line pain med for patients at [facility]. Use as 2nd line at [facility] after [...] mL, intra-catheter, As needed, line care, Flush Lynn Block Hep Locks to keep vein open., [...] nebu lizer solution - ADS Override Pull 04/30/2019 diphenhydrAMINE (BENADRYL) i njection 12.5 mg [...] hour 1 patch 1 020 sodium chloride 0.9 % irrigation 1 04/30/19 20 sodium chloride 0.9% flush 0.5-20 mL 1 04/03 Diet Count Last Ordered Date First Orde red Date ADULT DISCHARGE DIET 1 04/30/2019 Nursing Count Last Ordered Date First Orde red Date DISCHARGE INSTRUCTIONS 2 04/30/2019 NURSING COMMUNICATION 4 04/30/2019 WOUND CARE 2 04/30/2019 documented in this encounter Care Teams Pediatric Physician Assistant Relationship Specialty Start Date End Date Brie Carrington PA [address] [place] [address] PCP - General Emergency Medicine 09/26/18 documented as of this encounter
--- OUTSIDE RECORDS SUMMARY | 2024-04-13 22:08 | XMS_ITS | Encounter Summary ---
Author Organization [facility] Facility Care Team Providers Care Owner Oral Surgeon Name Role Phone Brie Carrington Primary Care Provider [phone] Encounter Details Date Type Department Care Team (Latest Contact Info) Description 04/24/2019 Travel Social History Tobacco Use Types Packs/Day Years Used Date Smoking Tobacco: Every Day Cigarettes 1.5 40 Started: 1986 Smokeless Tobacco: Never Alcohol Use Standard Drinks/Week Comments Yes 0 (1 standard drink = 0.6 oz pur e alcohol) occasional, 5 per week Sex and Gender Information Value Date Recorded Sex Assigned at Not on file Legal Sex Male 9:26 AM DIGITAL MEDIA DIRECTOR Gender Identity Not on file Sexual Orientation Not on file documented as of this encounter Plan of Treatment Not on file documented as of this encounter Visit Diagnoses Not on filedocumented in this encounter Care Teams Owner Oral Surgeon Relationship Specialty Start Date End Date Brie Carrington PA [address] [place] [address] PCP - General Emergency Medicine 09/26/18 documented as of this encounter
--- OUTSIDE RECORDS SUMMARY | 2024-04-13 22:08 | XMS_ITS | Encounter Summary ---
Author Organization [facility] Address [address] [place] [address] Phone Care Team Providers Care Customs Officer Name Role Phone Brie Carrington Primary Care Provider [phone] Reason for Visit * Reason Onset Date Comments Question 11/15/2018 Encounter Details Date Type Department Care Team (Late st Contact Info) Description 11/15/2018 Telephone [facility] Orthopaedic Surgery [address] [facility] [address] [place] [id number] [place] [address] [place] [address] Question Social History Tobacco Use Types Packs/Day Years Used Date Smoking Tobacco: Every Day Cigarettes 1.5 40 Started: 1984 Smokeless Tobacco: Never Alcohol Use Standard Drinks/Week Comments Yes 0 (1 standard drink = 0.6 oz pur e alcohol) occasional, 5 per week Sex and Gender Information Value Date Recorded Sex Assigned at Not on file Legal Sex Male 9:26 AM STARCH COOKER Gender Identity Not on file Sexual Orientation Not on file documented as of this encounter Miscellaneous Notes * Telephone Encounter - Yen Chavarria MA - 11/15/2018 4:34 PM CDT Patient called and states that he felt a ???pop??? in his wrist, and now his middle finger feels ???weird?? and feels cold, but isn???t cold. The sutures are still in place. I spoke with Lizbeth Dahl, and she states that it's fine as long as he has feeling. I left the patient a message letting him knowthat as well the after hour line number. Patient is scheduled to be seen on Sunday. documented in this encounter Plan of Treatment Not on file documented as of this encounter Visit Diagnoses Not on filedocumented in this encounter Care Teams Customs Officer Relationship Specialty Start Date End Date Brie Carrington PA [address] [place] [address] PCP - General Emergency Medicine 09/26/18 documented as of this encounter
--- OUTSIDE RECORDS SUMMARY | 2024-04-13 22:08 | XMS_ITS | Encounter Summary ---
Author Organization [facility] Address [address] [place] [address] Phone Care Team Providers Care Heating Unit Installer Name Role Phone Brie Carrington Primary Care Provider [phone] [phone] Encounter Details Date Type Department Care Team (Late st Contact Info) Description 01/02/2019 Telephone [facility] Orthopaedic Surgery [address] [place] [address] Advanced Medicine 6th [place] [address] [place] [address] Wale Pastrana LPN Social History Tobacco Use Types Packs/Day Years Used Date Smoking Tobacco: Every Day Cigarettes 1.5 40 Started: 1984 Smokeless Tobacco: Never Alcohol Use Standard Drinks/Week Comments Yes 0 (1 standard drink = 0.6 oz pur e alcohol) occasional, 5 per week Sex and Gender Information Value Date Recorded Sex Assigned at Not on file Legal Sex Male 9:26 AM VFX ARTIST Gender Identity Not on file Sexual Orientation Not on file documented as of this encounter Miscellaneous Notes * Telephone Encounter - Wale Pastrana LPN - 01/02/2019 3:08 PM CDT Called and LM for patient to call me back to schedule EMG. documented in this encounter Plan of Treatment Not on file documented as of this encounter Visit Diagnoses Not on filedocumented in this encounter Care Teams Heating Unit Installer Relationship Specialty Start Date End Date Brie Carrington PA [address] [place] [address] PCP - General Emergency Medicine 09/26/18 documented as of this encounter
--- OUTSIDE RECORDS SUMMARY | 2024-04-13 22:08 | XMS_ITS | Encounter Summary ---
Author Organization [facility] Address [address] [place] [address] Phone Care Team Providers Care Clinical Trial Specialist Name Role Phone Brie Carrington Primary Care Provider [phone] [phone] Encounter Details Date Type Department Care Team (Late st Contact Info) Description 11/07/2018 Telephone [facility] Orthopaedic Surgery [facility] Advanced Medicine 6th [place] [address] [place] [address] [place] [address] [place] [address] Social History Tobacco Use Types Packs/Day Years Used Date Smoking Tobacco: Every Day Cigarettes 1.5 40 Started: 1984 Smokeless Tobacco: Never Alcohol Use Standard Drinks/Week Comments Yes 0 (1 standard drink = 0.6 oz pur e alcohol) occasional, 5 per week Sex and Gender Information Value Date Recorded Sex Assigned at Not on file Legal Sex Male 9:26 AM ELECTRIC DOLLY OPERATOR Gender Identity Not on file Sexual Orientation Not on file documented as of this encounter Ordered Prescriptions Prescription Sig Dispense Quantity Refills Last Filled Start Date End Date traMADol (ULTRAM) 50 mg tablet Take 1 tablet (50 mg total) by mouth every 6 (six) hours as needed for pain 12 tablet 11/07/2018 documented in this encounter Miscellaneous Notes * Telephone Encounter - Tari Zuluaga RN - 11/07/2018 1:44 PM CDT Patient called stating that the [place] is causing him itching. Dr. Brown approved a prescription for Ultram. New prescription called in to the patient's pharmacy. Patient notified. documented in this encounter Plan of Treatment Not on file documented as of this encounter Visit Diagnoses Not on filedocumented in this encounter Discontinued Medications Medication Sig Discontinue Reason Start Date End Da te HYDROcodone-acetaminophe n (NORCO) 5-325 mg per tabletIndications:Pain Take 1-2 tablets by mouth every 6 (six) hours as needed for pain Alternate therapy 11/06/2018 11/07/2018 documented as of this encounter Care Teams Clinical Trial Specialist Relationship Specialty Start Date End Date Brie Carrington PA [address] [place] [address] PCP - General Emergency Medicine 09/26/18 documented as of this encounter
--- OUTSIDE RECORDS SUMMARY | 2024-04-13 22:08 | XMS_ITS | Encounter Summary ---
Author Organization [facility] Address [address] [place] [address] Phone Care Team Providers Care Physician Assistant Psychiatry Name Role Phone Brie Carrington Primary Care Provider [phone] [phone] Reason for Visit * Reason Onset Date Comments Post-op Problem 11/27/2018 Encounter Details Date Type Department Care Team (Late st Contact Info) Description 11/27/[address] [facility] Orthopaedic Surgery [address] [facility] 2[address] [place] [address] [place] [address] [place] [address] Post-op Problem Social History Tobacco Use Types Packs/Day Years Used Date Smoking Tobacco: Every Day Cigarettes 1.5 40 Started: 1984 Smokeless Tobacco: Never Alcohol Use Standard Drinks/Week Comments Yes 0 (1 standard drink = 0.6 oz pur e alcohol) occasional, 5 per week Sex and Gender Information Value Date Recorded Sex Assigned at Not on file Legal Sex Male 9:26 AM RETAIL WIRELESS ASSOCIATE Gender Identity Not on file Sexual Orientation Not on file documented as of this encounter Miscellaneous Notes * Telephone Encounter - Yen Chavarria MA - 11/27/2018 12:55 PM CDT Patient called stating that he is having shooting nerve pain, and 3 of his fingers(SF, RF and IF) feel cold internally(not to the touch). He is scheduled to have his left side done on 12/04, and doesn???t want to proceed until the issues with the right side have resolved. Spoke with patient and scheduled him to come in on 12/09 Patient agreeable. documented in this encounter Plan of Treatment Not on file documented as of this encounter Visit Diagnoses Not on filedocumented in this encounter Care Teams Physician Assistant Psychiatry Relationship Specialty Start Date End Date Brie Carrington PA [address] [place] [address] PCP - General Emergency Medicine 09/26/18 documented as of this encounter
--- OUTSIDE RECORDS SUMMARY | 2024-04-13 22:08 | XMS_ITS | Encounter Summary ---
Author Organization [facility] Address [address] [place] [address] Phone Care Team Providers Care Slat Twister Name Role Phone Brie Carrington Primary Care Provider +1 [phone] Reason for Visit * Reason Comments Pain Follow-up Encounter Details Date Type Department Care Team (Late st Contact Info) Description 03/13/2019 3:20 PM CRIMINAL JUSTICE INSTRUCTOR Office Visit [facility] Orthopaedic Surgery [facility] Medicine 6th [place] [address] [place] [address] [place] [address] [place] [id number] Numbness and tingling in right hand (Primary [...] on file Legal Sex Male 9:26 AM CRIMINAL JUSTICE INSTRUCTOR Gender Identity Not on file Sexual Orientation Not on file documented as of this encounter Progress Notes * Moy Brown MD - 03/13/2019 3:20 PM CST RETURN PATIENT HISTORY OF PRESENT ILLNESS: The patient is a 48 y.o. male presenting for evaluation of his right wrist 4 months after carpal tunnel release. He is really unchanged. He can have symptoms radiating from the hand up towards the shoulder. Never the neck. Nerve studies after surgery were normal. Ultrasound showed some inflammationnear the wrist crease. Denies clicking popping catching INITIAL REVIEW OF MEDICATIONS He has a current medication list which includes the following prescription(s): losartan-hydrochlorothiazide, metformin, simvastatin, and tramadol. DRUG ALLERGIES He has No Known Allergies. SOCIAL HISTORY He reports that he has been smoking cigarettes. He started smoking about 34 years ago. He has a 52.50 pack-year smoking history. He has never used smokeless tobacco. He reports current alcohol use. He reports that he does not use [...] 2+ radial pulse, normal capillary refill bilaterally. Does have some soreness over the carpal tunnel. He has a positive Tinel's proximal to the carpal tunnel and at the cubital tunnel as well. Negative nerve provocative signs at the neck. He does have irritability around the shoulder. This does seem to be nerve related but not anatomical. Sales And Events Coordinator strength is 80/120 with discomfort. Pinch is 22/26. Intrinsic hand strength is generally decreased but satisfactory. On the left hand he has a mild Tinel's and compressive Phalen's. XRAY/STUDIES: As noted. IMPRESSION/DIAGNOSIS/ PLAN: Patient is frustrated with continued symptoms after uneventful carpal tunnel release and normal nerve studies and relatively normal ultrasound thereafter. Given his continued symptoms as well as irritability of the ulnar nerve and carpal tunnel, I do believe it makes sense to consider cubital tunnel decompression, distal ulnar tunnel decompression and revision carpal tunnel release extending intothe forearm. I certainly cannot promise him this will resolve the symptoms but I do believe it is reasonable. I don't believe any additional testing will help or particularly makes sense. He would like to proceed. This is pending worker's compensation approval. Outpatient surgery. Moy Brown MD Professor of Orthopaedic Surgery [facility] INAL JUSTICE INSTRUCTOR * Moy Brown MD - 03/13/2019 3:20 PM CST Images from the original note were not included. Patient Name: Miguel Caraballo : 1970 Provider: Moy Brown MD Encounter Date: 03/13/2019 Date: 03/13/19 Diagnosis: arm pain, nerve symptoms Work Status: May return to work with the following restrictions/date: 03/14/19 Avoid lifting with injured hand more than: 10 lbs Avoid the following motions/conditions with the injured hand: Pushing, Grasping, Pulling, Twisting, Vibratory tools, Repetitive movements, Climbing or unprotected heights Revision carpal tunnel surgery, distal ulnar tunnel and cubital tunnel decompression Follow up appointment needed: for surgery. Location: Orthopedics/[place] Moy Brown MD For questions/information call the Workers' Core Java Engineer at , . INAL JUSTICE INSTRUCTOR documented in this encounter Plan of Treatment Not on file documented as of this encounter Visit Diagnoses Diagnosis Numbness and tingling in right hand- Primary Disturbance of skin sensation documented in this encounter Care Teams Slat Twister Relationship Specialty Start Date End Date Brie Carrington PA [address] [place] [address] PCP - General Emergency Medicine 09/26/18 documented as of this encounter
--- OUTSIDE RECORDS SUMMARY | 2024-04-13 22:08 | XMS_ITS | Encounter Summary ---
Author Organization [facility] Address [address] [place] [address] Phone Care Team Providers Care Parts Sales Counterperson Name Role Phone Brie Carrington Primary Care Provider +1 [phone] Encounter Details Date Type Department Care Team (Late st Contact Info) Description 02/07/2019 Orders Only [facility] Orthopaedic Surgery [address] [facility] 2nd Floor [address] [place] [address] [place] [address] [place] [address] Numbness and tingling in right hand (Primary [...] on file 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
--- OUTSIDE RECORDS SUMMARY | 2024-04-13 22:08 | XMS_ITS | Encounter Summary ---
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 Called and LM for patient with date, time and location of EMG and also letting him know that Dr. Brown will call him with results, since we weren't able to coordinate an EMG and OV the same day. Patient requested that I LM with information above if he doesn't answer his phone. I also requested for pt to call back and confirm apt. documented in this encounter Plan of Treatment Not on file documented as of this encounter Visit Diagnoses Not on filedocumented in this encounter Care Teams Benefits Clerk Relationship Specialty Start Date End Date Brie Carrington PA [address] [place] [address] PCP - General Emergency Medicine 09/26/18 documented as of this encounter
--- OUTSIDE RECORDS SUMMARY | 2024-04-13 22:08 | XMS_ITS | Encounter Summary ---
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 Gender Identity Not on file Sexual Orientation Not on file documented as of this encounter Plan of Treatment Not on file documented as of this encounter Procedures Procedure Name Priority Date/Time Associated Diagnosis Comments US UPPER EXTREMITY RIGHT LIMITED Schedule Routine, Read Routine (OP Routine) 03/05/2019 3:15 PM CHIEF TECHNICAL OFFICER Numbness and tingling in right hand documented in this encounter Results * US Upper Extremity Right Limited (03/05/2019 3:15 PM CHIEF TECHNICAL OFFICER) Anatomical Region Laterality Modality Upper Extremities Right Ultrasound us Moy Brown MD IMG US PROCEDURES Final R esult documented in this encounter Visit Diagnoses Diagnosis Numbness and tingling in right hand Disturbance of skin sensation documented in this encounter Care Teams Chisel Trimmer Relationship Specialty Start Date End Date Brie Carrington PA [address] [place] [address] PCP - General Emergency Medicine 09/26/18 documented as of this encounter
--- OUTSIDE RECORDS SUMMARY | 2024-04-13 22:08 | XMS_ITS | Encounter Summary ---
Author Organization [facility] Address [address] [place] [address] Phone Care Team Providers Care Band Ripsaw Operator Name Role Phone Brie Carrington Primary Care Provider +1 [phone] Encounter Details Date Type Department Care Team (Late st Contact Info) Description 12/23/2018 Telephone [facility] Orthopaedic Surgery [address] [facility] 2nd Floor [address] [place] [address] [place] [address] [place] [address] Social History Tobacco Use Types Packs/Day Years Used Date Smoking Tobacco: Every Day Cigarettes 1.5 40 Started: 1984 Smokeless Tobacco: Never Alcohol Use Standard Drinks/Week Comments Yes 0 (1 standard drink = 0.6 oz pur e alcohol) occasional, 5 per week Sex and Gender Information Value Date Recorded Sex Assigned at Not on file 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 I spoke with our work comp dept, and it has not been approved. I reached out to the patient to see if it was scheduled with an outside facility, but his voicemail isn't setup. documented in this encounter Plan of Treatment Not on file documented as of this encounter Visit Diagnoses Not on filedocumented in this encounter Care Teams Band Ripsaw Operator Relationship Specialty Start Date End Date Brie Carrington PA [address] [place] [address] PCP - General Emergency Medicine 09/26/18 documented as of this encounter
--- OUTSIDE RECORDS SUMMARY | 2024-04-13 22:08 | XMS_ITS | Encounter Summary ---
Author Organization [facility] Address [address] [place] [address] Phone Care Team Providers Care Integrated Logistics Programs Director Name Role Phone Brie Carrington Primary Care Provider +1 [phone] Reason for Visit * Reason Onset Date Comments [id number] 01/28/2019 Encounter Details Date Type Department Care Team (Late st Contact Info) Description 01/28/2019 Telephone [facility] Orthopaedic Surgery [address] [facility] [address] [place] [address] Crystal Alcocer RMA [id number] Social History Tobacco Use Types Packs/Day Years Used Date Smoking Tobacco: Every Day Cigarettes 1.5 40 Started: 1986 Smokeless Tobacco: Never Alcohol Use Standard Drinks/Week Comments Yes 0 (1 standard drink = 0.6 oz pur e alcohol) occasional, 5 per week Sex and Gender Information Value Date Recorded Sex Assigned at Not on file 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 INFO IS UPDATED IN CLAIM FIELD AND I RONNA W/ CHAVA LIRA (ADJ) @ [phone] REQUESTING AUTH FOR ULTRASOUND THE NCM IS NOT ABLE TO GIVE AUTH-LM AUTHORIZATION for Procedure or Ancillary Services PRE-CERT COMPLETED Primary Ins or Work Comp: Completed by: CRYSTAL Date called: 01/28/19 Ins. Co.: [employer] Phone #: [phone] DAISY SALAZAR / [phone] ELIZABETH HUFF ID #: [id number] Authorized by: GREGORIO FOR ELIZABETH REQUESTING AUTH FOR ULTRASOUND-LM Authorization #: Effective date of coverage: 07/08/18 Pre-Existing Clause: [ ] # visits/injections approved: [ ] Expiration date: [ ] CH INSPECTOR documented in this encounter Plan of Treatment Not on file documented as of this encounter Visit Diagnoses Not on filedocumented in this encounter Care Teams Integrated Logistics Programs Director Relationship Specialty Start Date End Date Brie Carrington PA [address] [place] [address] PCP - General Emergency Medicine 09/26/18 documented as of this encounter
--- OUTSIDE RECORDS SUMMARY | 2024-04-13 22:08 | XMS_ITS | Encounter Summary ---
Author Organization [facility] Care Team Providers Care Bit Sander Name Role Phone Brie Carrington Primary Care Provider +1 [phone] Encounter Details Date Type Department Care Team (Latest Contact Info) Description 11/04/2018 Travel Social History Tobacco Use Types Packs/Day Years Used Date Smoking Tobacco: Every Day Cigarettes 1.5 35 Smokeless Tobacco: Current Alcohol Use Standard Drinks/Week Comments Yes 0 (1 standard drink = 0.6 oz pur e alcohol) occasional, 5 per week Sex and Gender Information Value Date Recorded Sex Assigned at Not on file 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
--- OUTSIDE RECORDS SUMMARY | 2024-04-13 22:08 | XMS_ITS | Encounter Summary ---
Author Organization [facility] Address [address] [place] [address] Care Team Providers Care Service Transformer Repair Supervisor Name Role Phone Brie Carrington Primary Care Provider [phone] [phone] Encounter Details Date Type Department Care Team (Late st Contact Info) Description 01/24/2019 Telephone [facility] [place] [address] [place] [address] [place] [address] Social History Tobacco Use Types Packs/Day Years Used Date Smoking Tobacco: Every Day Cigarettes 1.5 40 Started: 1984 Smokeless Tobacco: Never Alcohol Use Standard Drinks/Week Comments Yes 0 (1 standard drink = 0.6 oz pur e alcohol) occasional, 5 per week Sex and Gender Information Value Date Recorded Sex Assigned at Not on file 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 Ruiz and I discussed. This is a challenging situation with the patient did well initially then felt a pop and had worsening symptoms. We will obtain an ultrasound to evaluate the wrist and if negative I will recommend physiatry consultation to worker's compensation for consideration. ----- Message from Celeste Ruiz MD sent at 01/22/2019 3:15 PM CDT ----- Could you get imaging(ultrasound or MRI) of [...] on filedocumented in this encounter Care Teams Service Transformer Repair Supervisor Relationship Specialty Start Date End Date Brie Carrington PA [address] [place] [address] PCP - General Emergency Medicine 09/26/18 documented as of this encounter
--- OUTSIDE RECORDS SUMMARY | 2024-04-13 22:08 | XMS_ITS | Encounter Summary ---
Author Organization [facility] Address [address] [place] [address] Phone Care Team Providers Care Inventory Transcriber Name Role Phone Brie Carrington Primary Care Provider +1 -[phone] Encounter Details Date Type Department Care Team (Late st Contact Info) Description 01/27/2019 Documentation [facility] Orthopaedic Surgery [address] [facility] 2nd Floor [address] [place] [address] [place] [address] [place] [address] Social History Tobacco Use Types Packs/Day Years Used Date Smoking Tobacco: Every Day Cigarettes 1.5 40 Started: 1984 Smokeless Tobacco: Never Alcohol Use Standard Drinks/Week Comments Yes 0 (1 standard drink = 0.6 oz pur e alcohol) occasional, 5 per week Sex and Gender Information Value Date Recorded Sex Assigned at Not on file Legal Sex Male 9:26 AM SUPERVISOR DECORATING Gender Identity Not on file Sexual Orientation Not on file documented as of this encounter Progress Notes * Moy Brown MD - 01/27/2019 3:59 PM CDT I spoke to Dr. Ruiz. This is certainly a very unusual situation. Nerve studies were not particularly helpful. Let's get an ultrasound to evaluate the distal forearm and hand to rule out a mechanical pathology. If this demonstrates a cause of his persistent discomfort we can deal with it. If it doesnot, a physiatry or neurology consultation might makes sense. documented in this encounter Plan of Treatment Not on file documented as of this encounter Visit Diagnoses Not on filedocumented in this encounter Care Teams Inventory Transcriber Relationship Specialty Start Date End Date Brie Carrington PA [address] [place] [id number] PCP - General Emergency Medicine 09/26/18 documented as of this encounter
--- OUTSIDE RECORDS SUMMARY | 2024-04-13 22:08 | XMS_ITS | Encounter Summary ---
Author Organization [facility] Address [address] [place] [address] Phone Care Team Providers Care Chemistry Technologist Name Role Phone Brie Carrington Primary Care Provider +1 -[phone] Reason for Visit * Reason Onset Date Comments [id number] 03/17/2019 Encounter Details Date Type Department Care Team (Late st Contact Info) Description 03/17/2019 Telephone [facility] Orthopaedic Surgery [address] 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 Gender Identity Not on file Sexual Orientation Not on file documented as of this encounter Miscellaneous Notes * Telephone Encounter - Radha Howard - 03/27/2019 2:10 PM CST 03.27.19 210 SPOKE WITH CHAVA HE IS GOING TO OVERRIDE UR DECISION AND AUTH SURGERY-MR SUGAR HANDLER * Telephone Encounter - Radha Howard - 03/27/2019 1:35 PM CST 03.27.19 135 [employer]BESTOS SHINGLE ROOFER IS GOING TO REVIEW DENIAL FROM UR AND WILL CALL BACK TO LET US KNOW IF WE NEED TO APPEAL DECISION-MR SUGAR HANDLER * Telephone Encounter - Crystal Alcocer RMA - 03/17/2019 8:06 AM BULK SUGAR HANDLER AUTHORIZATION for Procedure or Ancillary Services PRE-CERT COMPLETED Primary Ins or Work Comp: Completed by: CRYSTAL Date called: 03/17/19 Ins. Co.: [employer] Phone #: [phone] CHAVA CURRAN / [phone] ROXIE MEHTA ID #: [id number] Authorized by: LMOM FOR CHAVA (ROXIE WAS OOO) REQUESTING AUTH FOR SURGERY-LM Authorization #: Effective date of coverage: 07/08/18 Pre-Existing Clause: [ ] # visits/injections approved: [ ] Expiration date: [ ] SUGAR HANDLER documented in this encounter Plan of Treatment Not on file documented as of this encounter Visit Diagnoses Not on filedocumented in this encounter Care Teams Chemistry Technologist Relationship Specialty Start Date End Date Brie Carrington PA [address] [place] [address] PCP - General Emergency Medicine 09/26/18 documented as of this encounter
--- OUTSIDE RECORDS SUMMARY | 2024-04-13 22:08 | XMS_ITS | Encounter Summary ---
Author Organization [facility] Address [address] [place] [address] Phone Care Team Providers Care Materials Intern Name Role Phone Brie Carrington Primary Care Provider +1 [phone] Encounter Details Date Type Department Care Team (Late st Contact Info) Description 03/07/2019 Telephone [facility] Orthopaedic Surgery [address] [facility] 2nd Floor [address] [place] [address] [place] [address] [place] [address] Social History Tobacco Use Types Packs/Day Years Used Date Smoking Tobacco: Every Day Cigarettes 1.5 40 Started: 1984 Smokeless Tobacco: Never Alcohol Use Standard Drinks/Week Comments Yes 0 (1 standard drink = 0.6 oz pur e alcohol) occasional, 5 per week Sex and Gender Information Value Date Recorded Sex Assigned at Not on file 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 I will see him next week. P EXERCISE CLASS INSTRUCTOR documented in this encounter Plan of Treatment Not on file documented as of this encounter Visit Diagnoses Not on filedocumented in this encounter Care Teams Materials Intern Relationship Specialty Start Date End Date Brie Carrington PA [address] [place] [address] PCP - General Emergency Medicine 09/26/18 documented as of this encounter
--- OUTSIDE RECORDS SUMMARY | 2024-04-13 22:08 | XMS_ITS | Encounter Summary ---
Author Organization [facility] Address [address] [place] [address] Phone Care Team Providers Care Insulation And Flooring Assembler Name Role Phone Brie Carrington Primary Care Provider [phone] Reason for Visit * Reason Comments Follow-up Post-op Pain Encounter Details Date Type Department Care Team (Late st Contact Info) Description 11/18/2018 9:50 AM CDT Office Visit 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 POST SURGICAL VISIT HISTORY OF PRESENT ILLNESS: The patient is a 48 y.o. male presenting 2 weeks after surgery for right carpal tunnel release. Patient is doing great. No complaints. Pain is 0/10. Sensation is better. He did have a stretching painon Sunday affecting the middle ring and small finger with coldness. That may be somewhat better. Prior to Sunday it felt great. INITIAL REVIEW OF MEDICATIONS He has a [...] noted. Skin is warm to touch. Wound is healing fine. Sutures are removed. Good sensibility and vascularity. Excellent finger range of motion. Wound looks great. IMPRESSION/DIAGNOSIS/ PLAN: Patient is doing well. Follow-up for next surgery in several weeks and then follow up with me in clinic 2 weeks thereafter. Work restrictions provided. Scar massage described and handout is provided. Moy Brown MD Professor of Orthopaedic Surgery [facility]ab[facility] : 1970 Provider: Moy Brown MD Encounter Date: 11/18/2018 Date: 11/18/18 Diagnosis. Carpal tunnel syndrome Work Status: May return to work with the following restrictions/date: 11/18/18 May use injured hand assisting on light tasks. Avoid lifting with injured hand more than: 5 lbs Avoid the following motions/conditions with the injured hand: Pushing, Grasping, Pulling, Twisting,Vibratory tools, Repetitive movements, Climbing or unprotected heights Follow up appointment needed: 4 weeks. Surgery on right side in approx 2 weeks Location: [facility] Moy Brown MD For questions/information call the Workers' Chainstitch Zipper Setter at , . documented in this encounter Plan of Treatment Not on file documented as of this encounter Visit Diagnoses Diagnosis Carpal tunnel syndrome, right- Primary Carpal tunnel syndrome Carpal tunnel syndrome, left Carpal tunnel syndrome documented in this encounter Care Teams Insulation And Flooring Assembler Relationship Specialty Start Date End Date Brie Carrington PA [address] [place] [address] PCP - General Emergency Medicine 09/26/18 documented as of this encounter
--- OUTSIDE RECORDS SUMMARY | 2024-04-13 22:08 | XMS_ITS | Encounter Summary ---
Author Organization [facility] Address [address] [place] [address] Phone Care Team Providers Care Pleasure Craft Sailor Name Role Phone Brie Carrington Primary Care Provider [phone] Reason for Visit * Reason Onset Date Comments WC EMG/NCS DR SAPP 12/13/2018 Encounter Details Date Type Department Care Team (Late st Contact Info) Description 12/13/2018 Telephone [facility] Orthopaedic Surgery 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 Co.: [employer] Phone #: [phone] DAISY SALAZAR/[phone] [place] ID #: [id number] Group #: [ ] Authorized by: [facility] FOR [place] TO GET AUTH FOR EMG/NCS-MR Authorization #: Effective date of coverage: 07.08.2018 Pre-Existing Clause: [ ] # visits/injections approved: [ ] Expiration date: [ ] documented in this encounter Plan of Treatment Not on file documented as of this encounter Visit Diagnoses Not on filedocumented in this encounter Care Teams Pleasure Craft Sailor Relationship Specialty Start Date End Date Brie Carrington PA [address] [place] [address] PCP - General Emergency Medicine 09/26/18 documented as of this encounter
--- OUTSIDE RECORDS SUMMARY | 2024-04-13 22:08 | XMS_ITS | Encounter Summary ---
Author Organization [facility] Address [address] [place] [address] Phone Care Team Providers Care Wet Press Tender Name Role Phone Brie Carrington Primary Care Provider [phone] Encounter Details Date Type Department Care Team (Late st Contact Info) Description 02/07/2019 Telephone [facility] Orthopaedic Surgery [id number] [place] [address] [address] [place] [address] Audrey Kim, [facility] Social History Tobacco Use Types Packs/Day Years Used Date Smoking Tobacco: Every Day Cigarettes 1.5 40 Started: 1984 Smokeless Tobacco: Never Alcohol Use Standard Drinks/Week Comments Yes 0 (1 standard drink = 0.6 oz pur e alcohol) occasional, 5 per week Sex and Gender Information Value Date Recorded Sex Assigned at Not on file Legal Sex Male 9:26 AM CONSTRUCTION PROJECT MGR Gender Identity Not on file Sexual Orientation Not on file documented as of this encounter Miscellaneous Notes * Telephone Encounter - Audrey Kim RMA - 02/07/2019 2:17 PM CONSTRUCTION PROJECT MGR Akhil reached out to the office to get his ultrasound coordinated. He is approved through work comp. I returned his call to get him coordinated. I was unabel to reach him. I left a voicemail with my contact number to get him scheduled. TRUCTION PROJECT MGR documented in this encounter Plan of Treatment Not on file documented as of this encounter Visit Diagnoses Not on filedocumented in this encounter Care Teams Wet Press Tender Relationship Specialty Start Date End Date Brie Carrington PA [address] [place] [address] PCP - General Emergency Medicine 09/26/18 documented as of this encounter
--- OUTSIDE RECORDS SUMMARY | 2024-04-13 22:08 | XMS_ITS | Encounter Summary ---
Author Organization [facility] Healthcare Address [address] [place] [address] Care Team Providers Care Finance Intern Name Role Phone Brie Carrington Primary Care Provider [phone] Encounter Details Date Type Department Care Team (Latest Contact Info) Description 11/06/2018 6:17 AM CDT - 11/06/2018 9:31 AM CDT Hospital Encounter 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 Gender Identity Not on file Sexual Orientation Not on file documented as of this encounter Last Filed Vital Signs Vital Sign Reading Time Taken Comments Blood Pressure 142/88 11/06/2018 9:15 AM CDT Pulse 83 11/06/2018 9:20 AM CDT Temperature 36.3 ??C (97.3 ??F) 11/06/2018 8:52 AM CD T Respiratory Rate 18 11/06/2018 9:20 AM CDT Oxygen Saturation 94% 11/06/2018 9:20 AM CDT Inhaled Oxygen Concentration - - Weight 126.9 kg (279 lb 12.8 oz) 11/06/2018 6:31 AM CDT Height 177.8 cm (5' 10 ) 11/06/2018 6:31 AM CDT Body Mass Index 40.15 11/06/2018 6:31 AM CDT documented in this encounter Discharge Diagnoses Diagnosis Carpal tunnel syndrome of right wrist - CARPAL TUNNEL SYNDROME, RIGHT UPPER LIMB Type 2 diabetes mellitus without complications (CMS/HCC) (HCC) - TYPE 2 DIABETES MELLITUS WITHOUT COMPLICATIONS Essential (primary) hypertension - ESSENTIAL (PRIMARY) HYPERTENSION Unspecified essential hypertension Chronic obstructive pulmonary disease (HCC) - CHRONIC OBSTRUCTIVE PULMONARY DISEASE, UNSPECIFIED Cigarette nicotine dependence, uncomplicated - NICOTINE DEPENDENCE, CIGARETTES, UNCOMPLICATED long-term current use of oral hypoglycemic drug - DIRECTOR ORACLE DATABASE (CURRENT) USE OF ORAL HYPOGLYCEMIC DRUGS documented in this encounter Discharge Instructions * Discharge Instructions* Moy Brown MD - 11/06/2018 8:40 AM CDT Carpal Tunnel Release Postoperative Guidelines 1. Begin active motion of your fingers immediately. Light activities are appropriate. 2. You may remove your dressing 3 days after surgery and shower. Do not scrub or soak the wound. 3. Sutures will be removed at your postoperative visit which is scheduled 12-15 days after your surgery and will be on your discharge paperwork. 4. Hand therapy for gentle active massage and finger range of motion will only be ordered if needed. 5. After your first postoperative visit is complete, follow up is usually not necessary unless you or your surgeon has concerns. Please remember these outlines are guidelines only. Your care may differ from the typical outlines provided. Please talk to your surgeon or your surgeon???s nurse or medical billing assistant if you have anyquestions about your postoperative care. If you have any questions, please call our office at [facility] Perioperative Narcotic Considerations The Orthopedic hand surgeons of [facility] manage perioperative pain as wellas the pain after an acute injury. Our surgeons do not manage chronic pain (pain three months afterthe injury/surgery), and will refer patients seeking longer term care for their painful condition to a pain management service or their primary physician as those physicians typically establish termite helper treatment relationships with patients. Following elective hand [...] be called in to your pharmacy if ???fois-gxi-mrbmmgi??? anti- inflammatory pain medication do not decrease the pain even when taken on a regular basis. These can be called in during the hours 9am to 4pm, during the workweek. 6) ???Alternative??? treatments such as acupuncture, meditation and biofeedback can all be used to decrease post-operative pain. The Orthopedic hand surgeons of [facility] want you to be as [...] interpretation of pain. The ???opioid epidemic??? in [place] is very real, and we as physicians [...] your surgeon or his/her nurse or MA. documented in this encounter Medications at Time of Discharge losartan-hydroCHL OROthiazide (HYZAAR) 50-12.5 mg per tablet TK 1 T PO QD 11 10/10/2018 metFORMIN (GLUCOPHAGE) 1,000 mg tabletIndications :type 2 diabetes mellitus 2 (two) times a day with meals 1 07/13/2018 simvastatin (ZOCOR) 40 mg tablet 1 07/13/2018 HYDROcodone-aceta minophen (NORCO) 5-325 mg per tabletIndications :Pain Take 1-2 tablets by mouth every 6 (six) hours as needed for pain 12 tablet 11/06/2018 11/07/2018 documented as of this encounter Ordered Prescriptions Prescription Sig Dispense Quantity Refills Last Filled Start Date End Date HYDROcodone-acetam inophen (NORCO) 5-325 mg per tabletIndications: Pain Take 1-2 tablets by mouth every 6 (six) hours as needed for pain 12 tablet 11/06/2018 9 documented in this encounter Discharge Disposition Disposition Code Departure Means Destination Discharge to home or self care documented in this encounter H&P Notes * Moy Brown MD - 11/06/2018 8:24 AM CDT I have reviewed the H&P, examined the patient, and endorse the findings as written. Plan of Care : Based on the above findings, I consider Miguel Caraballo to be an acceptable risk for : Procedure(s): RIGHT CARPAL TUNNEL RELEASE - Note:Diabetic-First Case ([id number]) Source Note - Brie Cali, BOARD WINDER - 11/06/2018 6:32 AM CDT Outpatient Pre-Procedure History and Physical Subjective Patient is a 48 y.o. male with chief complaint of right hand pain. Indication For Procedure: Pre-op Diagnosis * Carpal tunnel syndrome on right [G56.01] Planned Procedure RIGHT CARPAL TUNNEL RELEASE - Note:Diabetic-First Case ([id number]) (R) HPI: Past Medical History: Diagnosis Date ??? COPD (chronic obstructive pulmonary disease) (CMS/HCC) uses home nebulizer, no home O2, never needs rescue inhaler. ??? Diabetes mellitus (CMS/HCC) also takes Lipitor for prevention ??? Diverticulitis of colon 2 years ago, no surgery needed ??? Hypertension Past Surgical History: Procedure Laterality Date ??? HAND SURGERY Right wrist Medications Prior to Admission Medication Sig Dispense Refill Last Dose ??? losartan-hydroCHLOROthiazide (HYZAAR) 50-12.5 mg per tablet TK 1 T PO QD 11 11/06/2018 at Unknowntime ??? metFORMIN (GLUCOPHAGE) 1,000 mg tablet 2 (two) times a day with meals 1 11/05/2018 at Unknown time ??? simvastatin (ZOCOR) 40 mg tablet 1 11/05/2018 at Unknown time No Known Allergies Social History Tobacco Use ??? Smoking status: Current Every Day Smoker Packs/day: 1.50 Years: 35.00 Pack years: 52.50 Types: Cigarettes Start date: 1984 ??? Smokeless tobacco: Never Used Substance Use Topics ??? Alcohol use: Yes Comment: occasional, 5 per week Social History Substance and Sexual Activity Drug Use Never Vitals: 11/04/18 1105 11/06/18 0631 Pulse: 76 Resp: 18 Temp: 36.2 ??C (97.2 ??F) TempSrc: Temporal SpO2: 96% Weight: 127 kg (280 lb) 126.9 kg (279 lb 12.8 oz) Height: 177.8 cm (5' 10 ) 177.8 cm (5' 10 ) Review of Systems: Review of systems per HPI and otherwise all other systems are negative Physical exam: Lungs: wheezing to auscultation bilaterally Heart: regular rate and rhythm, S1, S2 normal, no murmur, click, rub or gallop Neurologic: Alert and oriented x4, grossly intact Brie Cali NP Cosigned by Moy Brown MD at 11/06/2018 8:24 AM CDT * Socrates Ruelas MD - 11/06/2018 8:04 AM CDT I have reviewed the H&P, examined the patient, and endorse the findings as written. Plan of Care : Based on the above findings, I consider Miguel Caraballo to be an acceptable risk for : Procedure(s): RIGHT CARPAL TUNNEL RELEASE - Note:Diabetic-First Case ([id number]) Source Note - Guille Blanchard MD - 11/06/2018 7:17 AM CDT Anesthesia Evaluation Miguel Caraballo is a 48 y.o. male Procedure(s): RIGHT CARPAL TUNNEL RELEASE - Note:Diabetic-First Case ([id number]) Pre-Op Diagnosis Codes: * Carpal tunnel syndrome on right [G56.01] HISTORY Past Medical History Information obtained from: patient. Patient Active Problem List Diagnosis ??? Carpal tunnel syndrome, right ??? Carpal tunnel syndrome, left ??? Cubital tunnel syndrome, left ??? Carpal tunnel syndrome on right ??? Carpal tunnel syndrome of left wrist Past Medical History: Diagnosis Date ??? COPD (chronic obstructive pulmonary disease) ([facility]/HCC) uses home nebulizer, no home O2, never needs rescue inhaler. ??? Diabetes mellitus (CMS/HCC) also takes Lipitor for prevention ??? Diverticulitis of colon 2 years ago, no surgery needed ??? Hypertension Past Surgical History: Procedure Laterality Date ??? HAND SURGERY Right wrist No Known Allergies HOME MEDICATIONS : losartan-hydroCHLOROthiazide (HYZAAR) 50-12.5 mg per tablet metFORMIN (GLUCOPHAGE) 1,000 mg tablet simvastatin (ZOCOR) 40 mg tablet Current Facility-Administered Medications: ??? Lactated Ringer's (LR) infusion, 30 mL/hr, intravenous, Continuous, Last Rate: 30 mL/hr at 11/06/18 0653, 30 mL/hr at 11/06/18 0653 ??? scopolamine patch 72 hour 1 patch, 1 patch, transdermal, Once ??? sodium chloride 0.9% flush 0.5-20 mL, 0.5-20 mL, intra-catheter, PRN Social History Tobacco Use Smoking Status Current Every Day Smoker ??? Packs/day: 1.50 ??? Years: 35.00 ??? Pack years: 52.50 ??? Types: Cigarettes ??? Start date: 1984 Smokeless Tobacco Never Used Substance and Sexual Activity Alcohol Use Yes Comment: occasional, 5 per week Substance and Sexual Activity Drug Use Never Family History Problem Relation Age of Onset ??? Alcohol abuse Mother ??? Alcohol abuse Father ??? Cancer Father PAT Physical Exam Vitals: 11/06/18 0631 Pulse: 76 Resp: 18 Temp: 36.2 ??C (97.2 ??F) SpO2: 96% PT: No results found for requested [...] and allergies reviewed. Attestation: This PAT evaluation 11/06/2018. Airway Exam: Mallampati: III Cervical ROM: FROM Cardiovascular Exam: Rate: regular Rhythm: regular Pulmonary Exam: LCTA, bilat Anesthesia Plan ASA 2 My patient is approved for the Anesthesia Controlled Medication protocol when under care of a TECHNICAL SOLUTIONS DIRECTOR Planned anesthesia: Regional as primary anesthetic and IV regional Informed Consent: Anesthesia plan and risks discussed with patient and spouse. Plan and Consent Comments: Glucose 144 K+ 4.4 Consent and Attending signature: I and/or my designee have discussed the anesthesia plan, benefits, possible alternatives, parental presence at time of induction (if indicated), and clinically relevant risks that may include dental injury, unintentional awareness, and/or other complications. The patient and/or parent/legal guardian understand, and agree to proceed. All questions answered. * Brie Cali NP - 11/06/2018 6:32 AM CDT Outpatient Pre-Procedure History and Physical Subjective Patient is a 48 y.o. male with chief complaint of right hand pain. Indication For Procedure: Pre-op Diagnosis * Carpal tunnel syndrome on right [G56.01] Planned Procedure RIGHT CARPAL TUNNEL RELEASE - Note:Diabetic-First Case ([id number]) (R) HPI: Past Medical History: Diagnosis Date ??? COPD (chronic obstructive pulmonary disease) (CMS/HCC) uses home nebulizer, no home O2, never needs rescue inhaler. ??? Diabetes mellitus (CMS/HCC) also takes Lipitor for prevention ??? Diverticulitis of colon 2 years ago, no surgery needed ??? Hypertension Past Surgical History: Procedure Laterality Date ??? HAND SURGERY Right wrist Medications Prior to Admission Medication Sig Dispense Refill Last Dose ??? losartan-hydroCHLOROthiazide (HYZAAR) 50-12.5 mg per tablet TK 1 T PO QD 11 11/06/2018 at Unknowntime ??? metFORMIN (GLUCOPHAGE) 1,000 mg tablet 2 (two) times a day with meals 1 11/05/2018 at Unknown time ??? simvastatin (ZOCOR) 40 mg tablet 1 11/05/2018 at Unknown time No Known Allergies Social History Tobacco Use ??? Smoking status: Current Every Day Smoker Packs/day: 1.50 Years: 35.00 Pack years: 52.50 Types: Cigarettes Start date: 1984 ??? Smokeless tobacco: Never Used Substance Use Topics ??? Alcohol use: Yes Comment: occasional, 5 per week Social History Substance and Sexual Activity Drug Use Never Vitals: 11/04/18 1105 11/06/18 0631 Pulse: 76 Resp: 18 Temp: 36.2 ??C (97.2 ??F) TempSrc: Temporal SpO2: 96% Weight: 127 kg (280 lb) 126.9 kg (279 lb 12.8 oz) Height: 177.8 cm (5' 10 ) 177.8 cm (5' 10 ) Review of Systems: Review of systems per HPI and otherwise all other systems are negative Physical exam: Lungs: wheezing to auscultation bilaterally Heart: regular rate and rhythm, S1, S2 normal, no murmur, click, rub or gallop Neurologic: Alert and oriented x4, grossly intact Brie Cali NP Cosigned by Moy Brown MD at 11/06/2018 8:24 AM CDT documented in this encounter Miscellaneous Notes * Perioperative Nursing Note - Amado Perdomo RN - 11/06/2018 9:21 AM CDT Discharge teaching completed with pt. And girlfriend, all questions answered, verbalized understanding * Perioperative Nursing Note - Amado Perdomo RN - 11/06/2018 8:58 AM CDT Arrived in pacu, vss no distress noted. Report received * Op Note - Moy Brown MD - 11/06/2018 8:33 AM CDT FIRST DEPUTY SHERIFF GENERALIST/BAILIFF: Shar Ruelas MD ANESTHESIA: Carline Block PREOPERATIVE DIAGNOSIS (ES): Right Carpal Tunnel Syndrome POSTOPERATIVE DIAGNOSIS (ES): Right Carpal Tunnel Syndrome NAME OF OPERATION: Right Carpal Tunnel Release INDICATIONS FOR PROCEDURE: Thickened transverse carpal ligament OPERATIVE FINDINGS: 2+ synovitis, thickened transverse carpal ligament. DESCRIPTION OF PROCEDURE: The patient was taken to the operating room and laid supine on the operating room table with the arm on an arm table. A [place] block was infused and the arm was sterilely prepped and draped. Once the correct operative side was confirmed, a skin marker was used to roney the relevant landmarks. A 15- blade was used to make the incision. The incision began 1 cm distal to the distal wrist crease in line with the radial border of the ring finger. The incision was approximately2 cm in length. The incision was made through the skin, subcutaneous tissue, palmar fascia down to the transverse carpal ligament. Under direct visualization, the transverse carpal ligament was identified and incised from the fat surrounding the superficial palmar arch heading proximal to and well across the wrist crease to include the distal forearm fascia. The ligament was sharply divided with care given to avoiding injury to adjacent neurovascular structures. We were able to confirm a complete release proximally and distally by direct visualization and by palpation- there were no constrictive elements affecting the nerve. The wound was copiously irrigated and closed with a 4???0 nylon renetta horizontal mattress fashion. 5cc of 0.5% bupivacaine with epinephrine were injected in the distalforearm and over the incision. A sterile dressing was carefully placed, the tourniquet was deflatedand the patient was taken to the recovery room in good condition. There was no evidence of bleedingand the fingers demonstrated good vascularity. SPECIMENS REMOVED: None ESTIMATED BLOOD LOSS: Minimal SPONGE/INSTRUMENT/NEEDLE COUNTS: Correct CONDITION ON DISCHARGE FROM OPERATING ROOM: Stable I was the attending surgeon and was present for the entirety of the case. Moy Brown MD Professor of Orthopaedic Surgery [facility] [employer] * Plan of Care - Moy Brown MD - 11/06/2018 8:26 AM CDT Patient was treated today with surgical intervention for right carpal tunnel syndrome. He did well with the surgery. He should be off of work until November 11. He may return to work on Sunday without any use of his right upper extremity. I will see him back in approximately 2 weeks and we planned to perform contralateral, left-sided carpal tunnel release in the near future as well. Moy Brown M.D. Professor Hand and Upper Extremity [facility] Dr. Moy Brown dictating using Vatler software program. Coupling Machine Operator variances may occur. * Perioperative Nursing Note - Radha Church RN - 11/06/2018 6:25 AM CDT Pt states girlfriend will drive him home and provide 24 hrs care. * Pre-Procedure Instructions - Radha Church RN - 11/04/2018 11:07 AM CDT Directions to facility (address is [address] [place] [address] [address] Bring Inhalers Bring glass/contact case Bring pillows. Patient has ice packs for home. Remove make-up, perfume, lotions, powders, deodorant, lipstick and nail kazakh. Shower the night before and morning of surgery with anti-bacterial soap or Phisohex/ Hibiclens Change linens and pillow cases on bed. This is for infection prevention. Leave jewelry and valuables at home EXCEPT Drivers license and Insurance card. Wear loose fitting clothes. NPO after Midnight. No gums, mints, candy or chewing tobacco. No ice or water. You may brush your teeth, just make sure you spit it all out Take following medications with a sip of water: none Pt instructed to take half normal metformin dose night before surgery and hold DOS dose. Hold NSAIDS Pt's. Girlfriend will be with patient and care for patient for the first 24 hours post-op. Call after 10 a.m. One day before scheduled procedure for arrival time. documented in this encounter Plan of Treatment Not on file documented as of this encounter Procedures Procedure Name Priority Date/Time Associated Diagnosis Comments GLUCOSE, WHOLE BLOOD, POC Routine 11/06/2018 8:48 AM CDT RELEASE CARPAL TUNNEL 11/06/2018 8:25 AM CDT Carpal tunnel syndrome on right Special Needs Diabetic-First Case? POCT PREOP SCREEN ([id number]) Routine 11/06/2018 6:47 AM CDT documented in this encounter Results * Glucose, Whole Blood, POC (11/06/2018 8:48 AM CDT) [facility] Glucose POC 155 70 - 199 mg/dL [facility] Blood specimen (specimen) 11/06/2018 8:48 AM CDT 11/06/2018 8:48 AM CDT Moy Brown MD LAB BLOOD ORDERABLES Margareth cornell Result [facility] Department [place] [address] * (ABNORMAL) POCT Preop screen ([id number]-Hct) (11/06/2018 6:47 AM CDT) Pathologist [facility] K POC 4.4 3.3 - 4.9 mmol/L [facility] Glucose, fasting, POC 144(H) 70 - 99 mg/dL [facility] Blood specimen (specimen) 11/06/2018 6:47 AM CDT 11/06/2018 6:47 AM CDT Moy Brown MD LAB POCT ORDERABLES - DEV ICE Final Result [facility] Department [place] [address] documented in this encounter Visit Diagnoses Diagnosis Carpal tunnel syndrome on right- Primary Carpal tunnel syndrome documented in this encounter Admitting Diagnoses Diagnosis Carpal tunnel syndrome on right Carpal tunnel syndrome documented in this encounter Administered Medications Inactive Administered Medications - up to 3 most recent administrations Medication Order MAR Action Action Date Dose Rate Site albuterol (PROVENTIL,VENTOLIN) 2.5 mg/0.5 mL nebulizer solution 2.5 mg 2.5 mg, nebulization, Once as needed, wheezing, Starting on Sun11/06/18 at 0640, For 1 dose, Pre-Op Given 11/06/2018 6:57 AM CDT 2.5 mg Lactated Ringer's (LR) infusion 30 mL/hr, intravenous, Continuous, Starting on Sun11/06/18 at 0700 New Bag 11/06/2018 6:53 AM CDT 30 mL/hr 30 mL/hr documented in this encounter Discontinued Medications Medication Sig Discontinue Reason Start Date End Da te lisinopril-hydroCHLOROthiazide (PRINZIDE,ZESTORETIC) 20-12.5 mg per tablet Alternate therapy 07/22/2018 11/04/2018 amitriptyline (ELAVIL) 10 mg tablet Therapy completed 07/15/2018 11/04/2018 benzonatate (TESSALON) 100 mg capsule Therapy completed 07/16/19 19 11/04/2018 documented as of this encounter Historical Medications * This list may reflect changes made after this encounter. losartan-hydroCHLO ROthiazide (HYZAAR) 50-12.5 mg per tablet TK 1 T PO QD 11 10/10/2018 added in this encounter Active and Recently Administered Medications Times are shown in CDT. Scheduled Medication Order 11/04/2018 11/05/2018 11/06/2018 scopolamine patch 72 hour 1 patch 1 patch, transdermal, Administer over 72 Hours, Once, On Sun11/06/18 at 0700, For 1 dose, Pre-Op, Apply to beach-chair position shoulder surgery patients, and to patients with a history of PONV and/or Motion Sickness. Do NOT administer to patients with a history of BPH or Glaucoma. Consult Anesthesiologist with any questions., Indications: Motion Sickness, Prevention of Motion Sickness, Prevention of Post-Operative Nausea and Vomiting 0700 (Due) Continuous Medication Order 11/04/2018 11/05/2018 11/06/2018 Lactated Ringer's (LR) infusion 30 mL/hr, intravenous, Continuous, Starting on Sun11/06/18 at 0700 0653 (New Bag - Prov ider: Radha Church RN)0839 (Anesthesia Volume Adjustment - Provider: Elaine Valdivia CRNA)0845 (Stopped - Provider: Amado Perdomo RN) Lactated Ringer's (LR) infusion 125 mL/hr, intravenous, Continuous, Starting on Sun11/06/18 at 0930, Phase I 0846 (Continued from OR - Provider: Amado Perdomo RN)0921 (Stopped - Provider: Amado Perdomo RN) PRN Medication Order 11/04/2018 11/05/2018 11/06/2018 acetaminophen (TYLENOL) tablet 500 mg 500 mg, oral, As needed, headaches, other, Breakthrough Pain and Supplement to other pain meds, Starting on Sun11/06/18 at 0849, For 2 doses, Phase I, When able to tolerate PO after consulting with Anesthesiologist., Indications: Pain albuterol (PROVENTIL,VENTOLIN) 2.5 mg/0.5 mL nebulizer solution 2.5 mg (COMPLETED) 2.5 mg, nebulization, Once as needed, wheezing, Starting on Sun11/06/18 at 0640, For 1 dose, Pre-Op 0657 (Given - Provid er: Radha Church RN - Comment: diluted with 2.5 mL sterile saline) bupivacaine (MARCAINE) 0.5 % (5 mg/mL) preservative free injection (CANCELED) As needed, Starting on Sun11/06/18 at 0834, Intra-Op 0834 (Given - Provid er: Moy Brown MD) diphenhydrAMINE (BENADRYL) injection 12.5 mg 12.5 mg, intravenous, Administer over 1 Minutes, Every 5 min PRN, itching, other, For Nausea, administer 25 mg IV., Starting on Sun11/06/18 at 0849, For 4 doses, Phase I, Max cumulative dose 50 mg., Indications: Itching fentaNYL (SUBLIMAZE) preservative free syringe 25 mcg 25 mcg, intravenous, Every 5 min PRN, 1st line for pain, uncontrolled pain on PACU admission for outpatients, Starting on Sun11/06/18 at 0849, For 4 doses, Phase I, Use as 1st line for outpatients, dose not to exceed 100 mics. Then proceed to second line at [facility] after consulting anestheiologist, Indications: Pain hydrALAZINE (APRESOLINE) injection 5 mg 5 mg, intravenous, Administer over 2 Minutes, Every 5 min PRN, high blood pressure, Starting on Sun11/06/18 at 0849, Phase I, Max cumulative dose 20 mg. Dose if systolic BP greater than 180 AND heart rate less than 70., Indications: hypertension HYDROcodone-acetaminophen (NORCO) 5-325 mg per tablet 1 tablet 1 tablet, oral, Every 20 min PRN, 3rd line for pain, breakthrough pain, May give TWO doses at the same time for severe pain after consulting with Anesthesiologist, Starting on Sun11/06/18 at 0849, For 2 doses, Phase I, When able to tolerate PO., Indications: Pain HYDROmorphone (DILAUDID) injection 0.2 mg 0.2 mg, intravenous, Administer over 2 Minutes, Every 5 min PRN, 2nd line for pain, Use as 1st line pain med for patients at [facility]. Use as 2nd line at [facility] after consulting with anesthesiologist., Starting on Sun11/06/18 at 0849, Phase I, Notify Anesthesiologist if total PACU dose reaches 2 mg for inpatients and 1 mg total for outpatients, and pain score 5/10 or more., Indications: Pain labetalol (NORMODYNE,TRANDATE) injection 5 mg 5 mg, intravenous, at 30 mL/hr, Administer over 2 Minutes, Every 5 min PRN, high blood pressure, Starting on Sun11/06/18 at 0849, Phase I, Max cumulative dose 20 mg. Dose if systolic blood pressure greater than 180 AND HR greater than 70. meperidine (DEMEROL) preservative free injection 12.5 mg 12.5 mg, intravenous, Every 10 min PRN, shivering, Starting on Sun11/06/18 at 0849, For 2 doses, Phase I, Max cumulative dose 25 mg., Indications: Shivering ondansetron (ZOFRAN) injection 4 mg 4 mg, intravenous, Administer over 2 Minutes, Once as needed, nausea, vomiting, Starting on Sun11/06/18 at 0849, For 1 dose, Phase I, Proceed to prochlorperazine if ondansetron has been given within the last 6 hours. prochlorperazine (COMPAZINE) injection 5 mg 5 mg, intravenous, Once as needed, nausea, vomiting, Check with Anesthesiologist before administring, and ask about IV versus IM., Starting on Sun11/06/18 at 0849, For 2 doses, Phase I, If nausea/vomiting not relieved by ondansetron within 30 minutes or if ondansetron has been given within the last 6 hours. sodium chloride 0.9 % irrigation (CANCELED) As needed, Starting on Sun11/06/18 at 0834, Intra-Op 0834 (Given - Provid er: Moy Brown MD) sodium chloride 0.9% flush 0.5-20 mL 0.5-20 mL, intra-catheter, As needed, line care, Flush Carline Block Hep Locks to keep vein open., Starting on Sun11/06/18 at 0622, Pre-Op, Flush volume based on line type and size. Flush before and after each use. , Indications: Flushing documented in this encounter Orders Medications Ordered That Ashkan ht Not Have Been Administered Count Last Ordered Date First Ordered Date acetaminophen (TYLENOL) tablet 500 mg 1 09/2018 bupivacaine (MARCAINE) 0.5 % (5 mg/mL) preservative free injection 1 11/06/2018 diphenhydrAMINE (BENADRYL) i njection 12.5 mg 1 11/06/2018 fentaNYL (SUBLIMAZE) preserv ative free syringe 25 mcg 1 11/06/2018 hydrALAZINE (APRESOLINE) injection 5 mg 1 0 11/06/2018 HYDROcodone-acetaminophen (N ORCO) 5-325 mg per tablet 1 tablet 1 11/06/2018 HYDROmorphone (DILAUDID) injection 0.2 mg 1 11/06/2018 labetalol (NORMODYNE,TRANDAT E) injection 5 mg 1 11/06/2018 Lactated Ringer's (LR) infusion 1 9 meperidine (DEMEROL) preserv ative free injection 12.5 mg 1 11/06/2018 ondansetron (ZOFRAN) injection 4 mg 1 11/06 prochlorperazine (COMPAZINE) injection 5 mg 1 11/06/2018 scopolamine patch 72 hour 1 patch 1 019 sodium chloride 0.9 % irrigation 1 11/07/19 19 sodium chloride 0.9% flush 0.5-20 mL 1 09/2018 Diet Count Last Ordered Date First Orde red Date ADULT DISCHARGE DIET 1 11/06/2018 Nursing Count Last Ordered Date First Orde red Date DISCHARGE INSTRUCTIONS 3 11/06/2018 FOLLOW UP WITH PROVIDER 1 11/06/2018 NURSING COMMUNICATION 4 11/06/2018 WOUND CARE 1 11/06/2018 documented in this encounter Care Teams Finance Intern Relationship Specialty Start Date End Date Brie Carrington PA [address] [place], [place] [id number] PCP - General Emergency Medicine 09/26/18 documented as of this encounter
--- OUTSIDE RECORDS SUMMARY | 2024-04-13 22:08 | XMS_ITS | Encounter Summary ---
Author Organization [facility] Healthcare Address [address] [place] [address] Care Team Providers Care Coil Strapper Name Role Phone Brie Carrington Primary Care Provider [phone] Encounter Details Date Type Department Care Team (Late st Contact Info) Description 11/06/2018 8:17 AM CDT Anesthesia Event [facility] [address] [place] [address] Guille Blanchard MD [address] [place] [address] Ondina Moore NP [address] [place] [address] Anesthesia Record Procedure Summary Procedure Name Responsible Anesthesiologist Anesthesia Start Time Anesthesia Stop Time RIGHT CARPAL TUNNEL RELEASE (Right: Wrist) Guille Blanchard MD 11/06/18 0817 11/06/18 0847 Events Date Time Event Comment 11/06/2018 0718 0803 AN Equip Check 0817 An Start 0822 An Start Data 0823 Start Supplemental O2 0825 In Room 0826 An Block Induction The patie nt was reevaluated immediately before moderate or deep sedation and before anesthesia induction. 0827 Carline block placed 0829 Anesthesia Ready 0833 Incision Start 0842 an stop data 0844 Out of Room 0847 Handoff to RN I completed my handoff [...] disposition at the time of handoff: PACU 0847 An Stop 0920 Release from care Meds Name Total midazolam 2 mg/2 mL 2 mg fentaNYL PF 100 mcg propofol 240 mg lidocaine 0.5% PF 40 mL ketorolac 30 mg lidocaine 1 % PF 50 mL Lactated Ringer's (LR) infusion 700 mL * Agents Name O2 Sevoflurane * Blood No blood administrations on file. Lines, Drains, and Airways Type Details Placement Removal Peripheral IV Placement Date: 11/06/18; Placement Time: 651; Catheter Size: 20 G; Orientation: Left; Location: Forearm; Site Prep: Chlorhexidine; Technique: Anatomical landmarks; Insertion Attempts: 1; Patient Tolerance: Tolerated well; Removal Date: 11/06/18; Removal Time: 92511/06/18 0652 by Radha Church RN 11/06/18 09 by Amado Perdomo RN Peripheral IV Placement Date: 11/06/18; Placement Time: 651; Catheter Size: 22 G; Orientation: Right; Location: Hand; Site Prep: Chlorhexidine; Technique: Anatomical landmarks; Insertion Attempts: 1; Patient Tolerance: Tolerated well; Removal Date: 11/06/18; Removal Time: 08 (removed in o.r.) 11/06/18 0652 by Radha Church RN 11/06/18 0840 by Amado Perdomo RN RETIRED Surgical Site 11/06/18; 0834; De ght; Arm; Wound well approximated.; 11/06/18; 0915 11/06/18 0834 by Malathi Greene RN 11/06/18 0915 by Amado Perdomo RN documented in this encounter Social History [...] on file 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 Gender Identity Not on file Sexual Orientation Not on file documented as of this encounter OR Notes * Anesthesia Postprocedure Evaluation - Guille Blanchard MD - 11/06/2018 9:20 AM CDT Patient: Miguel Caraballo Procedure Summary Date: 11/06/18 Room / Location: [facility] OC OPERATING ROOM 1 / [facility] OPERATING ROOM Anesthesia Start: 816 Anesthesia Stop: 846 Procedure: RIGHT CARPAL TUNNEL RELEASE (Right Wrist) Diagnosis: Carpal tunnel syndrome on right (Carpal tunnel syndrome on right [G56.01]) Provider: Moy Brown MD Responsible Provider: Guille Blanchard MD Anesthesia Type: regional as primary anesthetic, IV regional ASA Status: 2 Anesthesia Type: regional as primary anesthetic, IV regional Last vitals BP 142/88 Pulse 83 Temp 36.3 ??C (97.3 ??F) (Temporal) Resp 18 SpO2 94% Anesthesia Post Evaluation Patient location during evaluation: PACU Patient participation: complete - patient participated Level of consciousness: fully awake Pain score: 0 Pain management: adequate Airway patency: adequate Evidence of recall: no Anesthetic complications: no Cardiovascular status: hemodynamically stable and acceptable Respiratory status: acceptable and room air Hydration status: acceptable Pt is: normothermic Nausea/Vomiting status: none * Anesthesia Procedure Notes - Elaine Valdivia CRNA - 11/06/2018 8:31 AM CDTAssociated Order(s): [place] Block Anesthesia [place] Block Anesthesia Start time: 11/06/2018 8:27 AM End time: 11/06/2018 8:28 AM Reason for procedure: primary anesthetic Staff: Placed by: PRODUCT INFO SPECIALIST: Elaine Valdivia CRNA Procedure prep: Preprocedure checklist: patient identified, patient appropriate for plan, informed consent obtained, surgical consent, risks and benefits discussed, monitors and equipment checked and timeout performed Prep solution: chlorhexadine/alcohol [place] block: Medication injected through: IV placed preoperatively IV gauge: 22g Procedure details: tourniquet - single cuff, esmarch applied to extremity, tourniquet inflation verified, local anesthetic injected, injection IV removed and patient tolerated procedure well Tourniquet inflation pressure: 280 mmHg Assessment: Events: patient tolerated procedure well without complications * Anesthesia Preprocedure Evaluation - Guille Blanchard MD - 11/06/2018 7:17 AM CDT Anesthesia Evaluation Miguel Caraballo is a 48 y.o. male Procedure(s): RIGHT CARPAL TUNNEL RELEASE - Note:Diabetic-First Case ([id number]) Pre-Op Diagnosis Codes: * Carpal tunnel syndrome [...] COPD (chronic obstructive pulmonary disease) ([facility]/HCC) uses home nebulizer, no home O2, never needs rescue inhaler. ??? Diabetes mellitus ([facility]) also takes Lipitor for prevention ??? Diverticulitis [...] intravenous, Continuous, Last Rate: 30 mL/hr at 11/06/1853, 30 mL/hr at 11/06/18 0653 ??? scopolamine [...] Medication protocol when under care of a PRODUCT INFO SPECIALIST Planned anesthesia: Regional as primary anesthetic and [...] and agree to proceed. All questions answered. documented in this encounter Plan of Treatment Not on file documented as of this encounter Procedures Procedure Name Priority Date/Time Associated Diagnosis Comments CA AN PROCEDURE PLACEHOLDER Routine 11/06/2018 8:31 AM CDT Procedure Note - Elaine Valdivia CRNA - 11/06/2018 8:31 AM CDTThis note is in progress. [place] Block Anesthesia Start time: 11/06/2018 8:27 AM End time: 11/06/2018 8:28 AM Reason for procedure: primary anesthetic Staff: Placed by: PRODUCT INFO SPECIALIST: Elaine Valdivia CRNA Procedure prep: Preprocedure checklist: patient identified, patient appropriate for plan,informed consent obtained, surgical consent, risks and benefits discussed,monitors and equipment checked and timeout performed Prep solution: chlorhexadine/alcohol [place] block: Medication injected through: IV placed preoperatively IV gauge: 22g Procedure details: tourniquet - single cuff, esmarch applied to extremity,tourniquet inflation verified, local anesthetic injected, injection IVremoved and patient tolerated procedure well Tourniquet inflation pressure: 280 mmHg Assessment: Events: patient tolerated procedure well without complications documented in this encounter Visit Diagnoses Not on filedocumented in this encounter Administered Medications Inactive Administered Medications - up to 3 most recent administrations Medication Order MAR Action Action Date Dose Rate Site fentaNYL (SUBLIMAZE) preservative free injection intravenous, As needed, Starting on Sun11/06/18 at 0820, Anesthesia Intra-op Given 11/06/2018 8:37 AM CDT 25 mcg Given 11/06/2018 8:31 AM CDT 25 mcg Given 11/06/2018 8:20 AM CDT 50 mcg ketorolac (TORADOL) injection intravenous, As needed, Starting on Sun11/06/18 at 0841, Anesthesia Intra-op Given 11/06/2018 8:41 AM CDT 30 mg lidocaine (XYLOCAINE) 5 mg/mL (0.5 %) preservative free injection intravenous, As needed, Starting on Sun11/06/18 at 0827, Anesthesia Intra-op, Indications: Administration of Local AnesthesiaIndications:Administration of Local Anesthesia Given 11/06/2018 8:27 AM CDT 40 mL lidocaine PF (XYLOCAINE) 10 mg/mL (1 %) preservative free injection As needed, Starting on Sun11/06/18 at 0826, Anesthesia Intra-op Given 11/06/2018 8:26 AM CDT 50 mL midazolam (VERSED) injection intravenous, As needed, Starting on Sun11/06/18 at 0820, Anesthesia Intra-op Given 11/06/2018 8:20 AM CDT 2 mg propofol (DIPRIVAN) IV intravenous, As needed, Starting on Sun11/06/18 at 0826, Anesthesia Intra-op Given 11/06/2018 8:36 AM CDT 50 mg Given 11/06/2018 8:33 AM CDT 50 mg Given 11/06/2018 8:31 AM CDT 40 mg documented in this encounter Orders Procedures Count Last Ordered Date First Orde red Date [place] Block Anesthesia 1 11/06/2018 documented in this encounter Care Teams Coil Strapper Relationship Specialty Start Date End Date Brie Carrington PA [address] [place] [address] PCP - General Emergency Medicine 09/26/18 documented as of this encounter
--- OUTSIDE RECORDS SUMMARY | 2024-04-13 22:08 | XMS_ITS | Encounter Summary ---
Author Organization [facility] Healthcare Address [address] [place] [address] Care Team Providers Care Plasterer Maintenance Name Role Phone Brie Carrington Primary Care Provider [phone] Encounter Details Date Type Department Care Team (Late st Contact Info) Description 11/06/2018 8:30 AM CDT - 11/06/2018 9:00 AM T Surgery [facility] [address] [place] [address] Moy Brown MD [address] [place] [address] [address] [place] [address] RIGHT CARPAL TUNNEL RELEASE Surgery Details Date/Time Status Location OR Service Patient Class Case Class Case Type Trauma Case? 11/06/2018 8:30 AM Posted [facility] OPERATING ROOM OR 1 Orthopaedics Outpatient Elective Panel 1 Procedure LRB Anes Op Region Wound Class Comments RIGHT CARPAL TUNNEL RELEASE Right Choice Wrist Cl ass I - Clean Surgeon Surgeon Role Service Panel Moy Brown MD Primary Orthopaedics 1 Socrates Ruelas MD Fellow Orthopaedics 1 Special Needs Diabetic-First Case? 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 If you have any questions, please call our office at [facility] Perioperative Narcotic Considerations The Orthopedic hand surgeons of [facility] manage perioperative pain as wellas the pain after an acute injury. Our surgeons do not manage chronic pain (pain three months afterthe injury/surgery), and will refer patients seeking longer term care for their painful condition to a pain management service or their primary physician as those physicians typically establish nursing home treatment relationships with patients. Following elective hand [...] be called in to your pharmacy if ???fubn-ayb-qseuezi??? anti- inflammatory pain medication do not decrease the pain even when taken on a regular basis. These can be called in during the hours 9am to 4pm, during the workweek. 6) ???Alternative??? treatments such as acupuncture, meditation and biofeedback can all be used to decrease post-operative pain. The Orthopedic hand surgeons of [facility] want you to be as [...] interpretation of pain. The ???opioid epidemic??? in [place] is very real, and we as physicians [...] RIGHT CARPAL TUNNEL RELEASE - Note:Diabetic-First Case ([id number]) Source Note - Brie Cali, SHEET ROCKER - 11/06/2018 6:32 AM CDT Outpatient Pre-Procedure History and Physical Subjective Patient is a 48 y.o. male with chief complaint of right hand pain. Indication For Procedure: Pre-op Diagnosis * Carpal tunnel syndrome on right [G56.01] Planned Procedure RIGHT CARPAL TUNNEL RELEASE - Note:Diabetic-First Case ([id number]) (R) HPI: Past Medical History: Diagnosis Date [...] RIGHT CARPAL TUNNEL RELEASE - Note:Diabetic-First Case ([id number]) Source Note - Guille Blanchard MD - 11/06/2018 7:17 AM CDT Anesthesia Evaluation Miguel Caraballo is a 48 y.o. male Procedure(s): RIGHT CARPAL TUNNEL RELEASE - Note:Diabetic-First Case ([id number]) Pre-Op Diagnosis Codes: * Carpal tunnel syndrome on right [G56.01] HISTORY Past Medical History Information obtained from: patient. Patient Active Problem List Diagnosis ??? Carpal tunnel syndrome, right ??? Carpal tunnel syndrome, left ??? Cubital tunnel syndrome, left ??? Carpal tunnel syndrome on right ??? Carpal tunnel syndrome of left wrist Past Medical History: Diagnosis Date ??? COPD (chronic obstructive pulmonary disease) ([facility]/HCC) uses home nebulizer, no home O2, never [...] Medication protocol when under care of a DIRECT RESPONSE CONSULTANT Planned anesthesia: Regional as primary anesthetic and [...] RIGHT CARPAL TUNNEL RELEASE - Note:Diabetic-First Case ([id number]) (R) HPI: Past Medical History: Diagnosis Date [...] MD - 11/06/2018 8:33 AM CDT FIRST WASTE DISPOSAL LEAKAGE TESTER: Shar Ruelas MD ANESTHESIA: Carline Block PREOPERATIVE [...] the arm on an arm table. A [place] block was infused and the arm was [...] Moy Brown MD Professor of Orthopaedic Surgery [facility] * Plan of [...] Brown M.D. Professor Hand and Upper Extremity [facility] Dr. Moy Brown dictating using [employer] software program. Case Picker variances may occur. * Perioperative Nursing Note - Radha Church RN - 11/06/2018 6:25 AM CDT Pt states girlfriend will drive him home and provide 24 hrs care. * Pre-Procedure Instructions - Radha Church RN - 11/04/2018 11:07 AM CDT Directions to facility (address is [address] [place] [address] [address] Bring Inhalers Bring glass/contact case Bring pillows. Patient has ice packs for home. Remove make-up, perfume, lotions, powders, deodorant, lipstick and nail belarusian. Shower the night before and morning of [...] Special Needs Diabetic-First Case? POCT PREOP SCREEN ([id number] R-[id number]-HCT) Routine 11/06/2018 6:47 AM CDT documented in this encounter Results * Glucose, Whole Blood, POC (11/06/2018 8:48 AM CDT) [facility] Glucose POC 155 70 - 199 mg/dL [facility] Blood specimen (specimen) 11/06/2018 8:48 AM CDT 11/06/2018 8:48 AM CDT Moy Brown MD LAB BLOOD ORDERABLES Margareth cornell Result [facility] [place] [address] * (ABNORMAL) POCT Preop screen ([id number]-Da-Nih-MDQ-Ur-Zpl-Hct) (11/06/2018 6:47 AM CDT) Pathologist [facility] K POC 4.4 3.3 - 4.9 mmol/L [facility] Glucose, fasting, POC 144(H) 70 - 99 mg/dL [facility] Blood specimen (specimen) 11/06/2018 6:47 AM CDT 11/06/2018 6:47 AM CDT Moy Brown MD LAB POCT ORDERABLES - DEV ICE Final Result [facility] Department [place] [address] documented in this encounter Visit Diagnoses Diagnosis Carpal tunnel syndrome on right- Primary Carpal tunnel syndrome Carpal tunnel syndrome on right Carpal tunnel [...] Given 11/06/2018 6:57 AM CDT 2.5 mg bupivacaine (MARCAINE) 0.5 % (5 mg/mL) preservative free injection As needed, Starting on Sun11/06/18 at 0834, Intra-Op Given 11/06/2018 8:34 AM CDT 7 mL Surgical Site Lactated Ringer's (LR) infusion 30 mL/hr, intravenous, Continuous, Starting on Sun11/06/18 at 0700 New Bag 11/06/2018 6:53 AM CDT 30 mL/hr 30 mL/hr sodium chloride 0.9 % irrigation As needed, Starting on Sun11/06/18 at 0834, Intra-Op Given 11/06/2018 8:34 AM CDT 500 mL Surgical Site documented in this encounter Discontinued Medications Medication Sig Discontinue Reason Start Date End Da te lisinopril-hydroCHLOROthiazide (PRINZIDE,ZESTORETIC) 20-12.5 mg per tablet Alternate therapy 07/22/2018 11/04/2018 amitriptyline (ELAVIL) 10 mg tablet Therapy completed 07/15/2018 11/04/2018 benzonatate (TESSALON) 100 mg capsule Therapy completed 07/16/19 11/04/2018 documented as of this encounter Historical [...] 1st line pain med for patients at [facility]. Use as 2nd line at [facility] [...] acetaminophen (TYLENOL) tablet 500 mg 1 09/2018 diphenhydrAMINE (BENADRYL) i njection 12.5 mg 1 [...] hour 1 patch 1 019 sodium chloride 0.9% flush 0.5-20 mL 1 09/2018 Diet Count Last Ordered Date First Orde red Date ADULT DISCHARGE DIET 1 11/06/2018 Nursing Count Last Ordered Date First Orde red Date DISCHARGE INSTRUCTIONS 3 11/06/2018 FOLLOW UP WITH PROVIDER 1 11/06/2018 NURSING COMMUNICATION 4 11/06/2018 WOUND CARE 1 11/06/2018 documented in this encounter Care Teams Plasterer Maintenance Relationship Specialty Start Date End Date Brie Carrington PA [address] [place] [address] PCP - General Emergency Medicine 09/26/18 documented as of this encounter
--- OUTSIDE RECORDS SUMMARY | 2024-04-13 22:09 | XMS_ITS | Encounter Summary ---
Author Organization [facility] Address [address] [place] [address] Phone Care Team Providers Care [employer] Testing Supervisor Name Role Phone Brie Carrington Primary Care Provider [phone] Reason for Visit * Reason Onset Date Comments WC [facility] 09/30/2018 Encounter Details Date Type Department Care Team (Late st Contact Info) Description 09/30/2018 Telephone [facility] Orthopa[facility] [address] [facility] [address] [place] [address] Josh Howard [facility] Social History Tobacco Use Types Packs/Day Years Used Date Smoking Tobacco: Every Day Smokeless Tobacco: Current Sex and Gender Information Value Date Recorded Sex Assigned at Not on file 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 Co.: [employer] Phone #: [phone] FUAD ID #: [id number] Group #: [ ] Authorized by: SPOKE WITH FUAD, HE WILL SEND TO UR, IF IT IS CERT THEN IT IS AUTH -MR Authorization #: Effective date of coverage: 07.08.2018 Pre-Existing Clause: [ ] # visits/injections approved: [ ] Expiration date: [ ] documented in this encounter Plan of Treatment Not on file documented as of this encounter Visit Diagnoses Not on filedocumented in this encounter Care Teams [employer] Supervisor Relationship Specialty Start Date End Date Brie Carrington PA [address] [place] [address] PCP - General Emergency Medicine 09/26/18 documented as of this encounter
--- OUTSIDE RECORDS SUMMARY | 2024-04-13 22:09 | XMS_ITS | Encounter Summary ---
Author Organization [facility] Address [address] [place] [address] Phone Care Team Providers Care Belting Cutter Name Role Phone Brie Carrington Primary Care Provider [phone] Reason for Visit * Reason Comments Pain Pain Encounter Details Date Type Department Care Team (Late st Contact Info) Description 09/26/2018 8:30 AM CDT Office Visit [facility] [address] [facility] [address] 6th [place] [address] [place] [address] [place] [address] [place] [id number] Carpal tunnel syndrome, right (Primary Dx); Carpal tunnel syndrome, left; Cubital tunnel syndrome, right; Cubital tunnel syndrome, left Social History Tobacco Use Types Packs/Day Years Used Date Smoking Tobacco: Every Day Smokeless Tobacco: Current Sex and Gender Information Value Date Recorded Sex Assigned at Not on file 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 Gender Identity Not on file Sexual Orientation Not on file documented as of this encounter Last Filed Vital Signs Vital Sign Reading Time Taken Comments Blood Pressure - - Pulse - - Temperature - - Respiratory Rate - - Oxygen Saturation - - Inhaled Oxygen Concentration - - Weight 127 kg (280 lb) 09/26/2018 7:59 AM CDT Height 177.8 cm (5' 10 ) 09/26/2018 7:59 AM CDT Body Mass Index 40.18 09/26/2018 7:59 AM CDT documented in this encounter Progress Notes * Moy Brown MD - 09/26/2018 8:30 AM CDT NEW PATIENT CHIEF COMPLAINT: Pain of the Right Wrist and Pain of the Left Wrist HISTORY OF PRESENT ILLNESS: The patient is a 47 y.o. male presenting for evaluation of bilateral hand pain. Present for years. I was asked to see him through worker's compensation. The last couple months have been worsening. Symptoms are moderate and sharp. Nothing makes it better. Use of his hands make him worse. He can haveshooting pains, numbness in the thumb through the ring finger bilaterally. Not the small finger. Hedoes drop things. Strength is decreased. He has tried massage. No splints no injections. He does take anti-inflammatories. Of note than on the left hand he has a history of an injury many years ago with a drill bit through the 3rd webspace with permanent numbness in that space. He had nerve studiesas ordered through his primary care. 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 He has DM, oral medication controlled. PAST MEDICAL HISTORY has a past medical history of Diabetes mellitus ([facility]). He also has no past medical history of Depression. PAST SURGICAL HISTORY He has a past surgical history that includes Hand surgery. INITIAL REVIEW OF MEDICATIONS He has a current medication list which includes the following prescription(s): amitriptyline, benzonatate, lisinopril-hydrochlorothiazide, metformin, and simvastatin. DRUG ALLERGIES He has No Known Allergies. SOCIAL HISTORY He reports that he has been smoking. He uses smokeless tobacco. FAMILY HISTORY His family history includes Alcohol abuse in his father and mother; Cancer in his father. REVIEW OF SYSTEMS Review of Systems All other systems reviewed and are negative. PHYSICAL EXAM: This is a well- developed, well nourished age appropriate patient in no acute distress. The patientis alert and oriented x3. On the right side, there is excellent elbow, forearm, wrist and hand motion. DPC is zero for all digits. Median, radial, and ulnar nerves are intact to motor and sensory function. 2+ radial pulse and brisk capillary refill. No swelling noted. There is no atrophy and strength is satisfactory. On the left side, there is excellent elbow, forearm, wrist and hand motion. DPC is zero for all digits. Median, radial, and ulnar nerves are intact to motor and sensory function. 2+ radial pulse and brisk capillary refill. No swelling noted. There is no atrophy and strength is satisfactory. Two point discrimination is 5 diffusely except the right small finger at 10 and the left radial ring finger at greater than 15. Tinel's is positive at B CTS, equivocal elsewhere. Compressive Phalen'sis positive bilaterally. Also very mild pronator and cubital tunnel provocative signs bilaterally. Excellent intrinsic hand strength. XRAY/STUDIES: Nerve studies are obtained and reviewed. These demonstrate severe carpal tunnel syndrome bilaterally. Perhaps mild cubital tunnel IMPRESSION/DIAGNOSIS/ PLAN: Patient with recently diagnosed diabetes and nerve compression based on history, exam, and nerve study. 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 I am seeing him today through worker's compensation. I recommend treatment for bilateral carpal tunnel syndrome, staged release. He is eager to go back to work and would like to do that immediately after his 1st surgery. Likely 1 surgery than 2-3 weeks later the 2nd surgery in about 4 weeks after the 2nd surgery he would be at [facility]. Lengthy discussion. All questions answered. He is comfortable with this plan. This is pending worker's compensation approval. He can work full duty until then. Moy Brown M.D. Professor Hand and Upper Extremity [facility] Dr. Brown is dictating using speech recognition software. Coin Box Collector variances may occur. * Moy Brown MD - 09/26/2018 8:30 AM CDT Images from the original note were not included. Patient Name: Miguel Caraballo : 1970 Provider: Moy Brown MD Encounter Date: 09/26/2018 Date: 09/26/18 Diagnosis:Bilateral carpal tunnel syndrome Work Status: May return to work without restrictions/date: 09/26/18 Recommend Surgery Procedure: staged CTR. Facility: [facility]. Follow up appointment needed: for surgery and then 2 weeks after. Location: [facility], [address] Moy Brown MD For questions/information call the Workers' Rn Birthing at , . documented in this encounter Plan of Treatment Not on file documented as of this encounter Visit Diagnoses Diagnosis Carpal tunnel syndrome, right- Primary Carpal tunnel syndrome Carpal tunnel syndrome, left Carpal tunnel syndrome Cubital tunnel syndrome, right Cubital tunnel syndrome, left documented in this encounter Historical Medications * This list may reflect changes made after this encounter. simvastatin (ZOCOR) 40 mg tablet 1 07/13/2018 metFORMIN (GLUCOPHAGE) 1,000 mg tabletIndications :type 2 diabetes mellitus 2 (two) times a day with meals 1 07/13/2018 lisinopril-hydroC HLOROthiazide (PRINZIDE,ZESTORE TIC) 20-12.5 mg per tablet 1 07/22/2018 11/04/2018 benzonatate (TESSALON) 100 mg capsule 0 07/15/2018 11/04/2018 amitriptyline (ELAVIL) 10 mg tablet 0 07/15/2018 11/04/2018 added in this encounter Care Teams Belting Cutter Relationship Specialty Start Date End Date Brie Carrington PA [address] [place] [address] PCP - General Emergency Medicine 09/26/18 documented as of this encounter
--- OUTSIDE RECORDS SUMMARY | 2024-04-13 23:00 | XMS_ITS | Encounter Summary ---
Author Organization [facility] Address [address] [place] [address]. [place], [place] [address] [place] [address] Care Team Providers Care Biostatistics Teacher Name Role Phone Quentin Gurrola MD Primary Care Provider [phone] Reason for Visit * Reason Onset Date Comments Medication 12/19/2022 Encounter Details Date Type Department Care Team (Late st Contact Info) Description 12/19/[address] [id number] Abbe Mcdaniel MD [address] [place] [address] Medication Social History Tobacco Use Types Packs/Day [...] message for refill that was sent to [facility] in [place] for Flexeril. Made him aware to use it sparingly and if he has any question to call us at [phone]. * Elaine Reynaga RN - 12/19/2022 10:29 [...] a refill. His pharmacy of choice is [facility] in [place]. Call back number is [phone] documented in this encounter Plan of Treatment Not on file documented as of this encounter Visit Diagnoses Diagnosis Spasm- Primary Abnormal involuntary movements documented in this encounter Care Teams Biostatistics Teacher Relationship Specialty Start Date End Date Quentin Gurrola MD [address] [place] [address] PCP - General 06/12/22 documented as of this encounter
--- OUTSIDE RECORDS SUMMARY | 2024-04-13 23:00 | XMS_ITS | Encounter Summary ---
Author Organization [facility] Address [address] [place] [address]. [place], [place] [address] [place] [address] Care Team Providers Care Pharmacist Apprentice Name Role Phone Quentin Gurrola MD Primary Care Provider [phone] Encounter Details Date Type Department Care Team [...] on filedocumented in this encounter Care Teams Pharmacist Apprentice Relationship Specialty Start Date End Date Quentin Gurrola MD [address] [place] [address] PCP - General 06/12/22 documented as of this encounter
--- OUTSIDE RECORDS SUMMARY | 2024-04-13 23:00 | XMS_ITS | Encounter Summary ---
Author Organization [facility] Address [address] [place] [address]. [place], [place] [address] [place] [address] Care Team Providers Care Abe Teacher Name Role Phone Quentin Gurrola MD Primary Care Provider [phone] Encounter Details Date Type Department Care Team [...] on filedocumented in this encounter Care Teams Abe Teacher Relationship Specialty Start Date End Date Quentin Gurrola MD [address] [place] [address] PCP - General 06/12/22 documented as of this encounter
--- OUTSIDE RECORDS SUMMARY | 2024-04-13 23:00 | XMS_ITS | Encounter Summary ---
Author Organization [facility] Address [address] [place] [address]. [place], [place] [address] [place] [address] Care Team Providers Care Radiography Technician Name Role Phone Quentin Gurrola MD Primary Care Provider [phone] Reason for Referral * Surgical (Routine) - Closed Specialty Diagnoses / Procedures Referred By Marcio jimenez Referred To Contact Diagnoses Carpal tunnel syndrome of right wrist Procedures Case request operating room: Revision RIGHT carpal tunnel release Patient requests post-op splint if appropriate Abbe Mcdaniel MD [address] [place] [address] Phone: tel: fax: Referral ID Status Reason Start Date Expiration Date Visits Re quested Visits Authorized [id number] Closed 08/18/2022 08/19/2023 1 1 Encounter Details Date Type Department Care Team (Late st Contact Info) Description 08/18/2022 Prep for Procedure [facility] [address], [place] [address] Abbe Mcdaniel MD [address] [place] [address] Social History Tobacco Use Types Packs/Day Years [...] syndrome documented in this encounter Care Teams Radiography Technician Relationship Specialty Start Date End Date Quentin Gurrola MD [address] [place] [address] PCP - General 06/12/22 documented as of this encounter
--- OUTSIDE RECORDS SUMMARY | 2024-04-13 23:00 | XMS_ITS | Clinical Summary ---
Author Organization [facility] Address [address] [place] [address]. [place] [address] [place] [address] Care Team Providers Care Airplane Pilot Crop Dusting Name Role Phone Quentin Gurrola MD Primary Care Provider [phone] Allergies No known active allergies Medications albuterol [...] [facility] [place] [employer] Care Teams Airplane Pilot Crop Dusting Relationship Specialty Start Date End Date Quentin Gurrola MD [address] [place] [address] [facility] - General 06/12/22
--- OUTSIDE RECORDS SUMMARY | 2024-04-13 23:00 | XMS_ITS | Encounter Summary ---
Author Organization [facility] Address [address] [place] [address]. [place] [address] [place] [address] Care Team Providers Care Cross Country And Track And Field Coach Name Role Phone Quentin Gurrola MD Primary Care Provider [phone] Reason for Visit * Reason Comments Postop Followup DOS - 08/31/2022 - R IGHT carpal tunnel release Encounter Details Date Type Department Care Team (Late st Contact Info) Description 09/21/2022 1:45 PM CDT Office Visit [facility] [address] [address] Abbe Mcdaniel MD [address] [place] [address] Krista Harris, [address] [address] Postop Followup (DOS - 08/31/2022 - RIGHT [...] Patient has no known allergies. [x] Total Qjoh-cm-Crbd Assessment Time: 0-15 minutes Additional Contributory Factors NONE * Krista Harris, COMMUNICATION CENTER COORDINATOR- - 09/21/2022 1:45 PM CDT Chief Complaint: [...] aftercare documented in this encounter Care Teams Cross Country And Track And Field Coach Relationship Specialty Start Date End Date Quentin Gurrola MD [address] [place] [address] PCP - General 06/12/22 documented as of this encounter
--- OUTSIDE RECORDS SUMMARY | 2024-04-13 23:00 | XMS_ITS | Encounter Summary ---
Author Organization [facility] Address [address] [place] [address]. [place] [address] [place] [address] Care Team Providers Care Clinical Coordinator Name Role Phone Quentin Gurrola MD Primary Care Provider [phone] Reason for Visit * Auth/Cert (Routine) Specialty Diagnoses / Procedures Referred By Marcio t Referred To Contact Diagnoses Carpal tunnel syndrome of right wrist G56.01 Procedures REVISE MEDIAN N/CARPAL TUNNEL SURG Revision RIGHT carpal tunnel release ; ; Patient requests post-op splint if appropriate Abbe Mcdaniel MD [address] [place] [address] Phone: tel: fax: Referral ID Status Reason Start Date Expiration Date Visits Re quested Visits Authorized [id number] 1 1 Encounter Details Date Type Department Care Team (Latest Contact Info) Description 08/31/2022 9:09 AM CDT - 08/31/2022 12:15 PM T [facility] En[facility] [place] [place] [address] Abbe Mcdaniel MD [address] [place] [address] Discharge Disposition: Home or Self Care (Routine [...] * Moderate Sedation in Adults Discharge Instructions (Monegasque) * Carpal Tunnel Release (Monegasque) * Nerve Blocks (Monegasque) * Wound Care Discharge Instructions (Monegasque) documented in this encounter Medications at Time [...] during recuperation were discussed with the patient/family/personal employee representative. Reasonable alternatives to the patient's proposed procedure/surgery including benefits, risks, and side effects related to the alternatives and the risks related to not receiving the proposed care were also discussed with the patient/family/personal employee representative. Questions were answered and the patient/family/personal employee representative verbalized understanding and desires to proceed. [...] dominant. 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 ROS: See HPI for pertinent positives Problem List: Patient Active Problem List Diagnosis Ulnar neuropathy of right upper extremity Carpal tunnel syndrome of right wrist History: Past Medical History: Diagnosis Date COPD (chronic obstructive pulmonary disease) ([facility]) Diabetes mellitus ([facility]) Hypertension Neuropathy Past Surgical History: Procedure Laterality [...] 08/31/2022 11:34 AM CDT Miguel Caraballo 1970 [id number] 08/31/2022 Pre op diagnosis: Recurrent right carpal [...] if appropriate (Right) Surgeon(s): Abbe Mcdaniel MD Learning And Development Consultant: None Anesthesia: Choice Pre-Op Diagnosis: G56.01 Post-Op [...] (COMPLETED) 3 g, Intravenous, at 200 mL/hr, bingo caller, 1 dose, On Briana 08/31/22 at 0945, [...] MD) documented in this encounter Care Teams Clinical Coordinator Relationship Specialty Start Date End Date Quentin Gurrola MD [address] [place], [place] [id number] PCP - General 06/12/22 documented as of this encounter
--- OUTSIDE RECORDS SUMMARY | 2024-04-13 23:00 | XMS_ITS | Encounter Summary ---
Author Organization [facility] Address [address] [place] [address]. [place], [place] [address] [place] [address] Care Team Providers Care Naturopathic Doctor Name Role Phone Quentin Gurrola MD Primary Care Provider [phone] Encounter Details Date Type Department Care Team [...] on filedocumented in this encounter Care Teams Naturopathic Doctor Relationship Specialty Start Date End Date Quentin Gurrola MD [address] [place] [address] PCP - General 06/12/22 documented as of this encounter
--- OUTSIDE RECORDS SUMMARY | 2024-04-13 23:00 | XMS_ITS | Encounter Summary ---
Author Organization [facility] Address [address] [place] [address]. [place], [place] [address] [place] [address] Care Team Providers Care Filler Leaf Cutter Long Name Role Phone Quentin Gurrola MD Primary Care Provider [phone] Encounter Details Date Type Department Care Team [...] on filedocumented in this encounter Care Teams Filler Leaf Cutter Long Relationship Specialty Start Date End Date Quentin Gurrola MD [address] [place] [address] PCP - General 06/12/22 documented as of this encounter
--- OUTSIDE RECORDS SUMMARY | 2024-04-13 23:00 | XMS_ITS | Encounter Summary ---
Author Organization [facility] Address [address] [place] [address]. [place] [address] [place] [address] Care Team Providers Care Strategic Partner Development Manager Name Role Phone Quentin Gurrola MD Primary Care Provider [phone] Reason for Visit * Reason Comments Postop Followup Revision RIGHT carpa l tunnel release DOS: 08/31/22 Encounter Details Date Type Department Care Team (Latest Contact Info) Description 11/08/2022 4:30 PM CDT Office Visit [facility] [address] Abbe Mcdaniel MD [address] [place] [address] Postop Followup (Revision RIGHT carpal tunnel release [...] encounter Progress Notes * Natali Lew John, CHIEF OPTOMETRY SERVICE - 11/08/2022 4:30 PM CDT Miguel is [...] dominant. 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 No additional nursing task documentation needed. Vitals: [...] Patient has no known allergies. [x] Total Cjkg-oc-Nhdq Assessment Time: 0-15 minutes Additional Contributory Factors [...] dominant. 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 ROS: See HPI for pertinent positives Problem [...] surgery documented in this encounter Care Teams Strategic Partner Development Manager Relationship Specialty Start Date End Date Quentin Gurrola MD [address] [place] [address] PCP - General 06/12/22 documented as of this encounter
--- OUTSIDE RECORDS SUMMARY | 2024-04-13 23:00 | XMS_ITS | Encounter Summary ---
Author Organization [facility] Address [address] [place] [address]. [place] [address] [place] [address] Care Team Providers Care Candy Decorator Name Role Phone Quentin Gurrola MD Primary Care Provider [phone] Reason for Visit * Auth/Cert (Routine) Specialty Diagnoses / Procedures Referred By Contac t Referred To Contact Diagnoses Carpal tunnel syndrome of right wrist G56.01 Procedures REVISE MEDIAN N/CARPAL TUNNEL SURG Revision RIGHT carpal tunnel release ; ; Patient requests post-op splint if appropriate Abbe Mcdaniel MD [address] [place] [address] Phone: tel: fax: Referral ID Status Reason Start Date Expiration Date Visits Re quested Visits Authorized [id number] 1 1 Encounter Details Date Type Department Care Team (Late st Contact Info) Description 08/31/2022 10:48 AM CDT Anesthesia Event [address] [place] [address] Allen Chiu CRNA [address] [employer] [address] Anesthesia Record Procedure Summary Procedure Name Responsible Anesthesiologist Anesthesia Start Time Anesthesia Stop Time Revision RIGHT carpal tunnel release (Right: Wrist) 08/31/22 1048 08/31/22 1131 Events Date Time Event Comment 08/31/2022 1005 1005 AN SALES MERCHANDISING SPECIALIST Prepped 1048 An Start Patient ID and [...] Procedure Name Priority Date/Time Associated Diagnosis Comments CO AN PERIPHERAL BLOCK SINGLE-SHOT Routine 08/31/2022 10:23 AM CDT documented in this encounter Results * CO AN PERIPHERAL BLOCK SINGLE-SHOT (08/31/2022 10:23 AM [...] aspirations. Patient tolerated procedure well. Allen Chiu SALES MERCHANDISING SPECIALIST CO ANESTHESIA Final Res ult documented in this encounter Visit Diagnoses Not on filedocumented in this encounter Administered Medications Inactive Administered Medications - up to 3 most recent administrations Medication Order MAR Action Action Date Dose Rate Site ceFAZolin (ANCEF) 3 g in NS 100 mL IVPB 3 g, Intravenous, at 200 mL/hr, housecalls nurse, 1 dose, On Briana 08/31/22 at 0945, [...] 10:54 AM CDT 100 mg lidocaine-EPINEPHrine 2 %-1:[id number] injection Epidural, PRN, Starting on Briana 08/31/22 [...] mL/hr documented in this encounter Care Teams Candy Decorator Relationship Specialty Start Date End Date Quentin Gurrola MD [address] [place] [address] PCP - General 06/12/22 documented as of this encounter
--- OUTSIDE RECORDS SUMMARY | 2024-04-13 23:00 | XMS_ITS | Encounter Summary ---
Author Organization [facility] Address [address] [place] [address]. 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 He denies fever, chills, redness of [...] Patient has no known allergies. 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 He has [...] surgery documented in this encounter Care Teams System Administration Advisor Relationship Specialty Start Date End Date Quentin Gurrola MD [address] [place], [place] [id number] PCP - General 06/12/22 documented as of this encounter
--- OUTSIDE RECORDS SUMMARY | 2024-04-13 23:00 | XMS_ITS | Encounter Summary ---
Author Organization [facility] Address [address] [place] [address]. [place] [address] [place] [address] Care Team Providers Care Water Resource Manager Name Role Phone Quentin Gurrola MD Primary Care Provider [phone] Reason for Visit * Auth/Cert (Routine) Specialty Diagnoses / Procedures Referred By Marcio t Referred To Contact Diagnoses Carpal tunnel syndrome of right wrist G56.01 Procedures REVISE MEDIAN N/CARPAL TUNNEL SURG Revision RIGHT carpal tunnel release ; ; Patient requests post-op splint if appropriate Abbe Mcdaniel MD [address] [place] [address] Phone: tel: fax: Referral ID Status Reason Start Date Expiration Date Visits Re quested Visits Authorized [id number] 1 1 Encounter Details Date Type Department Care Team (Late st Contact Info) Description 08/31/2022 10:57 AM CDT - 08/31/2022 11:57 AM CDT Surgery [place] [address] [place] [address] Abbe Mcdaniel MD [address] [place] [address] Revision RIGHT carpal tunnel release Surgery Details [...] * Moderate Sedation in Adults Discharge Instructions (Turkish) * Carpal Tunnel Release (Turkish) * Nerve Blocks (Turkish) * Wound Care Discharge Instructions (Turkish) documented in this encounter Medications at Time [...] during recuperation were discussed with the patient/family/personal patient registration representative. Reasonable alternatives to the patient's proposed procedure/surgery including benefits, risks, and side effects related to the alternatives and the risks related to not receiving the proposed care were also discussed with the patient/family/personal patient registration representative. Questions were answered and the patient/family/personal patient registration representative verbalized understanding and desires to proceed. [...] hand dominant. 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 ROS: See HPI for pertinent positives Problem List: Patient Active Problem List Diagnosis Ulnar neuropathy of right upper extremity Carpal tunnel syndrome of right wrist History: Past Medical History: Diagnosis Date COPD (chronic obstructive pulmonary disease) ([facility]) Diabetes mellitus ([facility]) Hypertension Neuropathy Past Surgical History: [...] 08/31/2022 11:34 AM CDT Miguel Caraballo 1970 [id number] 08/31/2022 Pre op diagnosis: Recurrent right carpal [...] if appropriate (Right) Surgeon(s): Abbe Mcdaniel MD Hot Mill Operator: None Anesthesia: Choice Pre-Op Diagnosis: G56.01 Post-Op [...] 3 g, Intravenous, at 200 mL/hr, call center associate, 1 dose, On Briana 08/31/22 at 0945, [...] MD) documented in this encounter Care Teams Water Resource Manager Relationship Specialty Start Date End Date Quentin Gurrola MD [address] [place] [address] PCP - General 06/12/22 documented as of this encounter
--- OUTSIDE RECORDS SUMMARY | 2024-04-13 23:00 | XMS_ITS | Encounter Summary ---
Author Organization [facility] Address [address] [place] [address]. [place], [place] [address] [place] [address] Care Team Providers Care Director Of Home Economics Name Role Phone Quentin Gurrola MD Primary Care Provider [phone] Encounter Details Date Type Department Care Team [...] filedocumented in this encounter Care Teams Director Of Home Economics Relationship Specialty Start Date End Date Quentin Gurrola MD [address] [place] [address] PCP - General 06/12/22 documented as of this encounter
--- OUTSIDE RECORDS SUMMARY | 2024-04-13 23:00 | XMS_ITS | Encounter Summary ---
Author Organization [facility] Address [address] [place] [address]. [place], [place] [address] [place] [address] Care Team Providers Care Mink Farmer Name Role Phone Quentin Gurrola MD Primary Care Provider [phone] Encounter Details Date Type Department Care Team [...] on filedocumented in this encounter Care Teams Mink Farmer Relationship Specialty Start Date End Date Quentin Gurrola MD [address] [place] [address] PCP - General 06/12/22 documented as of this encounter
--- OUTSIDE RECORDS SUMMARY | 2024-04-13 23:00 | XMS_ITS | Encounter Summary ---
Author Organization [facility] Address [address] [place] [address]. [place] [address] [place] [address] Care Team Providers Care Software Test Technician Name Role Phone Quentin Gurrola MD Primary Care Provider Reason for Visit * Reason Onset Date Comments Schedule Surgery 08/17/2022 Encounter Details Date Type Department Care Team (Late st Contact Info) Description 08/17/2022 Telephone [facility] [address] [address] Emely Ruth RNFA Schedule Surgery [...] like a call back regarding surgery date [phone] documented in this encounter Plan of Treatment Not on file documented as of this encounter Visit Diagnoses Not on filedocumented in this encounter Care Teams Software Test Technician Relationship Specialty Start Date End Date Quentin Gurrola MD [address] [place] [id number] PCP - General 06/12/22 documented as of this encounter
--- OUTSIDE RECORDS SUMMARY | 2024-04-13 23:00 | XMS_ITS | Encounter Summary ---
Author Organization [facility] Address [address] [place] [address]. [place] [address] [place] [address] Care Team Providers Care Benefits Administrator Name Role Phone Quentin Gurrola MD Primary Care Provider [phone] Reason for Visit * Reason Onset Date Comments Lab Results 08/18/2022 Encounter Details Date Type Department Care Team (Late st Contact Info) Description 08/18/[address] [address] Emely Ruth RNFA Lab Results [...] filedocumented in this encounter Care Teams Benefits Administrator Relationship Specialty Start Date End Date Quentin Gurrola MD [address] [place] [address] PCP - General 06/12/22 documented as of this encounter
--- OUTSIDE RECORDS SUMMARY | 2024-04-13 23:00 | XMS_ITS | Encounter Summary ---
Author Organization [facility] Address [address] [place] [address]. [place] [address] [place] [address] Care Team Providers Care Venture Capital Analyst Name Role Phone Quentin Gurrola MD Primary Care Provider [phone] Reason for Visit * Reason Comments EMG Results BILATERAL hands on Encounter Details Date Type Department Care Team (Latest Contact Info) Description 08/17/2022 3:00 PM CDT Office Visit [address] [address] Abbe Mcdaniel MD [address] [place] [address] EMG Results (BILATERAL hands on 07/24/22 ) [...] hand dominant. 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 [...] hand dominant. 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 ROS: See HPI for pertinent positives [...] syndrome documented in this encounter Care Teams Venture Capital Analyst Relationship Specialty Start Date End Date Quentin Gurrola MD [address] [place], [place] [address] PCP - General 06/12/22 documented as of this encounter
--- OUTSIDE RECORDS SUMMARY | 2024-04-13 23:00 | XMS_ITS | Encounter Summary ---
Author Organization [facility] Address [address] [place] [address]. [place] [address] [place] [address] Care Team Providers Care Director Of Direct Marketing Name Role Phone Quentin Gurrola MD Primary Care Provider Reason for Visit * Reason Onset Date Comments Medication Problem 09/01/2022 Encounter Details Date Type Department Care Team (Late st Contact Info) Description 09/01/2022 Telephone [place] [phone] Davide Edwards book mender Problem Social History Tobacco Use Types Packs/Day [...] medication change that has been sent to [facility]. Verbalized understanding and no further questions at [...] syndrome documented in this encounter Care Teams Director Of Direct Marketing Relationship Specialty Start Date End Date Quentin Gurrola MD [address] [place] [address] PCP - General 06/12/22 documented as of this encounter
--- OUTSIDE RECORDS SUMMARY | 2024-04-13 23:01 | XMS_ITS | Encounter Summary ---
Author Organization [facility] Address [facility]. [place], [place] [address] [place] [address] Care Team Providers Care Biological Photographer Name Role Phone Unavailable Primary Care Provider Unavailabl e Encounter Details Date Type Department Care Team (Latest Contact Info) Description 11/06/2015 Abstract [facility] Social History Tobacco Use Types [...]
--- OUTSIDE RECORDS SUMMARY | 2024-04-13 23:01 | XMS_ITS | Encounter Summary ---
Author Organization [facility] Address [facility]. [address] Care Team Providers Care Paver Installer Name Role Phone Brie Carrington Primary Care Provider [phone] Encounter Details Date Type Department Care Team (Late st Contact Info) Description 01/19/2005 Abstract [facility] Emergency Services [address] [place] [address] Jesusita Nickerson MD [address] [facility] [place] [address] Social History Tobacco Use Types Packs/Day Years [...] on filedocumented in this encounter Care Teams Paver Installer Relationship Specialty Start Date End Date Brie Carrington PA [address] [place] [address] PCP - General PHYSICIAN HEALTHCARE LIAISON 02/18/19 06/11/22 documented as of this encounter
--- OUTSIDE RECORDS SUMMARY | 2024-04-13 23:01 | XMS_ITS | Encounter Summary ---
Author Organization [facility] Address [address] [place] [address]. [place] [address] [place] [address] Care Team Providers Care Mold Tooler Name Role Phone Unavailable Primary Care Provider Unavailabl e Encounter Details Date Type Department Care Team (Late st Contact Info) Description 01/20/1988 Abstract [facility] [address] [place] [address] , Generic Conversion, Social History Tobacco Use [...]
--- OUTSIDE RECORDS SUMMARY | 2024-04-13 23:01 | XMS_ITS | Encounter Summary ---
Author Organization [facility] Address [address] [place] [address]. [place], [place] [address] [place] [address] Care Team Providers Care Medical Sales Representative Name Role Phone Brie Carrington Primary Care Provider [phone] Reason for Visit * Reason Onset Date Comments Chart Prep 06/08/2022 Encounter Details Date Type Department Care Team (Late st Contact Info) Description 06/08/[address] [address] Emely Ruth RNFA Chart Prep [...] not available thru My Brown's note at [facility]. RN would like to know where EMG was done and when. No answer, left message asking for call back. OGRAPHIC DOUBLE documented in this encounter Plan of Treatment Not on file documented as of this encounter Visit Diagnoses Not on filedocumented in this encounter Care Teams Medical Sales Representative Relationship Specialty Start Date End Date Brie Carrington PA [address] [place] [address] PCP - General PHYSICIAN HOOP MAKER HELPER MACHINE 02/18/19 06/11/22 documented as of this encounter
--- OUTSIDE RECORDS SUMMARY | 2024-04-13 23:01 | XMS_ITS | Encounter Summary ---
Author Organization [facility] Address [facility] [place] [address] [place] [address] Care Team Providers Care Sheet Finisher Name Role Phone Unavailable Primary Care Provider Unavailabl e Encounter Details Date Type Department Care Team (Late st Contact Info) Description 11/05/2015 Orders Only [place] [address] , Generic Conversion, Social History Tobacco Use [...] - 147 MMOL/L 11/05/2015 6:22 AM CDT [facility] POTASSIUM S/P/B 3.4(L) 3.5 - 5.0 MMOL/L 11/05/2015 6:22 AM CDT [facility] CHLORIDE S/P/B 99 98 - 107 MMOL/L 11/05/2015 6:22 AM CDT [facility] CO2 25.1 22 - 29 MMOL/L 11/05/2015 6:22 AM CDT [facility] GLUCOSE 139(H) 70 - 109 MG/DL 11/05/2015 6:22 AM CDT [facility] BUN 9 9 - 21 MG/DL 11/05/2015 6:22 AM T [facility] CREATININE S/P/B 0.69(L) 0.70 - 1.30 MG/DL 11/05/2015 6:22 AM CDT [facility] CALCIUM S/P/B 8.6 8.4 - 10.2 MG/DL 11/05/2015 6:22 AM CDT [facility] EGFR NON-AFR. AMER. 123 >60 ML/MIN/1.7 3 M2 11/05/2015 6:22 AM T [facility] EGFR AFR. AMER. 149 >60 ML/MIN/1.7 3 M2 11/05/2015 6:22 AM T [facility] ANION GAP 8.9 MMOL/L 11/05/2015 6:22 AM T [facility] OSMOLALITY (CALC) 267 MOSM/KG 11/05/2015 6:22 AM T [facility] PLASMA SPECIMEN / Unknown 11/05/2015 5:06 AM CDT 11/05/2015 5:19 AM CDT us Generic Conversion Md [facility] Final R esult [facility] [place] [address], [id number] documented in this encounter Visit Diagnoses Not on filedocumented in this encounter
--- OUTSIDE RECORDS SUMMARY | 2024-04-13 23:01 | XMS_ITS | Encounter Summary ---
Author Organization [facility] Address [facility] [place] [address] [place] [address] Care Team Providers Care Cryptozoologist Name Role Phone Unavailable Primary Care Provider Unavailabl e Encounter Details Date Type Department Care Team (Late st Contact Info) Description 11/07/2015 Orders Only VIMAL CONVERSION [place] [address] , Generic Conversion, Social History Tobacco Use [...] - 147 MMOL/L 11/07/2015 4:58 AM CDT [facility] POTASSIUM S/P/B 3.4(L) 3.5 - 5.0 MMOL/L 11/07/2015 4:58 AM CDT [facility] CHLORIDE S/P/B 101 98 - 107 MMOL/L 11/07/2015 4:58 AM CDT [facility] CO2 25.0 22 - 29 MMOL/L 11/07/2015 4:58 AM CDT [facility] GLUCOSE 126(H) 70 - 109 MG/DL 11/07/2015 4:58 AM CDT [facility] BUN 9 9 - 21 MG/DL 11/07/2015 4:58 AM T [facility] CREATININE S/P/B 0.71 0.70 - 1.30 MG/DL 11/07/2015 4:58 AM T [facility] CALCIUM S/P/B 9.0 8.4 - 10.2 MG/DL 11/07/2015 4:58 AM T [facility] EGFR NON-AFR. AMER. 119 >60 ML/MIN/1.7 3 M2 11/07/2015 4:58 AM T [facility] EGFR AFR. AMER. 144 >60 ML/MIN/1.7 3 M2 11/07/2015 4:58 AM T [facility] ANION GAP 10.0 MMOL/L 11/07/2015 4:58 AM T [facility] OSMOLALITY (CALC) 272 MOSM/KG 11/07/2015 4:58 AM T [facility] PLASMA SPECIMEN / Unknown 11/07/2015 4:14 AM CDT 11/07/2015 4:15 AM CDT us Generic Conversion Md [facility] Final R esult [facility] [place] [address], [id number] documented in this encounter Visit Diagnoses Not on filedocumented in this encounter
--- OUTSIDE RECORDS SUMMARY | 2024-04-13 23:01 | XMS_ITS | Encounter Summary ---
Author Organization [facility] Address [facility] [place] [address] [place] [address] Care Team Providers Care Machine Veneer Repairer Name Role Phone Unavailable Primary Care Provider Unavailabl e Encounter Details Date Type Department Care Team (Late st Contact Info) Description 05/10/2008 Abstract [facility] Emergency Room [address] [place] [address] Social History Tobacco Use Types Packs/Day Years [...]
--- OUTSIDE RECORDS SUMMARY | 2024-04-13 23:01 | XMS_ITS | Encounter Summary ---
Author Organization [facility] Address [facility] [place] [address] [place] [address] Care Team Providers Care Brake Operator Name Role Phone Unavailable Primary Care Provider Unavailabl e Encounter Details Date Type Department Care Team (Late st Contact Info) Description 11/06/2015 Orders [place] [address] , Generic Conversion, Social History Tobacco Use [...] - 10.8 x10'3/uL 11/06/2015 5:43 AM CDT [facility] RBC 4.30(L) 4.50 - 6.10 x10'6/uL 11/06/2015 5:43 AM CDT [facility] HGB 12.8(L) 13.0 - 18.0 G/DL 11/06/2015 5:43 AM CDT [facility] HCT 38.1 37.0 - 52.0 % 11/06/2015 5:43 AM CDT [facility] MCV 88.6 78.0 - 100.0 FL 11/06/2015 5:43 AM CDT [facility] MCH 29.8 27.0 - 31.0 PG 11/06/2015 5:43 AM CDT [facility] MCHC 33.6 33.0 - 36.0 G/DL 11/06/2015 5:43 AM CDT [facility] RDW 12.1 11.5 - 14.5 % 11/06/2015 5:43 AM CDT [facility] PLT 157 150 - 350 x10'3/uL 11/06/2015 5:43 AM CDT [facility] MPV 9.3 7.4 - 10.4 FL 11/06/2015 5:43 AM CDT [facility] ABS. NEUTROPHILS TOTAL 8.31(H) 1.60 - 8.30 x10'3/uL 11/06/2015 5:43 AM CDT [facility] ABS. LYMPHOCYTES 1.07 0.80 - 4.70 x10'3/uL 11/06/2015 5:43 AM CDT [facility] ABS. MONOCYTES 1.15 0.00 - 1.50 x10'3/uL 11/06/2015 5:43 AM CDT [facility] ABS. EOSINOPHILS 0.25 0.00 - 0.40 x10'3/uL 11/06/2015 5:43 AM CDT [facility] ABS. BASOPHILS 0.04 0.00 - 0.20 x10'3/uL 11/06/2015 5:43 AM CDT [facility] ABS. IMMATURE GRANULOCYTES 0.05(H) 0.00 - 0.03 x10'3/uL 11/06/2015 5:43 AM CDT [facility] ABS. NUCLEATED RBC'S 0.00 0.0 x10'3/uL 11/06/2015 5:43 AM CDT [facility] PLASMA SPECIMEN / Unknown 11/06/2015 4:59 AM CDT 11/06/2015 5:10 AM CDT us Generic Conversion Md [facility] Final R esult [facility] [address] [place] [address], [id number] documented in this encounter Visit Diagnoses Not on filedocumented in this encounter
--- OUTSIDE RECORDS SUMMARY | 2024-04-13 23:01 | XMS_ITS | Encounter Summary ---
Author Organization [facility] Address [facility] [place] [address] [place] [address] Care Team Providers Care Clother In Name Role Phone Unavailable Primary Care Provider Unavailabl e Encounter Details Date Type Department Care Team (Late st Contact Info) Description 11/04/2015 Abstract [facility] Surgical [address] [place] [address] Samanta Das MD Tokhi, Ashish, MD [address] [place] [address] Social History Tobacco Use Types Packs/Day Years [...]
--- OUTSIDE RECORDS SUMMARY | 2024-04-13 23:01 | XMS_ITS | Encounter Summary ---
Author Organization [facility] Address [facility] [place] [address] [place] [address] Care Team Providers Care Convertible Sofa Bedspring Tester Name Role Phone Unavailable Primary Care Provider Unavailabl e Encounter Details Date Type Department Care Team (Late st Contact Info) Description 09/21/2007 Abstract [facility] Emergency Room [address] [place] [address] Julio C Mullins MD [address] [place] [address] Social History Tobacco Use Types Packs/Day Years [...]
--- OUTSIDE RECORDS SUMMARY | 2024-04-13 23:01 | XMS_ITS | Encounter Summary ---
Author Organization [facility] Address [address] [place] [address]. [place], [place] [address] [place] [address] Care Team Providers Care Supervisor Machining Name Role Phone Brie Carrington Primary Care Provider [phone] Encounter Details Date Type Department Care Team [...] filedocumented in this encounter Care Teams Supervisor Machining Relationship Specialty Start Date End Date Brie Carrington PA [address] [place] [address] PCP - General PHYSICIAN RN CCU 02/18/19 06/11/22 documented as of this encounter
--- OUTSIDE RECORDS SUMMARY | 2024-04-13 23:01 | XMS_ITS | Encounter Summary ---
Author Organization [facility] Address [facility]6 [facility] [place] [address] [place] [address] Care Team Providers Care Market Consultant Name Role Phone Unavailable Primary Care Provider Unavailabl e Encounter Details Date Type Department Care Team (Late st Contact Info) Description 11/03/2015 Abstract [facility] [address] [place] [address] Social History Tobacco Use Types Packs/Day Years [...]
--- OUTSIDE RECORDS SUMMARY | 2024-04-13 23:01 | XMS_ITS | Encounter Summary ---
Author Organization [facility] Address [facility] [place] [address] [place] [address] Care Team Providers Care Nuclear Control Operator Name Role Phone Unavailable Primary Care Provider Unavailabl e Encounter Details Date Type Department Care Team (Late st Contact Info) Description 11/04/2015 Orders Only [place] [address] , Generic Conversion, Social History Tobacco Use [...] - 35.0 SEC 11/04/2015 7:32 PM CDT [facility] PLASMA SPECIMEN / Unknown 11/04/2015 7:07 PM CDT 11/04/2015 7:09 PM CDT us Generic Conversion Md [facility] Final R esult [facility] [address] [place] [address], [id number] documented in this encounter Visit Diagnoses Not on filedocumented in this encounter
--- OUTSIDE RECORDS SUMMARY | 2024-04-13 23:01 | XMS_ITS | Encounter Summary ---
Author Organization [facility] Address [facility] [place] [address] [place] [address] Care Team Providers Care Automotive Internet Sales Manager Name Role Phone Unavailable Primary Care Provider Unavailabl e Encounter Details Date Type Department Care Team (Late st Contact Info) Description 05/30/2004 Abstract [facility] Emergency Room [address] [place] [address] Social History Tobacco Use Types Packs/Day Years [...]
--- OUTSIDE RECORDS SUMMARY | 2024-04-13 23:01 | XMS_ITS | Encounter Summary ---
Author Organization [facility] Address [address] [place] [address]. [place] [address] [place] [address] Care Team Providers Care Hoop Riveter Name Role Phone Brie Carrington Primary Care Provider [phone] Quentin Gurrola MD Primary Care Provider [phone] Encounter Details Date Type Department Care Team (Late st Contact Info) Description 09/07/2018 Abstract [facility] [address] [place] [address] , Generic ConversionMD Social History Tobacco Use [...] on filedocumented in this encounter Care Teams Hoop Riveter Relationship Specialty Start Date End Date Brie Carrington PA [address] [place] [address] PCP - General PHYSICIAN HARPSICHORD MAKER 02/18/19 06/11/22 Quentin Gurrola MD [address] [place] [address] PCP - General 06/12/22 documented as of this encounter
--- OUTSIDE RECORDS SUMMARY | 2024-04-13 23:01 | XMS_ITS | Encounter Summary ---
Author Organization [facility] Address [address] [place] [address]. [place] [address] [place] [address] Care Team Providers Care Furnace Combination Analyst Name Role Phone Brie Carrington Primary Care Provider [phone] Quentin Gurrola MD Primary Care Provider [phone] Encounter Details Date Type Department Care Team (Late st Contact Info) Description 06/16/2017 Abstract [facility] [address] [place] [address] , Generic ConversionMD Social History Tobacco Use [...] on filedocumented in this encounter Care Teams Furnace Combination Analyst Relationship Specialty Start Date End Date Brie Carrington PA [address] [place] [address] PCP - General PHYSICIAN MICA SPLITTER 02/18/19 06/11/22 Quentin Gurrola MD [address] [place] [address] PCP - General 06/12/22 documented as of this encounter
--- OUTSIDE RECORDS SUMMARY | 2024-04-13 23:01 | XMS_ITS | Encounter Summary ---
Author Organization [facility] Address [address] [place] [address]. [place], [place] [address] [place] [address] Care Team Providers Care Gun Examiner Name Role Phone Quentin Gurrola MD Primary Care Provider [phone] Encounter Details Date Type Department Care Team [...] on filedocumented in this encounter Care Teams Gun Examiner Relationship Specialty Start Date End Date Quentin Gurrola MD [address] [place] [address] PCP - General 06/12/22 documented as of this encounter
--- OUTSIDE RECORDS SUMMARY | 2024-04-13 23:01 | XMS_ITS | Encounter Summary ---
Author Organization [facility] Address [facility]. [place], [place] [address] [place] [address] Care Team Providers Care Home Stereo Equipment Installer Name Role Phone Unavailable Primary Care Provider Unavailabl e Encounter Details Date Type Department Care Team (Latest Contact Info) Description 11/07/2015 Abstract [facility] Social History Tobacco Use [...]
--- OUTSIDE RECORDS SUMMARY | 2024-04-13 23:01 | XMS_ITS | Encounter Summary ---
Author Organization [facility] Address [address] [place] [address] [place] [address] Care Team Providers Care Media Marketing Coordinator Name Role Phone Unavailable Primary Care Provider Unavailabl e Encounter Details Date Type Department Care Team (Late st Contact Info) Description 08/07/2016 Emergency [facility] Emergency [address] [place] [address] Leatha Rapp FNP [address] [place] [id number] Social History Tobacco Use Types Packs/Day Years [...]
--- OUTSIDE RECORDS SUMMARY | 2024-04-13 23:01 | XMS_ITS | Encounter Summary ---
Author Organization [facility] Address [facility] [address] [place] [address] Care Team Providers Care Customer Service Clerk Name Role Phone Unavailable Primary Care Provider Unavailabl e Encounter Details Date Type Department Care Team (Late st Contact Info) Description 11/06/2015 Orders Only [place] [address] , Generic Conversion, Social History Tobacco Use [...] - 147 MMOL/L 11/06/2015 6:21 AM CDT [facility] POTASSIUM S/P/B 3.2(L) 3.5 - 5.0 MMOL/L 11/06/2015 6:21 AM CDT [facility] CHLORIDE S/P/B 99 98 - 107 MMOL/L 11/06/2015 6:21 AM CDT [facility] CO2 26.2 22 - 29 MMOL/L 11/06/2015 6:21 AM CDT [facility] GLUCOSE 156(H) 70 - 109 MG/DL 11/06/2015 6:21 AM CDT [facility] BUN 7(L) 9 - 21 MG/DL 11/06/2015 6:21 AM CDT [facility] CREATININE S/P/B 0.67(L) 0.70 - 1.30 MG/DL 11/06/2015 6:21 AM CDT [facility] CALCIUM S/P/B 8.6 8.4 - 10.2 MG/DL 11/06/2015 6:21 AM CDT [facility] EGFR NON-AFR. AMER. 127 >60 ML/MIN/1.7 3 M2 11/06/2015 6:21 AM T [facility] EGFR AFR. AMER. 154 >60 ML/MIN/1.7 3 M2 11/06/2015 6:21 AM T [facility] ANION GAP 8.8 MMOL/L 11/06/2015 6:21 AM T [facility] OSMOLALITY (CALC) 269 MOSM/KG 11/06/2015 6:21 AM T [facility] PLASMA SPECIMEN / Unknown 11/06/2015 4:59 AM CDT 11/06/2015 5:10 AM CDT us Generic Conversion Md [facility] Final R esult [facility] [place] [address], [id number] documented in this encounter Visit Diagnoses Not on filedocumented in this encounter
--- OUTSIDE RECORDS SUMMARY | 2024-04-13 23:01 | XMS_ITS | Encounter Summary ---
Author Organization [facility] Address [facility] [place] [address] [place] [address] Care Team Providers Care Psych Tech Name Role Phone Unavailable Primary Care Provider Unavailabl e Encounter Details Date Type Department Care Team (Late st Contact Info) Description 11/04/2015 Orders Only [place] [address] , Generic Conversion, Social History Tobacco Use [...] - 147 MMOL/L 11/04/2015 7:36 PM CDT [facility] POTASSIUM S/P/B 3.6 3.5 - 5.0 MMOL/L 11/04/2015 7:36 PM CDT [facility] CHLORIDE S/P/B 100 98 - 107 MMOL/L 11/04/2015 7:36 PM CDT [facility] CO2 23.1 22 - 29 MMOL/L 11/04/2015 7:36 PM T [facility] GLUCOSE 130(H) 70 - 109 MG/DL 11/04/2015 7:36 PM T [facility] BUN 11 9 - 21 MG/DL 11/04/2015 7:36 PM T [facility] CREATININE S/P/B 0.77 0.70 - 1.30 MG/DL 11/04/2015 7:36 PM CDT [facility] CALCIUM S/P/B 9.0 8.4 - 10.2 MG/DL 11/04/2015 7:36 PM CDT [facility] BILIRUBIN TOTAL S/P/B 1.0 0.2 - 1.2 MG/DL 11/04/2015 7:36 PM T [facility] ALKALINE PHOSPHATASE S/P/B 57 45 - 115 U/L 11/04/2015 7:36 PM T [facility] AST 17 5 - 35 U/L 11/04/2015 7:36 PM T [facility] ALT 29 0 - 55 U/L 11/04/2015 7:36 PM T [facility] TOTAL PROTEIN S/P/B 7.1 6.0 - 8.3 G/DL 11/04/2015 7:36 PM T [facility] ALBUMIN S/P/B 3.8 3.4 - 4.9 G/DL 11/04/2015 7:36 PM T [facility] ANION GAP 9.9 MMOL/L 11/04/2015 7:36 PM T [facility] OSMOLALITY (CALC) 268 MOSM/KG 11/04/2015 7:36 PM T [facility] EGFR NON-AFR. AMER. 108 >60 ML/MIN/1.7 3 M2 11/04/2015 7:36 PM T [facility] EGFR AFR. AMER. 131 >60 ML/MIN/1.7 3 M2 11/04/2015 7:36 PM T [facility] PLASMA SPECIMEN / Unknown 11/04/2015 7:07 PM CDT 11/04/2015 7:09 PM CDT us Generic Conversion Md [facility] Final R esult [facility] [address] [place] [address], [id number] documented in this encounter Visit Diagnoses Not on filedocumented in this encounter
--- OUTSIDE RECORDS SUMMARY | 2024-04-13 23:01 | XMS_ITS | Encounter Summary ---
Author Organization [facility] Address [address] [place] [address]. [place] [address] [place] [address] Care Team Providers Care Chief Security And Safety Officer Name Role Phone Quentin Gurrola MD Primary Care Provider [phone] Encounter Details Date Type Department Care Team (Late st Contact Info) Description 06/13/2022 4:43 PM CDT - 06/13/2022 11:59 PM CDT Hospital Encounter [facility] Diagnostic Imaging [address] [place] [address] Olaf Harris, [facility] [address] [place] [address] Discharge Disposition: Home or Self Care (Routine [...] MD, 06/14/2022 10:36 AM us Olaf Harris GREENSTONE POLISHER OPERATOR-BC GENERAL IMAGING Final Resu lt documented in this encounter Visit Diagnoses Diagnosis Right elbow pain Pain in joint, upper arm documented in this encounter Care Teams Chief Security And Safety Officer Relationship Specialty Start Date End Date Quentin Gurrola MD [address] [place] [address] PCP - General 06/12/22 documented as of this encounter
--- OUTSIDE RECORDS SUMMARY | 2024-04-13 23:01 | XMS_ITS | Encounter Summary ---
Author Organization [facility] Address [address] [place] [address]. [place], [place] [address] [place] [address] Care Team Providers Care Corn Crop Supervisor Name Role Phone Quentin Gurrola MD Primary Care Provider [phone] Reason for Referral * Consultation (Routine) - Closed Specialty Diagnoses / Procedures Referred By Contact Referred To Contact NEUROLOGY / [facility] Orthopaedics Diagnoses Ulnar neuropathy of right upper extremity Numbness and tingling in both hands Carpal tunnel syndrome of right wrist Procedures OFFICE/OUTPT VISIT,NEW,LEVL III OFFICE/OUTPT VISIT,NEW,LEVL IV OFFICE/OUTPT VISIT,NEW,LEVL V OFFICE/OUTPT VISIT,EST,LEVL III OFFICE/OUTPT VISIT,EST,LEVL IV OFFICE/OUTPT VISIT,EST,LEVL V Olaf Harris FNP-BC [address] [place] [address] [place] [address] Phone: tel: fax: [place] [address] Phone: tel: fax: Referral ID Status Reason Start Date Expiration Date V isits Requested Visits Authorized [id number] Closed Specialty Services 06/13/2022 06/14/2023 [address] Ron please perform BILATERAL upper extremity EMG's. Reason for Visit * Reason Comments Hand Pain RIGHT New Patient Encounter Details Date Type Department Care Team (Late [facility]) Description 06/13/2022 3:45 PM CDT Office Visit [facility] [place] [address] [facility] [place] [address] Olaf Harris FNP-JASON [address] [place] [address] Hand Pain (RIGHT); New Patient Social History [...] Date ??? COPD (chronic obstructive pulmonary disease) ([facility]) ??? Diabetes mellitus (CMS/HCC) ??? Hypertension ??? [...] set up to have EMG studies in [place]. He will follow- up once his EMGs [...] MD, 06/14/2022 10:36 AM us Olaf Harris REFRIGERATING ENGINEER-BC GENERAL IMAGING Final Resu lt documented in this encounter Visit Diagnoses Diagnosis Ulnar neuropathy of right upper extremity- Primary Lesion of ulnar nerve Numbness and tingling in both hands Carpal tunnel syndrome of right wrist Carpal tunnel syndrome Right elbow pain Pain in joint, upper arm documented in this encounter Care Teams Corn Crop Supervisor Relationship Specialty Start Date End Date Quentin Gurrola MD [address] [place] [address] PCP - General 06/12/22 documented as of this encounter
--- OUTSIDE RECORDS SUMMARY | 2024-04-13 23:01 | XMS_ITS | Encounter Summary ---
Author Organization [facility] Address [facility] [place] [address] [place] [address] Care Team Providers Care Inspector Agricultural Commodities Name Role Phone Unavailable Primary Care Provider Unavailabl e Encounter Details Date Type Department Care Team (Late st Contact Info) Description 11/04/2015 Orders Only [place] [address] , Generic Conversion, Social History Tobacco Use [...] - 10.8 x10'3/uL 11/04/2015 7:14 PM CDT [facility] RBC 4.69 4.50 - 6.10 x10'6/uL 11/04/2015 7:14 PM CDT [facility] HGB 14.1 13.0 - 18.0 G/DL 11/04/2015 7:14 PM CDT [facility] HCT 40.5 37.0 - 52.0 % 11/04/2015 7:14 PM CDT [facility] MCV 86.4 78.0 - 100.0 FL 11/04/2015 7:14 PM CDT [facility] MCH 30.1 27.0 - 31.0 PG 11/04/2015 7:14 PM CDT [facility] MCHC 34.8 33.0 - 36.0 G/DL 11/04/2015 7:14 PM CDT [facility] RDW 12.5 11.5 - 14.5 % 11/04/2015 7:14 PM CDT [facility] PLT 168 150 - 350 x10'3/uL 11/04/2015 7:14 PM CDT [facility] MPV 9.0 7.4 - 10.4 FL 11/04/2015 7:14 PM CDT [facility] ABS. NEUTROPHILS TOTAL 10.33(H) 1.60 - 8.30 x10'3/uL 11/04/2015 7:14 PM CDT [facility] ABS. LYMPHOCYTES 1.73 0.80 - 4.70 x10'3/uL 11/04/2015 7:14 PM CDT [facility] ABS. MONOCYTES 1.24 0.00 - 1.50 x10'3/uL 11/04/2015 7:14 PM CDT [facility] ABS. EOSINOPHILS 0.03 0.00 - 0.40 x10'3/uL 11/04/2015 7:14 PM CDT [facility] ABS. BASOPHILS 0.04 0.00 - 0.20 x10'3/uL 11/04/2015 7:14 PM CDT [facility] ABS. IMMATURE GRANULOCYTES 0.07(H) 0.00 - 0.03 x10'3/uL 11/04/2015 7:14 PM CDT [facility] ABS. NUCLEATED RBC'S 0.00 0.0 x10'3/uL 11/04/2015 7:14 PM CDT [facility] PLASMA SPECIMEN / Unknown 11/04/2015 7:07 PM CDT 11/04/2015 7:09 PM CDT us Generic Conversion Md [facility] Final R esult [facility] [address] [place] [address], [id number] documented in this encounter Visit Diagnoses Not on filedocumented in this encounter
--- OUTSIDE RECORDS SUMMARY | 2024-04-13 23:01 | XMS_ITS | Encounter Summary ---
Author Organization [facility] Address [facility] [place] [address] [place] [address] Care Team Providers Care Leasing Coordinator Name Role Phone Brie Carrington Primary Care Provider [phone] Encounter Details Date Type Department Care Team (Late st Contact Info) Description 01/16/2005 Abstract [facility] Emergency Services [address] [place] [address] Franki Tobar, DO [address] [place] [address] Social History Tobacco Use Types Packs/Day Years [...] on filedocumented in this encounter Care Teams Leasing Coordinator Relationship Specialty Start Date End Date Brie Carrington PA [address] [place] [address] PCP - General PHYSICIAN ABRASIVE GRINDER 02/18/19 06/11/22 documented as of this encounter
--- OUTSIDE RECORDS SUMMARY | 2024-04-13 23:01 | XMS_ITS | Encounter Summary ---
Author Organization [facility] Address [address] [place] [address]. [place] [address] [place] [address] Care Team Providers Care Middle School Technology Teacher Name Role Phone Brie Carrington Primary Care Provider [phone] Reason for Visit * Imaging (Routine) - Closed Specialty Diagnoses / Procedures Referred By Contac t Referred To Contact RADIOLOGY Diagnoses Numbness Procedures US UP EXT NONVASC LTD RT US UP EXT NONVASC COMP RT Moy Brown MD Phone: tel: fax: Referral ID Status Reason Start Date Expiration Date Visits Re quested Visits Authorized [id number] Closed 02/17/2019 03/19/2020 1 1 Encounter Details Date Type Department Care Team (Latest Contact Info) Description 02/20/2019 9:53 AM USED [facility] - 02/20/2019 11:59 PM USED [facility] Hospital Encounter Long Ultrasound [address] [place] [address] [place] [address] [place] [address] Discharge Disposition: Home or Self Care (Routine [...] NONVASC LTD RT Routine 02/20/2019 10:27 AM USED [facility] Numbness documented in this encounter Results * US UP EXT NONVASC LTD RT (02/20/2019 10:27 AM USED [facility]) Anatomical Region Laterality Modality Extremity Ultrasound 02/25/2019 12:5 3 PM USED [facility] Impressions 02/25/2019 12:56 PM USED [facility] IMPRESSION: 1) Normal appearance of the right median nerve in the mid forearm region. 2. As it approaches the carpal tunnel from proximal to distal the median nerve becomes thickened, hypoechoic and swollen consistent with diffuse inflammation. Interpreted By: Ulises Nair MD, 02/25/2019 12:53 PM Narrative 02/25/2019 12:56 PM USED [facility] Examination: US UP EXT NONVASC LTD RT [...] sensation documented in this encounter Care Teams Middle School Technology Teacher Relationship Specialty Start Date End Date Brie Carrington PA [address] [place] [address] PCP - General PHYSICIAN MEDICAL OFFICE ASSISTANT 02/18/19 06/11/22 documented as of this encounter
--- OUTSIDE RECORDS SUMMARY | 2024-04-13 23:01 | XMS_ITS | Encounter Summary ---
Author Organization [facility] Address [facility] [place] [address] [place] [address] Care Team Providers Care Payroll Benefits Administrator Name Role Phone Unavailable Primary Care Provider Unavailabl e Encounter Details Date Type Department Care Team (Late st Contact Info) Description 11/04/2015 Abstract [facility] [address] [facility] [address] [address] Yrn Dc MD [address] [place] [id number] Social History Tobacco Use Types Packs/Day Years [...]
--- OUTSIDE RECORDS SUMMARY | 2024-04-13 23:01 | XMS_ITS | Encounter Summary ---
Author Organization [facility] Address [address] [place] [address]. [place] [address] [place] [address] Care Team Providers Care Weed Cutter Name Role Phone Brie Carrington Primary Care Provider [phone] Encounter Details Date Type Department Care Team (Latest Contact Info) Description 07/01/2019 5:51 PM CDT - 07/01/2019 11:59 PM CDT Hospital Encounter [facility] [address] [place] [address] Brie Carrington PA [address] [place] [address] Discharge Disposition: Home or Self Care (Routine [...] breath documented in this encounter Care Teams Weed Cutter Relationship Specialty Start Date End Date Brie Carrington PA [address] [place] [address] PCP - General PHYSICIAN PRODUCTION BORING MACHINE OPERATOR 02/18/19 06/11/22 documented as of this encounter
--- OUTSIDE RECORDS SUMMARY | 2024-04-13 23:01 | XMS_ITS | Encounter Summary ---
Author Organization [facility] Address [facility]. [place], [place] [address] [place] [address] Care Team Providers Care Graduate Student Instructor Name Role Phone Unavailable Primary Care Provider Unavailabl e Encounter Details Date Type Department Care Team (Latest Contact Info) Description 08/30/2016 Abstract [facility] Medical Group Social History Tobacco Use Types [...]
--- OUTSIDE RECORDS SUMMARY | 2024-04-13 23:01 | XMS_ITS | Encounter Summary ---
Author Organization [facility] Address [facility] [place], [place] [address] [place] [address] Care Team Providers Care Welder Manufacture Name Role Phone Unavailable Primary Care Provider Unavailabl e Encounter Details Date Type Department Care Team (Latest Contact Info) Description 11/05/2015 Abstract [facility] Medical Group Social History Tobacco [...]
--- OUTSIDE RECORDS SUMMARY | 2024-04-13 23:01 | XMS_ITS | Encounter Summary ---
Author Organization [facility] Address [facility] [place] [address] [place] [address] Care Team Providers Care Strategic Planning Specialist Name Role Phone Unavailable Primary Care Provider Unavailabl e Encounter Details Date Type Department Care Team (Late st Contact Info) Description 11/04/2015 Orders [place] [address] , Generic Conversion, Social History Tobacco Use [...] - 14.3 SEC 11/04/2015 7:31 PM CDT [facility] INR 1.2(H) 0.9 - 1.1 11/04/2015 7:31 PM CDT [facility] 11/04/2015 7:07 PM CDT 11/04/2015 7:09 PM CDT Generic Conversion Md [facility] Final R esult [facility] [address] [place] [address], [id number] documented in this encounter Visit Diagnoses Not on filedocumented in this encounter
--- OUTSIDE RECORDS SUMMARY | 2024-04-13 23:01 | XMS_ITS | Encounter Summary ---
Author Organization [facility] Address [address] [place] [address]. [place] [address] [place] [address] Care Team Providers Care Cabin Supervisor Name Role Phone Brie Carrington Primary Care Provider [phone] Reason for Visit * Reason Onset Date Comments Record Request 06/09/2022 Encounter Details Date Type Department Care Team (Late st Contact Info) Description 06/09/[address] [address] Emely Ruth RNFA Record Request Social History [...] 2020, they will fax at this time. COVERY PROJECT MANAGER documented in this encounter Plan of Treatment Not on file documented as of this encounter Visit Diagnoses Not on filedocumented in this encounter Care Teams Cabin Supervisor Relationship Specialty Start Date End Date Brie Carrington PA [address] [place] [address] PCP - General PHYSICIAN RESERVE OPERATOR 02/18/19 06/11/22 documented as of this encounter
--- OUTSIDE RECORDS SUMMARY | 2024-04-13 23:01 | XMS_ITS | Encounter Summary ---
Author Organization [facility] Address [facility]. [place], [place] [address] [place] [address] Care Team Providers Care Point Of Care Technician Name Role Phone Unavailable Primary Care Provider Unavailabl e Encounter Details Date Type Department Care Team (Latest Contact Info) Description 11/08/2015 Abstract [facility] Medical Group Social History Tobacco Use Types [...]
--- OUTSIDE RECORDS SUMMARY | 2024-04-13 23:01 | XMS_ITS | Encounter Summary ---
Author Organization [facility] Address [facility] [address] [place] [address] Care Team Providers Care Transition Lead Name Role Phone Unavailable Primary Care Provider Unavailabl e Encounter Details Date Type Department Care Team (Late st Contact Info) Description 11/07/2015 Orders [place] [address] , Generic Conversion, Social History Tobacco Use [...] - 10.8 x10'3/uL 11/07/2015 4:29 AM CDT [facility] RBC 4.55 4.50 - 6.10 x10'6/uL 11/07/2015 4:29 AM CDT [facility] HGB 13.5 13.0 - 18.0 G/DL 11/07/2015 4:29 AM CDT [facility] HCT 39.5 37.0 - 52.0 % 11/07/2015 4:29 AM CDT [facility] MCV 86.8 78.0 - 100.0 FL 11/07/2015 4:29 AM CDT [facility] MCH 29.7 27.0 - 31.0 PG 11/07/2015 4:29 AM CDT [facility] MCHC 34.2 33.0 - 36.0 G/DL 11/07/2015 4:29 AM CDT [facility] RDW 11.9 11.5 - 14.5 % 11/07/2015 4:29 AM CDT [facility] PLT 197 150 - 350 x10'3/uL 11/07/2015 4:29 AM CDT [facility] MPV 9.0 7.4 - 10.4 FL 11/07/2015 4:29 AM CDT [facility] ABS. NEUTROPHILS TOTAL 6.53 1.60 - 8.30 x10'3/uL 11/07/2015 4:29 AM CDT [facility] ABS. LYMPHOCYTES 1.44 0.80 - 4.70 x10'3/uL 11/07/2015 4:29 AM CDT [facility] ABS. MONOCYTES 1.22 0.00 - 1.50 x10'3/uL 11/07/2015 4:29 AM CDT [facility] ABS. EOSINOPHILS 0.32 0.00 - 0.40 x10'3/uL 11/07/2015 4:29 AM CDT [facility] ABS. BASOPHILS 0.03 0.00 - 0.20 x10'3/uL 11/07/2015 4:29 AM CDT [facility] ABS. IMMATURE GRANULOCYTES 0.05(H) 0.00 - 0.03 x10'3/uL 11/07/2015 4:29 AM CDT [facility] ABS. NUCLEATED RBC'S 0.00 0.0 x10'3/uL 11/07/2015 4:29 AM CDT [facility] PLASMA SPECIMEN / Unknown 11/07/2015 4:14 AM CDT 11/07/2015 4:15 AM CDT us Generic Conversion Md [facility] Final R esult [facility] [address] [place] [address], [id number] documented in this encounter Visit Diagnoses Not on filedocumented in this encounter
--- OUTSIDE RECORDS SUMMARY | 2024-04-13 23:01 | XMS_ITS | Encounter Summary ---
Author Organization [facility] Address [facility] [place] [address] [place] [address] Care Team Providers Care Board Machine Set Up Operator Name Role Phone Unavailable Primary Care Provider Unavailabl e Encounter Details Date Type Department Care Team (Late st Contact Info) Description 11/04/2015 Orders [place] [address] , Generic Conversion, Social History Tobacco Use [...] - 2.0 MMOL/L 11/04/2015 7:33 PM CDT [facility] PLASMA SPECIMEN / Unknown 11/04/2015 7:07 PM CDT 11/04/2015 7:09 PM CDT us Generic Conversion Md [facility] Final R esult [facility] [place] [address], [id number] documented in this encounter Visit Diagnoses Not on filedocumented in this encounter
--- OUTSIDE RECORDS SUMMARY | 2024-04-13 23:01 | XMS_ITS | Encounter Summary ---
Author Organization [facility] Address [facility] [place] [address] [place] [address] Care Team Providers Care Crematory Attendant Name Role Phone Unavailable Primary Care Provider Unavailabl e Encounter Details Date Type Department Care Team (Late st Contact Info) Description 02/19/2004 Abstract [facility] Emergency Room [address] [place] [address] Wally Yoder MD [address] , [facility] [address] [place] [address] Social History Tobacco Use Types [...]
--- OUTSIDE RECORDS SUMMARY | 2024-04-13 23:01 | XMS_ITS | Encounter Summary ---
Author Organization [facility] Address [facility]. [place], [place] [address] [place] [address] Care Team Providers Care Seismograph Helper Name Role Phone Unavailable Primary Care Provider Unavailabl e Encounter Details Date Type Department Care Team (Latest Contact Info) Description 08/08/2016 Abstract [facility] Social History Tobacco Use [...]
--- OUTSIDE RECORDS SUMMARY | 2024-04-13 23:01 | XMS_ITS | Encounter Summary ---
Author Organization [facility] Address [facility] [place] [address] [place] [address] Care Team Providers Care Workcell Operator Name Role Phone Unavailable Primary Care Provider Unavailabl e Encounter Details Date Type Department Care Team (Late st Contact Info) Description 11/05/2015 Orders [place] [address] , Generic Conversion, Social History Tobacco Use [...] - 10.8 x10'3/uL 11/05/2015 6:04 AM CDT [facility] RBC 4.49(L) 4.50 - 6.10 x10'6/uL 11/05/2015 6:04 AM CDT [facility] HGB 13.4 13.0 - 18.0 G/DL 11/05/2015 6:04 AM CDT [facility] HCT 39.4 37.0 - 52.0 % 11/05/2015 6:04 AM CDT [facility] MCV 87.8 78.0 - 100.0 FL 11/05/2015 6:04 AM CDT [facility] MCH 29.8 27.0 - 31.0 PG 11/05/2015 6:04 AM CDT [facility] MCHC 34.0 33.0 - 36.0 G/DL 11/05/2015 6:04 AM CDT [facility] RDW 12.2 11.5 - 14.5 % 11/05/2015 6:04 AM CDT [facility] PLT 154 150 - 350 x10'3/uL 11/05/2015 6:04 AM CDT [facility] MPV 9.5 7.4 - 10.4 FL 11/05/2015 6:04 AM CDT [facility] ABS. NEUTROPHILS TOTAL 9.71(H) 1.60 - 8.30 x10'3/uL 11/05/2015 6:33 AM CDT [facility] ABS. NEUTROPHILS CALCULATED 9.04(H) 1.60 - 7.30 x10'3/uL 11/05/2015 6:33 AM CDT [facility] BANDS 0.67 0.00 - 1.00 x10'3/uL 11/05/2015 6:33 AM CDT [facility] ABS. LYMPHOCYTES 1.60 0.80 - 4.70 x10'3/uL 11/05/2015 6:33 AM CDT [facility] ABS. MONOCYTES 1.73(H) 0.00 - 1.50 x10'3/uL 11/05/2015 6:33 AM CDT [facility] ABS. EOSINOPHILS 0.27 0.00 - 0.40 x10'3/uL 11/05/2015 6:33 AM CDT [facility] ABS. BASOPHILS 0.00 0.00 - 0.20 x10'3/uL 11/05/2015 6:33 AM CDT [facility] ABS. NUCLEATED RBC'S 0.00 0.0 x10'3/uL 11/05/2015 6:33 AM CDT [facility] RBC MORPHOLOGY ANISOCYTOSIS 11/05/19 16 6:33 AM CDT [facility] Comment: SLIGHT POLYCHROMASIA SLIGHT PLT MORPH. NORMAL 11/05/2015 6:33 AM CDT [facility] PLASMA SPECIMEN / Unknown 11/05/2015 5:06 AM CDT 11/05/2015 5:19 AM CDT us Generic Conversion Md [facility] Final R esult [facility] [address] [place] [address], [place] [phone] [id number] documented in this encounter Visit Diagnoses Not on filedocumented in this encounter
--- OUTSIDE RECORDS SUMMARY | 2024-04-13 23:05 | XMS_ITS | Encounter Summary ---
Author Organization [facility] Address [address] [place] [address] Phone Care Team Providers Care Jet Pilot Name Role Phone Brie Carrington Primary Care Provider +1 -[phone] Reason for Visit * Reason Onset Date Comments [id number] 03/17/2019 Encounter Details Date Type Department Care Team (Late st Contact Info) Description 03/17/2019 Telephone [facility] Orthopaedic Surgery [address] [facility] [address] [place] [address] Crystal Alcocer, RMA [id number] RB Social History Tobacco Use Types Packs/Day Years Used Date Smoking Tobacco: Every Day Cigarettes 1.5 40 Started: 1984 Smokeless Tobacco: Never Alcohol Use Standard Drinks/Week Comments Yes 0 (1 standard drink = 0.6 oz pur e alcohol) occasional, 5 per week Sex and Gender Information Value Date Recorded Sex Assigned at Not on file Legal Sex Male 9:26 AM BAGGAGE PORTER HEAD Gender Identity Not on file Sexual Orientation Not on file documented as of this encounter Miscellaneous Notes * Telephone Encounter - Radha Howard - 03/27/2019 2:10 PM CST 03.27.19 210 SPOKE WITH CHAVA HE IS GOING TO OVERRIDE UR DECISION AND AUTH SURGERY-MR AGE PORTER HEAD * Telephone Encounter - Radha Howard - 03/27/2019 1:35 PM CST 03.27.19 135 MAIL ROOM IS GOING TO REVIEW DENIAL FROM UR AND WILL CALL BACK TO LET US KNOW IF WE NEED TO APPEAL DECISION-MR AGE PORTER HEAD * Telephone Encounter - Crystal Alcocer RMA - 03/17/2019 8:06 AM BAGGAGE PORTER HEAD AUTHORIZATION for Procedure or Ancillary Services PRE-CERT COMPLETED Primary Ins or Work Comp: Completed by: CRYSTAL Date called: 03/17/19 Ins. Co.: [employer] Phone #: [phone] CHAVA CURRAN / [phone] ROXIE MEHTA ID #: [id number] Authorized by: LMOM FOR CHAVA (ROXIE WAS OOO) REQUESTING AUTH FOR SURGERY-LM Authorization #: Effective date of coverage: 07/08/18 Pre-Existing Clause: [ ] # visits/injections approved: [ ] Expiration date: [ ] AGE PORTER HEAD documented in this encounter Plan of Treatment Not on file documented as of this encounter Visit Diagnoses Not on filedocumented in this encounter Care Teams Jet Pilot Relationship Specialty Start Date End Date Brie Carrington PA [address] [place] [address] PCP - General Emergency Medicine 09/26/18 documented as of this encounter
--- OUTSIDE RECORDS SUMMARY | 2024-04-13 23:05 | XMS_ITS | Encounter Summary ---
Author Organization [facility] Address [address] [place] [address] Care Team Providers Care Yeast Stacker Name Role Phone Brie Carrington Primary Care Provider +1 [phone] Encounter Details Date Type Department Care Team (Late st Contact Info) Description 04/30/2019 8:45 AM INTERACTIVE ART DIRECTOR - 04/30/2019 10:00 AM [facility] Surgery [facility] [address] [place] [address] Moy Brown MD [address] [place] [address] [address] [place] [address] RIGHT CUBITAL TUNNEL DECOMPRESSION, DISTAL ULNAR TUNNEL DECOMPRESSION, REVISION CARPAL TUNNEL RELEASE EXTENDING INTO THE FOREARM. Surgery Details Date/Time Status Location OR Service Patient Class Case Class Case Type Trauma Case? 04/30/2019 8:45 AM Posted [facility] Orthopaedics Outpatient [...] Orthopaedics 1 [facility] documented in this [...] on file Legal Sex Male 9:26 AM INTERACTIVE ART DIRECTOR Gender Identity Not on file Sexual Orientation Not on file documented as of this encounter Last Filed Vital Signs Vital Sign Reading Time Taken Comments Blood Pressure 136/88 04/30/2019 9:55 AM INTERACTIVE ART DIRECTOR Pulse 85 04/30/2019 10:00 AM INTERACTIVE ART DIRECTOR Temperature 36.7 ??C (98.1 ??F) 04/30/2019 9:36 AM CS T Respiratory Rate 14 04/30/2019 10:0 0 AM INTERACTIVE ART DIRECTOR Oxygen Saturation 92% 04/30/2019 10: 00 AM INTERACTIVE ART DIRECTOR Inhaled Oxygen Concentration - - Weight 126.9 kg (279 lb 11.2 oz) 04/30/2019 7:13 AM INTERACTIVE ART DIRECTOR Height 177.8 cm (5' 10 ) 04/30/2019 7:13 AM INTERACTIVE ART DIRECTOR Body Mass Index 40.13 04/30/2019 7:13 AM INTERACTIVE ART DIRECTOR documented in this encounter Discharge Instructions * Discharge Instructions* Moy Brown MD - 04/30/2019 9:37 AM INTERACTIVE ART DIRECTOR Orthopedic Surgery with Long Arm Splint Postoperative [...] surgeon or your surgeon???s nurse or medical office supervisor if you have anyquestions about your postoperative care. If you have any questions, please call our office at Orthopedic Hand Service Perioperative Narcotic Considerations The Orthopedic hand surgeons of [facility] manage perioperative pain as wellas the pain after an acute injury. Our surgeons do not manage chronic pain (pain three months afterthe injury/surgery), and will refer patients seeking longer term care for their painful condition to a pain management service or their primary physician as those physicians typically establish roasterman treatment relationships with patients. Following elective hand [...] be called in to your pharmacy if ???qbin-hrm-rbpzaty??? anti- inflammatory pain medication do not decrease the pain even when taken on a regular basis. These can be called in during the hours 9am to 4pm, during the workweek. 6) ???Alternative??? treatments such as acupuncture, meditation and biofeedback can all be used to decrease post-operative pain. The Orthopedic hand surgeons of [facility] want you to be as comfortable [...] of pain. The ???opioid epidemic??? in [place] is very real, and we as physicians [...] your surgeon or his/her nurse or MA. RACTIVE ART DIRECTOR documented in this encounter Medications at Time [...] RELEASE EXTENDING INTO THE FOREARM. RIGHT RIGHT RACTIVE ART DIRECTOR Source Note - Brie Cali NP - 04/30/2019 7:07 AM INTERACTIVE ART DIRECTOR Outpatient Pre-Procedure History and Physical Subjective Patient [...] with meds ??? Type 2 diabetes mellitus (CMS/FORMERLY [facility]) well controlled with meds Past Surgical History: [...] Moy Brown MD at 04/30/2019 7:51 AM INTERACTIVE ART DIRECTOR RACTIVE ART DIRECTOR RACTIVE ART DIRECTOR * Brie Cali NP - 04/30/2019 7:07 [...] Moy Brown MD at 04/30/2019 7:51 AM INTERACTIVE ART DIRECTOR RACTIVE ART DIRECTOR RACTIVE ART DIRECTOR documented in this encounter Miscellaneous Notes * Perioperative Nursing Note - Tri Garnica RN - 04/30/2019 9:50 AM INTERACTIVE ART DIRECTOR 0936 Arrival to pacu arouseable with spon [...] rt elbow 6/10 additional fentanyl given per EDITOR IN CHIEF. 0950 Repeated fentanyl 25 mcg for pain 5/10, Tolerating po well blood sugar 140. 1000 [place] 1 given for pain 4.5/10 in rt [...] No dizziness. D/c to home per w/c. RACTIVE ART DIRECTOR * Op Note - Moy Brown MD [...] Bone MD Date: 04/30/2019 Time: 9:32 AM RACTIVE ART DIRECTOR * Plan of Care - Moy Brown [...] Professor Hand and Upper Extremity [facility] Dr. Moy Brown dictating using [email or web address] software program. Powdered Sugar Supervisor variances may occur. RACTIVE ART DIRECTOR * Pre-Procedure Instructions - Ramila Leone RN - 04/24/2019 1:11 PM CST Directions to facility (address is [address] [place] [address] [address] [facility] [address] [facility] [place] [address]. Bring pillows. Patient has ice for home. [...] pain you may take Tylenol. Pt's. GirlfriendCristina [phone] will be with patient and care for patient for the first 24 hours post-op. Call Torsten. after 10 a.m. One day before scheduled procedure for arrival time. You will speak with Rossy. RACTIVE ART DIRECTOR documented in this encounter Plan of Treatment Not on file documented as of this encounter Procedures Procedure Name Priority Date/Time Associated Diagnosis Comments GLUCOSE, WHOLE BLOOD, POC Routine 04/30/2019 9:45 AM INTERACTIVE ART DIRECTOR RELEASE CARPAL TUNNEL 04/30/2019 8:35 AM INTERACTIVE ART DIRECTOR Cubital tunnel syndrome on right RELEASE GUYONS CANAL 04/30/2019 8:35 AM INTERACTIVE ART DIRECTOR Cubital tunnel syndrome on right RELEASE CUBITAL TUNNEL 04/30/2019 8:35 AM INTERACTIVE ART DIRECTOR Cubital tunnel syndrome on right POCT PREOP SCREEN ([id number]- HBG-HCT) Routine 04/30/2019 7:43 AM INTERACTIVE ART DIRECTOR documented in this encounter Results * Glucose, Whole Blood, POC (04/30/2019 9:45 AM INTERACTIVE ART DIRECTOR) Glucose POC 140 70 - 199 mg/dL WILMA BRONSON Blood specimen (specimen) 04/30/2019 9:45 AM INTERACTIVE ART DIRECTOR 04/30/2019 9:45 AM INTERACTIVE ART DIRECTOR Moy Brown MD LAB BLOOD ORDERABLES Margareth cornell Result Performing Organization Address City/State/[facility] de Phone Number [facility] Department [place] [address] * (ABNORMAL) POCT Preop screen (hlqsa-Rp-Sgv-BSM-Qp-Jvb-Hct) (04/30/2019 7:43 AM INTERACTIVE ART DIRECTOR) K POC 4.0 3.3 - 4.9 mmol/L [facility] Glucose, fasting, POC 187(H) 70 - 99 mg/dL [facility] Blood specimen (specimen) 04/30/2019 7:43 AM INTERACTIVE ART DIRECTOR 04/30/2019 7:43 AM INTERACTIVE ART DIRECTOR Moy Brown MD LAB POCT ORDERABLES - DEV ICE Final Result Performing Organization Address [facility] de Phone Number [facility] [place] [address] documented in this encounter Visit Diagnoses Diagnosis [...] anestheiologist, Indications: PainIndications:Pain Given 04/30/2019 9:53 AM INTERACTIVE ART DIRECTOR 25 mcg HYDROcodone-acetaminophe n (NORCO) 5-325 mg per tablet 1 tablet 1 tablet, oral, Every 20 min PRN, 3rd line for pain, breakthrough pain, May give TWO doses at the same time for severe pain after consulting with Anesthesiologist, Starting on Sun04/30/19 at 0943, For 2 doses, Phase I, When able to tolerate PO., Indications: PainIndications:Pain Given 04/30/2019 10:01 AM INTERACTIVE ART DIRECTOR 1 tablet Lactated Ringer's (LR) infusion 30 mL/hr, intravenous, Continuous, Starting on Sun04/30/19 at 0800, Use a 500 ml bag for End Stage Renal Disease Patients New Bag 04/30/2019 7:42 AM INTERACTIVE ART DIRECTOR 30 mL/hr 30 mL/hr sodium chloride 0.9 % irrigation As needed, Starting on Sun04/30/19 at 0855, Intra-Op Given 04/30/2019 8:55 AM INTERACTIVE ART DIRECTOR 500 mL Surgical Site documented in this encounter Historical Medications * This list may reflect changes made after this encounter. albuterol 1.25 mg/3 mL nebulizer solution Take 1.25 mg by nebulization every 6 (six) hours as needed for wheezing added in this encounter Active and Recently Administered Medications Times are shown in INTERACTIVE ART DIRECTOR. Scheduled Medication Order 04/28/2019 04/29/2019 04/30/2019 scopolamine [...] 1st line pain med for patients at [facility]. Use as 2nd line at [facility] after [...] 04/30/2019 documented in this encounter Care Teams Yeast Stacker Relationship Specialty Start Date End Date Brie Carrington PA [facility] [address] [place] [id number] PCP - General Emergency Medicine 09/26/18 documented as of this encounter
--- OUTSIDE RECORDS SUMMARY | 2024-04-13 23:05 | XMS_ITS | Encounter Summary ---
Author Organization [facility] Address [address] [place] [address] Phone Care Team Providers Care Woods Boss Name Role Phone Brie Carrington Primary Care Provider +1 -[phone] Reason for Visit * Reason Comments Follow-up Encounter Details Date Type Department Care Team (Late st Contact Info) Description 08/28/2019 2:00 PM CDT Office Visit [facility] Orthopaedic Surgery [address] [facility] Medicine 6th [place] [address] [place] [address] [place] [address] [place] [id number] Carpal tunnel syndrome, right (Primary Dx) Social [...] on file Legal Sex Male 9:26 AM HUMAN PROJECTILE Gender Identity Not on file Sexual Orientation [...] Intrinsic hand strength is excellent. No atrophy. Vector Control Specialist strength is 80/80. Wounds are well healed. [...] Moy Brown MD Professor of Orthopaedic Surgery [employer] * Moy Brown [...] needed: Three months for likely MMI. Location: [facility], [address] Moy Brown MD For questions/information call the Workers' Respiratory Medicine Physician at , . documented in this encounter Plan of Treatment Not on file documented as of this encounter Visit Diagnoses Diagnosis Carpal tunnel syndrome, right- Primary Carpal tunnel syndrome documented in this encounter Care Teams Woods Boss Relationship Specialty Start Date End Date Brie Carrington PA [address] [place] [address] PCP - General Emergency Medicine 09/26/18 documented as of this encounter
--- OUTSIDE RECORDS SUMMARY | 2024-04-13 23:05 | XMS_ITS | Encounter Summary ---
Author Organization [facility] Address [address] [place] [address] Phone Care Team Providers Care Building Construction Teacher Name Role Phone Brie Carrington Primary Care Provider +1 -[phone] Reason for Visit * Reason Comments Pain Follow-up Encounter Details Date Type Department Care Team (Late st Contact Info) Description 03/13/2019 3:20 PM MAILING MACHINE HELPER Office Visit [facility] Orthopaedic Surgery [facility] Medicine 6th [place] [address] [place] [address] [place] [address] [place] [id number] Numbness and tingling in right hand (Primary [...] on file Legal Sex Male 9:26 AM MAILING MACHINE HELPER Gender Identity Not on file Sexual Orientation [...] to be nerve related but not anatomical. Systems Software Designer strength is 80/120 with discomfort. Pinch is [...] Moy Brown MD Professor of Orthopaedic Surgery [facility] [employer] ING MACHINE HELPER * Moy Brown MD - 03/13/2019 3:20 [...] Follow up appointment needed: for surgery. Location: Orthopedics/[place] Moy Brown MD For questions/information call the Workers' Media Buyer at , . ING MACHINE HELPER documented in this encounter Plan of Treatment Not on file documented as of this encounter Visit Diagnoses Diagnosis Numbness and tingling in right hand- Primary Disturbance of skin sensation documented in this encounter Care Teams Building Construction Teacher Relationship Specialty Start Date End Date Brie Carrington PA [address] [place] [address] PCP - General Emergency Medicine 09/26/18 documented as of this encounter
--- OUTSIDE RECORDS SUMMARY | 2024-04-13 23:05 | XMS_ITS | Encounter Summary ---
Author Organization [facility] Address [address] [place] [address] Phone Care Team Providers Care Power Shovel Operator Name Role Phone Brie Carrington Primary Care Provider +1 -[phone] Encounter Details Date Type Department Care Team (Late st Contact Info) Description 06/12/2019 1:10 PM CDT Office Visit [facility] Orthopaedic Surgery [address] [facility] Medicine 6th [place] [address] [place] [address] [place] [address] [place] [address] Carpal tunnel syndrome, right (Primary Dx); Cubital [...] on file Legal Sex Male 9:26 AM LOCOMOTIVE CRANE OPERATOR Gender Identity Not on file Sexual [...] is 5 mm in strength is satisfactory. Patrol Captain is 50/120 IMPRESSION/DIAGNOSIS/ PLAN: Patient doing fine [...] Moy Brown MD Professor of Orthopaedic Surgery [facility] [employer] * Moy [...] Follow up appointment needed: 4 weeks. Location: [facility], [address] Moy Brown MD For questions/information call the Workers' Tower Helper at , . documented in this encounter [...] 06/09/2019 added in this encounter Care Teams Power Shovel Operator Relationship Specialty Start Date End Date Brie Carrington PA [address] [place] [address] PCP - General Emergency Medicine 09/26/18 documented as of this encounter
--- OUTSIDE RECORDS SUMMARY | 2024-04-13 23:05 | XMS_ITS | Encounter Summary ---
Author Organization [facility] Facility Care Team Providers Care Parts Fabricator Name Role Phone Brie Carrington Primary Care Provider +1 -[phone] Encounter Details Date Type Department Care Team [...] on file Legal Sex Male 9:26 AM MEAT HOSTESS Gender Identity Not on file Sexual Orientation [...] on filedocumented in this encounter Care Teams Parts Fabricator Relationship Specialty Start Date End Date Brie Carrington PA [address] [place] [address] PCP - General Emergency Medicine 09/26/18 documented as of this encounter
--- OUTSIDE RECORDS SUMMARY | 2024-04-13 23:05 | XMS_ITS | Encounter Summary ---
Author Organization [facility] Address [address] [place] [address] Phone Care Team Providers Care Lacquer Pin Press Operator Name Role Phone Brie Carrington Primary Care Provider +1 -[phone] Reason for Referral * Diagnostic Imaging (Routine) - Closed Specialty Diagnoses / Procedures Referred By Contac t Referred To Contact Diagnoses Numbness and tingling in right hand Procedures US Upper Extremity Right Limited Moy Brown MD Phone: tel: fax: External Order Referral ID Status Reason Start Date Expiration Date Visits Re quested Visits Authorized [id number] Closed 02/17/2019 08/28/2020 1 1 UREMENT COST COORDINATOR Encounter Details Date Type Department Care Team (Late st Contact Info) Description 02/17/2019 Orders Only [facility] Orthopaedic Surgery [address] [place] [address] [place] [address] [facility] [address] [place] [address] Numbness and tingling in right hand (Primary [...] on file Legal Sex Male 9:26 AM PROCUREMENT COST COORDINATOR Gender Identity Not on file Sexual Orientation Not on file documented as of this encounter Plan of Treatment Not on file documented as of this encounter Results * US Upper Extremity Right Limited (03/05/2019 3:15 PM PROCUREMENT COST COORDINATOR) Anatomical Region Laterality Modality Upper Extremities Right Ultrasound us Moy Brown MD IMG US PROCEDURES Final R esult documented in this encounter Visit Diagnoses Diagnosis Numbness and tingling in right hand- Primary Disturbance of skin sensation documented in this encounter Care Teams Lacquer Pin Press Operator Relationship Specialty Start Date End Date Brie Carrington PA [facility] [address] [place] [id number] PCP - General Emergency Medicine 09/26/18 documented as of this encounter
--- OUTSIDE RECORDS SUMMARY | 2024-04-13 23:05 | XMS_ITS | Encounter Summary ---
Author Organization [facility] Facility Care Team Providers Care Home And School Visitor Name Role Phone Brie Carrington Primary Care Provider +1 -[phone] Encounter Details Date Type Department Care Team [...] on file Legal Sex Male 9:26 AM CONCRETE BUSTER OPERATOR Gender Identity Not on file Sexual Orientation Not on file documented as of this encounter Plan of Treatment Not on file documented as of this encounter Visit Diagnoses Not on filedocumented in this encounter Care Teams Home And School Visitor Relationship Specialty Start Date End Date Brie Carrington PA [address] [place] [address] PCP - General Emergency Medicine 09/26/18 documented as of this encounter
--- OUTSIDE RECORDS SUMMARY | 2024-04-13 23:05 | XMS_ITS | Encounter Summary ---
Author Organization [facility] Healthcare Address [address] [place] [address] Care Team Providers Care Global Sourcing Manager Name Role Phone Brie Carrington Primary Care Provider +1 [phone] Encounter Details Date Type Department Care Team (Latest Contact Info) Description 04/30/2019 6:49 AM YOUTH DIRECTOR - 04/30/2019 10:42 AM YOUTH DIRECTOR Hospital Encounter [facility] [address] [place] [address] Moy Brown MD [address] [place] [address] [address] [place] [address] Discharge Disposition: Discharge to home or self [...] on file Legal Sex Male 9:26 AM YOUTH DIRECTOR Gender Identity Not on file Sexual Orientation Not on file documented as of this encounter Last Filed Vital Signs Vital Sign Reading Time Taken Comments Blood Pressure 134/88 04/30/2019 10:28 AM YOUTH DIRECTOR Pulse 79 04/30/2019 10:25 AM YOUTH DIRECTOR Temperature 36.6 ??C (97.9 ??F) 04/30/2019 1 0:10 AM YOUTH DIRECTOR Respiratory Rate 17 04/30/2019 10:2 5 AM YOUTH DIRECTOR Oxygen Saturation 94% 04/30/2019 10: 28 AM YOUTH DIRECTOR Inhaled Oxygen Concentration - - Weight 126.9 kg (279 lb 11.2 oz) 04/30/2019 7:13 AM YOUTH DIRECTOR Height 177.8 cm (5' 10 ) 04/30/2019 7:13 AM YOUTH DIRECTOR Body Mass Index 40.13 04/30/2019 7:13 AM YOUTH DIRECTOR documented in this encounter Discharge Diagnoses Diagnosis [...] Moy Brown MD - 04/30/2019 9:37 AM YOUTH DIRECTOR Orthopedic Surgery with Long Arm Splint [...] your surgeon or your surgeon???s nurse or senior medical transcriptionist if you have anyquestions about your postoperative care. If you have any questions, please call our office at Orthopedic Hand Service Perioperative Narcotic Considerations The Orthopedic hand surgeons of [facility] manage perioperative pain as wellas the pain after an acute injury. Our surgeons do not manage chronic pain (pain three months afterthe injury/surgery), and will refer patients seeking longer term care for their painful condition to a pain management service or their primary physician as those physicians typically establish prison treatment relationships with patients. Following elective hand [...] be called in to your pharmacy if ???uoro-cwi-bijmlgt??? anti- inflammatory pain medication do not decrease the pain even when taken on a regular basis. These can be called in during the hours 9am to 4pm, during the workweek. 6) ???Alternative??? treatments such as acupuncture, meditation and biofeedback can all be used to decrease post-operative pain. The Orthopedic hand surgeons of [facility] want you to be as [...] interpretation of pain. The ???opioid epidemic??? in [place] is very real, and we as physicians [...] your surgeon or his/her nurse or MA. H DIRECTOR documented in this encounter Medications at [...] RELEASE EXTENDING INTO THE FOREARM. RIGHT RIGHT H DIRECTOR Source Note - Brie Cali NP - 04/30/2019 7:07 AM YOUTH DIRECTOR Outpatient Pre-Procedure History and Physical Subjective [...] Date ??? COPD (chronic obstructive pulmonary disease) ([facility]) uses home nebulizer, no home O2, never needs rescue inhaler. ??? Diverticulitis of colon 2 years ago, no surgery needed ??? Dyslipidemia ??? Hypertension well controlled with meds ??? Type 2 diabetes mellitus ([facility]) well controlled with meds Past [...] Moy Brown MD at 04/30/2019 7:51 AM YOUTH DIRECTOR H DIRECTOR H DIRECTOR * Brie Cali NP - 04/30/2019 [...] Moy Brown MD at 04/30/2019 7:51 AM YOUTH DIRECTOR H DIRECTOR H DIRECTOR documented in this encounter Miscellaneous Notes * Perioperative Nursing Note - Tri Garnica RN - 04/30/2019 9:50 AM YOUTH DIRECTOR 0936 Arrival to pacu arouseable with [...] rt elbow 6/10 additional fentanyl given per MINE CAR MECHANIC. 0950 Repeated fentanyl 25 mcg for pain 5/10, Tolerating po well blood sugar 140. 1000 [place] 1 given for pain 4.5/10 in rt [...] No dizziness. D/c to home per w/c. H DIRECTOR * Op Note - Moy Brown [...] Bone MD Date: 04/30/2019 Time: 9:32 AM H DIRECTOR * Plan of Care - Moy [...] Brown M.D. Professor Hand and Upper Extremity [facility] Dr. Moy Brown dictating using Apartment Adda software program. Stereo Plotter Operator variances may occur. H DIRECTOR * Pre-Procedure Instructions - Ramila Leone RN - 04/24/2019 1:11 PM CST Directions to facility (address is [address] [place] [address], [address] [facility]. [place] [address]. Bring pillows. Patient has ice for home. [...] pain you may take Tylenol. Pt's. GirlfriendCristina [phone] will be with patient and care for patient for the first 24 hours post-op. Call Torsten. after 10 a.m. One day before scheduled procedure for arrival time. You will speak with Rossy. H DIRECTOR documented in this encounter Plan of Treatment Not on file documented as of this encounter Procedures Procedure Name Priority Date/Time Associated Diagnosis Comments GLUCOSE, WHOLE BLOOD, POC Routine 04/30/2019 9:45 AM YOUTH DIRECTOR RELEASE CARPAL TUNNEL 04/30/2019 8:35 AM YOUTH DIRECTOR Cubital tunnel syndrome on right RELEASE GUYONS CANAL 04/30/2019 8:35 AM YOUTH DIRECTOR Cubital tunnel syndrome on right RELEASE CUBITAL TUNNEL 04/30/2019 8:35 AM YOUTH DIRECTOR Cubital tunnel syndrome on right POCT PREOP SCREEN ([id number]- HBG-HCT) Routine 04/30/2019 7:43 AM YOUTH DIRECTOR documented in this encounter Results * Glucose, Whole Blood, POC (04/30/2019 9:45 AM YOUTH DIRECTOR) Glucose POC 140 70 - 199 mg/dL [facility] Blood specimen (specimen) 04/30/2019 9:45 AM YOUTH DIRECTOR 04/30/2019 9:45 AM YOUTH DIRECTOR Moy Brown MD LAB BLOOD ORDERABLES Margareth cornell Result [facility] Department [place] [address] * (ABNORMAL) POCT Preop screen ([id number]) (04/30/2019 7:43 AM YOUTH DIRECTOR) K POC 4.0 3.3 - 4.9 mmol/L [facility] Glucose, fasting, POC 187(H) 70 - 99 mg/dL [facility] Blood specimen (specimen) 04/30/2019 7:43 AM YOUTH DIRECTOR 04/30/2019 7:43 AM YOUTH DIRECTOR us Moy Brown MD LAB POCT ORDERABLES - DEV ICE Final Result [facility] Department [place] [address] documented in this encounter Visit Diagnoses Diagnosis [...] anestheiologist, Indications: PainIndications:Pain Given 04/30/2019 9:53 AM YOUTH DIRECTOR 25 mcg HYDROcodone-acetaminophen (NORCO) 5-325 mg per tablet 1 tablet 1 tablet, oral, Every 20 min PRN, 3rd line for pain, breakthrough pain, May give TWO doses at the same time for severe pain after consulting with Anesthesiologist, Starting on Sun04/30/19 at 0943, For 2 doses, Phase I, When able to tolerate PO., Indications: PainIndications:Pain Given 04/30/2019 10:01 AM YOUTH DIRECTOR 1 tablet Lactated Ringer's (LR) infusion 30 mL/hr, intravenous, Continuous, Starting on Sun04/30/19 at 0800, Use a 500 ml bag for End Stage Renal Disease Patients New Bag 04/30/2019 7:42 AM YOUTH DIRECTOR 30 mL/hr 30 mL/hr documented in this encounter Historical Medications * This list may reflect changes made after this encounter. albuterol 1.25 mg/3 mL nebulizer solution Take 1.25 mg by nebulization every 6 (six) hours as needed for wheezing added in this encounter Active and Recently Administered Medications Times are shown in YOUTH DIRECTOR. Scheduled Medication Order 04/28/2019 04/29/2019 04/30/2019 [...] line pain med for patients at [facility]. Use as 2nd line at OC after [...] mL, intra-catheter, As needed, line care, Flush [place] Block Hep Locks to keep vein open., [...] 04/30/2019 documented in this encounter Care Teams Global Sourcing Manager Relationship Specialty Start Date End Date Brie Carrington PA [address] [place] [address] PCP - General Emergency Medicine 09/26/18 documented as of this encounter
--- OUTSIDE RECORDS SUMMARY | 2024-04-13 23:05 | XMS_ITS | Encounter Summary ---
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
--- OUTSIDE RECORDS SUMMARY | 2024-04-13 23:05 | XMS_ITS | Encounter Summary ---
Author Organization [facility] Address [address] [place] [address] Phone Care Team Providers Care Painter Structural Steel Name Role Phone Brie Carrington Primary Care Provider +1 [phone] Reason for Visit * Reason Comments Follow-up Encounter Details Date Type Department Care Team (Late st Contact Info) Description 05/12/2019 7:20 AM WATCHER LOOKOUT TOWER Office Visit [facility] Orthopaedic Surgery [address] [place] [address] [place] [address] [place] [address] Numbness and tingling in right hand (Primary [...] on file Legal Sex Male 9:26 AM WATCHER LOOKOUT TOWER Gender Identity Not on file Sexual Orientation [...] Brown MD Professor of Orthopaedic Surgery [facility] [employer] HER LOOKOUT TOWER * Moy Brown MD - 05/12/2019 7:20 [...] Follow up appointment needed: 4 weeks. Location: Orthopedics/[place] Moy Brown MD For questions/information call the Workers' Mainstreaming Facilitator at , . HER LOOKOUT TOWER documented in this encounter Plan of Treatment [...] documented as of this encounter Care Teams Painter Structural Steel Relationship Specialty Start Date End Date Brie Carrington PA [address] [place] [address] PCP - General Emergency Medicine 09/26/18 documented as of this encounter
--- OUTSIDE RECORDS SUMMARY | 2024-04-13 23:05 | XMS_ITS | Encounter Summary ---
Author Organization [facility] Healthcare Address [address] [place] [address] Care Team Providers Care Director Of Hospitality Name Role Phone Brie Carrington Primary Care Provider +1 [phone] Encounter Details Date Type Department Care Team (Late st Contact Info) Description 04/30/2019 8:30 AM GREEN LUMBER GRADER Anesthesia Event [facility] Operating Room at the Orthopedic Center [address] [place] [address] Guille Blanchard MD [address] [facility] [address] [place] [address] Anesthesia Record Procedure Summary Procedure Name Responsible [...] Garnica RN RETIRED Surgical Site 04/30/19; 0816; Co ght; Arm; wound well approximated; 04/30/19; 1036; [...] on file Legal Sex Male 9:26 AM GREEN LUMBER GRADER Gender Identity Not on file Sexual Orientation Not on file documented as of this encounter OR Notes * Anesthesia Postprocedure Evaluation - Guille Blanchard MD - 04/30/2019 10:30 AM CST Patient: Miguel Caraballo Procedure Summary Date: 04/30/19 Room / Location: [facility] / [facility] Anesthesia Start: 08 Anesthesia Stop: [...] acceptable Pt is: normothermic Nausea/Vomiting status: none N LUMBER GRADER * Anesthesia Procedure Notes - Guille Blanchard MD - 04/30/2019 8:28 AM GREEN LUMBER GRADER Associated Order(s): Peripheral Block Peripheral Block Patient [...] complications Additional comments: ASSISTED BY KALEB REYES N LUMBER GRADER N LUMBER GRADER * Anesthesia Procedure Notes - Guille Blanchard MD - 04/30/2019 8:27 AM GREEN LUMBER GRADER Associated Order(s): Peripheral Block Peripheral Block Patient [...] complications Additional comments: ASSISTED BY KALEB REYES N LUMBER GRADER N LUMBER GRADER * Anesthesia Procedure Notes - Guille Blanchard MD - 04/30/2019 8:27 AM GREEN LUMBER GRADER Associated Order(s): Peripheral Block Peripheral Block Patient [...] complications Additional comments: ASSISTED BY ISAURO REYES-Usman N LUMBER GRADER N LUMBER GRADER * Anesthesia Preprocedure Evaluation - Guille Blanchard [...] Date ??? COPD (chronic obstructive pulmonary disease) ([facility]) uses home nebulizer, no home O2, never [...] Medication protocol when under care of a MULTICUT LINE OPERATOR Planned anesthesia: General, regional as primary anesthetic [...] and agree to proceed. All questions answered. N LUMBER GRADER N LUMBER GRADER documented in this encounter Plan of Treatment Not on file documented as of this encounter Procedures Procedure Name Priority Date/Time Associated Diagnosis Comments NH AN PROCEDURE PLACEHOLDER Routine 04/30/2019 8:28 AM GREEN LUMBER GRADER NH AN PROCEDURE PLACEHOLDER Routine 04/30/2019 8:27 AM GREEN LUMBER GRADER NH AN PROCEDURE PLACEHOLDER Routine 04/30/2019 8:27 AM GREEN LUMBER GRADER documented in this encounter Results * NH AN PROCEDURE PLACEHOLDER (04/30/2019 8:28 AM GREEN LUMBER GRADER) Narrative Guille Blanchard MD - 04/30/2019 8:28 AM GREEN LUMBER GRADER Guille Blanchard MD ? 04/30/2019 ??8:31 AM [...] ORDERABLES Edited R esult - Final * NH AN PROCEDURE PLACEHOLDER (04/30/2019 8:27 AM GREEN LUMBER GRADER) Guille Fierro MD - 04/30/2019 8:27 AM GREEN LUMBER GRADER Guille Blanchard MD ? 04/30/2019 ??8:31 AM [...] ORDERABLES Edited R esult - Final * NH AN PROCEDURE PLACEHOLDER (04/30/2019 8:27 AM GREEN LUMBER GRADER) Guille Fierro MD - 04/30/2019 8:27 AM GREEN LUMBER GRADER Guille Blanchard MD ? 04/30/2019 ??8:31 AM [...] no complications Additional comments: ASSISTED BY MP, TRIGONOMETRY TEACHER-C us Guille Blanchard MD ANESTHESIA ORDERABLES Edited [...] 0826, Anesthesia Intra-op Given 04/30/2019 8:26 AM GREEN LUMBER GRADER 44 mL famotidine (PEPCID) injection Administer over 2 Minutes, As needed, Starting on Sun04/30/19 at 0848, Anesthesia Intra-op Given 04/30/2019 8:48 AM GREEN LUMBER GRADER 20 mg fentaNYL (SUBLIMAZE) preservative free injection intravenous, As needed, Starting on Sun04/30/19 at 0826, Anesthesia Intra-op Given 04/30/2019 9:40 AM GREEN LUMBER GRADER 25 mcg Given 04/30/2019 8:26 AM GREEN LUMBER GRADER 100 mcg lidocaine (XYLOCAINE) 20 mg/mL (2 %) injection infiltration, As needed, Starting on Sun04/30/19 at 0826, Anesthesia Intra-op, Indications: Administration of Local AnesthesiaIndications:Administration of Local Anesthesia Given 04/30/2019 8:26 AM GREEN LUMBER GRADER 3 mL lidocaine PF (XYLOCAINE) 10 mg/mL (1 %) preservative free injection As needed, Starting on Sun04/30/19 at 0838, Anesthesia Intra-op Given 04/30/2019 8:49 AM GREEN LUMBER GRADER 30 mg Given 04/30/2019 8:42 AM GREEN LUMBER GRADER 10 mg Given 04/30/2019 8:38 AM GREEN LUMBER GRADER 10 mg midazolam (VERSED) injection intravenous, As needed, Starting on Sun04/30/19 at 0826, Anesthesia Intra-op Given 04/30/2019 8:26 AM GREEN LUMBER GRADER 2 mg ondansetron (ZOFRAN) injection intravenous, Administer over 2 Minutes, As needed, Starting on Sun04/30/19 at 0856, Anesthesia Intra-op Given 04/30/2019 8:56 AM GREEN LUMBER GRADER 4 mg propofol (DIPRIVAN) IV intravenous, As needed, Starting on Sun04/30/19 at 0838, Anesthesia Intra-op Given 04/30/2019 9:29 AM GREEN LUMBER GRADER 20 mg Given 04/30/2019 8:52 AM GREEN LUMBER GRADER 150 mg Given 04/30/2019 8:49 AM GREEN LUMBER GRADER 100 mg propofol (DIPRIVAN) IV intravenous, Continuous PRN, Starting on Sun04/30/19 at 0843, Anesthesia Intra-op New Bag 04/30/2019 8:43 AM GREEN LUMBER GRADER 100 mcg/kg/min 76.14 mL/hr documented in this encounter Care Teams Director Of Hospitality Relationship Specialty Start Date End Date Brie Carrington PA [address] [id number] PCP - General Emergency Medicine 09/26/18 documented as of this encounter
--- OUTSIDE RECORDS SUMMARY | 2024-04-13 23:05 | XMS_ITS | Encounter Summary ---
Author Organization [facility] Address [address] [place] [address] Phone Care Team Providers Care Catering Cook Name Role Phone Brie Carrington Primary Care Provider +1 [phone] Encounter Details Date Type Department Care Team (Late st Contact Info) Description 03/07/2019 Telephone [facility] Orthopaedic Surgery [address] [place] [id number] [place] [address] [place] [address] Social History Tobacco Use Types Packs/Day Years Used Date Smoking Tobacco: Every Day Cigarettes 1.5 40 Started: 1986 Smokeless Tobacco: Never Alcohol Use Standard Drinks/Week Comments Yes 0 (1 standard drink = 0.6 oz pur e alcohol) occasional, 5 per week Sex and Gender Information Value Date Recorded Sex Assigned at Not on file Legal Sex Male 9:26 AM SIX PACK PACKER Gender Identity Not on file Sexual Orientation Not on file documented as of this encounter Miscellaneous Notes * Telephone Encounter - Moy Brown MD - 03/07/2019 4:53 PM SIX PACK PACKER I tried to call several times. I will see him next week. PACK PACKER documented in this encounter Plan of Treatment Not on file documented as of this encounter Visit Diagnoses Not on filedocumented in this encounter Care Teams Catering Cook Relationship Specialty Start Date End Date Brie Carrington PA [address] [place] [address] PCP - General Emergency Medicine 09/26/18 documented as of this encounter
--- OUTSIDE RECORDS SUMMARY | 2024-04-13 23:05 | XMS_ITS | Encounter Summary ---
Author Organization [facility] Address [address] [place] [address] Phone Care Team Providers Care Date Night Sitter Name Role Phone Brie Carrington Primary Care Provider +1 [phone] Encounter Details Date Type Department Care Team (Late st Contact Info) Description 02/07/2019 Telephone [facility] Orthopaedic Surgery [address] [place] [address] 2[address] [place] [address] Audrey Kim, [facility] Social History Tobacco Use Types Packs/Day Years Used Date Smoking Tobacco: Every Day Cigarettes 1.5 40 Started: 1986 Smokeless Tobacco: Never Alcohol Use Standard Drinks/Week Comments Yes 0 (1 standard drink = 0.6 oz pur e alcohol) occasional, 5 per week Sex and Gender Information Value Date Recorded Sex Assigned at Not on file Legal Sex Male 9:26 AM FLAT MACHINE CUTTER Gender Identity Not on file Sexual Orientation Not on file documented as of this encounter Miscellaneous Notes * Telephone Encounter - Audrey Kim RMA - 02/07/2019 2:17 PM FLAT MACHINE CUTTER Akhil reached out to the office to get his ultrasound coordinated. He is approved through work comp. I returned his call to get him coordinated. I was unabel to reach him. I left a voicemail with my contact number to get him scheduled. MACHINE CUTTER documented in this encounter Plan of Treatment Not on file documented as of this encounter Visit Diagnoses Not on filedocumented in this encounter Care Teams Date Night Sitter Relationship Specialty Start Date End Date Brie Carrington PA [address] [place] [address] PCP - General Emergency Medicine 09/26/18 documented as of this encounter
--- OUTSIDE RECORDS SUMMARY | 2024-04-13 23:05 | XMS_ITS | Referral Summary ---
Author Organization [facility] Address [address] [place] [address] Care Team Providers Care Paintless Dent Repair Technician Name Role Phone Brie Carrington Primary Care Provider +1 [phone] Allergies No known active allergies Medications metFORMIN [...] (04/17/2019): Added automatically from request for surgery [id number] Numbness and tingling in right hand 12/09/2018 Carpal tunnel syndrome on right 10/17/2018 Overview (10/17/2018): Added automatically from request for surgery [id number] Carpal tunnel syndrome of left wrist 10/17/2018 Overview (10/17/2018): Added automatically from request for surgery [id number] Carpal tunnel syndrome, right 09/26/2018 Carpal tunnel [...] on file Legal Sex Male 9:26 AM GOLF BALL MARKER Gender Identity Not on file Sexual Orientation Not on file Last Filed Vital Signs Vital Sign Reading Time Taken Comments Blood Pressure 134/88 04/30/2019 10:28 AM GOLF BALL MARKER Pulse 79 04/30/2019 10:25 AM GOLF BALL MARKER Temperature 36.6 ??C (97.9 ??F) 04/30/2019 1 0:10 AM GOLF BALL MARKER Respiratory Rate 17 04/30/2019 10:2 5 AM GOLF BALL MARKER Oxygen Saturation 94% 04/30/2019 10: 28 AM GOLF BALL MARKER Inhaled Oxygen Concentration - - Weight 126.9 kg (279 lb 11.2 oz) 04/30/2019 7:13 AM GOLF BALL MARKER Height 177.8 cm (5' 10 ) 04/30/2019 7:13 AM GOLF BALL MARKER Body Mass Index 40.13 04/30/2019 7:13 AM GOLF BALL MARKER Plan of Treatment Not on file Insurance * Guarantor: NAGA CARABALLO Account Type Relation to Patient Date of Phone Billing Address Workers Comp Employer 1970 [phone] (Work) [address] [place] [address] [employer] H[employer] [address] [place] [id number] Advance Directives For more information, please contact: [phone] * Full Code (Latest Code Status on File) Date Activated Date Inactivated Comments 04/30/2019 9:43 AM 04/30/2019 2:48 PM * Full Code Date Activated Date Inactivated Comments 11/06/2018 8:49 AM 11/06/2018 1:37 PM Care Teams Paintless Dent Repair Technician Relationship Specialty Start Date End Date Brie Carrington PA [address] [place] [address] PCP - General Emergency Medicine 09/26/18
--- OUTSIDE RECORDS SUMMARY | 2024-04-13 23:05 | XMS_ITS | Encounter Summary ---
Author Organization [facility] Facility Care Team Providers Care Program Architect Name Role Phone Brie Carrington Primary Care Provider [phone] Encounter Details Date Type Department Care Team [...] on file Legal Sex Male 9:26 AM PARK LANDSCAPE ARCHITECT Gender Identity Not on file Sexual Orientation Not on file documented as of this encounter Plan of Treatment Not on file documented as of this encounter Visit Diagnoses Not on filedocumented in this encounter Care Teams Program Architect Relationship Specialty Start Date End Date Brie Carrington PA [address] [place] [address] PCP - General Emergency Medicine 09/26/18 documented as of this encounter
--- OUTSIDE RECORDS SUMMARY | 2024-04-13 23:05 | XMS_ITS | Encounter Summary ---
Author Organization [facility] Address [address] [place] [address] Phone Care Team Providers Care Business Analytics Specialist Name Role Phone Brie Carrington Primary Care Provider +1 [phone] Reason for Visit * Reason Comments Follow-up Encounter Details Date Type Department Care Team (Late st Contact Info) Description 07/24/2019 2:00 PM CDT Telemedicine [facility] Orthopaedic Surgery [facility] 6th [place] [address] [place] [address] [place] [address] [place] [address] Carpal tunnel syndrome, right (Primary Dx); Cubital [...] on file Legal Sex Male 9:26 AM PRINT CUTTER Gender Identity Not on file Sexual [...] decompression and cubital tunnel decompression. He is [id number] days after surgery. Doing well. Making progress. [...] During the visit, I was located the [facility] and the patient was located at his home. The session started at atapproximately 2:00 p.m. and ended at 2:12 p.m.. The patient has been informed that the visit may not be secure and acknowledged the information. We obtained informed consent for this telemedicine visit. This was done by verbal consent. Moy Brown MD Professor of Orthopaedic Surgery [facility] * Moy Brown MD [...] Brown MD For questions/information call the Workers' Automobile Locator at , . documented in this encounter Plan of Treatment Not on file documented as of this encounter Visit Diagnoses Diagnosis Carpal tunnel syndrome, right- Primary Carpal tunnel syndrome Cubital tunnel syndrome, right Numbness and tingling in right hand Disturbance of skin sensation documented in this encounter Care Teams Business Analytics Specialist Relationship Specialty Start Date End Date Brie Carrington PA [address] [place] [address] PCP - General Emergency Medicine 09/26/18 documented as of this encounter
--- OUTSIDE RECORDS SUMMARY | 2024-04-13 23:05 | XMS_ITS | Encounter Summary ---
Author Organization [facility] Address [address] [place] [address] Phone Care Team Providers Care Pipeline Technician Name Role Phone Brie Carrington Primary Care Provider +1 [phone] Encounter Details Date Type Department Care Team (Late st Contact Info) Description 03/05/2019 Orders Only [facility] [place] [address] [place] [address] Numbness and tingling in right hand Social [...] on file Legal Sex Male 9:26 AM MERCERIZING RANGE CONTROLLER Gender Identity Not on file Sexual Orientation Not on file documented as of this encounter Plan of Treatment Not on file documented as of this encounter Procedures Procedure Name Priority Date/Time Associated Diagnosis Comments US UPPER EXTREMITY RIGHT LIMITED Schedule Routine, Read Routine (OP Routine) 03/05/2019 3:15 PM MERCERIZING RANGE CONTROLLER Numbness and tingling in right hand documented in this encounter Results * US Upper Extremity Right Limited (03/05/2019 3:15 PM MERCERIZING RANGE CONTROLLER) Anatomical Region Laterality Modality Upper Extremities Right Ultrasound us Moy Brown MD IMG US PROCEDURES Final R esult documented in this encounter Visit Diagnoses Diagnosis Numbness and tingling in right hand Disturbance of skin sensation documented in this encounter Care Teams Pipeline Technician Relationship Specialty Start Date End Date Brie Carrington PA [address] [place] [address] PCP - General Emergency Medicine 09/26/18 documented as of this encounter
--- OUTSIDE RECORDS SUMMARY | 2024-04-13 23:05 | XMS_ITS | Clinical Summary ---
Author Organization [facility] Address [address] [place] [address] Care Team Providers Care Meat Service Team Member Name Role Phone Brie Carrington Primary Care Provider +1 [phone] Allergies No known active allergies Medications metFORMIN [...] (04/17/2019): Added automatically from request for surgery [id number] Numbness and tingling in right hand 12/09/2018 Carpal tunnel syndrome on right 10/17/2018 Overview (10/17/2018): Added automatically from request for surgery [id number] Carpal tunnel syndrome of left wrist 10/17/2018 Overview (10/17/2018): Added automatically from request for surgery [id number] Carpal tunnel syndrome, right 09/26/2018 Carpal tunnel [...] on file Legal Sex Male 9:26 AM TELEMETRY TECHNICIAN Gender Identity Not on file Sexual Orientation Not on file Obstetrics History Last Filed Vital Signs Vital Sign Reading Time Taken Comments Blood Pressure 134/88 04/30/2019 10:28 AM TELEMETRY TECHNICIAN Pulse 79 04/30/2019 10:25 AM TELEMETRY TECHNICIAN Temperature 36.6 ??C (97.9 ??F) 04/30/2019 1 0:10 AM TELEMETRY TECHNICIAN Respiratory Rate 17 04/30/2019 10:2 5 AM TELEMETRY TECHNICIAN Oxygen Saturation 94% 04/30/2019 10: 28 AM TELEMETRY TECHNICIAN Inhaled Oxygen Concentration - - Weight 126.9 kg (279 lb 11.2 oz) 04/30/2019 7:13 AM TELEMETRY TECHNICIAN Height 177.8 cm (5' 10 ) 04/30/2019 7:13 AM TELEMETRY TECHNICIAN Body Mass Index 40.13 04/30/2019 7:13 AM TELEMETRY TECHNICIAN Plan of Treatment Not on file Insurance [facility] Advance Directives For more information, please contact: [phone] * Full Code (Latest Code Status on File) Date Activated Date Inactivated Comments 04/30/2019 9:43 AM 04/30/2019 2:48 PM * Full Code Date Activated Date Inactivated Comments 11/06/2018 8:49 AM 11/06/2018 1:37 PM Care Teams Meat Service Team Member Relationship Specialty Start Date End Date Brie [place] [address] PCP - General Emergency Medicine 09/26/18
--- OUTSIDE RECORDS SUMMARY | 2024-04-13 23:06 | XMS_ITS | Encounter Summary ---
Author Organization [facility] Address [address] [place] [address] Phone Care Team Providers Care Memory Care Program Director Name Role Phone Brie Carrington Primary Care Provider +1 [phone] Encounter Details Date Type Department Care Team (Late st Contact Info) Description 01/03/2019 Telephone [facility] Orthopaedic Surgery [facility] Advanced Medicine 6th [place] [address] [place] [address] Wale Pastrana LPN Social History [...] file Legal Sex Male 9:26 AM CLINICAL LEADER Gender Identity Not on file Sexual Orientation [...] on filedocumented in this encounter Care Teams Memory Care Program Director Relationship Specialty Start Date End Date Brie Carrington PA [address] [place] [address] PCP - General Emergency Medicine 09/26/18 documented as of this encounter
--- OUTSIDE RECORDS SUMMARY | 2024-04-13 23:06 | XMS_ITS | Encounter Summary ---
Author Organization [facility] Address [address] [place] [address] Care Team Providers Care Family Specialist Name Role Phone Brie Carrington Primary Care Provider +1 [phone] Encounter Details Date Type Department Care Team (Late st Contact Info) Description 11/06/2018 8:30 AM CDT - 11/06/2018 9:00 AM T Surgery [facility] [address] [place] [address] Moy Brown MD [address] [place] [address] [address] [place] [address] RIGHT CARPAL TUNNEL RELEASE Surgery Details Date/Time Status Location OR Service Patient Class Case Class Case Type Trauma Case? 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 If you have any questions, please call our office at Orthopedic Hand Service Perioperative Narcotic Considerations The Orthopedic hand surgeons of [facility] manage perioperative pain as wellas the pain after an acute injury. Our surgeons do not manage chronic pain (pain three months afterthe injury/surgery), and will refer patients seeking longer term care for their painful condition to a pain management service or their primary physician as those physicians typically establish shelter treatment relationships with patients. Following elective hand [...] be called in to your pharmacy if ???rvgl-enf-xexeoph??? anti- inflammatory pain medication do not decrease the pain even when taken on a regular basis. These can be called in during the hours 9am to 4pm, during the workweek. 6) ???Alternative??? treatments such as acupuncture, meditation and biofeedback can all be used to decrease post-operative pain. The Orthopedic hand surgeons of [facility] want you to be as [...] interpretation of pain. The ???opioid epidemic??? in [place] is very real, and we as physicians [...] RIGHT CARPAL TUNNEL RELEASE - Note:Diabetic-First Case ([id number]) Source Note - Brie Cali, SEMICONDUCTOR LAB TECHNICIAN - 11/06/2018 6:32 AM CDT Outpatient Pre-Procedure History and Physical Subjective Patient is a 48 y.o. male with chief complaint of right hand pain. Indication For Procedure: Pre-op Diagnosis * Carpal tunnel syndrome on right [G56.01] Planned Procedure RIGHT CARPAL TUNNEL RELEASE - Note:Diabetic-First Case ([id number]) (R) HPI: Past Medical History: Diagnosis Date [...] RIGHT CARPAL TUNNEL RELEASE - Note:Diabetic-First Case ([id number]) Source Note - Guille Blanchard MD - 11/06/2018 7:17 AM CDT Anesthesia Evaluation Miguel Caraballo is a 48 y.o. male Procedure(s): RIGHT CARPAL TUNNEL RELEASE - Note:Diabetic-First Case ([id number]) Pre-Op Diagnosis Codes: * Carpal tunnel syndrome on right [G56.01] HISTORY Past Medical History Information obtained from: patient. Patient Active Problem List Diagnosis ??? Carpal tunnel syndrome, right ??? Carpal tunnel syndrome, left ??? Cubital tunnel syndrome, left ??? Carpal tunnel syndrome on right ??? Carpal tunnel syndrome of left wrist Past Medical History: Diagnosis Date ??? COPD (chronic obstructive pulmonary disease) ([facility]/HCC) uses home nebulizer, no home O2, never [...] Medication protocol when under care of a MEDICAL RECORD LIBRARIANS TEACHER Planned anesthesia: Regional as primary anesthetic and [...] RIGHT CARPAL TUNNEL RELEASE - Note:Diabetic-First Case ([id number]) (R) HPI: Past Medical History: Diagnosis Date [...] MD - 11/06/2018 8:33 AM CDT FIRST REINFORCING IRON AND REBAR WORKERS: Shar Ruelas MD ANESTHESIA: Carline Block PREOPERATIVE [...] the arm on an arm table. A [place] block was infused and the arm was [...] Moy Brown MD Professor of Orthopaedic Surgery [facility] * Plan of [...] Brown M.D. Professor Hand and Upper Extremity [facility] Dr. Moy Brown dictating using [employer] software program. Crystalizer Operator variances may occur. * Perioperative Nursing Note - Radha Church RN - 11/06/2018 6:25 AM CDT Pt states girlfriend will drive him home and provide 24 hrs care. * Pre-Procedure Instructions - Radha Church RN - 11/04/2018 11:07 AM CDT Directions to facility (address is [address] [place] [address] [address]) Bring Inhalers Bring glass/contact case Bring pillows. Patient has ice packs for home. Remove make-up, perfume, lotions, powders, deodorant, lipstick and nail burundian. Shower the night before and morning of [...] Special Needs Diabetic-First Case? POCT PREOP SCREEN (FLR-JZ-SLJ-BUN-C R-HBG-HCT) Routine 11/06/2018 6:47 AM CDT documented in this encounter Results * Glucose, Whole Blood, POC (11/06/2018 8:48 AM CDT) [facility] Glucose POC 155 70 - 199 mg/dL [facility] Blood specimen (specimen) 11/06/2018 8:48 AM CDT 11/06/2018 8:48 AM CDT Moy Brown MD LAB BLOOD ORDERABLES Margareth cornell Result [facility] [place] [address] * (ABNORMAL) POCT Preop screen (vngme-Ut-Drf-ZHB-Fy-Cbh-Hct) (11/06/2018 6:47 AM CDT) Pathologist [facility] K POC 4.4 3.3 - 4.9 mmol/L [facility] Glucose, fasting, POC 144(H) 70 - 99 mg/dL [facility] Blood specimen (specimen) 11/06/2018 6:47 AM CDT 11/06/2018 6:47 AM CDT Moy Brown MD LAB POCT ORDERABLES - DEV ICE Final Result [facility] [place] [address] documented in this encounter Visit Diagnoses Diagnosis [...] 1st line pain med for patients at [facility]. Use as 2nd line at OC [...] 11/06/2018 documented in this encounter Care Teams Family Specialist Relationship Specialty Start Date End Date Brie Carrington PA [address] [place] [address] PCP - General Emergency Medicine 09/26/18 documented as of this encounter
--- OUTSIDE RECORDS SUMMARY | 2024-04-13 23:06 | XMS_ITS | Encounter Summary ---
Author Organization [facility] Address [address] [place] [address] Phone Care Team Providers Care School Cafeteria Head Cook Name Role Phone Brie Carrington Primary Care Provider +1 [phone] Reason for Referral * Neurology (Routine) - Closed Specialty Diagnoses / Procedures Referred By Contac t Referred To Contact Orthopedic Surgery Diagnoses Numbness and tingling in right hand Procedures EMG/NCV - Moy Brown MD Phone: tel: fax: [facility] Orthopaedic Surgery [address] [facility] 2nd [address] [place] [address] Phone: tel: fax: Referral ID Status Reason Start Date Expiration Date Visits Re quested Visits Authorized [id number] Closed 12/09/2018 06/19/2020 1 1 Reason for Visit * Reason Comments Post-op Encounter Details Date Type Department Care Team (Late st Contact Info) Description 12/09/2018 9:00 AM CDT Office Visit 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 Marketing Account Executive strength is 60/100. Well-healed carpal tunnel incision. [...] Moy Brown MD Professor of Orthopaedic Surgery [facility] * Moy Brown MD [...] Follow up appointment needed: 4 weeks. Location: Orthopedics/[place] I will call patient with nerve study results if possible before his next visit. Moy Brown MD For questions/information call the Workers' Pearler at , . documented in this encounter Plan of Treatment Not on file documented as of this encounter Results * EMG/NCV - (01/20/2019) Anatomical Region Laterality Modality Other Moy Brown MD NEUROLOGY ORDERABLES Margareth l Result documented in this encounter Visit Diagnoses Diagnosis Numbness and tingling in right hand- Primary Disturbance of skin sensation documented in this encounter Care Teams School Cafeteria Head Cook Relationship Specialty Start Date End Date Brie Carrington PA [address] [place] [address] PCP - General Emergency Medicine 09/26/18 documented as of this encounter
--- OUTSIDE RECORDS SUMMARY | 2024-04-13 23:06 | XMS_ITS | Encounter Summary ---
Author Organization [facility] Address [address] [place] [address] Phone Care Team Providers Care Warping Machine Operator Name Role Phone Brie Carrington Primary Care Provider +1 [phone] Encounter Details Date Type Department Care Team (Late st Contact Info) Description 01/27/2019 Documentation [facility] Orthopaedic Surgery [address] 2nd Floor [address] [place] [address] [place] [address] [place] [address] Social History Tobacco Use Types Packs/Day Years Used Date Smoking Tobacco: Every Day Cigarettes 1.5 40 Started: 1984 Smokeless Tobacco: Never Alcohol Use Standard Drinks/Week Comments Yes 0 (1 standard drink = 0.6 oz pur e alcohol) occasional, 5 per week Sex and Gender Information Value Date Recorded Sex Assigned at Not on file 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
--- OUTSIDE RECORDS SUMMARY | 2024-04-13 23:06 | XMS_ITS | Encounter Summary ---
Author Organization [facility] Healthcare Address [address] [place] [address] Care Team Providers Care Library Media Technician Name Role Phone Brie Carrington Primary Care Provider +1 -[phone] Encounter Details Date Type Department Care Team (Latest Contact Info) Description 11/06/2018 6:17 AM CDT - 11/06/2018 9:31 AM CDT Hospital Encounter [facility] Operating Room at the [facility] [address] [place] [address] Moy Brown MD [address] [place] [address] [address] [place] [address] Discharge Disposition: Discharge to home or self [...] file 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 If you have any questions, please call our office at Orthopedic Hand Service Perioperative Narcotic Considerations The Orthopedic hand surgeons of [facility] manage perioperative pain as wellas the pain after an acute injury. Our surgeons do not manage chronic pain (pain three months afterthe injury/surgery), and will refer patients seeking longer term care for their painful condition to a pain management service or their primary physician as those physicians typically establish long term care administrator treatment relationships with patients. Following elective hand [...] be called in to your pharmacy if ???dqun-dsh-cgbfcmb??? anti- inflammatory pain medication do not decrease the pain even when taken on a regular basis. These can be called in during the hours 9am to 4pm, during the workweek. 6) ???Alternative??? treatments such as acupuncture, meditation and biofeedback can all be used to decrease post-operative pain. The Orthopedic hand surgeons of [facility] want you to be as [...] interpretation of pain. The ???opioid epidemic??? in [place] is very real, and we as physicians [...] RIGHT CARPAL TUNNEL RELEASE - Note:Diabetic-First Case ([id number]) Source Note - Brie Cali, PRODUCTION UNDERWRITER - 11/06/2018 6:32 AM CDT Outpatient Pre-Procedure History and Physical Subjective Patient is a 48 y.o. male with chief complaint of right hand pain. Indication For Procedure: Pre-op Diagnosis * Carpal tunnel syndrome on right [G56.01] Planned Procedure RIGHT CARPAL TUNNEL RELEASE - Note:Diabetic-First Case ([id number]) (R) HPI: Past Medical History: Diagnosis Date [...] RIGHT CARPAL TUNNEL RELEASE - Note:Diabetic-First Case ([id number]) Source Note - Guille Blanchard MD - 11/06/2018 7:17 AM CDT Anesthesia Evaluation Miguel Caraballo is a 48 y.o. male Procedure(s): RIGHT CARPAL TUNNEL RELEASE - Note:Diabetic-First Case (vf96ccs) Pre-Op Diagnosis Codes: * Carpal tunnel syndrome on right [G56.01] HISTORY Past Medical History Information obtained from: patient. Patient Active Problem List Diagnosis ??? Carpal tunnel syndrome, right ??? Carpal tunnel syndrome, left ??? Cubital tunnel syndrome, left ??? Carpal tunnel syndrome on right ??? Carpal tunnel syndrome of left wrist Past Medical History: Diagnosis Date ??? COPD (chronic obstructive pulmonary disease) ([facility]/HCC) uses home nebulizer, no home O2, [...] Medication protocol when under care of a ACUTE CARE CERTIFIED NURSING ASSISTANT Planned anesthesia: Regional as primary anesthetic and [...] RIGHT CARPAL TUNNEL RELEASE - Note:Diabetic-First Case (fy65oze) (R) HPI: Past Medical History: Diagnosis Date [...] MD - 11/06/2018 8:33 AM CDT FIRST PREPARATION ROOM WORKER: Shar Ruelas MD ANESTHESIA: Carline Block PREOPERATIVE [...] the arm on an arm table. A [place] block was infused and the arm was [...] Moy Brown MD Professor of Orthopaedic Surgery [facility] * Plan of [...] Brown M.D. Professor Hand and Upper Extremity [facility] Dr. Moy Brown dictating using Exacter software program. Cafeteria Server variances may occur. * Perioperative Nursing Note - Radha Church RN - 11/06/2018 6:25 AM CDT Pt states girlfriend will drive him home and provide 24 hrs care. * Pre-Procedure Instructions - Radha Church RN - 11/04/2018 11:07 AM CDT Directions to facility (address is [address] [place] [address] [address]) Bring Inhalers Bring glass/contact case Bring pillows. Patient has ice packs for home. Remove make-up, perfume, lotions, powders, deodorant, lipstick and nail yoruba. Shower the night before and morning of [...] Special Needs Diabetic-First Case? POCT PREOP SCREEN (PPH-PK-RWL-BUN-C R-HBG-HCT) Routine 11/06/2018 6:47 AM CDT documented in this encounter Results * Glucose, Whole Blood, POC (11/06/2018 8:48 AM CDT) [facility] Glucose POC 155 70 - 199 mg/dL [facility] Blood specimen (specimen) 11/06/2018 8:48 AM CDT 11/06/2018 8:48 AM CDT Moy Brown MD LAB BLOOD ORDERABLES Margareth cornell Result [facility] Department [place] [address] * (ABNORMAL) POCT Preop screen (fqopd-Li-Obz-LCW-Yf-Zua-Hct) (11/06/2018 6:47 AM CDT) Pathologist [facility] K POC 4.4 3.3 - 4.9 mmol/L [facility] Glucose, fasting, POC 144(H) 70 - 99 mg/dL [facility] Blood specimen (specimen) 11/06/2018 6:47 AM CDT 11/06/2018 6:47 AM CDT Moy Brown MD LAB POCT ORDERABLES - DEV ICE Final Result [facility] [place] [address] documented in this encounter Visit Diagnoses Diagnosis [...] 1st line pain med for patients at [facility]. Use as 2nd line at OC [...] 11/06/2018 documented in this encounter Care Teams Library Media Technician Relationship Specialty Start Date End Date Brie Carrington PA [address] [place], [place] [address] PCP - General Emergency Medicine 09/26/18 documented as of this encounter
--- OUTSIDE RECORDS SUMMARY | 2024-04-13 23:06 | XMS_ITS | Encounter Summary ---
Author Organization 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
--- OUTSIDE RECORDS SUMMARY | 2024-04-13 23:06 | XMS_ITS | Encounter Summary ---
Author Organization [facility] Address [address] [place] [address] Phone Care Team Providers Care Graphic Design Assistant Name Role Phone Brie Carrington Primary Care Provider +1 -[phone] Encounter Details Date Type Department Care Team (Late st Contact Info) Description 11/07/2018 Telephone [facility] Orthopaedic Surgery [facility] Advanced Medicine 6th [place] [address] [place] [address] [place] [address] [place] [address] Social History Tobacco Use Types Packs/Day Years Used Date Smoking Tobacco: Every Day Cigarettes 1.5 40 Started: 1984 Smokeless Tobacco: Never Alcohol Use Standard Drinks/Week Comments Yes 0 (1 standard drink = 0.6 oz pur e alcohol) occasional, 5 per week Sex and Gender Information Value Date Recorded Sex Assigned at Not on file 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 Dr. Brown approved [...] documented as of this encounter Care Teams Graphic Design Assistant Relationship Specialty Start Date End Date Brie Carrington PA [address] [place] [address] PCP - General Emergency Medicine 09/26/18 documented as of this encounter
--- OUTSIDE RECORDS SUMMARY | 2024-04-13 23:06 | XMS_ITS | Encounter Summary ---
Author Organization [facility] Address [address] [place] [address] Phone Care Team Providers Care Computer Teacher Name Role Phone Brie Carrington Primary Care Provider +1 -[phone] Encounter Details Date Type Department Care Team (Late st Contact Info) Description 12/23/2018 Telephone [facility] Orthopaedic Surgery [address] [facility] 2nd Floor [address] [place] [address] [place] [address] [place] [address] Social History Tobacco Use Types Packs/Day Years Used Date Smoking Tobacco: Every Day Cigarettes 1.5 40 Started: 1984 Smokeless Tobacco: Never Alcohol Use Standard Drinks/Week Comments Yes 0 (1 standard drink = 0.6 oz pur e alcohol) occasional, 5 per week Sex and Gender Information Value Date Recorded Sex Assigned at Not on file 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
--- OUTSIDE RECORDS SUMMARY | 2024-04-13 23:06 | XMS_ITS | Encounter Summary ---
Author Organization [facility] Address [address] [place] [address] Phone Care Team Providers Care Director Oracle Database Name Role Phone Brie Carrington Primary Care Provider +1 -[phone] Encounter Details Date Type Department Care Team (Late st Contact Info) Description 01/28/2019 Orders Only [facility] Orthopaedic Surgery [address] [facility] 2nd Floor [address] [place] [address] [place] [address] [place] [address] Carpal tunnel syndrome, right (Primary Dx) Social [...] on file 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
--- OUTSIDE RECORDS SUMMARY | 2024-04-13 23:06 | XMS_ITS | Encounter Summary ---
Author Organization [facility] Address [address] [place] [address] Phone Care Team Providers Care Gauger Delivery Name Role Phone Brie Carrington Primary Care Provider +1 -[phone] Reason for Visit * Reason Onset Date Comments Post-op Problem 11/27/2018 Encounter Details Date Type Department Care Team (Late st Contact Info) Description 11/27/2018 Telephone [facility] Orthopaedic Surgery [address] [facility] 2nd Floor [address] [place] [address] [place] [address] [place] [address] Post-op Problem Social History Tobacco Use Types Packs/Day Years Used Date Smoking Tobacco: Every Day Cigarettes 1.5 40 Started: 1984 Smokeless Tobacco: Never Alcohol Use Standard Drinks/Week Comments Yes 0 (1 standard drink = 0.6 oz pur e alcohol) occasional, 5 per week Sex and Gender Information Value Date Recorded Sex Assigned at Not on file 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
--- OUTSIDE RECORDS SUMMARY | 2024-04-13 23:06 | XMS_ITS | Encounter Summary ---
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
--- OUTSIDE RECORDS SUMMARY | 2024-04-13 23:06 | XMS_ITS | Encounter Summary ---
Author Organization [facility] Address [address] [place] [address] Phone Care Team Providers Care Engineer Booster And Exhauster Name Role Phone Brie Carrington Primary Care Provider +1 -[phone] Reason for Visit * Reason Onset Date Comments Question 11/15/2018 Encounter Details Date Type Department Care Team (Late st Contact Info) Description 11/15/2018 Telephone [facility] Orthopaedic Surgery [address] [facility] 2nd Floor [address] [place] [address] [place] [address] [place] [address] Question Social History Tobacco Use Types Packs/Day Years Used Date Smoking Tobacco: Every Day Cigarettes 1.5 40 Started: 1984 Smokeless Tobacco: Never Alcohol Use Standard Drinks/Week Comments Yes 0 (1 standard drink = 0.6 oz pur e alcohol) occasional, 5 per week Sex and Gender Information Value Date Recorded Sex Assigned at Not on file 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
--- OUTSIDE RECORDS SUMMARY | 2024-04-13 23:06 | XMS_ITS | Encounter Summary ---
Author Organization [facility] Address [address] [place] [address] Phone Care Team Providers Care Boathouse Keeper Name Role Phone Brie Carrington Primary Care Provider +1 -[phone] Reason for Visit * Reason Onset Date Comments [id number] 01/28/2019 Encounter Details Date Type Department Care Team (Late st Contact Info) Description 01/28/2019 Telephone [facility] Orthopaedic Surgery [address] [facility] [address] [place] [address] Crystal Alcocer RMA [id number] Social History Tobacco Use Types Packs/Day Years Used Date Smoking Tobacco: Every Day Cigarettes 1.5 40 Started: 1984 Smokeless Tobacco: Never Alcohol Use Standard Drinks/Week Comments Yes 0 (1 standard drink = 0.6 oz pur e alcohol) occasional, 5 per week Sex and Gender Information Value Date Recorded Sex Assigned at Not on file 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 INFO IS UPDATED IN CLAIM FIELD AND I RONNA W/ CHAVA LIRA (ADJ) @ [phone] REQUESTING AUTH FOR ULTRASOUND THE NCM IS NOT ABLE TO GIVE AUTH-LM AUTHORIZATION for Procedure or Ancillary Services PRE-CERT COMPLETED Primary Ins or Work Comp: Completed by: CRYSTAL Date called: 01/28/19 Ins. Co.: [employer] Phone #: [phone] DAISY SALAZAR / [phone] ELIZABETH HUFF ID #: [id number] Authorized by: GREGORIO FOR ELIZABETH REQUESTING AUTH FOR ULTRASOUND-LM Authorization #: Effective date of coverage: 07/08/18 Pre-Existing Clause: [ ] # visits/injections approved: [ ] Expiration date: [ ] INE SKIVER documented in this encounter Plan of Treatment Not on file documented as of this encounter Visit Diagnoses Not on filedocumented in this encounter Care Teams Boathouse Keeper Relationship Specialty Start Date End Date Brie Carrington PA [address] [place] [address] PCP - General Emergency Medicine 09/26/18 documented as of this encounter
--- OUTSIDE RECORDS SUMMARY | 2024-04-13 23:06 | XMS_ITS | Encounter Summary ---
Author Organization [facility] Address [address] [place] [address] Phone Care Team Providers Care Gear Machinist Name Role Phone Brie Carrington Primary Care Provider +1 -[phone] Reason for Visit * Reason Onset Date Comments WC EMG/NCS DR SAPP 12/13/2018 Encounter Details Date Type Department Care Team (Late st Contact Info) Description 12/13/2018 Telephone [facility] Orthopaedic Surgery [address] 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 Co.: [employer] Phone #: [phone] DAISY SALAZAR/[phone] [place] ID #: [id number] Group #: [ ] Authorized by: LMOM FOR [place] TO GET AUTH FOR EMG/NCS-MR Authorization #: Effective date of coverage: 07.08.2018 Pre-Existing Clause: [ ] # visits/injections approved: [ ] Expiration date: [ ] documented in this encounter Plan of Treatment Not on file documented as of this encounter Visit Diagnoses Not on filedocumented in this encounter Care Teams Gear Machinist Relationship Specialty Start Date End Date Brie Carrington PA [address] [place] [address] PCP - General Emergency Medicine 09/26/18 documented as of this encounter
--- OUTSIDE RECORDS SUMMARY | 2024-04-13 23:06 | XMS_ITS | Encounter Summary ---
Author Organization [facility] Address [address] [place] [address] Phone Care Team Providers Care Last Sorter Name Role Phone Brie Carrington Primary Care Provider +1 -[phone] Reason for Visit * Reason Onset Date Comments WC [facility] SURGERY 09/30/2018 Encounter Details Date Type Department Care Team (Late st Contact Info) Description 09/30/2018 Telephone [facility] Orthopaedic Surgery [address] [facility] [address] [place] [address] Josh Howard [facility] SURGERY Social History Tobacco Use Types Packs/Day Years Used Date Smoking Tobacco: Every Day Smokeless Tobacco: Current Sex and Gender Information Value Date Recorded Sex Assigned at Not on file 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 Co.: [employer] Phone #: [phone] FUAD ID #: [id number] Group #: [ ] Authorized by: SPOKE [...] on filedocumented in this encounter Care Teams Last Sorter Relationship Specialty Start Date End Date Brie Carrington PA [address] [place] [address] PCP - General Emergency Medicine 09/26/18 documented as of this encounter
--- OUTSIDE RECORDS SUMMARY | 2024-04-13 23:06 | XMS_ITS | Encounter Summary ---
Author Organization [facility] Address [address] [place] [address] Care Team Providers Care Wireless Internet Installer Name Role Phone Brie Carrington Primary Care Provider +1 -[phone] Encounter Details Date Type Department Care Team (Late st Contact Info) Description 11/06/2018 8:17 AM CDT Anesthesia Event [facility] [address] [place] [address] Guille Blanchard MD [address] [place] [address] Ondina Moore NP [address] [place] [address] Anesthesia Record Procedure Summary Procedure Name Responsible [...] Perdomo RN 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 Surgical Site 11/06/18; 0834; Ut ght; Arm; Wound well approximated.; 11/06/18; 0915 [...] on file 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 Gender Identity Not on file Sexual Orientation Not on file documented as of this encounter OR Notes * Anesthesia Postprocedure Evaluation - Guille Blanchard MD - 11/06/2018 9:20 AM CDT Patient: Miguel Caraballo Procedure Summary Date: 11/06/18 Room / Location: [facility] OPERATING [facility]OM 1 / [facility]PER[facility] Anesthesia Start: 816 Anesthesia [...] CRNA - 11/06/2018 8:31 AM CDTAssociated Order(s): [place] Block Anesthesia [place] Block Anesthesia Start time: 11/06/2018 8:27 AM End time: 11/06/2018 8:28 AM Reason for procedure: primary anesthetic Staff: Placed by: INSOLE TACKER: Elaine Valdivia CRNA Procedure prep: Preprocedure checklist: patient identified, patient appropriate for plan, informed consent obtained, surgical consent, risks and benefits discussed, monitors and equipment checked and timeout performed Prep solution: chlorhexadine/alcohol [place] block: Medication injected through: IV placed preoperatively [...] RIGHT CARPAL TUNNEL RELEASE - Note:Diabetic-First Case ([id number]) Pre-Op Diagnosis Codes: * Carpal tunnel syndrome on right [G56.01] HISTORY Past Medical History Information obtained from: patient. Patient Active Problem List Diagnosis ??? Carpal tunnel syndrome, right ??? Carpal tunnel syndrome, left ??? Cubital tunnel syndrome, left ??? Carpal tunnel syndrome on right ??? Carpal tunnel syndrome of left wrist Past Medical History: Diagnosis Date ??? COPD (chronic obstructive pulmonary disease) ([facility]) uses home nebulizer, no home O2, never needs rescue inhaler. ??? Diabetes mellitus ([facility]) also takes Lipitor for prevention ??? Diverticulitis [...] Medication protocol when under care of a INSOLE TACKER Planned anesthesia: Regional as primary anesthetic and [...] Procedure Name Priority Date/Time Associated Diagnosis Comments [place] AN PROCEDURE PLACEHOLDER Routine 11/06/2018 8:31 AM CDT Procedure Note - Elaine Valdivia CRNA - 11/06/2018 8:31 AM CDTThis note is in progress. [place] Block Anesthesia Start time: 11/06/2018 8:27 AM End time: 11/06/2018 8:28 AM Reason for procedure: primary anesthetic Staff: Placed by: INSOLE TACKER: Elaine Valdivia CRNA Procedure prep: Preprocedure checklist: patient identified, patient appropriate for plan,informed consent obtained, surgical consent, risks and benefits discussed,monitors and equipment checked and timeout performed Prep solution: chlorhexadine/alcohol [place] block: Medication injected through: IV placed preoperatively [...] Last Ordered Date First Orde red Date [place] Block Anesthesia 1 11/06/2018 documented in this encounter Care Teams Wireless Internet Installer Relationship Specialty Start Date End Date Brie Carrington PA [address] [place] [address] PCP - General Emergency Medicine 09/26/18 documented as of this encounter
--- OUTSIDE RECORDS SUMMARY | 2024-04-13 23:06 | XMS_ITS | Encounter Summary ---
Author Organization [facility] Address [address] [place] [address] Phone Care Team Providers Care Television Actor Name Role Phone Brie Carrington Primary Care Provider +1 -[phone] Reason for Visit * Reason Comments Pain Pain Encounter Details Date Type Department Care Team (Late st Contact Info) Description 09/26/2018 8:30 AM CDT Office Visit [facility] Orthopaedic Surgery [address] [facility] Medicine 6th [place] [address] [place] [address] [place] [address] [place] [id number] Carpal tunnel syndrome, right (Primary Dx); Carpal tunnel syndrome, left; Cubital tunnel syndrome, right; Cubital tunnel syndrome, left Social History Tobacco Use Types Packs/Day Years Used Date Smoking Tobacco: Every Day Smokeless Tobacco: Current Sex and Gender Information Value Date Recorded Sex Assigned at Not on file 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 He has DM, oral medication controlled. PAST MEDICAL HISTORY has a past medical history of Diabetes mellitus ([facility]). He also has no past medical history [...] and nerve study. He works as a auto service mechanic and has for many years. I [...] the 2nd surgery he would be at [facility]. Lengthy discussion. All questions answered. He is comfortable with this plan. This is pending worker's compensation approval. He can work full duty until then. Moy Brown M.D. Professor Hand and Upper Extremity [facility] Orthopedics Dr. Brown is dictating using speech recognition software. Substance Abuse Specialist variances may occur. * Moy Brown MD - 09/26/2018 8:30 AM CDT Images from the original note were not included. Patient Name: Miguel Caraballo : 1970 Provider: Moy Brown MD Encounter Date: 09/26/2018 Date: 09/26/18 Diagnosis:Bilateral carpal tunnel syndrome Work Status: May return to work without restrictions/date: 09/26/18 Recommend Surgery Procedure: staged CTR. Facility: [facility]. Follow up appointment needed: for surgery and then 2 weeks after. Location: [facility], [address] Moy Brown MD For questions/information call the Workers' Ocean Import Representative at , . documented in this encounter [...] 11/04/2018 added in this encounter Care Teams Television Actor Relationship Specialty Start Date End Date Brie Carrington PA [address] [place] [address] PCP - General Emergency Medicine 09/26/18 documented as of this encounter
--- OUTSIDE RECORDS SUMMARY | 2024-04-13 23:06 | XMS_ITS | Encounter Summary ---
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
--- OUTSIDE RECORDS SUMMARY | 2024-04-13 23:06 | XMS_ITS | Encounter Summary ---
Author Organization [facility] Address [address] [place] [address] Care Team Providers Care Wharfmaster Name Role Phone Brie Carrington Primary Care Provider +1 -[phone] Encounter Details Date Type Department Care Team (Late st Contact Info) Description 01/24/2019 Telephone [facility] [place] [address] [place] [address] [place] [address] Social History Tobacco Use Types Packs/Day Years Used Date Smoking Tobacco: Every Day Cigarettes 1.5 40 Started: 1984 Smokeless Tobacco: Never Alcohol Use Standard Drinks/Week Comments Yes 0 (1 standard drink = 0.6 oz pur e alcohol) occasional, 5 per week Sex and Gender Information Value Date Recorded Sex Assigned at Not on file 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
--- OUTSIDE RECORDS SUMMARY | 2024-04-13 23:06 | XMS_ITS | Encounter Summary ---
Author Organization [facility] Address [address] [place] [address] Phone Care Team Providers Care Sports Broadcaster Name Role Phone Brie Carrington Primary Care Provider +1 -[phone] Reason for Visit * Reason Comments Follow-up Post-op Pain Encounter Details Date Type Department Care Team (Late st Contact Info) Description 11/18/2018 9:50 AM CDT Office Visit [facility] Orthopaedic Surgery [address] [facility] 2nd Floor [address] [place] [address] [place] [address] [place] [address] Carpal tunnel syndrome, right (Primary Dx); Carpal [...] on file 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 documented in this encounter Plan of Treatment Not on file documented as of this encounter Visit Diagnoses Diagnosis Carpal tunnel syndrome, right- Primary Carpal tunnel syndrome Carpal tunnel syndrome, left Carpal tunnel syndrome documented in this encounter Care Teams Sports Broadcaster Relationship Specialty Start Date End Date Brie Carrington PA [address] [place] [address] PCP - General Emergency Medicine 09/26/18 documented as of this encounter
--- OUTSIDE RECORDS SUMMARY | 2024-04-13 23:06 | XMS_ITS | Encounter Summary ---
Author Organization [facility] Address [address] [place] [address] Phone Care Team Providers Care Stumper Feller Name Role Phone Brie Carrington Primary Care Provider [phone] Reason for Visit * Neurology (Routine) - Closed Specialty Diagnoses / Procedures Referred By Contac t Referred To Contact Orthopedic Surgery Diagnoses Numbness and tingling in right hand Procedures EMG/NCV - Moy Brown MD Phone: tel: fax: [facility] Orthopaedic Surgery [id number] [place] [address] 2nd [address] [place] [address] Phone: tel: fax: Referral ID Status Reason Start Date Expiration Date Visits Re quested Visits Authorized [id number] Closed 12/09/2018 06/19/2020 1 1 Encounter Details Date Type Department Care Team (Late st Contact Info) Description 01/20/2019 2:00 PM CDT Diagnostic [facility] Orthopaedic Surgery [address] [place] [address] 2nd [address] [place] [address] Celeste Ruiz MD [address] [facility] [address] [place] [address] Numbness and tingling in right [...] on file 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 [place] would be thego to person for a [...] sensation documented in this encounter Care Teams Stumper Feller Relationship Specialty Start Date End Date Brie Carrington PA [address] [place] [address] PCP - General Emergency Medicine 09/26/18 documented as of this encounter
--- OUTSIDE RECORDS SUMMARY | 2024-04-13 23:06 | XMS_ITS | Encounter Summary ---
Author Organization [facility] Address [address] [place] [address] Phone Care Team Providers Care Insulation Inspector Name Role Phone Brie Carrington Primary Care Provider [phone] Encounter Details Date Type Department Care Team (Late st Contact Info) Description 02/07/2019 Orders Only [facility] Orthopaedic Surgery [address] [facility] 2nd [address] [place] [address] [place] [address] [place] [address] Numbness and tingling in right hand (Primary [...] on file 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
--- OUTSIDE RECORDS SUMMARY | 2024-04-13 23:06 | XMS_ITS | Encounter Summary ---
Author Organization [facility] Address [address] [place] [address] Phone Care Team Providers Care Tradeshow Worker Name Role Phone Brie Carrington Primary Care Provider [phone] Encounter Details Date Type Department Care Team (Late st Contact Info) Description 10/15/2018 Telephone [facility] Orthopaedic Surgery [facility] Advanced Medicine 6th [place] [address] [place] [address] [place] [address] [place] [address] Social History Tobacco Use Types Packs/Day Years Used Date Smoking Tobacco: Every Day Smokeless Tobacco: Current Sex and Gender Information Value Date Recorded Sex Assigned at Not on file 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
== END 2024-04-07 14:35 | disposition home or self-care (01) ==
PROVIDERS: Emergency Provider Emergency Medicine; PCP Family Medicine
DX: J44.1 Chronic obstructive pulmonary disease with (acute) exacerbation (principal); R07.89 Other chest pain; E11.9 Type 2 diabetes mellitus without complications; I10 Essential (primary) hypertension; Z79.84 Long term (current) use of oral hypoglycemic drugs; F17.210 Nicotine dependence, cigarettes, uncomplicated; Z20.822 Contact with and (suspected) exposure to COVID-19
CPT/HCPCS: 71101; 87637; 94640; 99283; J7512

== ENCOUNTER 2024-05-26 15:46 | Outpatient (CLI) | payer OTHER, SELFPAY ==
--- OUTSIDE RECORDS SUMMARY | 2024-05-26 18:19 | XMS_ITS | Encounter Summary ---
Author Organization [facility] Address [facility] [place] [address] Care Team Providers Care Irrigation Equipment Remover Name Role Phone Brie Carrington Primary Care Provider [phone] Quentin Gurrola MD Primary Care Provider [phone] Encounter Details Date Type Department Care Team (Late st Contact Info) Description 06/16/2017 Abstract [facility] CONVERSION [address] [place] [address] , Generic ConversionMD Social History Tobacco Use [...] on filedocumented in this encounter Care Teams Irrigation Equipment Remover Relationship Specialty Start Date End Date Brie Carrington PA [address] [place] [address] PCP - General PHYSICIAN CASTING HOUSE LABORER 02/18/19 06/11/22 Quentin Gurrola MD [address] [place] [address] PCP - General 06/12/22 documented as of this encounter
--- OUTSIDE RECORDS SUMMARY | 2024-05-26 18:19 | XMS_ITS ---
Author Organization Unknown Medications Medication Instructions Effective Dates (start - stop) Status hydrochlorothiazide 12.5 MG / irbesartan 150 MG Oral Tablet [id number]:00:00.000+ 00 :00 - Completed 120 ACTUAT fluticasone propi denice 0.23 MG/ACTUAT / salmeterol 0.021 MG/ACTUAT Metered Dose Inhaler [Advair] [id number]:00:00.000+00 :00 - Completed albuterol 0.833 MG/ML / ipra tropium bromide 0.167 MG/ML Inhalation Solution [id number]:00:00.000+00 :00 - Completed 120 ACTUAT fluticasone propi denice 0.23 MG/ACTUAT / salmeterol 0.021 MG/ACTUAT Metered Dose Inhaler [Advair] [id number]:00:00.000+00 :00 - Completed hydrochlorothiazide 12.5 MG / irbesartan 150 MG Oral Tablet [id number]:00:00.000+ 00 :00 - Completed amoxicillin 875 MG / clavula katty 125 MG Oral Tablet [id number]:00:00.000+00 :00 - Completed hydrochlorothiazide 12.5 MG / irbesartan 150 MG Oral Tablet [id number]:00:00.000+ 00 :00 - Completed acetaminophen 325 MG / oxyco done hydrochloride 5 MG Oral Tablet [id number]:00:00.000 +00 :00 - Completed acetaminophen 325 MG / oxyco done hydrochloride 5 MG Oral Tablet [id number]:00:00.000 +00 :00 - Completed glipizide 5 MG Oral Tablet :00:00.000+00 :00 - Completed glipizide 5 MG Oral Tablet :00:00.000+00 :00 - Completed glipizide 5 MG Oral Tablet :00:00.000+00 :00 - Completed prednisone 20 MG Oral Tablet 05-31-24:00:00.000+00 :00 - Completed gabapentin 300 MG Oral Capsule 2 [id number]:00:00.000+00 :00 - Completed 0.25 MG, 0.5 MG Dose 1.5 ML semaglutide 1.34 MG/ML Pen Injector [Ozempic] [id number]:00:00.000+00 :00 - Completed 0.25 MG, 0.5 MG Dose 1.5 ML semaglutide 1.34 MG/ML Pen Injector [Ozempic] [id number]:00:00.000+00 :00 - Completed cefdinir 300 MG Oral Capsule 05-10-25:00:00.000+00 :00 - Completed 0.25 MG, 0.5 MG Dose 1.5 ML semaglutide 1.34 MG/ML Pen Injector [Ozempic] [id number]:00:00.000+00 :00 - Completed - 2311-85-63K91:00 :00.000+00 :00 - Completed gabapentin 300 MG Oral Capsule [id number]:00:00.000+00 :00 - Completed cefdinir 300 MG Oral Capsule 05-14-14:00:00.000+00 :00 - Completed 0.25 MG, 0.5 MG Dose 1.5 ML semaglutide 1.34 MG/ML Pen Injector [Ozempic] [id number]:00:00.000+00 :00 - Completed levofloxacin 500 MG Oral Tablet [id number]:00:00.000+00 :00 - Completed metformin hydrochloride 1000 MG Oral Tablet 5313-26-15C82:00:00.000+00 :00 - Completed pioglitazone 30 MG Oral Tablet 506-31-88Z35:00:00.000+00 :00 - Completed prednisone 20 MG Oral Tablet 05-14-14:00:00.000+00 :00 - Completed 0.25 MG, 0.5 MG Dose 1.5 ML semaglutide 1.34 MG/ML Pen Injector [Ozempic] [id number]:00:00.000+00 :00 - Completed gabapentin 300 MG Oral Capsule 2 529-64-51T87:00:00.000+00 :00 - Completed - 6431-63-38J55:00 :00.000+00 :00 - Completed metformin hydrochloride 1000 MG Oral Tablet [id number]:00:00.000+00 :00 - Completed metformin hydrochloride 1000 MG Oral Tablet [id number]:00:00.000+00 :00 - Completed gabapentin 300 MG Oral Capsule 2 [id number]:00:00.000+00 :00 - Completed {6 (azithromycin 250 MG Oral Tablet) } Pack [id number]:00:00.000+00 :00 - Completed 0.25 MG, 0.5 MG Dose 1.5 ML semaglutide 1.34 MG/ML Pen Injector [Ozempic] [id number]:00:00.000+00 :00 - Completed - [id number]:00 :00.000+00 :00 - Completed - [id number]:00 :00.000+00 :00 - Completed simvastatin 40 MG Oral Tablet 22-08-29:00:00.000+00 :00 - Completed - 2665-11-76Y90:00 :00.000+00 :00 - Completed duloxetine 30 MG Delayed Rel ease Oral Capsule 5013-69-20Z61:00:00.000+00 :00 - Completed duloxetine 30 MG Delayed Rel ease Oral Capsule [id number]:00:00.000+00 :00 - Completed simvastatin 40 MG Oral Tablet 23-06-03:00:00.000+00 :00 - Completed cyclobenzaprine hydrochlorid e 10 MG Oral Tablet [id number]:00:00.000+00 :00 - Completed ondansetron 4 MG Disintegrat ing Oral Tablet [id number]:00:00.000+00 :00 - Completed simvastatin 40 MG Oral Tablet 21-11-17:00:00.000+00 :00 - Completed duloxetine 30 MG Delayed Rel ease Oral Capsule [id number]:00:00.+00 :00 - Completed {21 (methylprednisolone 4 MG Oral Tablet) } Pack [id number]:00:00.+ :00 - Completed metronidazole 500 MG Oral Tablet [id number]::00.+ :00 - Completed {11 (varenicline 0.5 MG Oral Tablet) / 42 (varenicline 1 MG Oral Tablet) } Pack [id number]::00. :00 - Completed Patient Care team information Name Category Status Period Participants - - Proposed period not known -
--- OUTSIDE RECORDS SUMMARY | 2024-05-26 18:19 | XMS_ITS | Encounter Summary ---
Author Organization [facility] Address [address] [place] [address] Care Team Providers Care Architectural Engineering Teacher Name Role Phone Brie Carrington Primary Care Provider [phone] Quentin Gurrola MD Primary Care Provider [phone] Encounter Details Date Type Department Care Team (Late st Contact Info) Description 09/07/2018 Abstract [facility] CONVERSION [address] [place] [address] , Generic ConversionMD Social History Tobacco Use [...] on filedocumented in this encounter Care Teams Architectural Engineering Teacher Relationship Specialty Start Date End Date Brie Carrington PA [address] [place] [address] PCP - General PHYSICIAN OPTOMETRIC ASSISTANT 02/18/19 06/11/22 Quentin Gurrola MD [address] [place] [address] PCP - General 06/12/22 documented as of this encounter
--- OUTSIDE RECORDS SUMMARY | 2024-05-26 18:19 | XMS_ITS | Clinical Summary ---
Author Organization [facility] Address [address] [place] [address] Care Team Providers Care Weight Reducing Technician Name Role Phone Brie Carrington Primary Care Provider [phone] Allergies No known active allergies Medications metFORMIN [...] (04/17/2019): Added automatically from request for surgery [id number] Numbness and tingling in right hand 12/09/2018 Carpal tunnel syndrome on right 10/17/2018 Overview (10/17/2018): Added automatically from request for surgery [id number] Carpal tunnel syndrome of left wrist 10/17/2018 Overview (10/17/2018): Added automatically from request for surgery [id number] Carpal tunnel syndrome, right 09/26/2018 Carpal tunnel [...] Date Smoking Tobacco: Every Day Cigarettes 1.5 40.1 Started: 1986 Smokeless Tobacco: Never Alcohol Use Standard Drinks/Week Comments Yes 5 (1 standard drink = 0.6 oz pur e alcohol) occasional, 5 per week Personal Safety Answer Date Recorded Getting School Help Needed Not on file 04/03 Sex and Gender Information Value Date Recorded Sex Assigned at Not on file Legal Sex Male 9:26 AM AIRCRAFT CLEANER Gender Identity Not on file Sexual Orientation Not on file Obstetrics History Last Filed Vital Signs Vital Sign Reading Time Taken Comments Blood Pressure 134/88 04/30/2019 10:28 AM AIRCRAFT CLEANER Pulse 79 04/30/2019 10:25 AM AIRCRAFT CLEANER Temperature 36.6 C (97.9 F) 04/30/2019 10:10 AM AIRCRAFT CLEANER Respiratory Rate 17 04/30/2019 10:2 5 AM AIRCRAFT CLEANER Oxygen Saturation 94% 04/30/2019 10: 28 AM AIRCRAFT CLEANER Inhaled Oxygen Concentration - - Weight 126.9 kg (279 lb 11.2 oz) 04/30/2019 7:13 AM AIRCRAFT CLEANER Height 177.8 cm (5' 10 ) 04/30/2019 7:13 AM AIRCRAFT CLEANER Body Mass Index 40.13 04/30/2019 7:13 AM AIRCRAFT CLEANER Plan of Treatment Not on file Insurance [facility] Advance Directives For more information, please contact: [phone] * Full Code (Latest Code Status on File) Date Activated Date Inactivated Comments 04/30/2019 9:43 AM 04/30/2019 2:48 PM * Full Code Date Activated Date Inactivated Comments 11/06/2018 8:49 AM 11/06/2018 1:37 PM Care Teams Weight Reducing Technician Relationship Specialty Start Date End Date Brie Carrington PA [address] [place] [address] PCP - General Emergency Medicine 09/26/18
--- OUTSIDE RECORDS SUMMARY | 2024-05-26 18:19 | XMS_ITS | Clinical Summary ---
Author Organization [facility] Address [facility] [place] [address] Care Team Providers Care Eating Disorder Specialist Name Role Phone Quentin Gurrola MD Primary Care Provider [phone] Allergies No known active allergies Medications albuterol [...] 76 08/31/2022 12:02 PM CDT Temperature 36.4 C (97.5 F) 08/31/2022 12:02 PM CDT Respiratory Rate 16 08/31/2022 12:02 PM CDT [...] 12/22/2020 Zoster Vaccines Completed 05/25/2021, 12/22/2020 Meningococcal B Vaccine Aged Out No l onger eligible based on patient's age to complete this topic Meningococcal Vaccine Aged Out No sunitha emily eligible based on patient's age to complete this topic RSV Immunizations Under 20 Months Aged Out No longer eligible b ased on patient's age to complete this topic Insurance [facility] [employer] Care Teams Eating Disorder Specialist Relationship Specialty Start Date End Date Quentin Gurrola MD [address] [place] [address] [facility] - General 06/12/22
--- OUTSIDE RECORDS SUMMARY | 2024-05-26 18:19 | XMS_ITS | Referral Summary ---
Author Organization [facility] Address [address] [place] [address] Care Team Providers Care Independent Agent Music Education Name Role Phone Brie Carrington Primary Care Provider [phone] Allergies No known active allergies Medications metFORMIN [...] (04/17/2019): Added automatically from request for surgery [id number] Numbness and tingling in right hand 12/09/2018 Carpal tunnel syndrome on right 10/17/2018 Overview (10/17/2018): Added automatically from request for surgery [id number] Carpal tunnel syndrome of left wrist 10/17/2018 Overview (10/17/2018): Added automatically from request for surgery [id number] Carpal tunnel syndrome, right 09/26/2018 Carpal tunnel [...] on file Legal Sex Male 9:26 AM STUDENT FINANCE ADVISOR Gender Identity Not on file Sexual Orientation Not on file Last Filed Vital Signs Vital Sign Reading Time Taken Comments Blood Pressure 134/88 04/30/2019 10:28 AM STUDENT FINANCE ADVISOR Pulse 79 04/30/2019 10:25 AM STUDENT FINANCE ADVISOR Temperature 36.6 C (97.9 F) 04/30/2019 10:10 AM STUDENT FINANCE ADVISOR Respiratory Rate 17 04/30/2019 10:2 5 AM STUDENT FINANCE ADVISOR Oxygen Saturation 94% 04/30/2019 10: 28 AM STUDENT FINANCE ADVISOR Inhaled Oxygen Concentration - - Weight 126.9 kg (279 lb 11.2 oz) 04/30/2019 7:13 AM STUDENT FINANCE ADVISOR Height 177.8 cm (5' 10 ) 04/30/2019 7:13 AM STUDENT FINANCE ADVISOR Body Mass Index 40.13 04/30/2019 7:13 AM STUDENT FINANCE ADVISOR Plan of Treatment Not on file Insurance [facility] [facility] [address] [place] [id number] Advance Directives For more information, please contact: [phone] * Full Code (Latest Code Status on File) Date Activated Date Inactivated Comments 04/30/2019 9:43 AM 04/30/2019 2:48 PM * Full Code Date Activated Date Inactivated Comments 11/06/2018 8:49 AM 11/06/2018 1:37 PM Care Teams Independent Agent Music Education Relationship Specialty Start Date End Date Brie Carrington PA [address] [place] [address] PCP - General Emergency Medicine 09/26/18
== END 2024-05-26 15:47 | disposition home or self-care (01) ==
LOC: CHSLAB 15:47
PROVIDERS: PCP Family Medicine; Visit Provider Nurse Practitioner Family
DX: R76.12 Nonspecific reaction to cell mediated immunity measurement of gamma interferon antigen response without active tuberculosis (principal)
CPT/HCPCS: 87015; 87070; 87116; 87205; 87206

== ENCOUNTER 2024-06-19 15:31 | Outpatient (CLI) | payer OTHER, SELFPAY ==
--- OUTSIDE RECORDS SUMMARY | 2024-06-19 15:44 | XMS_ITS | Clinical Summary ---
Author Organization [facility] Address [facility] [place] [address] Care Team Providers Care Director Of Revenue Name Role Phone Quentin Gurrola MD Primary Care Provider [phone] Allergies No known active allergies Medications albuterol [...] [facility] [employer] [employer] Care Teams Director Of Revenue Relationship Specialty Start Date End Date Quentin Gurrola MD [address] [place] [address] [facility] - General 06/12/22
--- OUTSIDE RECORDS SUMMARY | 2024-06-19 15:44 | XMS_ITS | Referral Summary ---
Author Organization [facility] Address [address] [place] [address] Care Team Providers Care Light Technician Name Role Phone Brie Carrington Primary Care Provider [phone] Allergies No known active allergies Medications metFORMIN [...] (04/17/2019): Added automatically from request for surgery [id number] Numbness and tingling in right hand 12/09/2018 Carpal tunnel syndrome on right 10/17/2018 Overview (10/17/2018): Added automatically from request for surgery [id number] Carpal tunnel syndrome of left wrist 10/17/2018 Overview (10/17/2018): Added automatically from request for surgery [id number] Carpal tunnel syndrome, right 09/26/2018 Carpal tunnel syndrome, left 09/26/2018 Cubital tunnel syndrome, left 09/26/2018 Social History Tobacco Use Types Packs/Day Years Used Date Smoking Tobacco: Every Day Cigarettes 1.5 40.2 Started: 1986 Smokeless Tobacco: Never Alcohol Use Standard Drinks/Week Comments Yes 5 (1 standard drink = 0.6 oz pur e alcohol) occasional, 5 per week Personal Safety Answer Date Recorded Getting School Help Needed Not on file 04/03 Sex and Gender Information Value Date Recorded Sex Assigned at Not on file Legal Sex Male 9:26 AM YARN HANDLER Gender Identity Not on file Sexual Orientation Not on file Last Filed Vital Signs Vital Sign Reading Time Taken Comments Blood Pressure 134/88 04/30/2019 10:28 AM YARN HANDLER Pulse 79 04/30/2019 10:25 AM YARN HANDLER Temperature 36.6 C (97.9 F) 04/30/2019 10:10 AM YARN HANDLER Respiratory Rate 17 04/30/2019 10:2 5 AM YARN HANDLER Oxygen Saturation 94% 04/30/2019 10: 28 AM YARN HANDLER Inhaled Oxygen Concentration - - Weight 126.9 kg (279 lb 11.2 oz) 04/30/2019 7:13 AM YARN HANDLER Height 177.8 cm (5' 10 ) 04/30/2019 7:13 AM YARN HANDLER Body Mass Index 40.13 04/30/2019 7:13 AM YARN HANDLER Plan of Treatment Not on file [facility] [address] [place] [id number] Advance Directives For more information, please contact: [phone] * Full Code (Latest Code Status on File) Date Activated Date Inactivated Comments 04/30/2019 9:43 AM 04/30/2019 2:48 PM * Full Code Date Activated Date Inactivated Comments 11/06/2018 8:49 AM 11/06/2018 1:37 PM Care Teams Light Technician Relationship Specialty Start Date End Date Brie Carrington PA [address] [place] [address] PCP - General Emergency Medicine 09/26/18
--- OUTSIDE RECORDS SUMMARY | 2024-06-19 15:44 | XMS_ITS | Encounter Summary ---
Author Organization [facility] Address [facility] [place] [address] Care Team Providers Care Freight And Passenger Agent Name Role Phone Brie Carrington Primary Care Provider [phone] Quentin Gurrola MD Primary Care Provider [phone] Encounter Details Date Type Department Care Team (Late st Contact Info) Description 06/16/2017 Abstract [facility] CONVERSION [address] [place] [address] , Generic ConversionMD Social History Tobacco Use [...] on filedocumented in this encounter Care Teams Freight And Passenger Agent Relationship Specialty Start Date End Date Brie Carrington PA [address] [place] [address] PCP - General PHYSICIAN RN DIALYSIS 02/18/19 06/11/22 Quentin Gurrola MD [address] [place] [address] PCP - General 06/12/22 documented as of this encounter
--- OUTSIDE RECORDS SUMMARY | 2024-06-19 15:44 | XMS_ITS | Encounter Summary ---
Author Organization [facility] Address [facility] [place] [address] Care Team Providers Care Collator Name Role Phone Brie Carrington Primary Care Provider [phone] Quentin Gurrola MD Primary Care Provider [phone] Encounter Details Date Type Department Care Team (Late st Contact Info) Description 09/07/2018 Abstract SFL CONVERSION [address] [place] [address] , Generic ConversionMD Social History Tobacco Use [...] on filedocumented in this encounter Care Teams Collator Relationship Specialty Start Date End Date Brie Carrington PA [address] [place] [address] PCP - General PHYSICIAN JACQUARD LOOM WEAVER 02/18/19 06/11/22 Quentin Gurrola MD [address] [place] [address] PCP - General 06/12/22 documented as of this encounter
--- OUTSIDE RECORDS SUMMARY | 2024-06-19 15:44 | XMS_ITS | Clinical Summary ---
Author Organization [facility] Address [address] [place] [address] Care Team Providers Care 8Th Grade Mathematics Teacher Name Role Phone Brie Carrington Primary Care Provider [phone] Allergies No known active allergies Medications metFORMIN [...] (04/17/2019): Added automatically from request for surgery [id number] Numbness and tingling in right hand 12/09/2018 Carpal tunnel syndrome on right 10/17/2018 Overview (10/17/2018): Added automatically from request for surgery [id number] Carpal tunnel syndrome of left wrist 10/17/2018 Overview (10/17/2018): Added automatically from request for surgery [id number] Carpal tunnel syndrome, right 09/26/2018 Carpal tunnel [...] on file Legal Sex Male 9:26 AM SWEEPING COMPOUND BLENDER Gender Identity Not on file Sexual Orientation Not on file Obstetrics History Last Filed Vital Signs Vital Sign Reading Time Taken Comments Blood Pressure 134/88 04/30/2019 10:28 AM SWEEPING COMPOUND BLENDER Pulse 79 04/30/2019 10:25 AM SWEEPING COMPOUND BLENDER Temperature 36.6 C (97.9 F) 04/30/2019 10:10 AM SWEEPING COMPOUND BLENDER Respiratory Rate 17 04/30/2019 10:2 5 AM SWEEPING COMPOUND BLENDER Oxygen Saturation 94% 04/30/2019 10: 28 AM SWEEPING COMPOUND BLENDER Inhaled Oxygen Concentration - - Weight 126.9 kg (279 lb 11.2 oz) 04/30/2019 7:13 AM SWEEPING COMPOUND BLENDER Height 177.8 cm (5' 10 ) 04/30/2019 7:13 AM SWEEPING COMPOUND BLENDER Body Mass Index 40.13 04/30/2019 7:13 AM SWEEPING COMPOUND BLENDER Plan of Treatment Not on file Insurance [facility] [place] Advance Directives For more information, please contact: [phone] * Full Code (Latest Code Status on File) Date Activated Date Inactivated Comments 04/30/2019 9:43 AM 04/30/2019 2:48 PM * Full Code Date Activated Date Inactivated Comments 11/06/2018 8:49 AM 11/06/2018 1:37 PM Care Teams 8Th Grade Mathematics Teacher Relationship Specialty Start Date End Date Brie Carrington PA [address] [place] [address] PCP - General Emergency Medicine 09/26/18
[2024-06-19 15:46] LABS: Add Urine Microscopic? YES; Appearance Urine Clear (Clear); Basophils Absolute Auto 0.06 K/mm3 (0.00-0.10); Basophils Percent Auto 0.5 % (0.0-1.0); Bilirubin Urine Negative (Negative); Blood Urine Negative (Negative); Color Urine Yellow (Yellow); Eosinophils Absolute Auto 0.36 K/mm3 (0.02-0.50); Eosinophils Percent Auto 3.3 % (1.0-6.0); Glucose Urine UA Negative (Negative); Hematocrit 45.7 % (40.0-54.0); Hemoglobin 15.2 g/dL (14.0-18.0); Immature Granulocyte Absolute 0.04 K/mm3 (0.00-0.00); Immature Granulocyte Percent A 0.4 % (0.0-0.0); Ketones Urine Negative (Negative); Leukocyte Esterase Ur Negative (Negative); Lymphocytes Absolute Auto 2.62 K/mm3 (1.10-4.50); Lymphocytes Percent Auto 23.9 % (18.0-42.0); Mean Corpuscular HGB Conc 33.3 g/dL (32-36); Mean Corpuscular Hemoglobin 29.4 pg (27.0-31.0); Mean Corpuscular Volume 88.4 fL (78.0-102.0); Monocytes Absolute Auto 0.94 K/mm3 (0.10-0.90); Monocytes Percent Auto 8.6 % (2.0-11.0); Neutrophils Absolute Auto 6.94 K/mm3 (1.70-7.20); Neutrophils Percent Auto 63.3 % (50.0-70.0); Nitrate Urine Negative (Negative); Platelet Count Result 220 K/mm3 (150-420); Protein Urine 1+ (Negative); Red Blood Count 5.17 M/mm3 (4.70-6.10); Red Cell Distribution Width 12.2 % (11.6-14.4); pH Urine 7.5 (5.0-8.0)
[2024-06-19 15:51] LABS: Bacteria Urine Trace /hpf; RBC Urine 0-2 /hpf (0-2); WBC Urine 0-3 /hpf (0-3)
[2024-06-19 15:55] LABS: Creatinine Urine 165.27 mg/dL (40-278); MALB Creatinine Ratio 32.4 mg/g (0-30); Microalbumin Urine Random 53.6 mg/L
[2024-06-19 15:57] LABS: Hemoglobin A1C 6.5 % (<5.7)
[2024-06-19 16:50] LABS: Alanine Aminotransferase 48 U/L (16-63); Albumin Level 3.9 g/dL (3.4-5.0); Alkaline Phosphatase 94 U/L (46-116); Anion Gap 8 mmol/L (4-12); Aspartate Amino Transferase 22 U/L (15-37); Bilirubin,Total 0.3 mg/dL (0.00-1.00); Blood Urea Nitrogen 17 mg/dL (7-18); Calcium 8.7 mg/dL (8.5-10.1); Carbon Dioxide 31 mmol/L (21-32); Chloride 101 mmol/L (98-108); Estimated Glomerular Filt Rate > 60; Glucose 144 mg/dL (70-99); Osmolality Calculated 294 mOsm/kg (285-295); Potassium 4.2 mmol/L (3.5-5.1); Sodium 140 mmol/L (136-145); Thyroid Stimulating Hormone 0.46 uIU/mL (0.36-3.74); Total Protein 7.2 g/dL (6.4-8.2)
== END 2024-06-19 15:32 | disposition home or self-care (01) ==
LOC: CHSLAB 15:33
PROVIDERS: PCP Family Medicine; Visit Provider Family Medicine
DX: E11.42 Type 2 diabetes mellitus with diabetic polyneuropathy (principal)
CPT/HCPCS: 36415; 80053; 81001; 82043; 83036; 84443; 85025

== ENCOUNTER 2024-07-09 13:45 | Outpatient (CLI) | payer OTHER, SELFPAY ==
--- NOTE | 2024-07-09 14:30 | NEURO_ITS ---
Impression: # known diabetic Complains of increasing numbness of legs. ? 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 ? Nerve Conduction Studies Anti Sensory Summary Table ?Stim Site NR Peak (ms) P-T Amp (?V) Site1 Site2 Delta-P (ms) Dist (cm) Odell (m/s) Left Sup Fibular Anti Sensory (Ant Lat Mall)??? NO RESPONSE 14 cm NR 14 cm Ant Lat Mall 16.0 Right Sup Fibular Anti Sensory (Ant Lat Mall) 14 cm ? 3.4 9.6 14 cm Ant Lat Mall 3.4 16.0 47 Left Sural Anti Sensory (Lat Mall)??? NO RESPONSE Calf NR Calf Lat Mall 16.0 Right Sural Anti Sensory (Lat Mall) Calf ? 3.4 16.1 Calf Lat Mall 3.4 16.0 47 Motor Summary Table ?Stim Site NR Onset (ms) O-P Amp (mV) Site1 Site2 Delta-0 (ms) Dist (cm) Odell (m/s) Left Peroneal Motor (Vastus Med) Ankle ? 4.1 0.8 Popit Ankle 9.5 42.0 44 Popit ? 13.6 0.9 Right Peroneal Motor (Vastus Med) Ankle ? 4.5 1.2 Popit Ankle 9.3 40.0 43 Popit ? 13.8 0.7 Left Tibial Motor (Abd Tiwari Brev) Ankle ? 4.8 2.4 Knee Ankle 10.1 41.0 41 Knee ? 14.9 3.5 Right Tibial Motor (Abd Tiwari Brev) Ankle ? 5.0 2.3 Knee Ankle 9.8 39.0 40 Knee ? 14.8 2.0 F Wave Studies ?NR F-Lat (ms) L-R F-Lat (ms) Left Peroneal (Mrkrs) (EDB) ? 55.00 0.50 Right Peroneal (Mrkrs) (EDB) ? 54.50 0.50 Left Tibial (Mrkrs) (Abd Hallucis)??? NO RESPONSE NR Right Tibial (Mrkrs) (Abd Hallucis) ? 58.28 EMG ?Side Muscle Nerve Root Ins Act Fibs Amp Dur Recrt Comment Right AntTibialis Dp Br Fibular L4-5 Nml Nml Nml >12ms +1 Right Gastroc Tibial S1-2 Nml Nml Nml >12ms +1 Right Fibularis Long Sup Br Fibular L5-S1 Nml Nml Nml >12ms +1 Right Flex Dig Long Tibial L5-S2 Nml Nml Nml >12ms +1 Right Ext Dig Brev Dp Br Fibular L5, S1 Nml Nml Nml >12ms +2 Right QuadratusFem QuadFemoris L4-5, S1 Nml Nml Nml Nml Nml Left AntTibialis Dp Br Fibular L4-5 Nml Nml Nml >12ms +1 Left Gastroc Tibial S1-2 Nml Nml Nml >12ms +1 Left Fibularis Long Sup Br Fibular L5-S1 Nml Nml Nml >12ms +1 Left Flex Dig Long Tibial L5-S2 Nml Nml Nml >12ms +1 Left Ext Dig Brev Dp Br Fibular L5, S1 Nml Nml Nml >12ms +2 Left QuadratusFem QuadFemoris L4-5, S1 Nml Nml Nml Nml Nml ? MTDD
--- OUTSIDE RECORDS SUMMARY | 2024-07-09 15:20 | XMS_ITS | Clinical Summary ---
Author Organization [facility] Address [address] [place] [address] Care Team Providers Care Hull Sorter Name Role Phone Brie Carrington Primary Care Provider [phone] Allergies No known active allergies Medications metFORMIN [...] (04/17/2019): Added automatically from request for surgery [id number] Numbness and tingling in right hand 12/09/2018 Carpal tunnel syndrome on right 10/17/2018 Overview (10/17/2018): Added automatically from request for surgery [id number] Carpal tunnel syndrome of left wrist 10/17/2018 Overview (10/17/2018): Added automatically from request for surgery [id number] Carpal tunnel syndrome, right 09/26/2018 Carpal tunnel [...] Date Smoking Tobacco: Every Day Cigarettes 1.5 40.3 Started: 1986 Smokeless Tobacco: Never Alcohol Use Standard Drinks/Week Comments Yes 5 (1 standard drink = 0.6 oz pur e alcohol) occasional, 5 per week Personal Safety Answer Date Recorded Getting School Help Needed Not on file 04/03 Sex and Gender Information Value Date Recorded Sex Assigned at Not on file Legal Sex Male 9:26 AM SUPERVISOR SPINNING Gender Identity Not on file Sexual Orientation Not on file Obstetrics History Last Filed Vital Signs Vital Sign Reading Time Taken Comments Blood Pressure 134/88 04/30/2019 10:28 AM SUPERVISOR SPINNING Pulse 79 04/30/2019 10:25 AM SUPERVISOR SPINNING Temperature 36.6 C (97.9 F) 04/30/2019 10:10 AM SUPERVISOR SPINNING Respiratory Rate 17 04/30/2019 10:2 5 AM SUPERVISOR SPINNING Oxygen Saturation 94% 04/30/2019 10: 28 AM SUPERVISOR SPINNING Inhaled Oxygen Concentration - - Weight 126.9 kg (279 lb 11.2 oz) 04/30/2019 7:13 AM SUPERVISOR SPINNING Height 177.8 cm (5' 10 ) 04/30/2019 7:13 AM SUPERVISOR SPINNING Body Mass Index 40.13 04/30/2019 7:13 AM SUPERVISOR SPINNING Plan of Treatment Not on file [facility] Advance Directives For more information, please contact: [phone] * Full Code (Latest Code Status on File) Date Activated Date Inactivated Comments 04/30/2019 9:43 AM 04/30/2019 2:48 PM * Full Code Date Activated Date Inactivated Comments 11/06/2018 8:49 AM 11/06/2018 1:37 PM Care Teams Hull Sorter Relationship Specialty Start Date End Date Brie Carrington PA [address] [place] [address] PCP - General Emergency Medicine 09/26/18
--- OUTSIDE RECORDS SUMMARY | 2024-07-09 15:20 | XMS_ITS | Clinical Summary ---
Author Organization [facility] Address [facility]ly [facility] [place] [address] Care Team Providers Care Washer Off Name Role Phone Quentin Gurrola MD Primary Care Provider [phone] Allergies No known active allergies Medications albuterol [...] - 2023-2 5 season) 2023 10/29/2020, 10/08/2020 Zoster Vaccines Completed 05/25/2021, 12/22/2020 Meningococcal B [...] [employer] Care Teams Washer Off Relationship Specialty Start Date End Date Quentin Gurrola MD [address] [place] [address] [facility] - General 06/12/22
--- OUTSIDE RECORDS SUMMARY | 2024-07-09 15:20 | XMS_ITS | Encounter Summary ---
Author Organization [facility] Address [facility] [place] [address] Care Team Providers Care Rickshaw Driver Name Role Phone Brie Carrington Primary Care Provider [phone] Quentin Gurrola MD Primary Care Provider [phone] Encounter Details Date Type Department Care Team (Late st Contact Info) Description 06/16/2017 Abstract SJS CONVERSION [address] [place] [address] , Generic ConversionMD Social History Tobacco Use [...] on filedocumented in this encounter Care Teams Rickshaw Driver Relationship Specialty Start Date End Date Brie Carrington PA [address] [place] [address] PCP - General PHYSICIAN MED SURG NURSE 02/18/19 06/11/22 Quentin Gurrola MD [address] [place] [address] PCP - General 06/12/22 documented as of this encounter
--- OUTSIDE RECORDS SUMMARY | 2024-07-09 15:20 | XMS_ITS | Encounter Summary ---
Author Organization [facility] Address [address] [place] [address] Care Team Providers Care Internal Investigator Name Role Phone Brie Carrington Primary Care Provider [phone] Quentin Gurrola MD Primary Care Provider [phone] Encounter Details Date Type Department Care Team (Late st Contact Info) Description 09/07/2018 Abstract SFL CONVERSION [address] [place] [address] , Generic ConversionMD Social History Tobacco Use [...] on filedocumented in this encounter Care Teams Internal Investigator Relationship Specialty Start Date End Date Brie Carrington PA [address] [place] [address] PCP - General PHYSICIAN FINANCE BUSINESS PARTNER 02/18/19 06/11/22 Quentin Gurrola MD [address] [place] [address] PCP - General 06/12/22 documented as of this encounter
--- OUTSIDE RECORDS SUMMARY | 2024-07-09 15:20 | XMS_ITS | Referral Summary ---
Author Organization [facility] Address [address] [place] [address] Care Team Providers Care Repulping Supervisor Name Role Phone Brie Carrington Primary Care Provider [phone] Allergies No known active allergies Medications metFORMIN [...] (04/17/2019): Added automatically from request for surgery [id number] Numbness and tingling in right hand 12/09/2018 Carpal tunnel syndrome on right 10/17/2018 Overview (10/17/2018): Added automatically from request for surgery [id number] Carpal tunnel syndrome of left wrist 10/17/2018 Overview (10/17/2018): Added automatically from request for surgery [id number] Carpal tunnel syndrome, right 09/26/2018 Carpal tunnel [...] on file Legal Sex Male 9:26 AM HOUSEHOLD APPLIANCE REPAIRER Gender Identity Not on file Sexual Orientation Not on file Last Filed Vital Signs Vital Sign Reading Time Taken Comments Blood Pressure 134/88 04/30/2019 10:28 AM HOUSEHOLD APPLIANCE REPAIRER Pulse 79 04/30/2019 10:25 AM HOUSEHOLD APPLIANCE REPAIRER Temperature 36.6 C (97.9 F) 04/30/2019 10:10 AM HOUSEHOLD APPLIANCE REPAIRER Respiratory Rate 17 04/30/2019 10:2 5 AM HOUSEHOLD APPLIANCE REPAIRER Oxygen Saturation 94% 04/30/2019 10: 28 AM HOUSEHOLD APPLIANCE REPAIRER Inhaled Oxygen Concentration - - Weight 126.9 kg (279 lb 11.2 oz) 04/30/2019 7:13 AM HOUSEHOLD APPLIANCE REPAIRER Height 177.8 cm (5' 10 ) 04/30/2019 7:13 AM HOUSEHOLD APPLIANCE REPAIRER Body Mass Index 40.13 04/30/2019 7:13 AM HOUSEHOLD APPLIANCE REPAIRER Plan of Treatment Not on file Insurance [employer] [facility] [address] [place] [id number] Advance Directives For more information, please contact: [phone] * Full Code (Latest Code Status on File) Date Activated Date Inactivated Comments 04/30/2019 9:43 AM 04/30/2019 2:48 PM * Full Code Date Activated Date Inactivated Comments 11/06/2018 8:49 AM 11/06/2018 1:37 PM Care Teams Repulping Supervisor Relationship Specialty Start Date End Date Brie Carrington PA [address] [place] [address] PCP - General Emergency Medicine 09/26/18
== END 2024-07-09 13:46 | disposition home or self-care (01) ==
LOC: ANHNEURO 13:46
PROVIDERS: PCP Family Medicine; Visit Provider Family Medicine
DX: M79.605 Pain in left leg (principal); M79.604 Pain in right leg
CPT/HCPCS: 95886; 95910

== ENCOUNTER 2024-09-30 16:03 | Outpatient (RCR) | payer OTHER, SELFPAY ==
--- NOTE | 2024-09-30 16:47 | OPREHPOC ---
Outpatient Therapy Plan of Care This is a Multidisciplinary Plan of Care that may contain components documented by all disciplines (PT, OT, and ST.) PT Problem 1 PT Problem #1 Knowledge Deficit PT Goal 1 Goal / Goal Update independent and compliant with HEP Target Visit 2 PT Problem 2 PT Problem #2 Pain PT Goal 1 Goal / Goal Update patient to report 50% reduction in pain values in the bilateral gastrocs Target Visit 4 PT Problem 3 PT Problem #3 Impaired Flexibility PT Goal 1 Goal / Goal Update mild tightness or less of the bilateral gastrocs Target Visit 4 PT Problem 4 PT Problem #4 Impaired Functional Mobility PT Goal 1 Goal / Goal Update patient to stand and sit still for 60 minutes without mm cramping or spasms in the bilateral calves. Target Visit 4
--- NOTE | 2024-09-30 16:47 | PTOPEVAL1 ---
Assessment and note entered by JT File, PT Evaluation Information Assessment Status Evaluation Diagnosis mm cramp and spasm in bilateral calves Other ICD-10 Condition Codes ( R25.2 PT) Subjective Information he reports he gets cramps in both his legs. he reports they feel worse in the R LE, but his nerve conduction test shows the L LE is worse. he reports he thought it neuropathy initially, but reports it is probably more from his lower back surgery in the past. he reports he has increased cramping when laying and sitting down for more than 20-30 minutes. he reports his legs hurt all the time, but he does everything he can to prevent them from cramping. he reports he does drink plenty of water and gatordade. he reports all of his blood tests are normal. Reported Pain Level Pain Score 7: Self Report Assessment PT Clinical Summary mr. camarena is a 53 yo man who presents to skilled PT services for evaluation and treatment of mm cramps and spams in the bilateral gactrocs. he displays moderate bilateral gastroc and hamstrings tightness, as well as, decreased lumbar rom and R more L hip weakness. continued skilled PT is indicated to improve his objective/functional deficits to achieve his goals and return to prior level functional activity performance without cramping and spasms. Plan of Care Interventions Electrical Stimulation,Gait Training,Hot Pack/Cold Pack,Manual Therapy,Neuro Re-education,Patient/ Caregiver Education,Therapeutic Activities, Therapeutic Exercise,Other Other Interventions dry needling PT Services Indicated Yes Treatment Frequency and 2x weekly for 4 visits Duration These treatments will address the objective and functional deficits as defined above. The patient will be advanced safely and appropriately in order for the patient to progress towards his/her prior level of function. Additional exercises will be introduced and as well as a comprehensive home exercise program upon discharge, if needed, ?to ensure carryover of functional gains achieved in the clinic. This treatment plan has been reviewed and agreement upon by the patient.
--- NOTE | 2024-10-10 15:38 | PCPTNOTE ---
Patient called & cancelled scheduled appointment this date.
--- NOTE | 2024-10-16 17:41 | OPREHPOC ---
Outpatient Therapy Plan of Care This is a Multidisciplinary Plan of Care that may contain components documented by all disciplines (PT, OT, and ST.) PT Problem 1 PT Problem #1 Knowledge Deficit PT Goal 1 Goal / Goal Update independent and compliant with HEP Target Visit 2 Progress Met PT Problem 2 PT Problem #2 Pain PT Goal 1 Goal / Goal Update patient to report 50% reduction in pain values in the bilateral gastrocs Target Visit 4 Progress Not Met PT Problem 3 PT Problem #3 Impaired Flexibility PT Goal 1 Goal / Goal Update mild tightness or less of the bilateral gastrocs Target Visit 4 Progress Not Met PT Problem 4 PT Problem #4 Impaired Functional Mobility PT Goal 1 Goal / Goal Update patient to stand and sit still for 60 minutes without mm cramping or spasms in the bilateral calves. Target Visit 4 Progress Not Met
--- NOTE | 2024-10-16 17:41 | PTOPDC ---
Assessment and note entered by JT File, PT Evaluation Information Assessment Status Discharge Diagnosis mm cramp and spasm in bilateral calves Other ICD-10 Condition Codes ( R25.2 PT) Subjective Information patient reports he continues to have tightness and mm cramps in the bilateral calves every day. he reports he maybe has a little less cramping bouts throughout the day, but in general has had no improvement with PT. Reported Pain Level Pain Score 5: Self Report Assessment PT Clinical Summary mr. camarena presents to skilled PT services with reports of essentially no improvement from skilled PT. he has been compliant with his therapy and HEP, but continues to have pain, cramping, and tightness. he will DC skilled PT today, and return to the MD for next steps. Plan of Care PT Services Indicated Yes
== END 2024-10-16 20:00 | disposition home or self-care (01) ==
LOC: CHSPT 16:03
DX: R25.2 Cramp and spasm (principal)
CPT/HCPCS: 97110; 97140; 97161

== ENCOUNTER 2024-10-07 16:48 | Outpatient (CLI) | payer OTHER, SELFPAY ==
--- OUTSIDE RECORDS SUMMARY | 2024-10-07 16:52 | XMS_ITS ---
Author Organization Unknown Medications Medication Instructions Effective Dates (start - stop) Status hydrochlorothiazide 12.5 MG / irbesartan 150 MG Oral Tablet [id number]:00:00.000+ 00 :00 - Completed 120 ACTUAT fluticasone propi denice 0.23 MG/ACTUAT / salmeterol 0.021 MG/ACTUAT Metered Dose Inhaler [Advair] [id number]:00:00.000+00 :00 - Completed albuterol 0.833 MG/ML / ipra tropium bromide 0.167 MG/ML Inhalation Solution [id number]:00:00.000+00 :00 - Completed 120 ACTUAT fluticasone propi denice 0.23 MG/ACTUAT / salmeterol 0.021 MG/ACTUAT Metered Dose Inhaler [Advair] [id number]:00:00.000+00 :00 - Completed hydrochlorothiazide 12.5 MG / irbesartan 150 MG Oral Tablet [id number]:00:00.000+ 00 :00 - Completed amoxicillin 875 MG / clavula katty 125 MG Oral Tablet [id number]:00:00.000+00 :00 - Completed hydrochlorothiazide 12.5 MG / irbesartan 150 MG Oral Tablet [id number]:00:00.000+ 00 :00 - Completed acetaminophen 325 MG / oxyco done hydrochloride 5 MG Oral Tablet [id number]:00:00.000 +00 :00 - Completed acetaminophen 325 MG / oxyco done hydrochloride 5 MG Oral Tablet [id number]:00:00.000 +00 :00 - Completed glipizide 5 MG Oral Tablet :00:00.000+00 :00 - Completed glipizide 5 MG Oral Tablet :00:00.000+00 :00 - Completed glipizide 5 MG Oral Tablet :00:00.000+00 :00 - Completed prednisone 20 MG Oral Tablet 05-31-24:00:00.000+00 :00 - Completed gabapentin 300 MG Oral Capsule 2 [id number]:00:00.000+00 :00 - Completed 0.25 MG, 0.5 MG Dose 1.5 ML semaglutide 1.34 MG/ML Pen Injector [Ozempic] [id number]:00:00.000+00 :00 - Completed 0.25 MG, 0.5 MG Dose 1.5 ML semaglutide 1.34 MG/ML Pen Injector [Ozempic] [id number]:00:00.000+00 :00 - Completed cefdinir 300 MG Oral Capsule 05-10-25:00:00.000+00 :00 - Completed 0.25 MG, 0.5 MG Dose 1.5 ML semaglutide 1.34 MG/ML Pen Injector [Ozempic] [id number]:00:00.000+00 :00 - Completed - [id number]:00 :00.000+00 :00 - Completed gabapentin 300 MG Oral Capsule [id number]:00:00.000+00 :00 - Completed cefdinir 300 MG Oral Capsule 05-14-14:00:00.000+00 :00 - Completed 0.25 MG, 0.5 MG Dose 1.5 ML semaglutide 1.34 MG/ML Pen Injector [Ozempic] [id number]:00:00.000+00 :00 - Completed levofloxacin 500 MG Oral Tablet [id number]:00:00.000+00 :00 - Completed metformin hydrochloride 1000 MG Oral Tablet [id number]:00:00.000+00 :00 - Completed pioglitazone 30 MG Oral Tablet [id number]:00:00.000+00 :00 - Completed prednisone 20 MG Oral Tablet 05-14-14:00:00.000+00 :00 - Completed 0.25 MG, 0.5 MG Dose 1.5 ML semaglutide 1.34 MG/ML Pen Injector [Ozempic] [id number]:00:00.000+00 :00 - Completed gabapentin 300 MG Oral Capsule 2 320-17-81Y52:00:00.000+00 :00 - Completed - [id number]:00 :00.000+00 :00 - Completed metformin hydrochloride 1000 MG Oral Tablet [id number]:00:00.000+00 :00 - Completed metformin hydrochloride 1000 MG Oral Tablet [id number]:00:00.000+00 :00 - Completed gabapentin 300 MG Oral Capsule 2 [id number]:00:00.000+00 :00 - Completed {6 (azithromycin 250 MG Oral Tablet) } Pack [id number]:00:00.000+00 :00 - Completed 0.25 MG, 0.5 MG Dose 1.5 ML semaglutide 1.34 MG/ML Pen Injector [Ozempic] [id number]:00:00.000+00 :00 - Completed - [id number]:00 :00.000+00 :00 - Completed - [id number]:00 :00.000+00 :00 - Completed simvastatin 40 MG Oral Tablet 22-08-29:00:00.000+00 :00 - Completed - [id number]:00 :00.000+00 :00 - Completed duloxetine 30 MG Delayed Rel ease Oral Capsule [id number]:00:00.000+00 :00 - Completed duloxetine 30 MG Delayed Rel ease Oral Capsule [id number]:00:00.000+00 :00 - Completed simvastatin 40 MG Oral Tablet 23-06-03:00:00.000+00 :00 - Completed cyclobenzaprine hydrochlorid e 10 MG Oral Tablet [id number]:00:00.000+00 :00 - Completed ondansetron 4 MG Disintegrat ing Oral Tablet [id number]:00:00.000+00 :00 - Completed simvastatin 40 MG Oral Tablet 21-11-17:00:00.000+00 :00 - Completed duloxetine 30 MG Delayed Rel ease Oral Capsule [id number]:00:00.+00 :00 - Completed {21 (methylprednisolone 4 MG Oral Tablet) } Pack [id number]:00:00.+ :00 - Completed metronidazole 500 MG Oral Tablet [id number]::00.+ :00 - Completed {11 (varenicline 0.5 MG Oral Tablet) / 42 (varenicline 1 MG Oral Tablet) } Pack [id number]::00. :00 - Completed Patient Care team information Name Category Status Period Participants - - Proposed period not known -
--- OUTSIDE RECORDS SUMMARY | 2024-10-07 16:52 | XMS_ITS | Encounter Summary ---
Author Organization [facility] Address [address] [place] [address] Care Team Providers Care Doorperson Name Role Phone Brie Carrington Primary Care Provider [phone] Quentin Gurrola MD Primary Care Provider [phone] Encounter Details Date Type Department Care Team (Late st Contact Info) Description 09/07/2018 Abstract SFL CONVERSION [address] [place] [address] , Generic ConversionMD Social History Tobacco Use [...] on filedocumented in this encounter Care Teams Doorperson Relationship Specialty Start Date End Date Brie Carrington PA [address] [place] [address] PCP - General PHYSICIAN MEMBER OF PARLIAMENT 02/18/19 06/11/22 Quentin Gurrola MD [address] [place] [address] PCP - General 06/12/22 documented as of this encounter
--- OUTSIDE RECORDS SUMMARY | 2024-10-07 16:52 | XMS_ITS | Clinical Summary ---
Author Organization [facility] Address [address] [facility] [place] [address] Care Team Providers Care Asparagus Cutter Name Role Phone Unavailable Primary Care Provider Unavailabl e Source Comments [facility],non-owned Affiliates and Associated Physician Practices is amultiple site organization consisting of ambulatory clinics and hospital sitesin [place], [place], [place] and [place]. This disclosure is being madepursuant to the Care Everywhere program and may not contain all information available regarding this patient. Last updated 17.[facility] Health Encounters Date Type Department Care Team Description 09/11/2024 8:20 AM CDT - 09/11/2024 11:59 PM CDT Hospital Encounter [facility] Imaging Services - CT Scan [address] [place] [address] Darrel Mccormick MD Discharge Disposition: Home or Self Care from Last 3 Months Social History Tobacco Use Types Packs/Day Years Used Date Smoking Tobacco: Never Assessed Sex and Gender Information Value Date Recorded Sex Assigned at Not on file Legal Sex Male 12:52 PM CDT Gender Identity Male 09/03/2024 1:05 PM CDT Sexual Orientation Not on file Plan of Treatment Health Maintenance Due Date Last Done Comments COLOGUARD (AGES 45-75) - COL ON CA SCREENING 1968 COLON MONITORING 1968 COLONOSCOPY - COLON CA SCREENING 1968 CT COLONOGRAPHY - COLON CA SCREENING 1968 Colorectal Cancer Screening 1968 FIT - COLON CA SCREENING 1968 FLEX SIG - COLON CA SCREENING 1968 LIPID TESTING 1968 HIV SCREENING 10/17/1983 HEPATITIS C SCREENING 10/12/1986 DTAP/TDAP/TD VACCINES (1 - Tdap) 10/17/1987 HEPATITIS B VACCINE (1 of 3 - 19+ 3-dose series) 10/17/1987 PNEUMOCOCCAL VACCINE 50+ (1 of 2 - PCV) 10/17/1987 ZOSTER VACCINE (1 of 2) 2018 COVID-19 VACCINE (1 - 2023-2 5 season) 2023 DEPRESSION SCREENING 04/02/2024 INFLUENZA VACCINE (#1) 2024 HIB VACCINE Aged Out No longer eligi ble based on patient's age to complete this topic HPV VACCINE Aged Out No longer eligi ble based on patient's age to complete this topic MENINGOCOCCAL (Group B) VACC INE SHARED DECISION-MAKING Aged Out No longer eligibl e based on patient's age to complete this topic MENINGOCOCCAL GROUPS A/C/Y/W VACCINE Aged Out No longer eligible b ased on patient's age to complete this topic Procedures Procedure Name Priority Date/Time Associated Diagnosis Comments CT CHEST WO CONT AND HIRES Routine 09/11/2024 9:31 AM CDT Chronic obstructive pulmonary disease, unspecified COPD type (HCC) from Last 3 Months Results * CT Chest Wo Cont And Hires (09/11/2024 9:31 AM CDT) Anatomical Region Laterality Modality Chest Computed Tomogra phy 09/11/2024 12:3 3 PM CDT Impressions 09/11/2024 12:36 PM CDT IMPRESSION: 1. Mild emphysema. 2. No acute infiltrate. 3. No evidence of pulmonary interstitial lung disease or fibrosis > Interpreting Provider: Eulogio Sorenson MD on 09/11/2024 12:36 PM Narrative 09/11/2024 12:36 PM CDT PROCEDURE: CT CHEST WO CONT AND HIRES DATE/TIME OF EXAM: 09/11/2024 9:31 AM INDICATION: J44.9: Chronic obstructive pulmonary disease, unspecified COPD type (HCC) COMPARISON: None. No chest x-ray was submitted ADDITIONAL CLINICAL INFORMATION (if provided): Shortness of breath Ordering Provider Reason For Exam: TECHNIQUE: CT of the chest was performed without contrast administration. Multiplanar reconstructions were obtained. CT dose reduction technique was used, including Automated Exposure Control. FINDINGS: Coronary artery calcification : No. There is no mass adenopathy or pleural effusion. There is no gross abnormality seen in the upper abdomen without contrast administration. The lungs are free of acute infiltrate. High-resolution imaging shows at most some very mild central lobular emphysema. The central airway is patent. There is some mild bronchial wall thickening. There is no underlying interstitial lung disease or fibrosis Procedure Note Eulogio Sorenson MD - 09/11/2024 PROCEDURE: CT CHEST WO TAMI AND HIRMANA DATE/TIME OF EXAM: 09/11/2024 9:31 AM INDICATION: J44.9: Chronic obstructive pulmonary disease, unspecifiedCOPD type (HCC) COMPARISON: None. No chest x-ray was submitted ADDITIONAL CLINICAL INFORMATION (if provided): Shortness of breath Ordering Provider Reason For Exam: TECHNIQUE: CT of the chest was performed without contrastadministration. Multiplanar reconstructions were obtained. CT dose reduction technique was used, including Automated ExposureControl. FINDINGS: Coronary artery calcification : No. There is no mass adenopathy or pleural effusion. There is no gross abnormality seen in the upper abdomen without contrast administration. The lungs are free of acute infiltrate. High-resolution imaging shows at most some very mild central lobular emphysema. The central airway is patent. There is some mild bronchialwall thickening. There is no underlying interstitial lung disease or fibrosis IMPRESSION: 1. Mild emphysema. 2. No acute infiltrate. 3. No evidence of pulmonary interstitial lung disease or fibrosis > Interpreting Provider: Eulogio Sorenson MD on 09/11/2024 12:36 PM Darrel Mccormick MD CT ORDERABLES Final Result from Last 3 Months
--- OUTSIDE RECORDS SUMMARY | 2024-10-07 16:52 | XMS_ITS | Encounter Summary ---
Author Organization [facility] Address Formerly [facility] [place] [address] Care Team Providers Care Property Economist Name Role Phone Brie Carrington Primary Care Provider [phone] Quentin Gurrola MD Primary Care Provider Encounter Details Date Type Department Care Team (Late st Contact Info) Description 06/16/2017 Abstract SJS CONVERSION [address] [place] [address] , Generic ConversionMD Social History Tobacco Use [...] on filedocumented in this encounter Care Teams Property Economist Relationship Specialty Start Date End Date Brie Carrington PA [address] [place] [address] PCP - General PHYSICIAN CONE TREATER 02/18/19 06/11/22 Quentin Gurrola MD [address] [place] [address] PCP - General 06/12/22 documented as of this encounter
--- OUTSIDE RECORDS SUMMARY | 2024-10-07 16:52 | XMS_ITS | Clinical Summary ---
Author Organization [facility] Address Formerly [facility] [place] [address] Care Team Providers Care Occupational Therapy Manager Name Role Phone Quentin Gurrola MD Primary Care Provider [phone] Allergies No known active allergies Medications albuterol [...] 4:32 PM CDT Height 177.8 cm (5' 10) 11/08/2022 4:32 PM CDT Body Mass Index 38.74 11/08/2022 4:32 PM CDT Plan of Treatment Health Maintenance Due Date Last Done Comments Colorectal Cancer Screening Colonoscopy (10 Years) 1968 Annual Physical 10/17/1971 Hepatitis C 1986 DTaP, Tdap and Td Vaccines ( 1 - Tdap) 10/17/1987 Hepatitis B Vaccines (1 of 3 - 19+ 3-dose series) 10/17/1987 Pneumococcal Vaccine: 50+ Years (1 of 2 - PCV) 10/17/1987 COVID-19 Vaccine (3 - 2023-2 5 [...] MEDICAL REIMBURSEMENTS OF [place] [employer]ET[employer] Care Teams Occupational Therapy Manager Relationship Specialty Start Date End Date Quentin Gurrola MD [address] [place], [place] [id number] PCP - General 06/12/22
--- OUTSIDE RECORDS SUMMARY | 2024-10-07 16:52 | XMS_ITS | Clinical Summary ---
Author Organization [facility] Address [address] [place] [address] Care Team Providers Care Dry House Tender Name Role Phone Brie Carrington Primary Care Provider [phone] Allergies No known active allergies Medications metFORMIN [...] (04/17/2019): Added automatically from request for surgery [id number] Numbness and tingling in right hand 12/09/2018 Carpal tunnel syndrome on right 10/17/2018 Overview (10/17/2018): Added automatically from request for surgery [id number] Carpal tunnel syndrome of left wrist 10/17/2018 Overview (10/17/2018): Added automatically from request for surgery [id number] Carpal tunnel syndrome, right 09/26/2018 Carpal tunnel [...] Date Smoking Tobacco: Every Day Cigarettes 1.5 40.5 Started: 1986 Smokeless Tobacco: Never Alcohol Use Standard Drinks/Week Comments Yes 5 (1 standard drink = 0.6 oz pur e alcohol) occasional, 5 per week Personal Safety Answer Date Recorded Getting School Help Needed Not on file 04/03 Sex and Gender Information Value Date Recorded Sex Assigned at Not on file Legal Sex Male 9:26 AM GUN PERFORATOR LOADER Gender Identity Not on file Sexual Orientation Not on file Obstetrics History Last Filed Vital Signs Vital Sign Reading Time Taken Comments Blood Pressure 134/88 04/30/2019 10:28 AM GUN PERFORATOR LOADER Pulse 79 04/30/2019 10:25 AM GUN PERFORATOR LOADER Temperature 36.6 C (97.9 F) 04/30/2019 10:10 AM GUN PERFORATOR LOADER Respiratory Rate 17 04/30/2019 10:2 5 AM GUN PERFORATOR LOADER Oxygen Saturation 94% 04/30/2019 10: 28 AM GUN PERFORATOR LOADER Inhaled Oxygen Concentration - - Weight 126.9 kg (279 lb 11.2 oz) 04/30/2019 7:13 AM GUN PERFORATOR LOADER Height 177.8 cm (5' 10) 04/30/2019 7:13 AM GUN PERFORATOR LOADER Body Mass Index 40.13 04/30/2019 7:13 AM GUN PERFORATOR LOADER Plan of Treatment Not on file [facility] Advance Directives For more information, please contact: [phone] * Full Code (Latest Code Status on File) Date Activated Date Inactivated Comments 04/30/2019 9:43 AM 04/30/2019 2:48 PM * Full Code Date Activated Date Inactivated Comments 11/06/2018 8:49 AM 11/06/2018 1:37 PM Care Teams Dry House Tender Relationship Specialty Start Date End Date Brie Carrington PA [address] [place] [address] PCP - General Emergency Medicine 09/26/18
--- OUTSIDE RECORDS SUMMARY | 2024-10-07 16:52 | XMS_ITS | Referral Summary ---
Author Organization [facility] Address [address] [place] [address] Care Team Providers Care Teacher Vocational Training Name Role Phone Brie Carrington Primary Care Provider [phone] Allergies No known active allergies Medications metFORMIN [...] (04/17/2019): Added automatically from request for surgery [id number] Numbness and tingling in right hand 12/09/2018 Carpal tunnel syndrome on right 10/17/2018 Overview (10/17/2018): Added automatically from request for surgery [id number] Carpal tunnel syndrome of left wrist 10/17/2018 Overview (10/17/2018): Added automatically from request for surgery [id number] Carpal tunnel syndrome, right 09/26/2018 Carpal tunnel [...] on file Legal Sex Male 9:26 AM CATERPILLAR MECHANIC Gender Identity Not on file Sexual Orientation Not on file Last Filed Vital Signs Vital Sign Reading Time Taken Comments Blood Pressure 134/88 04/30/2019 10:28 AM CATERPILLAR MECHANIC Pulse 79 04/30/2019 10:25 AM CATERPILLAR MECHANIC Temperature 36.6 C (97.9 F) 04/30/2019 10:10 AM CATERPILLAR MECHANIC Respiratory Rate 17 04/30/2019 10:2 5 AM CATERPILLAR MECHANIC Oxygen Saturation 94% 04/30/2019 10: 28 AM CATERPILLAR MECHANIC Inhaled Oxygen Concentration - - Weight 126.9 kg (279 lb 11.2 oz) 04/30/2019 7:13 AM CATERPILLAR MECHANIC Height 177.8 cm (5' 10) 04/30/2019 7:13 AM CATERPILLAR MECHANIC Body Mass Index 40.13 04/30/2019 7:13 AM CATERPILLAR MECHANIC Plan of Treatment Not on file Insurance [facility] [address] [place] [id number] Advance Directives For more information, please contact: [phone] * Full Code (Latest Code Status on File) Date Activated Date Inactivated Comments 04/30/2019 9:43 AM 04/30/2019 2:48 PM * Full Code Date Activated Date Inactivated Comments 11/06/2018 8:49 AM 11/06/2018 1:37 PM Care Teams Teacher Vocational Training Relationship Specialty Start Date End Date Brie Carrington PA [address] [place] [address] PCP - General Emergency Medicine 09/26/18
[2024-10-07 17:00] LABS: Hematocrit 46.0 % (40.0-54.0); Hemoglobin 15.5 g/dL (14.0-18.0); Mean Corpuscular HGB Conc 33.7 g/dL (32-36); Mean Corpuscular Hemoglobin 29.2 pg (27.0-31.0); Mean Corpuscular Volume 86.6 fL (78.0-102.0); Platelet Count Result 223 K/mm3 (150-420); Red Blood Count 5.31 M/mm3 (4.70-6.10); White Blood Count 12.2 K/mm3 (4.8-10.8)
[2024-10-07 17:49] LABS: Alanine Aminotransferase 38 U/L (6-50); Albumin Level 4.5 g/dL (3.5-5.1); Alkaline Phosphatase 78 U/L (38-126); Anion Gap 7 mmol/L (4-12); Aspartate Amino Transferase 35 U/L (17-59); Bilirubin,Total 0.5 mg/dL (0.2-1.3); Blood Urea Nitrogen 19 mg/dL (9-20); Calcium 9.5 mg/dL (8.4-10.2); Carbon Dioxide 31 mmol/L (22-30); Chloride 101 mmol/L (98-107); Estimated Glomerular Filt Rate > 60; Glucose 119 mg/dL (65-110); Osmolality Calculated 291 mOsm/kg (285-295); Potassium 4.6 mmol/L (3.4-5.0); Sodium 139 mmol/L (137-145); Total Protein 7.3 g/dL (6.3-8.2)
[2024-10-07 17:53] LABS: Hemoglobin A1C 6.3 % (<5.7)
== END 2024-10-07 16:49 | disposition home or self-care (01) ==
LOC: CHSLAB 16:50
PROVIDERS: PCP Family Medicine; Visit Provider Family Medicine
DX: E11.9 Type 2 diabetes mellitus without complications (principal)
CPT/HCPCS: 36415; 80053; 83036; 85027

== ENCOUNTER 2025-01-05 10:13 | Outpatient (CLI) | payer OTHER, SELFPAY ==
[2025-01-05 10:25] LABS: Hematocrit 44.4 % (40.0-54.0); Hemoglobin 14.8 g/dL (14.0-18.0); Mean Corpuscular HGB Conc 33.3 g/dL (32-36); Mean Corpuscular Hemoglobin 29.5 pg (27.0-31.0); Mean Corpuscular Volume 88.4 fL (78.0-102.0); Platelet Count Result 177 K/mm3 (150-420); Red Blood Count 5.02 M/mm3 (4.70-6.10); White Blood Count 8.4 K/mm3 (4.8-10.8)
[2025-01-05 10:26] LABS: Add Urine Microscopic? NO; Appearance Urine Clear (Clear); Glucose Urine UA Negative (Negative); Leukocyte Esterase Ur Negative (Negative); Nitrate Urine Negative (Negative); Specific Grav Ur 1.020 (1.010-1.020)
[2025-01-05 10:39] LABS: Hemoglobin A1C 6.2 % (<5.7)
[2025-01-05 10:43] LABS: Alanine Aminotransferase 40 U/L (6-50); Albumin Level 4.1 g/dL (3.5-5.1); Alkaline Phosphatase 64 U/L (38-126); Anion Gap 8 mmol/L (4-12); Aspartate Amino Transferase 37 U/L (17-59); Bilirubin,Total 0.5 mg/dL (0.2-1.3); Blood Urea Nitrogen 16 mg/dL (9-20); Calcium 8.8 mg/dL (8.4-10.2); Carbon Dioxide 25 mmol/L (22-30); Chloride 106 mmol/L (98-107); Cholesterol 176 mg/dL (0-200); Estimated Glomerular Filt Rate > 60; Glucose 110 mg/dL (65-110); HDL Direct 46 mg/dL; Osmolality Calculated 290 mOsm/kg (285-295); Potassium 4.2 mmol/L (3.4-5.0); Sodium 139 mmol/L (137-145); Total Protein 7.2 g/dL (6.3-8.2); Triglycerides 208 mg/dL (<150)
[2025-01-05 11:14] LABS: Prostate Specific Antigen 2.8 ng/mL (< OR = 4.0)
--- OUTSIDE RECORDS SUMMARY | 2025-01-05 11:27 | XMS_ITS | Clinical Summary ---
Author Organization [facility] Address [facility] [place] [address] Care Team Providers Care Electronic Commerce Specialist Name Role Phone Quentin Gurrola MD Primary Care Provider [phone] Allergies No known active allergies Medications albuterol [...] - PCV) 10/17/1987 COVID-19 Vaccine (3 - 2024-2 6 season) 2024 10/29/2020, 10/08/2020 Influenza Adult (#1) 2024 12/22/2020 [...] MEDICAL REIMBURSEMENTS OF [place] [employer] Care Teams Electronic Commerce Specialist Relationship Specialty Start Date End Date Quentin Gurrola MD [address] [place] [address] [facility] - General 06/12/22
--- OUTSIDE RECORDS SUMMARY | 2025-01-05 11:27 | XMS_ITS | Encounter Summary ---
Author Organization [facility] Address [facility] [place] [address] Care Team Providers Care Wood Grinder Name Role Phone Brie Carrington Primary Care Provider [phone] Quentin Gurrola MD Primary Care Provider [phone] Encounter Details Date Type Department Care Team (Late st Contact Info) Description 06/16/2017 Abstract [facility] CONVERSION [address] [place] [address] , Generic ConversionMD Social History Tobacco Use [...] on filedocumented in this encounter Care Teams Wood Grinder Relationship Specialty Start Date End Date Brie Carrington PA [address] [place] [address] PCP - General PHYSICIAN CULTURAL CENTRE MANAGER 02/18/19 06/11/22 Quentin Gurrola MD [address] [place] [address] PCP - General 06/12/22 documented as of this encounter
--- OUTSIDE RECORDS SUMMARY | 2025-01-05 11:27 | XMS_ITS | Clinical Summary ---
Author Organization [facility] Address [address] [place] [address] Care Team Providers Care Strip Machine Operator Name Role Phone Brie Carrington Primary Care Provider [phone] Allergies No known active allergies Medications metFORMIN [...] (04/17/2019): Added automatically from request for surgery [id number] Numbness and tingling in right hand 12/09/2018 Carpal tunnel syndrome on right 10/17/2018 Overview (10/17/2018): Added automatically from request for surgery [id number] Carpal tunnel syndrome of left wrist 10/17/2018 Overview (10/17/2018): Added automatically from request for surgery [id number] Carpal tunnel syndrome, right 09/26/2018 Carpal tunnel syndrome, left 09/26/2018 Cubital tunnel syndrome, left 09/26/2018 Surgical History Surgery Date Site/Laterality Comments CARPAL TUNNEL RELEASE 11/06/2018 Right Medical History Medical History Date Comments Diverticulitis of colon 2 years ago, no surgery needed COPD (chronic obstructive pu lmonary disease) uses home nebulizer, no home O2, never needs rescue inhaler. Hypertension well controlled with meds Type 2 diabetes mellitus well co ntrolled with meds Dyslipidemia Family History Medical History Relation Name Comments Alcohol abuse Father Cancer Father Alcohol abuse Mother Relation Name Status Comments Father Mother Social History Tobacco Use Types Packs/Day Years Used Date Smoking Tobacco: Every Day Cigarettes 1.5 40.8 Started: 1984 Smokeless Tobacco: Never Alcohol Use Standard Drinks/Week Comments Yes 5 (1 standard drink = 0.6 oz pur e alcohol) occasional, 5 per week Personal Safety Answer Date Recorded Getting School Help Needed Not on file 04/03 Sex and Gender Information Value Date Recorded Sex Assigned at Not on file Legal Sex Male 9:26 AM MANAGER DAIRY Gender Identity Not on file Sexual Orientation Not on file Obstetrics History Last Filed Vital Signs Vital Sign Reading Time Taken Comments Blood Pressure 134/88 04/30/2019 10:28 AM MANAGER DAIRY Pulse 79 04/30/2019 10:25 AM MANAGER DAIRY Temperature 36.6 C (97.9 F) 04/30/2019 10:10 AM MANAGER DAIRY Respiratory Rate 17 04/30/2019 10:2 5 AM MANAGER DAIRY Oxygen Saturation 94% 04/30/2019 10: 28 AM MANAGER DAIRY Inhaled Oxygen Concentration - - Weight 126.9 kg (279 lb 11.2 oz) 04/30/2019 7:13 AM MANAGER DAIRY Height 177.8 cm (5' 10) 04/30/2019 7:13 AM MANAGER DAIRY Body Mass Index 40.13 04/30/2019 7:13 AM MANAGER DAIRY Plan of Treatment Not on file Insurance [facility] H[facility] Advance Directives For more information, please contact: [phone] * Full Code (Latest Code Status on File) Date Activated Date Inactivated Comments 04/30/2019 9:43 AM 04/30/2019 2:48 PM * Full Code Date Activated Date Inactivated Comments 11/06/2018 8:49 AM 11/06/2018 1:37 PM Care Teams Strip Machine Operator Relationship Specialty Start Date End Date Brie Carrington PA [facility]im [facility] [place] [address] PCP - General Emergency Medicine 09/26/18
--- OUTSIDE RECORDS SUMMARY | 2025-01-05 11:27 | XMS_ITS | Encounter Summary ---
Author Organization [facility] Address [address] [place] [address] Care Team Providers Care Director Of Curriculum Name Role Phone Brie Carrington Primary Care Provider [phone] Quentin Gurrola MD Primary Care Provider [phone] Encounter Details Date Type Department Care Team (Late st Contact Info) Description 09/07/2018 Abstract [facility] CONVERSION [address] [place] [address] , Generic ConversionMD Social History Tobacco Use [...] in this encounter Care Teams Director Of Curriculum Relationship Specialty Start Date End Date Brie Carrington PA [address] [place] [address] PCP - General PHYSICIAN PRACTICE OFFICE ASSOCIATE 02/18/19 06/11/22 Quentin Gurrola MD [address] [place] [address] PCP - General 06/12/22 documented as of this encounter
--- OUTSIDE RECORDS SUMMARY | 2025-01-05 11:27 | XMS_ITS | Clinical Summary ---
Author Organization [facility] Address [address] [place] [address] Care Team Providers Care Ribbon Hanking Machine Operator Name Role Phone Unavailable Primary Care Provider Unavailabl e Source Comments [facility],non-owned Affiliates and Associated Physician Practices is amultiple site organization consisting of ambulatory clinics and hospital sitesin [place] and [place]. This disclosure is being madepursuant to the Care Everywhere program and may not contain all information available regarding this patient. Last updated 17.[facility] Social History Tobacco Use Types Packs/Day Years [...] 10/17/1987 ZOSTER VACCINE (1 of 2) 2018 DEPRESSION SCREENING 04/02/2024 COVID-19 VACCINE (1 - 2023-2 5 season) 2024 INFLUENZA VACCINE (#1) 2024 HIB VACCINE Aged [...]
== END 2025-01-05 10:14 | disposition home or self-care (01) ==
LOC: CHSLAB 10:15
PROVIDERS: PCP Family Medicine; Visit Provider Family Medicine
DX: E11.9 Type 2 diabetes mellitus without complications (principal); I10 Essential (primary) hypertension; Z12.5 Encounter for screening for malignant neoplasm of prostate
CPT/HCPCS: 36415; 80053; 80061; 81003; 83036; 84153; 85027; G0103

== ENCOUNTER 2025-01-26 08:48 | Emergency (ER) | payer OTHER, SELFPAY ==
[2025-01-26] VITALS (13 sets, daily range): BP systolic 137–152; BP diastolic 101–125; PULSE 90–104; RESP 16–28; TEMP 37.1; O2SAT 91–100
--- NOTE | ~2025-01-26 | XR_ITS ---
EXAMINATION: XR chest 2V 01/26/2025 10:13 INDICATION: Shortness of breath TECHNIQUE:Frontal and lateral images of the chest were obtained. COMPARISON: None available FINDINGS: The lungs are clear. The cardiomediastinal silhouette is within normal limits. There are no pleural effusions. There is no pneumothorax suspected. IMPRESSION: 1: NO ACUTE CARDIOPULMONARY DISEASE. Reviewed, dictated and finalized at location Q.
--- NOTE | 2025-01-26 08:49 | ED_ITS ---
HPI - SOB/Dyspnea General Chief Complaint: Shortness of Breath/Dyspnea Stated Complaint: COPD Exacerbation Time Seen by Provider: 01/26/25 08:48 Source: patient Mode of arrival: ambulatory Limitations: no limitations History of Present Illness HPI Narrative: Patient is a 54-year-old male with shortness of breath this morning but more so for the past 3 days. No chest pain per se but a pressure-like feeling on the chest was noted. Clear to yellow sputum. No green or yellow. No fever chills. He has been doing home nebs without success. He sees a bag sewer. MD elicited complaint: shortness of breath and cough Pertinent past history: COPD Onset (ago): day(s) (Three) Context: other (Patient having worsening shortness of breath over the past 3 days) Timing: constant and progressively worsening Severity: moderate Exacerbating factors: exertion and talking Relieving factors: nothing Known history of: COPD Associated symptoms: sputum production and chest congestion Treatment prior to arrival: bronchodilator Related Data Home oxygen amount: none Home Medications ?Medication ?Instructions ?Recorded ?Confirmed ?Last Taken ?Type simvastatin 40 mg tablet 40 mg PO DAILY 05/01/19 0609/24 Unknown History gabapentin 300 mg capsule 300 mg PO BID 08/13/2009/05 Unknown History irbesartan 150 1 tablet PO DAILY 08/25/21 0 09/05/24 Unknown History mg-hydrochlorothiazide 12.5 mg tablet budesonide-formoterol HFA 160 inhalation 01/26/25 Unk nown History mcg-4.5 mcg/actuation aerosol inhaler cephalexin 500 mg tablet mg 01/26/25 Unknown History sulfamethoxazole 800 tablet 01/26/25 Unknown His tory mg-trimethoprim 160 mg tablet tirzepatide 12.5 mg/0.5 mL mg subcut 01/26/25 Unknown History subcutaneous pen injector (Mounjaro) tramadol 50 mg tablet mg 01/26/25 Unknown History trazodone 50 mg tablet mg 01/26/25 Unknown History Allergies Allergy/AdvReac Type Severity Reaction Status Date / Time No Known Allergies Allergy Verified 01/26/25 08:50 Review of Systems 2 Review of Systems: All systems reviewed & are unremarkable except as noted in HPI and below Constitutional: Constitutional: Reports no additional constitutional complaints Eyes: Eyes: Reports no additional eye complaints ENT: Reports system reviewed and no additional complaints, except as documented Cardiovascular: Cardiovascular: Reports no additional cardiovascular complaints Respiratory: Respiratory: Reports no additional respiratory complaints Gastrointestinal: Gastrointestinal: Reports no additional gastrointestinal complaints Genitourinary: Genitourinary: Reports no additional male genitourinary complaints Musculoskeletal: Musculoskeletal: Reports no additional musculoskeletal complaints Integumentary/Breasts: Skin/Breast: Reports system reviewed and no additional complaints, except as docu Neurologic: Reports system reviewed and no additional complaints, except as documented Psychiatric: Psychiatric: Reports no additional psychiatric complaints Endocrine: Endocrine: Reports no additional endocrine complaints Hematologic/Lymphatic: Hematologic/Lymphatic: Reports no additional hematologic/lymphatic complaints Allergic/Immunologic: Allergic/Immunologic: Reports no additional allergic/immunologic complaints PMFSH Past Medical History Medical History HTN (hypertension) Diabetes mellitus COPD (chronic obstructive pulmonary disease) Surgical History Surgical History History of carpal tunnel surgery of left wrist Social History Social History Social History: Currently down to 1/2ppd. Smoking packs per day: 2.5 Smoking cigarettes per day: 50.0 Years smoked: 40 Smoking pack-years: 100.00 Smoking status: Current every day smoker Tobacco type: cigarettes Alcohol intake: current Drinks per week: 2 Substance use: never Substance use type: does not use Gender identity (if verbalized by the patient): Male Sexual Orientation (if Verbalized by the Patient): Straight or Heterosexual Spiritual care concerns: No Exam 2 Const: General: ill appearing (Patient acutely short of breath) Nutritional Appearance: well nourished Orientation/consciousness: patient oriented x3 Limitations: no limitations HENMT: Head: normal to inspection Ears: external ears normal F tha/Nose/Sinus: Normal external nose present Eyes: Conjunctivae: conjunctivae normal Pupils: Equal, round and reactive pupils present EOM: EOMs intact bilaterally Neck: Neck: normal visual inspection Chest: Chest palpation & inspection: normal inspection of the chest Resp: Effort & Inspection: abnormal respiratory effort, not labored, no retractions, tachypneic and no use of accessory muscles Auscultation: not clear to auscultation bilaterally, no crackles, no rales, no rhonchi, wheezes (Bilateral lower lung goddard and expiratory), breath sounds present and diminished lung sounds Cardio: Rate: regular rate Rhythm: regular rhythm Heart sounds: no murmurs GI: Inspection: non-distended GI Palp: Yes Soft to palpation and No Tenderness to palpation present (GI) Auscultation: normal bowel sounds Back/Spine/Pelvis: Back: no CVA tenderness Skin: General skin exam: normal color Rashes: no rashes Wounds: no wounds Neuro: General: patient oriented x3, moves all extremities and no meningeal signs Extrem: General: normal to inspection, no clubbing, cyanosis or edema and no pedal edema Psych: Mental Status: mental status grossly normal Affect: normal affect Attitude: cooperative Course Vital Signs Vital signs: Vital Signs Temperature 37.1 C 01/26/25 08:50 Pulse Rate 97 01/26/25 08:50 Respiratory Rate 28 H 01/26/25 08:50 Blood Pressure 152/125 H 01/26/25 08:50 Pulse Oximetry 96 01/26/25 08:50 Oxygen Delivery Room Air 01/26/25 08:50 Temperature 37.1 C 01/26/25 08:50 Pulse Rate 96 01/26/25 09:58 Respiratory Rate 20 01/26/25 09:58 Blood Pressure 137/103 H 01/26/25 10:06 Pulse Oximetry 91 01/26/25 10:30 Oxygen Delivery Room Air 01/26/25 08:50 Oxygen Flow Rate 0 01/26/25 09:58 MDM - SOB/Dyspnea MDM Narrative Medical decision making narrative: Patient is a 54-year-old male with shortness of breath for the past 3 days getting worse at this time. We will do a cardiopulmonary workup this time. DuoNebs. IV steroids. Lab Data Attestation: I reviewed the patient's lab results. 01/26/25 09:05 01/26/25 09:05 Labs: Lab Results 01/26/25 01/26/25 01/26/25 Range/Units 09:05 09:05 09:19 WBC 6.6 (4.8-10.8) K/mm3 RBC 6.12 H (4.70-6.10) M/mm3 Hgb 17.8 (14.0-18.0) g/dL Hct 53.8 (40.0-54.0) % MCV 87.9 (78.0-102.0) fL MCH 29.1 (27.0-31.0) pg MCHC 33.1 (32-36) g/dL RDW 12.5 (11.6-14.4) % Plt Count 222 (150-420) K/mm3 MPV 9.0 (8.7-11.0) fl Immature Gran % (Auto) 0.5 H (0.0-0.0) % Neut % (Auto) 57.3 (50.0-70.0) % Lymph % (Auto) 27.6 (18.0-42.0) % [place] % (Auto) 10.3 (2.0-11.0) % Eos % (Auto) 3.5 (1.0-6.0) % Baso % (Auto) 0.8 (0.0-1.0) % Lymph # (Auto) 1.82 (1.10-4.50) K/mm3 [place] # (Auto) 0.68 (0.10-0.90) K/mm3 Eos # (Auto) 0.23 (0.02-0.50) K/mm3 Baso # (Auto) 0.05 (0.00-0.10) K/mm3 Abs Immat Gran (auto) 0.03 H (0.00-0.00) K/mm3 Absolute Neuts (auto) 3.78 (1.70-7.20) K/mm3 Absolute Nucleated RBC 0.00 (0.00-0.00) K/mm3 Nucleated RBC % 0.0 (0-0.0) % D-Dimer 0.19 (0.19-0.50) mg/L Sodium 141 (137-145) mmol/L Potassium 4.3 (3.4-5.0) mmol/L Chloride 104 (98-107) mmol/L Carbon Dioxide 26 (22-30) mmol/L Anion Gap 11 (4-12) mmol/L BUN 14 (9-20) mg/dL Creatinine 0.97 (0.7-1.3) mg/dL Estim Creat Clear Calc Not Reportable Estimated GFR > 60 (59 - ) Glucose 141 H (65-110) mg/dL Calculated Osmolality 294 (285-295) mOsm/kg Lactic Acid 1.7 (0.4-2.0) mmol/L Calcium 10.0 (8.4-10.2) mg/dL Total Bilirubin 0.7 (0.2-1.3) mg/dL AST 46 (17-59) U/L ALT 57 H (6-50) U/L Alkaline Phosphatase 71 (38-126) U/L Troponin I < 0.012 Cancelled (0.000-0.034) ng/mL NT-Pro-B Natriuret Pep < 20 (19.9-100) pg/mL Total Protein 9.8 H (6.3-8.2) g/dL Albumin 4.9 (3.5-5.1) g/dL Influenza A (RT-PCR) Negative (Negative) Influenza B (RT-PCR) Negative (Negative) RSV (RT-PCR) Negative (Negative) SARS-CoV-2 RNA (RT-PCR) Negative (Negative) Imaging Data Attestation: I personally reviewed and interpreted this imaging study as follows: Radiologist's impression: Chest x-rays negative for acute process ECG Data EKG #1: Attestation: I personally reviewed and interpreted this ECG as follows: ECG completion date: 01/26/25 ECG completion time: 10:05 EKG Interpretation: normal rate, sinus rhythm, no ectopy, no ST changes, normal QRS, normal QT and NL axis Discharge Plan Discharge Clinical Impression: Acute exacerbation of chronic obstructive pulmonary disease Patient Disposition: Home Condition: Stable Instructions: Antibiotic Form, COPD (Chronic Obstructive Pulmonary Disease) (DC) Additional Instructions: Please follow-up with primary doctor in the next week. Patient Language: Mongolian Prescriptions: New prednisone 20 mg tablet 40 mg PO DAILY 4 Days Qty: 8 0RF amoxicillin-pot clavulanate 875-125 mg tablet 1 tablet PO BID 7 Days Qty: 14 0RF ipratropium-albuterol 0.5 mg-3 mg(2.5 mg base)/3 mL solution for nebulization 3 ml inhalation Q8H PRN (Reason: shortness of breath) Qty: 90 0RF No Action trazodone 50 mg tablet sulfamethoxazole-trimethoprim 800-160 mg tablet tramadol 50 mg tablet cephalexin 500 mg tablet budesonide-formoterol 160-4.5 mcg/actuation HFA aerosol inhaler INHALATION Mounjaro 12.5 mg/0.5 mL pen injector SUBCUT simvastatin 40 mg tablet 40 mg PO DAILY gabapentin 300 mg capsule 300 mg PO BID irbesartan-hydrochlorothiazide 150-12.5 mg tablet 1 tablet PO DAILY albuterol sulfate 0.63 mg/3 mL solution for nebulization 0.63 mg inhalation Q4-6H PRN (Reason: Shortness Of Breath Or Wheezing) Qty: 75 0RF albuterol sulfate 90 mcg/actuation HFA aerosol inhaler 2 puff inhalation QID PRN (Reason: shortness of breath or wheezing) Qty: 8.5 0RF Trelegy Ellipta 100-62.5-25 mcg blister with device 1 inh inhalation Q24H Qty: 60 11RF Rx Instructions: rinse and spit Follow-up/Referrals: Quentin Gurrola MD [Primary Care Provider, Internal Medicine] Time of Disposition: 10:43
--- NOTE | 2025-01-26 08:49 | ECG_ITS ---
Test Date: 2025-01-26 09:07:01 Measurements Intervals [place] Rate: 87 P: 57 WA: 175 QRS: 64 QRSD: 111 T: 71 QT: 345 QTc: 417 Interpretive Statements SINUS RHYTHM INCOMPLETE RIGHT BUNDLE BRANCH BLOCK BASELINE ARTIFACT- AVF BORDERLINE ECG No previous ECG available for comparison Electronically Signed On 01-26-2025 09:49:07 CDT by Bryan Juares D.O.
[2025-01-26] MEDS: IPRATROPIUM 0.5 MG/ALBUTEROL SULFATE 2.5 MG (BASE) AMPUL.NEB 3 ML INHALATION ×2 (09:00→09:51)
[2025-01-26 09:16] LABS: Hematocrit 53.8 % (40.0-54.0); Hemoglobin 17.8 g/dL (14.0-18.0); Immature Granulocyte Percent A 0.5 % (0.0-0.0); Lymphocytes Absolute Auto 1.82 K/mm3 (1.10-4.50); Mean Corpuscular HGB Conc 33.1 g/dL (32-36); Mean Corpuscular Hemoglobin 29.1 pg (27.0-31.0); Mean Corpuscular Volume 87.9 fL (78.0-102.0); Nucleated Red Blood Cells Absolute Auto 0.00 K/mm3 (0.00-0.00); Nucleated Red Blood Cells Perc 0.0 % (0-0.0); Platelet Count Result 222 K/mm3 (150-420); Red Blood Count 6.12 M/mm3 (4.70-6.10); White Blood Count 6.6 K/mm3 (4.8-10.8)
--- OUTSIDE RECORDS SUMMARY | 2025-01-26 09:20 | XMS_ITS | Clinical Summary ---
Author Organization [facility] Address [facility] [place] [address] Care Team Providers Care Roughener Name Role Phone Quentin Gurrola MD Primary Care Provider [phone] Allergies No known active allergies Medications albuterol [...] 2024 12/22/2020 Zoster Vaccines Completed 05/25/2021, 12/22/2020 Hepatitis A Vaccines Aged Out No long er eligible based on patient's age to complete this topic Meningococcal B Vaccine Aged Out No l onger eligible based on patient's age to complete this topic Meningococcal Vaccine Aged Out No sunitha emily eligible based on patient's age to complete this topic RSV Immunizations Under 20 Months Aged Out No longer eligible b ased on patient's age to complete this topic Insurance [employer] [place] [employer] Care Teams Roughener Relationship Specialty Start Date End Date Quentin Gurrola MD [address] [place] [address] [facility] - General 06/12/22
--- OUTSIDE RECORDS SUMMARY | 2025-01-26 09:20 | XMS_ITS | Clinical Summary ---
Author Organization [facility] Address [address] [place] [address] Care Team Providers Care Junior Financial Analyst Name Role Phone Unavailable Primary Care Provider Unavailabl e Source Comments [facility],non-owned Affiliates and Associated Physician Practices is amultiple site organization consisting of ambulatory clinics and hospital sitesin [place], [place], [place] and [place]. This disclosure is being madepursuant to the Care Everywhere program and may not contain all information available regarding this patient. Last updated 17.[facility] Social History Tobacco Use Types Packs/Day Years [...]
--- OUTSIDE RECORDS SUMMARY | 2025-01-26 09:20 | XMS_ITS | Encounter Summary ---
Author Organization [facility] Address [address] [place] [address] Care Team Providers Care County Agricultural Agent Name Role Phone Brie Carrington Primary Care Provider [phone] Quentin Gurrola MD Primary Care Provider [phone] Encounter Details Date Type Department Care Team (Late st Contact Info) Description 09/07/2018 Abstract SFL CONVERSION [address] [place] [address] , Generic ConversionMD Social History Tobacco Use [...] on filedocumented in this encounter Care Teams County Agricultural Agent Relationship Specialty Start Date End Date Brie Carrington PA [address] [place] [address] PCP - General PHYSICIAN ASSISTANT PROFESSOR OF DIETETICS 02/18/19 06/11/22 Quentin Gurrola MD [address] [place] [address] PCP - General 06/12/22 documented as of this encounter
--- OUTSIDE RECORDS SUMMARY | 2025-01-26 09:20 | XMS_ITS | Clinical Summary ---
Author Organization [facility] Address [address] [place] [address] Care Team Providers Care Overhead Cleaner Name Role Phone Brie Carrington Primary Care Provider [phone] Allergies No known active allergies Medications metFORMIN [...] (04/17/2019): Added automatically from request for surgery [id number] Numbness and tingling in right hand 12/09/2018 Carpal tunnel syndrome on right 10/17/2018 Overview (10/17/2018): Added automatically from request for surgery [id number] Carpal tunnel syndrome of left wrist 10/17/2018 Overview (10/17/2018): Added automatically from request for surgery [id number] Carpal tunnel syndrome, right 09/26/2018 Carpal tunnel [...] on file Legal Sex Male 9:26 AM KAPOK MACHINE OPERATOR Gender Identity Not on file Sexual Orientation Not on file Obstetrics History Last Filed Vital Signs Vital Sign Reading Time Taken Comments Blood Pressure 134/88 04/30/2019 10:28 AM KAPOK MACHINE OPERATOR Pulse 79 04/30/2019 10:25 AM KAPOK MACHINE OPERATOR Temperature 36.6 C (97.9 F) 04/30/2019 10:10 AM KAPOK MACHINE OPERATOR Respiratory Rate 17 04/30/2019 10:2 5 AM KAPOK MACHINE OPERATOR Oxygen Saturation 94% 04/30/2019 10: 28 AM KAPOK MACHINE OPERATOR Inhaled Oxygen Concentration - - Weight 126.9 kg (279 lb 11.2 oz) 04/30/2019 7:13 AM KAPOK MACHINE OPERATOR Height 177.8 cm (5' 10) 04/30/2019 7:13 AM KAPOK MACHINE OPERATOR Body Mass Index 40.13 04/30/2019 7:13 AM KAPOK MACHINE OPERATOR Plan of Treatment Not on file Insurance [facility] HMO Advance Directives For more information, please contact: [phone] * Full Code (Latest Code Status on File) Date Activated Date Inactivated Comments 04/30/2019 9:43 AM 04/30/2019 2:48 PM * Full Code Date Activated Date Inactivated Comments 11/06/2018 8:49 AM 11/06/2018 1:37 PM Care Teams Overhead Cleaner Relationship Specialty Start Date End Date Brie Carrington PA Joaquim Perry [facility] [place] [address] PCP - General Emergency Medicine 09/26/18
--- OUTSIDE RECORDS SUMMARY | 2025-01-26 09:20 | XMS_ITS | Encounter Summary ---
Author Organization [facility] Address [facility] [place] [address] Care Team Providers Care Music Engraver Name Role Phone Brie Carrington Primary Care Provider [phone] Quentin Gurrola MD Primary Care Provider [phone] Encounter Details Date Type Department Care Team (Late st Contact Info) Description 06/16/2017 Abstract SJS CONVERSION [address] [place] [address] , Generic ConversionMD Social History Tobacco Use [...] on filedocumented in this encounter Care Teams Music Engraver Relationship Specialty Start Date End Date Brei Carrington PA [address] [place] [address] PCP - General PHYSICIAN SENIOR UX DEVELOPER 02/18/19 06/11/22 Quentin Gurrola MD [address] [place] [address] PCP - General 06/12/22 documented as of this encounter
--- NOTE | 2025-01-26 09:23 | PC.NURSE ---
Covid culture sent to lab
[2025-01-26 09:33] LABS: Alanine Aminotransferase 57 U/L (6-50); Albumin Level 4.9 g/dL (3.5-5.1); Alkaline Phosphatase 71 U/L (38-126); Anion Gap 11 mmol/L (4-12); Aspartate Amino Transferase 46 U/L (17-59); Bilirubin,Total 0.7 mg/dL (0.2-1.3); Blood Urea Nitrogen 14 mg/dL (9-20); Calcium 10.0 mg/dL (8.4-10.2); Carbon Dioxide 26 mmol/L (22-30); Chloride 104 mmol/L (98-107); Estimated Glomerular Filt Rate > 60; Glucose 141 mg/dL (65-110); Osmolality Calculated 294 mOsm/kg (285-295); Potassium 4.3 mmol/L (3.4-5.0); Sodium 141 mmol/L (137-145); Total Protein 9.8 g/dL (6.3-8.2)
[2025-01-26 09:45] LABS: NT Pro B Type Natriuretic Pept < 20 pg/mL (19.9-100); Troponin I < 0.012 ng/mL (0.000-0.034)
[2025-01-26 10:03] LABS: Influenza A QL RT-PCR Negative (Negative); Influenza B QL RT-PCR Negative (Negative); RSV RNA, RT-PCR Negative (Negative); SARS-CoV-2 RNA PCR Negative (Negative)
--- NOTE | 2025-01-26 10:06 | PC.NURSE ---
MD Akanksha made aware of pt's elevated BP. No orders given at this time.
--- NOTE | 2025-01-29 13:00 | PC.NURSE ---
blood culture, preliminary, no growth
--- NOTE | 2025-01-30 15:00 | PC.NURSE ---
blood culture, preliminary no growth
--- NOTE | 2025-02-02 14:44 | PC.NURSE ---
FINAL BLOOD CULTURE REPORT; NO GROWTH IN 5 DAYS.
== END 2025-01-26 10:56 | disposition home or self-care (01) ==
PROVIDERS: Emergency Provider Emergency Medicine; PCP Family Medicine
DX: J44.1 Chronic obstructive pulmonary disease with (acute) exacerbation (principal); I10 Essential (primary) hypertension; E11.9 Type 2 diabetes mellitus without complications; F17.210 Nicotine dependence, cigarettes, uncomplicated; Z79.899 Other long term (current) drug therapy; Z20.822 Contact with and (suspected) exposure to COVID-19
CPT/HCPCS: 36415; 71046; 80053; 83605; 83880; 84484; 85025; 85380; 87637; 93005; 94640; 96374; 99284; J2919

== ENCOUNTER 2025-03-06 15:26 | Outpatient (CLI) | payer OTHER, SELFPAY ==
--- NOTE | ~2025-03-06 | XR_ITS ---
[id number] Indication: Rt. side cervical pain radiates down Rt. arm into fingertips Comparison: None Findings: The vertebral heights are intact. No fracture or subluxation. The disc heights are intact. Soft tissues unremarkable Impression: No acute abnormality. Reviewed, dictated and finalized at location P. INGIZER Impression: No acute abnormality.
--- OUTSIDE RECORDS SUMMARY | 2025-03-06 15:45 | XMS_ITS | Clinical Summary ---
Author Organization [facility] Address [address] [place] [address] Care Team Providers Care Diet Clerk Name Role Phone Brie Carrington Primary Care Provider [phone] Allergies No known active allergies Medications metFORMIN [...] (04/17/2019): Added automatically from request for surgery [id number] Numbness and tingling in right hand 12/09/2018 Carpal tunnel syndrome on right 10/17/2018 Overview (10/17/2018): Added automatically from request for surgery [id number] Carpal tunnel syndrome of left wrist 10/17/2018 Overview (10/17/2018): Added automatically from request for surgery [id number] Carpal tunnel syndrome, right 09/26/2018 Carpal tunnel [...] Date Smoking Tobacco: Every Day Cigarettes 1.5 40.9 Started: 1986 Smokeless Tobacco: Never Alcohol Use Standard Drinks/Week Comments Yes 5 (1 standard drink = 0.6 oz pur e alcohol) occasional, 5 per week Personal Safety Answer Date Recorded Getting School Help Needed Not on file 04/03 Sex and Gender Information Value Date Recorded Sex Assigned at Not on file Legal Sex Male 9:26 AM THREAD DRESSER Gender Identity Not on file Sexual Orientation Not on file Last Filed Vital Signs Vital Sign Reading Time Taken Comments Blood Pressure 134/88 04/30/2019 10:28 AM THREAD DRESSER Pulse 79 04/30/2019 10:25 AM THREAD DRESSER Temperature 36.6 C (97.9 F) 04/30/2019 10:10 AM THREAD DRESSER Respiratory Rate 17 04/30/2019 10:2 5 AM THREAD DRESSER Oxygen Saturation 94% 04/30/2019 10: 28 AM THREAD DRESSER Inhaled Oxygen Concentration - - Weight 126.9 kg (279 lb 11.2 oz) 04/30/2019 7:13 AM THREAD DRESSER Height 177.8 cm (5' 10) 04/30/2019 7:13 AM THREAD DRESSER Body Mass Index 40.13 04/30/2019 7:13 AM THREAD DRESSER Plan of Treatment Not on file Insurance [facility] HMO Advance Directives For more information, please contact: [phone] * Full Code (Latest Code Status on File) Date Activated Date Inactivated Comments 04/30/2019 9:43 AM 04/30/2019 2:48 PM * Full Code Date Activated Date Inactivated Comments 11/06/2018 8:49 AM 11/06/2018 1:37 PM Care Teams Diet Clerk Relationship Specialty Start Date End Date Brie Carrington PA Joaquim Perry [facility] [place] [address] PCP - General Emergency Medicine 09/26/18
--- OUTSIDE RECORDS SUMMARY | 2025-03-06 15:45 | XMS_ITS | Clinical Summary ---
Author Organization [facility] Address [facility] [place] [address] Care Team Providers Care Mechanical Design Engineer Name Role Phone Quentin Gurrola MD Primary Care Provider [phone] Allergies No known active allergies Medications albuterol [...] [employer] [employer] Care Teams Mechanical Design Engineer Relationship Specialty Start Date End Date Quentin Gurrola MD [address] [place] [address] [facility] - General 06/12/22
--- OUTSIDE RECORDS SUMMARY | 2025-03-06 15:46 | XMS_ITS | Encounter Summary ---
Author Organization [facility] Address [address] [place] [address] Care Team Providers Care Licensed Therapist Name Role Phone Brie Carrington Primary Care Provider [phone] Quentin Gurrola MD Primary Care Provider [phone] Encounter Details Date Type Department Care Team (Late st Contact Info) Description 09/07/2018 Abstract SFL CONVERSION [address] [place] [address] , Generic ConversionMD Social History Tobacco Use [...] on filedocumented in this encounter Care Teams Licensed Therapist Relationship Specialty Start Date End Date Brie Carrington PA [address] [place] [address] PCP - General 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
--- OUTSIDE RECORDS SUMMARY | 2025-03-06 15:46 | XMS_ITS | Encounter Summary ---
Author Organization [facility] Address [facility] [place] [address] Care Team Providers Care Switch Cleaner Name Role Phone Brie Carrington Primary Care Provider [phone] Quentin Gurrola MD Primary Care Provider [phone] Encounter Details Date Type Department Care Team (Late st Contact Info) Description 06/16/2017 Abstract SJS CONVERSION [address] [place] [address] , Generic ConversionMD Social History Tobacco Use [...] on filedocumented in this encounter Care Teams Switch Cleaner Relationship Specialty Start Date End Date Brie Carrington PA [address] [place] [address] PCP - General 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
--- OUTSIDE RECORDS SUMMARY | 2025-03-06 15:46 | XMS_ITS | Clinical Summary ---
Author Organization [facility] Address [address] [place] [address] Care Team Providers Care Tobacco Cutter Name Role Phone Unavailable Primary Care Provider Unavailabl e Source Comments [facility],non-owned Affiliates and Associated Physician Practices is amultiple site organization consisting of ambulatory clinics and hospital sitesin [place], [place], [place] and [place]. This disclosure is being madepursuant to the Care Everywhere program and may not contain all information available regarding this patient. Last updated 17.[facility] Social History Tobacco Use Types Packs/Day Years [...] DEPRESSION SCREENING 04/02/2024 COVID-19 VACCINE (1 - 2024-2 6 season) 2024 INFLUENZA VACCINE (#1) 2024 HIB [...]
== END 2025-03-06 15:27 | disposition home or self-care (01) ==
PROVIDERS: PCP Family Medicine; Visit Provider Family Medicine
DX: M54.2 Cervicalgia (principal)
CPT/HCPCS: 72040

== ENCOUNTER 2025-03-10 12:10 | Outpatient (CLI) | payer OTHER, SELFPAY ==
--- NOTE | 2025-04-01 22:01 | P.PCNHOL_ITS ---
Holter/Event Monitor Holter/Event Monitor Date of procedure: 03/10/25 Holter/Event Procedure: Event Monitor Indications: Palpitations Conclusion: 1. 14 days event monitor on 03/10/25. 2. Predominant rhythm is sinus rhythm. HR range 53-146 bpm; average 86 bpm. 3. There are rare premature supraventricular complexes, rare supraventricular couplets, and rare supraventricular triplets. There are 2 episodes of supravent ricular tachycardia with fastest at 146 bpm and longest lasting 4 beats. 4. There are occasional premature ventricular complexes, rare ventricular couplets, longest lasting ventricular bigeminy was 3.9 seconds, longest lasting ventricular trigeminy was 6.1 seconds. No ventricular tachycardia. 5. No significant pauses greater than 3 seconds. 6. No sympotms available for correlation.
== END 2025-03-10 12:11 | disposition home or self-care (01) ==
LOC: CHSCARD 12:11
PROVIDERS: PCP Family Medicine; Visit Provider Family Medicine
DX: R00.2 Palpitations (principal)
CPT/HCPCS: 93246